=== PATIENT | female | born 1945 | race Caucasian/White ===

== ENCOUNTER 2019-04-19 09:36 | Emergency (ER) | payer MEDICARE, BC, SELFPAY ==
--- NOTE | ~2019-04-19 | XR_ITS ---
XR shoulder LT min 2V 04/19/2019 10:08 Indication: Left shoulder pain. No trauma. Procedure: 4 views left shoulder Comparison: No prior studies for comparison. Findings: There is moderate osteoarthritis of the left glenohumeral joint. No acute fracture or traum atic malalignment. Surrounding osseous structures and soft tissues are unremarkable. Acromioclavicula r joint within normal limits. Impression: 1: Moderate osteoarthritis of the left glenohumeral joint. Reviewed, dictated and finalized at location A. ORT UTILITY WORKER Impression: 1: Moderate osteoarthritis of the left glenohumeral joint.
[2019-04-19 09:43] VITALS: BP 177/60; PULSE 80; RESP 18; TEMP 37.1; O2SAT 95
--- NOTE | 2019-04-19 09:50 | ED.UPPEXIN ---
HPI - Extremity Injury (Upper) General Chief Complaint: Extremity Injury, Upper Stated Complaint: L shoulder pain Time Seen by Provider: 04/19/19 09:48 Source: patient Mode of arrival: ambulatory Limitations: no limitations History of Present Illness HPI narrative: The pt is a 74 y/o female who presents to the ED with c/o lt shoulder pain that began last night. The pt states that she went to bed around 21:30 last night and noticed her shoulder pain at 00:30 when getting up to go to the bathroom in the middle of the night. The pt took Tramadol at this time without much relief of sx, which she is prescribed for arthritis of her knees, feet, and back. Her pain radiates up her lt neck and down her lt arm and is aggravated with movement. The pt denies numbness, tingling, or fever, and notes that she has not had any recent falls nor this type of pain in the past. MD complaint: injury to: shoulder (lt shoulder pain) Onset (ago): hour(s) (last night) Relieving factors: none Exacerbating factors: movement of extremity Associated symptoms: denies other symptoms Related Data Home Medications Medication Instructions Recorded Confirmed alprazolam 04/19/19 amiodarone 04/19/19 atorvastatin [Lipitor] 04/19/19 benazepril 04/19/19 doxazosin mg 04/19/19 ergocalciferol (vitamin D2) mcg PO 04/19/19 esomeprazole magnesium [Nexium] mg 04/19/19 indapamide mg 04/19/19 metformin 500 mg PO BID 04/19/19 potassium chloride [Klor-Con] 04/19/19 rivaroxaban [Xarelto] mg 04/19/19 tramadol mg 04/19/19 venlafaxine [Effexor XR] mg PO 04/19/19 Allergies Allergy/AdvReac Type Severity Reaction Status Date / Time levofloxacin Allergy Unknown PT DOESNT Verified 04/19/19 09:46 REMEBER Review of Systems Review of Systems: All systems reviewed & are unremarkable except as noted in HPI and below Constitutional: Constitutional: Denies fever(s) Musculoskeletal: Musculoskeletal: Reports other (lt shoulder pain) Neurologic: Denies numbness and Denies other (tingling) PMFSH Past Medical History Medical History (Updated 04/19/19 @ 11:23 by Aiyana Wolff MD) A-fib Anxiety Arthritis Back pain Depression Diverticulitis Eczema Gall bladder disease GERD (gastroesophageal reflux disease) Hemorrhoids Hiatal hernia Hyperlipidemia Hypertension Irritable bowel Sleep apnea Type 2 diabetes mellitus UTI (urinary tract infection) Surgical History Surgical History (Updated 04/19/19 @ 10:01 by Shaniqua Ahuja) History of dilatation and curettage History of hernia surgery History of total knee replacement (TKR) rt knee Hx of cholecystectomy Social History Social History (Updated 04/19/19 @ 10:01 by Shaniqua Ahuja) Smoking status: Never smoker Gender identity (if verbalized by the patient): Female Exam Narrative: Exam Narrative: GENERAL: Well-appearing, well-nourished, and in no acute distress. HEAD: Normocephalic, atraumatic EYES: PERRLA and EOMI, conjunctiva clear without discharge THROAT:Mucous membranes moist, Oropharynx normal without erythema, exudate, peritonsillar swelling or fluctuance NECK: Supple, without lymphadenopathy or mass RESPIRATORY: No respiratory distress, Airway patent, Respirations non-labored, Clear to auscultation without rales, rhonchi or wheeze HEART: Regular rate and rhythm. No murmur heard. Normal peripheral pulses. ABDOMEN: Soft, nontender, nondistended, normal active bowel sounds. No masses. No rebound or guarding, No organomegaly. EXTREMITIES: No edema, patient has full passive ROM. She has pain with abduction and palpation anteriorly, no redness, no increased warm. able to move normally at elbow and distally SKIN: Warm, dry, normal color without rash NEURO: Alert and oriented x3. CN 2-12 grossly intact. No focal deficits. PSYCH: Normal mood and affect. Course Reevaluation(s) Reevaluation #1: PAtient states her pain has improved. I discussed xray shows moderate OA.
[2019-04-19] MEDS: HYDROMORPHONE HCL 1 MG/ML INJ 0.5 MG IV PUSH (10:12)
[2019-04-19] MEDS: ONDANSETRON INJ 4 MG/2 ML VIAL IV PUSH (10:13)
[2019-04-19 10:22] LABS: Basophils Absolute Auto 0.1 K/mm3 (0.0-0.1); Basophils Percent Auto 0.4 % (0.2-1.2); Eosinophils Percent Auto 0.3 % (0-4.4); Hematocrit 32.7 % (37.0-47.0); Hemoglobin 9.8 g/dL (12.0-15.0); Immature Granulocyte Absolute 0.03 K/mm3 (0.00-0.031); Immature Granulocyte Percent A 0.3 % (0-0.5); Lymphocytes Absolute Auto 1.65 K/mm3 (0.9-3.2); Lymphocytes Percent Auto 14.8 % (18.3-44.2); Mean Corpuscular Hemoglobin 25.7 pg (26-34); Mean Corpuscular Volume 85.6 fl (80-100); Mean Platelet Volume 9.3 fl (7.4-10.4); Monocytes Absolute Auto 0.9 K/mm3 (0.1-0.6); Monocytes Percent Auto 8.4 % (2.6-8.5); Neutrophils Absolute Auto 8.4 K/mm3 (1.3-6.7); Neutrophils Percent Auto 75.8 % (45.5-73.1); Platelet Count Result 270 k/mm3 (150-375); Red Blood Count 3.82 M/mm3 (4.2-5.4); Red Cell Distribution Width 15.9 % (11.5-14.5); White Blood Count 11.1 K/mm3 (4.5-10.0)
[2019-04-19 10:32] LABS: INR 1.1; Prothrombin Time 14.3 Seconds (11.1-14.7)
[2019-04-19 10:33] LABS: Partial Thromboplastin Time 29.2 SECONDS (22.3-36.8)
[2019-04-19 10:47] VITALS: TEMP 37.1
[2019-04-19 10:47] LABS: Blood Urea Nitrogen 14 mg/dL (7-17); Calcium 8.7 mg/dL (8.4-10.2); Carbon Dioxide 31 mmol/L (22-30); Chloride 102 mmol/L (98-107); Estimated CRCL calculation 84 ml/min; Estimated Glomerular Filt Rate > 60; Glucose 115 mg/dL (65-105); Potassium 3.5 mmol/L (3.4-5.0); Sodium 140 mmol/L (137-145)
[2019-04-19 10:48] VITALS: BP 150/48; PULSE 65; RESP 18; O2SAT 95
[2019-04-19 10:57] LABS: CRP 1.2 mg/dL (<1.0)
[2019-04-19 11:43] VITALS: BP 141/48
== END 2019-04-19 11:45 | disposition home or self-care (01) ==
PROVIDERS: Emergency Provider General Practice; PCP Nurse Practitioner Adult Health
DX: M25.512 Pain in left shoulder (principal); I48.91 Unspecified atrial fibrillation; E11.9 Type 2 diabetes mellitus without complications; F41.9 Anxiety disorder, unspecified; M19.90 Unspecified osteoarthritis, unspecified site; F32.9 Major depressive disorder, single episode, unspecified; K21.9 Gastro-esophageal reflux disease without esophagitis; E78.5 Hyperlipidemia, unspecified; I10 Essential (primary) hypertension; K58.9 Irritable bowel syndrome, unspecified; G47.30 Sleep apnea, unspecified; M19.072 Primary osteoarthritis, left ankle and foot; Z79.01 Long term (current) use of anticoagulants; Z87.440 Personal history of urinary (tract) infections; Z96.651 Presence of right artificial knee joint; Z79.84 Long term (current) use of oral hypoglycemic drugs
CPT/HCPCS: 36415; 73030; 80048; 85025; 85610; 85730; 86140; 96374; 96375; 99284; A4565; J1170; J2405

== ENCOUNTER 2019-04-24 12:24 | Outpatient (CLI) | payer MEDICARE, BC, SELFPAY ==
--- NOTE | ~2019-04-24 | XR_ITS ---
EXAMINATION: XR chest 2V EXAM DATE: 04/24/2019 12:59 INDICATION: On amiodarone therapy. TECHNIQUE: Frontal and lateral projections of the chest obtained and reviewed. Comparison is made to prior examination from 05/20/2017. FINDINGS: The lungs are clear. There are no pleural effusions. The cardiomediastinal silhouette is within normal limits. There is no pneumothorax suspected. The bones and soft tissues are unremarkab le. IMPRESSION: No acute cardiopulmonary findings. Reviewed, dictated and finalized at location B. ERAGE COORDINATOR
--- NOTE | 2019-04-26 18:08 | WPDPFTINT ---
PFT Interpretation PFT Interpretation: DOS: 04/24/2019 REQUESTING: Dr. Castillo REASON FOR TESTING: Amiodarone PULMONARY FUNCTION TESTS Results are reproducible. Spirometry: Normal FEV1, FVC, FEV1%. No bronchodilator given. Lung volumes: Normal TLC and RV. Normal airway resistance. Diffusion: DLCO [61%, mildly decreased. Flow volume loop: Normal. IMPRESSION: Normal spirometry, lung volumes, and flow volume loop with a mild decrease in DLCO. Compared to a prior spirometry 01/06/2018, values are similar however only the spirometry was performed. This mild decrease in diffusion may reflect amiodarone use. Prior DLCO is not available to compare. Recommend repeating spirometry with DLCO in 6 months to follow trend. Gi Ridley MD
== END 2019-04-24 12:25 | disposition home or self-care (01) ==
LOC: ANHPFT 12:28
PROVIDERS: Visit Provider Internal Medicine Cardiovascular Disease
DX: Z79.899 Other long term (current) drug therapy (principal)
CPT/HCPCS: 71046; 94375; 94726; 94729

== ENCOUNTER 2019-04-30 14:21 | Outpatient (CLI) | payer MEDICARE, BC, SELFPAY ==
--- NOTE | ~2019-04-30 | MM_ITS ---
EXAMINATION: MM screening haydee BI w kelley HISTORY: Screening mammogram TECHNIQUE: Craniocaudal and mediolateral oblique 3-D tomosynthesis images were obtained and synthetic 2-D images were generated. CAD analysis was submitted and interpreted. COMPARISON: Comparison to multiple prior studies sequentially, with oldest reviewed study dated 03/2012. BREAST PARENCHYMAL COMPOSITION: There are scattered areas of fibroglandular density. FINDINGS: There are benign left breast calcifications. There is no evidence of suspicious mass, calci fication, or architectural distortion to suggest malignancy in either breast. There has been no suspi cious interval change. IMPRESSION: 1. No mammographic evidence of malignancy. 2. Recommend routine screening mammography in one year. BI-RADS Category 2: Benign finding(s). Reviewed, dictated and finalized at location A. CASTING OPERATOR
== END 2019-04-30 14:22 | disposition home or self-care (01) ==
LOC: ANHIMG 14:25
PROVIDERS: Visit Provider Nurse Practitioner Adult Health
DX: Z12.31 Encounter for screening mammogram for malignant neoplasm of breast (principal)
CPT/HCPCS: 77063; 77067

== ENCOUNTER 2019-08-08 18:09 | Emergency (ER) | payer MEDICARE, BC, SELFPAY ==
--- NOTE | ~2019-08-08 | XR_ITS ---
EXAMINATION: [id number] DATE: 08/08/2019 19:02 INDICATION: Left anterior rib pain. Fall. TECHNIQUE: A frontal view of the chest and 3 views of the left ribs were obtained. COMPARISON: Chest 2 views 04/24/2019 FINDINGS: There is mild atelectasis at the lung bases. No pleural effusion or pneumothorax. Cardiomeg silver is noted. IMPRESSION: 1. No rib fracture. 2. Mild atelectasis at the lung bases. 3. Cardiomegaly. Reviewed, dictated and finalized at location A.
[2019-08-08 18:16] VITALS: BP 153/49; PULSE 84; RESP 18; TEMP 36.7; O2SAT 97
[2019-08-08 18:22] VITALS: RESP 18; O2SAT 97
--- NOTE | 2019-08-08 18:28 | ED.GENADULT ---
HPI - General Adult General Chief complaint: Fall Stated complaint: Fall Time Seen by Provider: 08/08/19 18:21 History of Present Illness HPI narrative: Patient is a 74 y/o female complaining of left sided chest pain under her breast after she fell down on her knees 1 week ago. She states that she was helped up by her with a gait belt and it may have contributed to her pain. She rates her pain as 8/10 and it radiates to her left back. She states that pain is worse with coughing, walking and standing. She denies any SOB or fever. She also has bruises on her knees. Related Data Home Medications Medication Instructions Recorded Confirmed alprazolam 04/19/19 amiodarone 04/19/19 atorvastatin [Lipitor] 04/19/19 benazepril 04/19/19 doxazosin mg 04/19/19 ergocalciferol (vitamin D2) mcg PO 04/19/19 esomeprazole magnesium [Nexium] mg 04/19/19 indapamide mg 04/19/19 metformin 500 mg PO BID 04/19/19 potassium chloride [Klor-Con] 04/19/19 rivaroxaban [Xarelto] mg 04/19/19 tramadol mg 04/19/19 venlafaxine [Effexor XR] mg PO 04/19/19 Allergies Allergy/AdvReac Type Severity Reaction Status Date / Time levofloxacin Allergy Unknown PT DOESNT Verified 04/19/19 09:46 REMEBER Review of Systems Constitutional: Constitutional: Denies chills, Denies fever(s), Denies headache(s) and Denies weakness Eyes: Eyes: Denies blurry vision ENT: Denies headache(s) and Denies neck pain Cardiovascular: Cardiovascular: Denies chest pain and Denies dyspnea Respiratory: Respiratory: Reports as per HPI, Denies cough, Reports pain with cough, Denies dyspnea and Reports other (left chest wall pain) Gastrointestinal: Gastrointestinal: Denies abdominal pain, Denies diarrhea, Denies nausea and Denies vomiting Genitourinary: Genitourinary: Denies hematuria and Denies dysuria Musculoskeletal: Musculoskeletal: Denies back pain and Denies neck pain Neurologic: Denies headache(s) and Denies weakness [facility] Past Medical History Medical History A-fib Anxiety Arthritis Back pain Depression Diverticulitis Eczema Gall bladder disease GERD (gastroesophageal reflux disease) Hemorrhoids Hiatal hernia Hyperlipidemia Hypertension Irritable bowel Sleep apnea Type 2 diabetes mellitus UTI (urinary tract infection) Surgical History Surgical History History of dilatation and curettage History of hernia surgery History of total knee replacement (TKR) rt knee Hx of cholecystectomy Social History Social History Smoking status: Never smoker Gender identity (if verbalized by the patient): Female Exam Const: General: no acute distress and well developed Orientation/consciousness: oriented to person, oriented to place, oriented to time and patient oriented x3 HENMT: Head: normocephalic Ears: external ears normal General nose exam: Normal external nose present Eyes: General: appearance normal, both eyes and all related structures Conjunctivae: conjunctivae normal Neck: Neck: normal visual inspection and full ROM Chest: Chest palpation & inspection: normal inspection of the chest and tenderness (left chest wall under breast) Resp: Effort & Inspection: normal respiratory effort Auscultation: clear to auscultation bilaterally Cardio: Rate: regular rate Rhythm: regular rhythm GI: GI Palp: No abdominal tenderness and Yes Soft to palpation Skin: General skin exam: normal color, turgor normal and ecchymosis (both knees) Neuro: General: oriented to person, oriented to place, oriented to time and patient oriented x3 Cognition (Neuro): normal cognition Extrem: General: normal to inspection, full ROM and no pedal edema Psych: Appearance: grossly normal Mental Status: mental status grossly normal Affect: normal affect Course Vital Signs Vital signs: Vital Si
[2019-08-08 18:56] LABS: Basophils Percent Auto 0.2 % (0.2-1.2); Hematocrit 33.7 % (37.0-47.0); Hemoglobin 10.1 g/dL (12.0-15.0); Immature Granulocyte Absolute 0.02 K/mm3 (0.00-0.031); Immature Granulocyte Percent A 0.2 % (0-0.5); Lymphocytes Absolute Auto 1.02 K/mm3 (0.9-3.2); Lymphocytes Percent Auto 12.7 % (18.3-44.2); Mean Corpuscular Hemoglobin 25.4 pg (26-34); Mean Corpuscular Volume 84.9 fl (80-100); Mean Platelet Volume 9.1 fl (7.4-10.4); Monocytes Absolute Auto 0.6 K/mm3 (0.1-0.6); Neutrophils Absolute Auto 6.4 K/mm3 (1.3-6.7); Neutrophils Percent Auto 79.9 % (45.5-73.1); Platelet Count Result 271 k/mm3 (150-375); Red Blood Count 3.97 M/mm3 (4.2-5.4); Red Cell Distribution Width 16.1 % (11.5-14.5)
[2019-08-08 19:09] LABS: Blood Urea Nitrogen 15 mg/dL (7-17); Calcium 9.2 mg/dL (8.4-10.2); Carbon Dioxide 31 mmol/L (22-30); Chloride 104 mmol/L (98-107); Estimated CRCL calculation 74 ml/min; Estimated Glomerular Filt Rate > 60; Glucose 124 mg/dL (65-105); Potassium 3.7 mmol/L (3.4-5.0); Sodium 141 mmol/L (137-145)
[2019-08-08 19:20] VITALS: BP 163/60; PULSE 63; RESP 14; O2SAT 93
[2019-08-08 20:06] LABS: Troponin I < 0.012 ng/mL (0.000-0.034)
[2019-08-08 20:27] VITALS: BP 145/64; PULSE 69; RESP 14; TEMP 36.6; O2SAT 94
== END 2019-08-08 20:31 | disposition home or self-care (01) ==
PROVIDERS: Emergency Provider Emergency Medicine; PCP Nurse Practitioner Adult Health
DX: S20.212A Contusion of left front wall of thorax, initial encounter (principal); I48.91 Unspecified atrial fibrillation; E78.5 Hyperlipidemia, unspecified; E11.9 Type 2 diabetes mellitus without complications; I10 Essential (primary) hypertension; G47.30 Sleep apnea, unspecified; K21.9 Gastro-esophageal reflux disease without esophagitis; M19.90 Unspecified osteoarthritis, unspecified site; F41.9 Anxiety disorder, unspecified; F32.9 Major depressive disorder, single episode, unspecified; Z79.01 Long term (current) use of anticoagulants; Z87.440 Personal history of urinary (tract) infections; Z96.651 Presence of right artificial knee joint; Z79.84 Long term (current) use of oral hypoglycemic drugs; W19.XXXA Unspecified fall, initial encounter
CPT/HCPCS: 36415; 71101; 80048; 84484; 85025; 99284

== ENCOUNTER 2020-05-19 12:27 | Outpatient (CLI) | payer MEDICARE, BC, SELFPAY ==
--- NOTE | 2020-05-22 10:03 | WPDPFTINT ---
PFT Interpretation This PFT met all criteria for ATS standards and reproducibility FEV/FVC pre bronchodilator 75% FEV1 77% FVC 78% or 2.23 L TLC 62% or 3.23 L RV 43% RV/TLC 31% DLCO 83% when adjusted for alveolar volume but not adjusted for hemoglobin Flow volume loops showed Impression: a restrictive ventilatory defect is present. When compared to his prior pulmonary function test dated 04/24/2019 there has been a significant decline in total lung capacity from 85% of predicted to 62% of predicted. A restrictive ventilatory pattern can be seen in obese patients such as this patient but interstitial lung disease from amiodarone toxicity or other causes cannot be ruled out. Clinical and radiographic correlation is advised. would recommend a high-resolution CT if not already done.
== END 2020-05-19 12:28 | disposition home or self-care (01) ==
LOC: ANHPFT 12:29
PROVIDERS: PCP Nurse Practitioner Adult Health; Visit Provider Internal Medicine Cardiovascular Disease
DX: Z51.81 Encounter for therapeutic drug level monitoring (principal); Z79.899 Other long term (current) drug therapy
CPT/HCPCS: 94375; 94726; 94729

== ENCOUNTER 2020-06-06 13:57 | Outpatient (CLI) | payer MEDICARE, BC, SELFPAY ==
--- NOTE | ~2020-06-06 | CT_ITS ---
EXAMINATION: CT diagnostic chest wo con EXAM DATE: 06/06/2020 14:17 INDICATION: Abnormal pulmonary function tests. TECHNIQUE: Spiral CT of the chest without contrast. HRCT. Axial, coronal and sagittal images were rev iewed. Coronal maximum intensity pixel images of chest reviewed. The dose-length product (DLP) for this examination was 1058.66 mGy-cm. The exposure was tailored according to patient size (auto mA ex posure control), and iterative reconstruction (ASIR) was used as additional dose reduction technique. There is no prior study for comparison. FINDINGS: The lungs are clear. No evidence of interstitial lung disease. There are no pleural or per icardial effusions. Tracheobronchial tree is patent. There is no mediastinal, hilar or axillary l ymphadenopathy. There is no pneumothorax. Mild cardiomegaly. The main, central pulmonary arteries are dilated which can indicate elevated pulmonary arterial pressure, pulmonary arterial hypertension . There is mild coronary arterial calcification, arterial sclerosis. Upper abdomen is unremarkable . There is thoracic spondylosis without osteoblastic or osteolytic lesions identified. IMPRESSION: 1. Cardiomegaly and mildly dilated central pulmonary arteries. 2. Clear lungs. Reviewed, dictated and finalized at location A.
== END 2020-06-06 13:58 | disposition home or self-care (01) ==
PROVIDERS: PCP Nurse Practitioner Adult Health; Visit Provider Internal Medicine Cardiovascular Disease
DX: Z79.899 Other long term (current) drug therapy (principal); R94.2 Abnormal results of pulmonary function studies
CPT/HCPCS: 71250

== ENCOUNTER 2021-01-30 14:31 | Outpatient (CLI) | payer MEDICARE, BC, SELFPAY ==
--- NOTE | ~2021-01-30 | MM_ITS ---
EXAMINATION: MM screening haydee BI w kelley HISTORY: Screening TECHNIQUE: Craniocaudal and mediolateral oblique 3-D tomosynthesis images were obtained and synthetic 2-D images were generated. CAD analysis was submitted and interpreted. COMPARISON: Comparison to multiple prior studies sequentially, with oldest reviewed study dated 06/2013. BREAST PARENCHYMAL COMPOSITION: There are scattered areas of fibroglandular density. FINDINGS: There is no evidence of suspicious mass, calcification, or architectural distortion to sugg est malignancy in either breast. There has been no suspicious interval change. IMPRESSION: 1. No mammographic evidence of malignancy. 2. Recommend routine screening mammography in one year. BI-RADS Category 1: Negative Reviewed, dictated and finalized at location A. O/VISUAL MANAGER
== END 2021-01-30 14:32 | disposition home or self-care (01) ==
PROVIDERS: PCP Nurse Practitioner Adult Health; Visit Provider Nurse Practitioner Adult Health
DX: Z12.31 Encounter for screening mammogram for malignant neoplasm of breast (principal)
CPT/HCPCS: 77063; 77067

== ENCOUNTER 2021-11-17 13:24 | Outpatient (CLI) | payer MEDICARE, BC, SELFPAY ==
--- NOTE | ~2021-11-17 | XR_ITS ---
XR chest 2V DATE: 11/17/2021 13:56 INDICATION: Amiodarone therapy TECHNIQUE: PA and lateral views COMPARISON: 06/06/2020 CT chest FINDINGS: Cardiomegaly. Aortic arch calcification. No hilar or mediastinal enlargement. No pulmonary infiltrate or consolidation, pleural effusion or pulmonary vascular congestion or pneumothorax is saroj dent. Osteopenia. Diffuse idiopathic skeletal hyperostosis and dextroscoliosis of the thoracic spine. IMPRESSION: Cardiomegaly Aortic atherosclerosis No active pulmonary disease Reviewed, dictated and finalized at location B.
== END 2021-11-17 13:25 | disposition home or self-care (01) ==
PROVIDERS: PCP Nurse Practitioner Adult Health; Visit Provider Internal Medicine Cardiovascular Disease
DX: Z79.899 Other long term (current) drug therapy (principal); I25.10 Atherosclerotic heart disease of native coronary artery without angina pectoris; I51.7 Cardiomegaly
CPT/HCPCS: 71046

== ENCOUNTER 2021-12-15 13:21 | Outpatient (CLI) | payer MEDICARE, BC, SELFPAY ==
--- NOTE | 2021-12-18 17:44 | WPDPFTINT ---
PFT Procedure Performed PFT Procedure Performed Plethysmography (Lung Vol) Diffusing Cap (DLCO) Flow Vol Loop Spirometry w/o Bronchodil PFT Interpretation This is a pulmonary function test with spirometry, plethysmography and diffusing capacity. The test was performed and results interpreted in accordance with the 2019 and 2005 ATS/ERS Task Force guidelines respectively using the Global Lung Function Initiative-2012 reference equations. Patient demonstrated good effort and cooperation. Reproducibility criteria were met. The quality of the spirometry maneuver was Grade A. Findings: Spirometry: The contour the inspiratory and expiratory flow tracing are normal. The FVC is 2.13 L, 76% predicted. The FEV1 is 1.61 L, 75% predicted. The FEV1: FVC ratio 76%. Plethysmography: The total lung capacity is 3.75 L, 72% predicted. The functional residual capacity is 1.81 L, 61% predicted. The residual volume is 1.58 L, 68% predicted. Diffusing capacity: The diffusing capacity unadjusted for hemoglobin and carboxyhemoglobin is 18.9, 92% predicted. The diffusing capacity adjusted for alveolar volume is 5.19, 124% predicted. compared to previous pulmonary function testing on 05/19/2020 the FVC is unchanged from 2.23 L to 2.13 L. The FEV1 is unchanged from 1.68 L to 1.61 L. The total lung capacity has increased from 3.23 L to 3.75 L. The functional residual capacity is increased from 1.22 L to 1.81 L. The residual volume has increased from 1.00 L to 1.58 L. The diffusing capacity on adjusted for hemoglobin and carboxyhemoglobin is unchanged from 17.0 to 18.9. The diffusing capacity adjusted for alveolar volume is unchanged from 4.84 to 5.19 Impression: There is a mild restrictive ventilatory abnormality with a normal FEV1. The spirometry is normal without evidence of an obstructive abnormality. The diffusing capacity is normal. when compared to prior pulmonary function testing on 05/19/2020 there has been a greater than anticipated time dependent increase in the total lung capacity, functional residual capacity and residual volume with no significant change in the FVC, FEV1 or diffusing capacity. Clinical correlation is recommended.
== END 2021-12-15 13:22 | disposition home or self-care (01) ==
LOC: ANHPFT 13:23
PROVIDERS: PCP Nurse Practitioner Adult Health; Visit Provider Internal Medicine Cardiovascular Disease
DX: Z51.81 Encounter for therapeutic drug level monitoring (principal); Z79.899 Other long term (current) drug therapy; R94.2 Abnormal results of pulmonary function studies
CPT/HCPCS: 94375; 94726; 94729

== ENCOUNTER 2022-06-02 08:07 | Inpatient (IN) | payer MEDICARE, BC, SELFPAY ==
[2022-06-02] VITALS (11 sets, daily range): BP systolic 144–184; BP diastolic 38–64; PULSE 71–90; RESP 18–20; TEMP 36.5–37.1; O2SAT 95–99; BMI 44.7
--- NOTE | 2022-06-02 | ECG_ITS ---
Measurements Intervals [place] Rate: 72 P: -61 IN: 79 QRS: -20 QRSD: 112 T: 79 QT: 402 QTc: 442 Interpretive Statements JUNCTIONAL RHYTHM MODERATE INTRAVENTRICULAR CONDUCTION DELAY NONSPECIFIC T-WAVE ABNORMALITY BORDERLINE ECG NO PREVIOUS ECG AVAILABLE FOR COMPARISON Electronically Signed On 06-02-2022 15:25:28 CDT by Tonny Coyne M.D.
--- NOTE | ~2022-06-02 | CT_ITS ---
EXAMINATION: CTA brain carotid DATE: 06/04/2022 15:22 INDICATION: Right thalamic infarct. TECHNIQUE: Computed tomographic angiography (CTA) of the head was performed without and with 100 mL O mnipaque-350 intravenous contrast. CTA of the neck was performed with intravenous contrast. Automated exposure control and iterative reconstruction technique were employed. The dose-length product was 1 840.82 mGy-cm. Maximum intensity projection and volume rendered 3D-reconstructions were created by ab reddy technologist on a separate workstation. COMPARISON: Brain MRI 06/03/2022, head CT 06/02/2022 FINDINGS: HEAD CTA: There is an acute infarct in the right thalamus. There is an old infarct involving the left basal ganglia. There are scattered areas of low attenuation in the cerebral white matter. There is n o intracranial hemorrhage or abnormal mass lesion. The ventricles are normal in size. There are likel y changes of ocular lens replacement surgeries. There is mild mucosal thickening in the paranasal sin uses. The mastoid air cells are normal. The vertebral arteries are codominant. There is no significan t stenosis of basilar artery or the posterior cerebral arteries. The posterior communicating arteries are normal. There is no significant stenosis of the intracranial internal carotid arteries or anteri or or middle cerebral arteries. Anterior communicating artery is normal. There is no aneurysm. NECK CTA: There are nodules in the thyroid measuring up to 9 mm, cannot clinically significant. There are no pathologically enlarged lymph nodes. There is no significant stenosis of the vertebral arter ies. There is mild plaque in the proximal internal carotid arteries. There is 0% stenosis of the prox imal right internal carotid artery relative to normal distal artery lumen diameter (NASCET criteria). There is 0% stenosis of the proximal left internal carotid artery relative to normal distal artery l umen diameter. There is mild cervical spondylosis. IMPRESSION: 1. Acute infarct involving right thalamus. 2. Old infarct in the left basal ganglia. 3. Mild nonspecific cerebral white matter disease, which likely represents chronic small vessel ische marion disease. 4. No aneurysm or significant intracranial arterial stenosis. 5. 0% stenosis of the proximal internal carotid arteries relative to normal distal artery lumen diame ters (NASCET criteria). Reviewed, dictated and finalized at location A. IMPRESSION: 1. Acute infarct involving right thalamus. 2. Old infarct in the left basal ganglia. 3. Mild nonspecific cerebral white matter disease, which likely represents wrapper sizer drew small vessel ischemic disease. 4. No aneurysm or significant intracranial arterial stenosis. 5. 0% stenosis of the proximal internal carotid arteries relative to normal dis barbara artery lumen diameters (NASCET criteria).
--- NOTE | ~2022-06-02 | XR_ITS ---
XR tibia fibula LT 2V DATE: 06/02/2022 08:59 INDICATION: Proximal tibial and fibular pain after fall TECHNIQUE: AP and lateral views of the left lower leg COMPARISON: None FINDINGS: There is osteopenia. Tricompartment osteoarthritis of the left knee. Trimalleolar ankle fracture with lateral subluxation of the tibiotalar joint Mild plantar and posterior calcaneal enthesopathy. Arterial calcifications. IMPRESSION: Trimalleolar ankle fracture with lateral tibiotalar subluxation Osteopenia Tricompartment osteoarthritis Plantar and posterior calcaneal enthesopathy Reviewed, dictated and finalized at location A.
--- NOTE | ~2022-06-02 | XR_ITS ---
EXAMINATION: XR surgery orthopedic DATE: 06/05/2022 14:15 CDT INDICATION: ORIF LT ANKLE . TECHNIQUE: 5 fluoroscopic images of the left ankle were obtained during left ORIF performed by the mario cote. I was not present in the operating room. Fluoroscopy exposure time was 46.7 seconds. Air Kerma 2.95 mGy. DAP 0.15877 mGym2. COMPARISON: None FINDINGS: Screw and plate fixation of the distal left fibula. Soft tissue anchors. No unexpected radiopaque for eign body. Widening of the medial gutter. IMPRESSION: Fluoroscopic documentation of left ORIF. Please refer to the operative note for complete procedural d etails . Reviewed, dictated and finalized at location K. IMPRESSION: Fluoroscopic documentation of left ORIF. Please refer to the operative note for complete procedural details .
--- NOTE | ~2022-06-02 | XR_ITS ---
XR chest 1V DATE: 06/02/2022 08:59 INDICATION: Preoperative evaluation TECHNIQUE: AP chest COMPARISON: 11/17/2021 AP and lateral chest FINDINGS: Cardiomegaly. Aortic calcification. No pulmonary infiltrate or consolidation, pleural effusion or pulmonary vascular congestion or pneumo thorax. Osteopenia. Degenerative spurring and extra scoliosis of the thoracic spine. IMPRESSION: Cardiomegaly, aortic atherosclerosis No active pulmonary disease Osteopenia Reviewed, dictated and finalized at location A.
--- NOTE | ~2022-06-02 | XR_ITS ---
XR ankle LT min 3V DATE: 06/02/2022 08:58 INDICATION: Left ankle deformity after fall TECHNIQUE: 3 views including crosstable lateral COMPARISON: None FINDINGS: Trimalleolar fracture with approximately 7 mm lateral subluxation of the tibiotalar joint. Mild plantar and posterior calcaneal enthesopathy. Anterior and posterior tibial artery calcification. IMPRESSION: Trimalleolar fracture with approximately 7 mm lateral subluxation at the tibiotalar joint Reviewed, dictated and finalized at location A. IMPRESSION: Trimalleolar fracture with approximately 7 mm lateral subluxation a t the tibiotalar joint
--- NOTE | ~2022-06-02 | MR_ITS ---
EXAMINATION: MR brain/brain stem wo/w con DATE: 06/03/2022 14:39 INDICATION: Cerebrovascular accident. TECHNIQUE: Magnetic resonance imaging (MRI) of the brain and brainstem was performed without and with 20 mL MultiHance intravenous contrast. COMPARISON: Head CT 06/02/2022 FINDINGS: There is an acute infarct involving right thalamus. There are scattered areas of nonspecifi c increased T2-weighted signal intensity in the cerebral white matter and nanette. There is an old infar ct involving the left basal ganglia. There is no intracranial hemorrhage or abnormal mass lesion. The ventricles are normal. There are likely changes of ocular lens replacement surgeries. There is mild mucosal thickening in the ethmoid sinuses. The mastoid air cells are normal. IMPRESSION: 1. Acute infarct involving right thalamus. 2. Old infarct in the left basal ganglia. 3. Mild nonspecific cerebral white matter disease and pontine disease, which likely represents chroni c small vessel ischemic disease. Reviewed, dictated and finalized at location E. IMPRESSION: 1. Acute infarct involving right thalamus. 2. Old infarct in the left basal ganglia. 3. Mild nonspecific cerebral white matter disease and pontine disease, which rudy ludwig represents chronic small vessel ischemic disease.
--- NOTE | ~2022-06-02 | US_ITS ---
EXAMINATION: US carotid duplex BI DATE: 06/03/2022 11:43 INDICATION: Subacute or chronic left basal ganglia infarct, cerebral atherosclerosis and chronic smal l vessel ischemic changes of the cerebral white matter noted on June 02, 2022 CT brain TECHNIQUE: Grayscale, color Doppler, and pulsed Doppler images of the cervical carotid arteries were obtained. The degree of vessel stenosis is placed in one of the following categories: normal, <50%, 5 0-69%, >=70% but less than near-occlusion, near-occlusion, or total occlusion. Note that percent sten osis relative to normal distal artery lumen diameter is indirectly measured from velocity measurement s as described by Clint, et al. Radiology 2003; 229:340-346. COMPARISON: June 02, 2022 CT brain 12/23/2014 ultrasound carotid duplex examination FINDINGS: RIGHT: The right common carotid artery (CCA) peak systolic velocity (PSV) is 98.6 cm/s. The right internal c arotid artery (ICA) PSV is 101.6 cm/s. The right ICA end-diastolic velocity (EDV) is 15.3 cm/s. The r ight ICA/CCA PSV ratio is 1.0. Grayscale and color Doppler images yield an estimate of less than 50% diameter reduction from plaque in the ICA. The external carotid artery (ECA) PSV. Is 129.1 cm/s. Ther e is antegrade flow in the right vertebral artery. LEFT: The left CCA PSV is 119.8 cm/s. The left ICA PSV is 115.5 cm/s. The left ICA EDV is 18.5 cm/s. The le ft ICA/CCA PSV ratio is 1.0. Grayscale and color Doppler images yield an estimate of less than 50% di ameter reduction from plaque in the ICA. The ECA PSV is 79.6 cm/s. There is antegrade flow in the lef t vertebral artery. IMPRESSION: 1. Less than 50% stenosis in the right internal carotid artery. 2. Less than 50% stenosis in the left internal carotid artery. Reviewed, dictated and finalized at Location A. Reviewed, dictated and finalized at location A.
--- NOTE | ~2022-06-02 | XR_ITS ---
XR hip LT 2V w AP pelvis DATE: 06/02/2022 08:58 INDICATION: Left hip pain after fall TECHNIQUE: AP pelvis. AP and lateral views of left hip. COMPARISON: 01/25/2014 CT abdomen pelvis FINDINGS: Osteopenia. No pelvic fracture or bone destruction is evident. Normal alignment at the pubic symphysis and sacroi liac joints. Iliolumbar ligament ossification on the left. There is moderate osteoarthritic change at the left hip. No fracture, dislocation, avascular necrosis or bone destruction is detected. Femoral artery calcification. IMPRESSION: Moderate osteoarthritis of left hip Osteopenia No pelvic or left hip fracture or dislocation is evident Reviewed, dictated and finalized at location A.
--- NOTE | ~2022-06-02 | CT_ITS ---
EXAMINATION: CT brain wo con DATE: 06/02/2022 09:05 INDICATION: Fall. Head injury. TECHNIQUE: Computed tomography (CT) of the head was performed without intravenous contrast. The mA wa s adjusted according to patient size. Iterative reconstruction technique was employed. Exam dose: 60 5.33 mGy-cm total exam DLP. COMPARISON: 03/14/2017 CT brain FINDINGS: Left vertebral artery calcification and prominent bilateral carotid siphon internal carotid artery calcifications. There is nonspecific diminished attenuation of the cerebral white matter. Subacute or chronic left ba radha ganglia infarct. No intracranial mass lesion or hemorrhage, midline shift or mass effect. Prominent cerebral and moderate cerebellar atrophy. No subdural or epidural hematoma is detected. Occasional opacified ethmoid air cells. Minimal mucoperiosteal thickening of right sphenoid sinus and mucous retention cyst or polyp in the posterior left sphenoid sinus.. The paranasal sinuses and mast oid air cells are otherwise unremarkable. No skull fracture or bone destruction. IMPRESSION: No skull fracture or acute intracranial finding Cerebral atherosclerosis and chronic small vessel ischemic changes of the cerebral white matter Subacute or chronic left basal ganglia infarct Cerebral and cerebellar atrophy Reviewed, dictated and finalized at Location A. Reviewed, dictated and finalized at location A. IMPRESSION: No skull fracture or acute intracranial finding Cerebral atherosclerosis and chronic small vessel ischemic changes of the cereb ral white matter Subacute or chronic left basal ganglia infarct Cerebral and cerebellar atrophy
--- NOTE | 2022-06-02 08:21 | ED.GENADULT ---
HPI - General Adult General Chief complaint: Fall Stated complaint: fall, L ankle pain Time Seen by Provider: 06/02/22 08:11 History of Present Illness HPI narrative: 77-year-old female presented to the emergency department for evaluation after having a ground-level fall and a left ankle injury. Patient states that she was attempting to bring her to the hospital when she had a ground-level fall. Patient states that her ankle was twisted up underneath her. was able to help readjust her and put her ankle in a more anatomical position. Patient denies striking head denies loss conscious. Patient does report pain in the left hip left lower leg and ankle. Upon arrival to the ED there is swelling and ecchymosis of the left ankle. Patient is neurovascularly intact but does have extensive ecchymosis of the left ankle. Patient also does have some ecchymosis of the left upper arm but has no pain or decreased range of motion. Patient does have a history of A-fib, hypertension and diabetes. Patient is on blood thinners (Xarelto) Related Data Home Medications Medication Instructions Recorded Confirmed alprazolam 0.5 mg tablet 0.5 mg PO TID 04/19/19 06/02/22 amiodarone 200 mg tablet 200 mg PO DAILY 04/19/19 06/02/22 atorvastatin 40 mg tablet (Lipitor) 40 mg PO DAILY 04/19/19 06/02/22 benazepril 20 mg tablet 20 mg PO DAILY 04/19/19 06/02/22 doxazosin 4 mg tablet 4 mg PO DAILY 04/19/19 06/02/22 ergocalciferol (vitamin D2) 50 mcg 50 mcg PO DAILY 04/19/19 06/02/22 (2,000 unit) capsule esomeprazole magnesium 40 mg 40 mg PO DAILY 04/19/19 06/02/22 capsule,delayed release (Nexium) indapamide 2.5 mg tablet 2.5 mg PO DAILY 04/19/19 06/02/22 metformin 500 mg tablet 500 mg PO BID 04/19/19 06/02/22 potassium chloride 20 mEq oral 20 meq PO DAILY 04/19/19 06/02/22 packet (Klor-Con) rivaroxaban 20 mg tablet (Xarelto) 20 mg PO DAILY 04/19/19 06/02/22 tramadol 50 mg tablet 50 mg PO Q6H PRN Pain 04/19/19 06/02/22 venlafaxine 150 mg 150 mg PO DAILY 04/19/19 06/02/22 capsule,extended release 24 hr (Effexor XR) Allergies Allergy/AdvReac Type Severity Reaction Status Date / Time levofloxacin Allergy Unknown PT DOESNT Verified 06/02/22 08:23 REMEBER Review of Systems Review of Systems: All systems reviewed & are unremarkable except as noted in HPI and below PMFSH Past Medical History Medical History (Updated 06/02/22 @ 14:04 by Puja Bates PA-C) Anxiety Arthritis Back pain Chronic anticoagulation Depression Diverticulitis Eczema Gastroesophageal reflux disease Hemorrhoids Hiatal hernia Hyperlipidemia Hypertension Irritable bowel Obstructive sleep apnea Paroxysmal atrial fibrillation Type 2 diabetes mellitus Vitamin D deficiency Surgical History Surgical History (Updated 06/02/22 @ 13:56 by Puja Bates PA-C) History of cholecystectomy (08/2002) History of dilatation and curettage History of repair of hiatal hernia History of right knee joint replacement Family History Family History (Updated 06/02/22 @ 13:57 by Puja Bates PA-C) Mother Acute myocardial infarction Diabetes mellitus Social History Social History (Updated 06/02/22 @ 13:57 by Puja Bates PA-C) Social History: Surrogate medical decision maker: Code status: Smoking status: Never smoker Alcohol intake: never Substance use: never Lack of Transportation: No Lack of Food: Never True Current Housing: I Have Housing Concerned About Future Housing: No Difficulty Paying Gas/Electric Bills: No Difficulty Paying for Meds: No Currently Unemployed: No Education: High School Diploma/GED Difficulty w/ Childcare or Family Care: No Additional living arrangements comments: Lives with spouse in [place]. They have 2 children. Spiritual care concerns: No Exam Narrative: APPEARANCE: Well appearing, no pain, no distress, well-nourished. HEAD: normocephalic, atraumatic. EYES:
[2022-06-02] MEDS: fentaNYL CITRATE INJ (*CRX) 100 MCG/2 ML VIAL 50 MCG IV PUSH (08:41)
[2022-06-02 08:50] LABS: Basophils Percent Auto 0.4 % (0.2-1.2); Eosinophils Percent Auto 0.2 % (0-4.4); Hematocrit 27.9 % (37.0-47.0); Hemoglobin 7.4 g/dL (12.0-15.0); Immature Granulocyte Absolute 0.03 K/mm3 (0.00-0.031); Immature Granulocyte Percent A 0.3 % (0-0.5); Lymphocytes Absolute Auto 1.36 K/mm3 (0.9-3.2); Lymphocytes Percent Auto 13.7 % (18.3-44.2); Mean Corpuscular HGB Conc 26.5 g/dl (32-36); Mean Corpuscular Hemoglobin 19.6 pg (26-34); Mean Platelet Volume 9.7 fl (7.4-10.4); Monocytes Absolute Auto 0.8 K/mm3 (0.1-0.6); Monocytes Percent Auto 7.6 % (2.6-8.5); Neutrophils Absolute Auto 7.7 K/mm3 (1.3-6.7); Neutrophils Percent Auto 77.8 % (45.5-73.1); Platelet Count Result 339 k/mm3 (150-375); Red Blood Count 3.77 M/mm3 (4.2-5.4); Red Cell Distribution Width 19.6 % (11.5-14.5); White Blood Count 9.9 K/mm3 (4.5-10.0)
[2022-06-02 08:58] LABS: Alanine Aminotransferase 17 U/L (6-35); Albumin Level 3.6 g/dL (3.5-5.1); Alkaline Phosphatase 88 U/L (38-126); Anion Gap 9 mmol/L (8-16); Aspartate Amino Transferase 25 U/L (14-36); Bilirubin,Total 0.4 mg/dL (0.2-1.3); Blood Urea Nitrogen 19 mg/dL (7-17); Carbon Dioxide 28 mmol/L (22-30); Chloride 104 mmol/L (98-107); Estimated CRCL calculation 69 ml/min; Estimated Glomerular Filt Rate > 60; Glucose 124 mg/dL (65-110); Potassium 3.7 mmol/L (3.4-5.0); Sodium 141 mmol/L (137-145)
[2022-06-02 09:09] LABS: Appearance Urine Clear (Clear); Bilirubin Urine Negative (Negative); Blood Urine Negative (Negative); Color Urine Yellow (Yellow); Glucose Urine UA Negative (Negative); Ketones Urine Negative (Negative); Leukocyte Esterase Ur Negative LEU/UL (Negative); Nitrate Urine Negative (Negative); Protein Urine Negative (Negative); Specific Grav Ur 1.019 (1.001-1.035); Urobilinogen Urine 0.2 mg/dL (<2.0)
[2022-06-02 09:13] LABS: Add Urine Microscopic? NO; INR 1.3; Partial Thromboplastin Time 29.6 SECONDS (22.3-36.8); Prothrombin Time 15.9 Seconds (11.1-14.7)
[2022-06-02 09:18] LABS: Platelet Estimate Adequate (Adequate)
[2022-06-02 09:19] LABS: Anisocytosis 2+ (NORMAL); Hypochromasia 1+ (NORMAL); Microcytosis 1+ (NORMAL); Poikilocytosis 1+ (NORMAL); Schistocytes None Seen (NORMAL)
[2022-06-02] MEDS: HYDROmorphone HCL INJ (*CRX) 1 MG/ML SYR 0.5 MG IV PUSH ×2 (09:49→14:26)
--- NOTE | 2022-06-02 11:41 | PC.NURSE ---
Pt placed on 2L o2 at this time, pt was stating in mid to high 80s. Denies feeling short of breath.
--- NOTE | 2022-06-02 14:01 | ECHO_ITS ---
Patient Info Name: Litzy aCmp Age: 77 years : 1945 Gender: Female Ht: 65 in Wt: 268 lbs BSA: 2.43 m2 HR: 78 bpm BP: 153 / 38 mmHg Heart Rhythm: Sinus Rhythm Technical Quality: Fair Exam Date: 06/02/2022 2:22 PM Exam Location: [facility] Pulmonary Exam Room: 243 Patient Status: Inpatient Admit Date: 06/02/2022 Staff Ordering Physician: Puja Bates PA-C Claim Examiner: Yaquelin Grant RDCS Attending Provider: Rebeca Parker MD Referring Physician: Jana MARKS; Exam Type: CA echo doppler color flow Study Info Indications - htn cva afib s/p fall Complete two-dimensional, color flow and Doppler transthoracic echocardiogram is performed. Summary 1. Complete two-dimensional, color flow and Doppler transthoracic echocardiogram is performed. 2. Left ventricular chamber dimension is normal. 3. Technically difficult study with limited views. 4. Left ventricular systolic function is normal, estimated at 65-70%. 5. There is mildly increased left ventricular wall thickness. 6. Left ventricular septal wall motion is abnormal with septal motion related to bundle branch block. 7. The left ventricular diastolic function is grade II diastolic dysfunction. 8. Left atrial chamber dimension is moderately enlarged. 9. There is no aortic valve stenosis. 10. There is mild mitral valve regurgitation. 11. There is trace tricuspid valve regurgitation. 12. Mild pulmonary hypertension, estimated pulmonary arterial systolic pressure is 38 mmHg. Left Ventricle Left ventricular chamber dimension is normal. Left ventricular systolic function is normal, estimated at 65-70%. There is mildly increased left ventricular wall thickness. Left ventricular septal wall motion is abnormal with septal motion related to bundle branch block. The left ventricular diastolic function is grade II diastolic dysfunction. Technically difficult study with limited views. Right Ventricle Right ventricular chamber dimension is normal. Right ventricular systolic function is normal. Left Atria Left atrial chamber dimension is moderately enlarged. Right Atria Right atrial chamber dimension is upper limits of normal. Aortic Valve The aortic valve is not well visualized. There is no aortic valve stenosis. There is no aortic valve regurgitation. Pulmonic Valve The pulmonic valve is not well visualized. Mitral Valve The mitral valve has normal leaflets. There is mild mitral valve regurgitation. The mitral valve annulus is mildly calcified. Tricuspid Valve The tricuspid valve leaflets are normal. There is trace tricuspid valve regurgitation. Mild pulmonary hypertension, estimated pulmonary arterial systolic pressure is 38 mmHg. Pericardium/Pleural The pericardium appears normal. There is small pericardial effusion. Inferior Vena Cava Normal inferior vena cava with >50% collapse upon inspiration consistent with normal right atrial pressure, 5 mmHg. Aorta The aortic root size at the sinus of Valsalva is normal. There is mild aortic atherosclerosis. Left Ventricular Outflow Tract Name Value Normal LVOT 2D LVOT Diameter 2.1 cm LVOT Doppler
--- NOTE | 2022-06-02 14:15 | PM.IMHP ---
H&P: HPI History of Present Illness Date/Time: 06/02/22 14:15 Chief Complaint: Left ankle pain after fall. Narrative: This is a very pleasant 77-year-old female with paroxysmal atrial fibrillation on chronic anticoagulation, type 2 diabetes mellitus, hypertension, hyperlipidemia, and obstructive sleep apnea presented to the emergency department via EMS from home for evaluation of left ankle pain after a fall. Patient provides the following history. While walking from the bedroom to the bathroom this morning she reports that her left leg ?gave out? and she twisted her left ankle before falling down onto her bottom on the carpeted floor. She had immediate, severe pain in that left ankle and was unable to get herself up. Imaging in the ED showed a trimalleolar ankle fracture with lateral tibiotalar subluxation. With further questioning she reports having bilateral foot inversion and she typically wears ankle braces when walking but not at home. She does not feel her gait had any bearing on her fall today. More over she tells me that yesterday her left arm ?felt weird and was going numb? and she had some strange sensations in the left leg as well, almost like it was falling asleep. Brain CT done on arrival showed no acute intracranial finding but did notice subacute or chronic left basal ganglia infarct. This of course does not correlate with the symptoms that she is having on the left side. Her labs were significant for a microcytic anemia with a hemoglobin of 7.4, hematocrit 27.9%, an MCV of 74. She is on chronic anticoagulation as detailed above and on occasion she does notice that her stools are a bit dark but she has not noticed any gross blood. She denies epigastric and abdominal pain, bloating, and belching. She states that her GERD is well controlled on pantoprazole. She has no known history of peptic ulcers. To her knowledge she has not had issues with anemia but she does endorse craving ice over the past 1 year or so. At the time my evaluation her main complaint is of pretty severe pain in the left ankle. She denies fever, chills, sweats, vertigo, facial droop, difficulty speaking and swallowing, acute auditory and visual changes, chest and pleuritic pain, palpitations, shortness of breath, nausea, vomiting, diarrhea, and dysuria. She also denies epistaxis, gingival bleeding, hematemesis, hemoptysis, hematuria, and hematochezia. Of note she last took her Xarelto at 17:00 last evening. Review of Systems Review of Systems: Twelve systems were reviewed and are negative except for as per HPI. FORMERLY [facility] Past Medical History Medical History Anxiety Arthritis Back pain Chronic anticoagulation Depression Diverticulitis Eczema Gastroesophageal reflux disease Hemorrhoids Hiatal hernia Hyperlipidemia Hypertension Irritable bowel Obstructive sleep apnea Paroxysmal atrial fibrillation Type 2 diabetes mellitus Vitamin D deficiency Surgical History Surgical History History of cholecystectomy (08/2002) History of dilatation and curettage History of repair of hiatal hernia History of right knee joint replacement Family History Family History (Updated 06/02/22 @ 13:57 by Puja Bates PA-C) Mother Acute myocardial infarction Diabetes mellitus Social History Social History (Updated 06/04/22 @ 00:57 by Puja Bates PA-C) Social History: Surrogate medical decision maker: Jorge Camp, spouse. Code status: DNR. Smoking status: Never smoker Alcohol intake: never Substance use: never Lack of Transportation: No Lack of Food: Never True Current Housing: I Have Housing Concerned About Future Housing: No Difficulty Paying Gas/Electric Bills: No Difficulty Paying for Meds: No Currently Unemployed: No Education: High School Diploma/GED Difficulty w/ Childcare or Family Care: No Additional living ar
[2022-06-02 14:28] LABS: Hematocrit 25.4 % (37.0-47.0); Immature Reticulocyte Fraction 26.7 % (3.0-15.9); Reticulocyte Hemoglobin Conten 18.7 pg (28.2-35.7); Reticulocyte Percent 1.77 % (0.7-4.3); Reticulocytes Absolute 0.06 B/L (32.2-175.7)
[2022-06-02 14:36] LABS: Iron < 10 ug/dL (37-170)
[2022-06-02 14:41] LABS: Hemoglobin A1C 5.8 % (<5.7)
[2022-06-02 14:47] LABS: Percent Iron Saturation 3 % (20-50)
[2022-06-02 14:48] LABS: Hemoglobin 6.9 g/dL (12.0-15.0)
[2022-06-02 15:23] LABS: Ferritin 4.31 ng/mL (11.1-264)
[2022-06-02 16:00] LABS: Folic Acid 7.8 ng/mL (2.76->20)
[2022-06-02 17:06] LABS: Glucose Point of Care 117 mg/dl (65-105)
[2022-06-02] MEDS: HYDROcodone/acetaminophen (*CRX) 5-325 MG TABLET 1 TAB PO (19:47)
[2022-06-02 20:31] LABS: Glucose Point of Care 155 mg/dl (65-105)
[2022-06-02] MEDS: ALPRAZolam (*CRX) 0.5 MG TABLET 1 MG PO (21:48)
[2022-06-02] MEDS: ATORVASTATIN 40 MG TABLET PO (21:48)
[2022-06-02] MEDS: DOXAZOSIN MESYLATE 2 MG TABLET PO (21:48)
[2022-06-02] MEDS: WATER FOR IRRIGATION, STERILE 1,000 ML BOTTLE 1000 ML (21:52)
[2022-06-03] VITALS (22 sets, daily range): BP systolic 133–179; BP diastolic 40–69; PULSE 18–93; RESP 16–20; TEMP 36.2–37.1; O2SAT 92–100
[2022-06-03] MEDS: HYDROcodone/acetaminophen (*CRX) 5-325 MG TABLET 1 TAB PO ×4 (01:40→21:53)
[2022-06-03] MEDS: SODIUM CHLORIDE 0.9% IV 250 ML 30 ML IV CONT (05:00)
--- NOTE | 2022-06-03 05:11 | PC.NURSE ---
Dr. Decker aware of cold antibody 06/03/22 at 0455 and will come sign least compatible blood paper. She is aware that blood warmer is being used.
[2022-06-03] MEDS: HYDROmorphone HCL INJ (*CRX) 1 MG/ML SYR 0.5 MG IV PUSH (05:51)
[2022-06-03 08:08] LABS: Glucose Point of Care 112 mg/dl (65-105)
--- NOTE | 2022-06-03 09:31 | PM.IMPN ---
Progress Note: A&P Assessment and Plan (1) Fall from ground level: Code(s): W18.30XA - Fall on same level, unspecified, initial encounter Status: Acute Assessment and Plan: Patient reports mechanical fall ?my left leg gave out.? Patient does report wearing braces to both feet chronically but does not wear these at home, which likely contributed to her fall. Continue fall precautions. TSH within normal limits, B12 low at 213. Head CT negative. Brain MRI pending Carotid Doppler shows less than 50% stenosis right and left ICA Patient is notably anemic with hemoglobin 7.4 on admission. Last prior hemoglobin 10.1 in July 2019. Echocardiogram shows mild LVH, normal left ventricle systolic function normal, EF 60-70%, grade 2 diastolic dysfunction and mild pulmonary hypertension. (2) Closed left trimalleolar fracture: Code(s): S82.852A - Displaced trimalleolar fracture of left lower leg, initial encounter for closed fracture Status: Acute Assessment and Plan: Noted on x-ray. Splinted in the ED. Dr. Dnih, orthopedics, consulted and appreciate recommendations. Continue bed rest until evaluated by orthopedics. Continue analgesics IV and p.o. as needed. (3) Abnormal CT of brain: Code(s): R90.89 - Other abnormal findings on diagnostic imaging of central nervous system Status: Acute Assessment and Plan: Subacute versus chronic left basal ganglia infarct noted as detailed above. Her recent symptoms do not correlate with this finding and may be incidental finding. Brain MRI ordered and pending given reports of left-sided weakness. Carotid Doppler and 50% left and right ICA stenosis (4) Microcytic anemia: Code(s): D50.9 - Iron deficiency anemia, unspecified Status: Acute Assessment and Plan: Hemoglobin 7.4 on admission and recheck 6.9. The patient was ordered 2 units PRBC and infused. Repeat hemoglobin 8.7 today. Prior Hgb 10 in 2019 suggesting this is chronic. Continue to trend H&H. fecal occult pending. Serum iron 10, TIBC 390, iron sat 3%, ferritin low 4.3. Given a for 200 mg IV x1 and start oral iron supplementation. B 12 low 213, start B12 supplement 1000 mcg p.o. daily Patient may need GI consultation if occult stool positive. Will treat with pantoprazole 40 mg IV BID given previous documentation of black stools. Xarelto is on hold due to possible surgery and profound anemia. (5) Hypertension: Code(s): I10 - Essential (primary) hypertension Status: Chronic Assessment and Plan: Blood pressures are elevated BP 170/70s. Continue continued on doxazosin, indapamide, and lisinopril substituted for home benazepril due to formulary. May have a pain component. Add IV hydralazine p.r.n. SBP greater than 180 or DBP greater than 100 (6) Type 2 diabetes mellitus: Code(s): E11.9 - Type 2 diabetes mellitus without complications Status: Chronic Assessment and Plan: Chronic, initiate sliding scale insulin, Accu-Cheks, and hypoglycemic protocol. hemoglobin A1c 5.8%. Resume metformin at discharge. (7) Paroxysmal atrial fibrillation: Code(s): I48.0 - Paroxysmal atrial fibrillation Status: Chronic Assessment and Plan: Chronic, continue amiodarone. Xarelto is on hold due to above. (8) Chronic anticoagulation: Code(s): Z79.01 - intermediate designer (current) use of anticoagulants Status: Chronic Assessment and Plan: Holding Xarelto in anticipation of upcoming surgery in the next several days and anemia. (9) Obstructive sleep apnea: Code(s): G47.33 - Obstructive sleep apnea (adult) (pediatric) Status: Chronic Assessment and Plan: CPAP use while hospitalized. Plan Code status: DNR Discharge disposition: Patient is from home. May need SNF rehab. PT OT evaluation after seen by Orthopedics Time Spent With Patient Time with patient: 25
[2022-06-03] MEDS: SODIUM CHLORIDE 0.9% IV 250 ML 50 ML (10:09)
[2022-06-03 11:56] LABS: Glucose Point of Care 111 mg/dl (65-105)
[2022-06-03 14:46] LABS: Hematocrit 30.4 % (37.0-47.0); Hemoglobin 8.7 g/dL (12.0-15.0); Mean Corpuscular HGB Conc 28.6 g/dl (32-36); Mean Corpuscular Hemoglobin 22.8 pg (26-34); Mean Corpuscular Volume 79.6 fl (80-100); Mean Platelet Volume 9.1 fl (7.4-10.4); Platelet Count Result 301 k/mm3 (150-375); Red Blood Count 3.82 M/mm3 (4.2-5.4); Red Cell Distribution Width 20.8 % (11.5-14.5); White Blood Count 9.6 K/mm3 (4.5-10.0)
[2022-06-03 15:09] LABS: Anion Gap 1 mmol/L (8-16); Blood Urea Nitrogen 12 mg/dL (7-17); Calcium 8.9 mg/dL (8.4-10.2); Carbon Dioxide 34 mmol/L (22-30); Chloride 104 mmol/L (98-107); Estimated CRCL calculation 78 ml/min; Estimated Glomerular Filt Rate > 60; Glucose 117 mg/dL (65-110); Magnesium 1.9 mg/dL (1.6-2.3); Potassium 3.6 mmol/L (3.4-5.0); Sodium 139 mmol/L (137-145)
[2022-06-03] MEDS: IRON SUCROSE COMPLEX 200 MG in SODIUM CHLORIDE 0.9% IV 50 ML 120 MG IVPB (15:36)
[2022-06-03 16:56] LABS: Glucose Point of Care 112 mg/dl (65-105)
[2022-06-03] MEDS: DOXAZOSIN MESYLATE 2 MG TABLET PO (18:24)
[2022-06-03] MEDS: INDAPAMIDE 2.5 MG TABLET PO (18:24)
[2022-06-03] MEDS: ATORVASTATIN 40 MG TABLET PO (18:24)
[2022-06-03] MEDS: VENLAFAXINE HCL XR 75 MG CAP.ER.24H 150 MG PO (18:25)
[2022-06-03] MEDS: AMIODARONE HCL 200 MG TABLET PO (18:25)
[2022-06-03] MEDS: POTASSIUM CHLORIDE 20 MEQ PACKET (FOR LIQUID) PO (18:25)
[2022-06-03] MEDS: lisinopriL 20 MG TABLET PO (18:25)
[2022-06-03] MEDS: CHOLECALCIFEROL 1,000 UNITS TABLET 2000 UNITS PO (18:25)
[2022-06-03] MEDS: PANTOPRAZOLE SODIUM IV 40 MG VIAL IV PUSH (20:53)
[2022-06-03] MEDS: ALPRAZolam (*CRX) 0.5 MG TABLET 1 MG PO (20:53)
[2022-06-03 21:09] LABS: IFOB Positive Control Positive; Immunochemical Fecal Occult Bl Negative (N)
[2022-06-03 21:33] LABS: Glucose Point of Care 130 mg/dl (65-105)
[2022-06-04] VITALS (10 sets, daily range): BP systolic 142–155; BP diastolic 49–68; PULSE 64–96; RESP 18–20; TEMP 36.4–36.9; O2SAT 93–97
[2022-06-04 05:53] LABS: Hematocrit 30.4 % (37.0-47.0); Mean Corpuscular HGB Conc 29.6 g/dl (32-36); Mean Corpuscular Hemoglobin 22.8 pg (26-34); Platelet Count Result 292 k/mm3 (150-375); Red Blood Count 3.95 M/mm3 (4.2-5.4); Red Cell Distribution Width 20.7 % (11.5-14.5)
[2022-06-04 06:02] LABS: Anion Gap 3 mmol/L (8-16); Blood Urea Nitrogen 9 mg/dL (7-17); Carbon Dioxide 33 mmol/L (22-30); Chloride 104 mmol/L (98-107); Estimated CRCL calculation 78 ml/min; Estimated Glomerular Filt Rate > 60; Glucose 108 mg/dL (65-110); Potassium 3.6 mmol/L (3.4-5.0); Sodium 140 mmol/L (137-145)
[2022-06-04 07:48] LABS: Glucose Point of Care 104 mg/dl (65-105)
[2022-06-04 09:14] LABS: Glucose Point of Care 111 mg/dl (65-105)
[2022-06-04] MEDS: FERROUS SULFATE 324 MG TABLET PO (09:21)
[2022-06-04] MEDS: PANTOPRAZOLE SODIUM IV 40 MG VIAL IV PUSH ×2 (09:21→20:57)
[2022-06-04] MEDS: ALPRAZolam (*CRX) 0.5 MG TABLET 1 MG PO ×3 (09:22→16:49)
[2022-06-04] MEDS: HYDROcodone/acetaminophen (*CRX) 5-325 MG TABLET 1 TAB PO ×3 (09:33→23:22)
--- NOTE | 2022-06-04 11:25 | PM.IMPN ---
Progress Note: A&P Assessment and Plan (1) Fall from ground level: Code(s): W18.30XA - Fall on same level, unspecified, initial encounter Status: Acute Assessment and Plan: Patient reports mechanical fall ?my left leg gave out.?? Patient does report wearing braces to both feet chronically but does not wear these at home, which likely contributed to her fall.? Continue fall precautions. TSH within normal limits, B12 low at 213. Head CT negative. 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 Carotid Doppler shows less than 50% stenosis right and left ICA Patient is notably anemic with hemoglobin 7.4 on admission.? Last prior hemoglobin 10.1 in July 2019.? Echocardiogram shows mild LVH, normal left ventricle systolic function normal, EF 60-70%, grade 2 diastolic dysfunction and mild pulmonary hypertension. (2) Closed left trimalleolar fracture: Code(s): S82.852A - Displaced trimalleolar fracture of left lower leg, initial encounter for closed fracture Status: Acute Assessment and Plan: Analgesics available as needed. Encourage elevation of the extremity. Dr. Dinh consulted. (3) CVA (cerebral vascular accident): Code(s): I63.9 - Cerebral infarction, unspecified Status: Acute Assessment and Plan: Head CT negative. 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 Neurology consult and appreciate recommendations. Will differ to them for Plavix. Patient on Lipitor 40mg daily. Consider increasing. Will check Lipid panel. Patient taking Xarelto as home med although it is now being help due to possible surgery. PT/OT consult. (4) Abnormal CT of brain: Code(s): R90.89 - Other abnormal findings on diagnostic imaging of central nervous system Status: Acute Assessment and Plan: Subacute versus chronic infarct noted as detailed above. Her recent symptoms do not correlate with this finding. 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 (5) Microcytic anemia: Code(s): D50.9 - Iron deficiency anemia, unspecified Status: Acute Assessment and Plan: Check iron studies, B12, folate, and stool for occult blood. She will be transfused to a stable hemoglobin. Iron less than 10, TIBC normal, % saturation 3, ferritin 4.31 B12 213, weekly IM B12 injections ordered. Continue for 4 weeks. Folate normal and stool occult negative. (6) Hypertension: Code(s): I10 - Essential (primary) hypertension Status: Chronic Assessment and Plan: Blood pressures were reviewed and they have been running high, likely due to pain. Continue antihypertensives and monitor. (7) Type 2 diabetes mellitus: Code(s): E11.9 - Type 2 diabetes mellitus without complications Status: Chronic Assessment and Plan: Initiate sliding scale insulin, Accu-Cheks, and hypoglycemic protocol. Check hemoglobin A1c. (8) Paroxysmal atrial fibrillation: Code(s): I48.0 - Paroxysmal atrial fibrillation Status: Chronic Assessment and Plan: Continue amiodarone. 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 (10) Obstructive sleep apnea: Code(s): G47.33 - Obstructive sleep apnea (adult) (pediatric) Status: Chronic Assessment and Plan: CPAP will be provided for the patient to use while hospitalized. Subjective Date/time seen: 06/04/22 11:25 Interval history: Patient lying in bed with no complaints at this time. Patient is alert and oriented x4. Patient denies numbness and tingling to her lower extremities, upper or low
--- NOTE | 2022-06-04 12:04 | PM.CNOR ---
Assessment and Plan Assessment and plan (1) Closed left trimalleolar fracture: Code(s): S82.852A - Displaced trimalleolar fracture of left lower leg, initial encounter for closed fracture <LOTTIE Jiménez - Last Filed: 06/04/22 15:31> Status: Acute <LOTTIE Jiménez - Last Filed: 06/04/22 15:31> Assessment and Plan: Patient seen and examined. Agree with above documentation. Displaced ankle trimalleolar fracture. Lateral malleolus is displaced and will benefit from ORIF. We discussed the risks, benefits, and alternatives to surgery. <Greyson Dinh MD - Last Filed: 06/04/22 16:11> History of Present Illness HPI Consult date: 06/04/22 <LOTTIE Jiménez - Last Filed: 06/04/22 15:31> 06/04/22 <Greyson Dinh MD - Last Filed: 06/04/22 16:11> Chief complaint: Anemia/Trimalleolar Fracture Left <LOTTIE Jiménez - Last Filed: 06/04/22 15:31> Narrative: Patient fell from standing height in her bedroom. States her leg gave out on her. Admitted to the hospital 06/02/22. 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 She thinks she may have arthritis in her left knee or hip but has not gotten it check out. Typically lives in her home with her . She uses a cane and walker at times. Pain in the ankle today. She states she feels very weak. No numbness or tingling. No other complaints. <LOTTIE Jiménez - Last Filed: 06/04/22 15:31> Review of Systems Review of Systems: All systems reviewed & are unremarkable except as noted in HPI and below <LOTTIE Jiménez - Last Filed: 06/04/22 15:31> PMFSH Past Medical History Medical History: Medical History Anxiety Arthritis Back pain Chronic anticoagulation Depression Diverticulitis Eczema Gastroesophageal reflux disease Hemorrhoids Hiatal hernia Hyperlipidemia Hypertension Irritable bowel Obstructive sleep apnea Paroxysmal atrial fibrillation Type 2 diabetes mellitus Vitamin D deficiency <LOTTIE Jiménez - Last Filed: 06/04/22 15:31> Surgical History Surgical History: Surgical History History of cholecystectomy (08/2002) History of dilatation and curettage History of repair of hiatal hernia History of right knee joint replacement <LOTTIE Jiménez - Last Filed: 06/04/22 15:31> Family History Family History: Family History Mother Acute myocardial infarction Diabetes mellitus <LOTTIE Jiménez - Last Filed: 06/04/22 15:31> Social History Social History: Social History Social History: Surrogate medical decision maker: Jorge Camp, spouse. Code status: DNR. Smoking status: Never smoker Alcohol intake: never Substance use: never Lack of Transportation: No Lack of Food: Never True Current Housing: I Have Housing Concerned About Future Housing: No Difficulty Paying Gas/Electric Bills: No Difficulty Paying for Meds: No Currently Unemployed: No Education: High School Diploma/GED Difficulty w/ Childcare or Family Care: No Additional living arrangements comments: Lives with spouse in [place]. They have 2 children. Spiritual care concerns: No <LOTTIE Jiménez - Last Filed: 06/04/22 15:31> Meds Home Medications and Allergies Home medications: Home Medications Medication Instructions Recorded Confirmed Type alprazolam 0.5 mg tablet 1 mg PO TID 04/19/19 06/02/22 History amiodarone 200 mg tablet 200 mg PO DAILY 04/19/19 06/02/22 History atorvastatin 40 mg tablet (Lipitor) 40 mg PO QHS 04/19/19 06/02/22 History benazepril 20 mg tablet 20 mg PO DAILY 04/19/19 06/02/22 History doxazosin 4 mg tablet 2 mg PO QHS 04/19/19 06/02/22 History ergocalciferol (vitamin D2
[2022-06-04 12:11] LABS: Glucose Point of Care 102 mg/dl (65-105)
--- NOTE | 2022-06-04 13:08 | WPDNEURCNPN ---
Assessment and Plan Assessment and plan (1) CVA (cerebral vascular accident): Code(s): I63.9 - Cerebral infarction, unspecified Status: Acute (2) Paroxysmal atrial fibrillation: Code(s): I48.0 - Paroxysmal atrial fibrillation Status: Chronic (3) Type 2 diabetes mellitus: Code(s): E11.9 - Type 2 diabetes mellitus without complications Status: Chronic (4) Obstructive sleep apnea: Code(s): G47.33 - Obstructive sleep apnea (adult) (pediatric) Status: Chronic (5) Hypertension: Code(s): I10 - Essential (primary) hypertension Status: Chronic Plan Litzy Camp is a 77 year old female with a history of atrial fibrillation, on chronic anticoagulation, DM, HTN, HLD, COPD who presented [facility] after a fall secondary to her left leg giving out . Found to have right thalamic infarct as noted on MRI brain. Could be failure of anticoagulation. - CTA brain - HgbA1c and LDL level - Continue Atorvastatin 40mg, may need to increase depending on LDL level (goal <70) - Would switch Xarelto to Eliquis 5mg BID due to anticoagulation failure Consult date: 06/04/22 Reason for consult: Stroke HPI: Litzy Camp is a 77 year old female with a history of atrial fibrillation, on chronic anticoagulation, DM, HTN, HLD, COPD who presented [facility] after a fall. Patient presented after she felt her left leg give out while walking to the bedroom on 06/02. She also twisted her left ankle before falling down. At the ED she was noted to have an ankle fracture. She had a CT head that showed subacute vs chronic left basal ganglia infarct. Her labs were significant for a microcytic anemia with a hemoglobin of 7.4, hematocrit 27.9%, an MCV of 74. She reports compliance with her anticoagulation (take Xeralto). She also takes Atorvastatin 40mg daily. During this admission she had an MRI brain which showed an acute right thalamic infarct. Carotid doppler study showed less than 50% stenosis bilaterally. Review of Systems Constitutional: Constitutional: Reports no additional constitutional complaints Eyes: Eyes: Reports no additional eye complaints ENT: Reports system reviewed and no additional complaints, except as documented Cardiovascular: Cardiovascular: Reports no additional cardiovascular complaints Respiratory: Respiratory: Reports no additional respiratory complaints Gastrointestinal: Gastrointestinal: Reports no additional gastrointestinal complaints Genitourinary: Genitourinary: Reports no additional female genitourinary complaints Musculoskeletal: Musculoskeletal: Reports arthralgias Integumentary/Breasts: Skin/Breast: Reports system reviewed and no additional complaints, except as docu Neurologic: Reports as per HPI Psychiatric: Psychiatric: Reports no additional psychiatric complaints [facility] Past Medical History Medical History Anxiety Arthritis Back pain Chronic anticoagulation Depression Diverticulitis Eczema Gastroesophageal reflux disease Hemorrhoids Hiatal hernia Hyperlipidemia Hypertension Irritable bowel Obstructive sleep apnea Paroxysmal atrial fibrillation Type 2 diabetes mellitus Vitamin D deficiency Surgical History Surgical History History of cholecystectomy (08/2002) History of dilatation and curettage History of repair of hiatal hernia History of right knee joint replacement Family History Family History Mother Acute myocardial infarction Diabetes mellitus Social History Social History Social History: Surrogate medical decision maker: Jorge Camp, spouse. Code status: DNR. Smoking status: Never smoker Alcohol intake: never Substance use: never Lack of Transportation: No Lack of Food: Never True Current Ihsan
[2022-06-04] MEDS: CYANOCOBALAMIN INJ 1,000 MCG/ML VIAL 1000 MCG IM (13:09)
--- NOTE | 2022-06-04 13:21 | PCCCNOTE ---
On 06/04/22, the student, [Lisa Moore ], provided care and completed [facility] documentation on this patient. I have reviewed the student's documentation and agree with the findings.
[2022-06-04] MEDS: HYDROmorphone HCL INJ (*CRX) 1 MG/ML SYR 0.5 MG IV PUSH (13:40)
--- NOTE | 2022-06-04 14:43 | PCPTNOTE ---
Ortho consult pending. PT evaluation will be completed once pt is medically stable/consults are completed.
--- NOTE | 2022-06-04 14:49 | PCOTNOTE ---
Ortho consult pending. OT evaluation will be completed once pt is medically stable/consults are completed.
[2022-06-04 15:51] LABS: LDL Cholesterol Direct 32 mg/dL
[2022-06-04] MEDS: VENLAFAXINE HCL XR 75 MG CAP.ER.24H 150 MG PO (16:44)
[2022-06-04] MEDS: AMIODARONE HCL 200 MG TABLET PO (16:44)
[2022-06-04] MEDS: DOXAZOSIN MESYLATE 2 MG TABLET PO (16:44)
[2022-06-04] MEDS: POTASSIUM CHLORIDE 20 MEQ PACKET (FOR LIQUID) PO (16:44)
[2022-06-04 16:45] LABS: Glucose Point of Care 146 mg/dl (65-105)
[2022-06-04] MEDS: INDAPAMIDE 2.5 MG TABLET PO (16:45)
[2022-06-04] MEDS: lisinopriL 20 MG TABLET PO (16:45)
[2022-06-04] MEDS: CHOLECALCIFEROL 1,000 UNITS TABLET 2000 UNITS PO (16:45)
[2022-06-04] MEDS: ATORVASTATIN 40 MG TABLET PO (16:45)
[2022-06-04 17:48] LABS: Hemoglobin A1C 5.5 % (<5.7)
[2022-06-04 22:44] LABS: Glucose Point of Care 113 mg/dl (65-105)
[2022-06-05] VITALS (20 sets, daily range): BP systolic 137–164; BP diastolic 39–63; PULSE 77–98; RESP 16–22; TEMP 36.1–37; O2SAT 90–100
[2022-06-05 05:49] LABS: Hematocrit 30.1 % (37.0-47.0); Hemoglobin 8.7 g/dL (12.0-15.0); Mean Corpuscular HGB Conc 28.9 g/dl (32-36); Mean Corpuscular Hemoglobin 22.7 pg (26-34); Mean Corpuscular Volume 78.4 fl (80-100); Mean Platelet Volume 9.6 fl (7.4-10.4); Platelet Count Result 329 k/mm3 (150-375); Red Blood Count 3.84 M/mm3 (4.2-5.4); Red Cell Distribution Width 21.2 % (11.5-14.5); White Blood Count 10.5 K/mm3 (4.5-10.0)
[2022-06-05 05:51] LABS: Anion Gap 2 mmol/L (8-16); Blood Urea Nitrogen 17 mg/dL (7-17); Calcium 8.6 mg/dL (8.4-10.2); Carbon Dioxide 35 mmol/L (22-30); Chloride 103 mmol/L (98-107); Cholesterol 115 mg/dL (0-200); Estimated CRCL calculation 69 ml/min; Estimated Glomerular Filt Rate > 60; Glucose 112 mg/dL (65-110); HDL Direct 54 mg/dL; Potassium 3.5 mmol/L (3.4-5.0); Sodium 140 mmol/L (137-145); Triglycerides 65 mg/dL (<150)
[2022-06-05 06:01] LABS: LDL Cholesterol Direct 33 mg/dL
--- NOTE | 2022-06-05 07:01 | WPDHPUPDATE1 ---
History and Physical Update Update Date/Time: 06/05/22 07:01 History and Physical has been reviewed, including an updated exam of the patient. There are NO changes in the patient's condition. Risks, benefits, and alternatives have been discussed and questions answered. Patient agrees to proceed with procedure.
--- NOTE | 2022-06-05 07:08 | PCOTNOTE ---
Plan for surgery today, will complete OT evaluation post surgery with WB status.
--- NOTE | 2022-06-05 07:33 | PM.IMPN ---
Progress Note: A&P Assessment and Plan (1) Fall from ground level: Code(s): W18.30XA - Fall on same level, unspecified, initial encounter Status: Acute Assessment and Plan: Patient reports mechanical fall ?my left leg gave out.?? Patient does report wearing braces to both feet chronically but does not wear these at home, which likely contributed to her fall.? Continue fall precautions. TSH within normal limits, B12 low at 213. Head CT negative. 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 acute right thalamus ischemic stroke may have contributed to left leg weakness. Carotid Doppler shows less than 50% stenosis right and left ICA Patient is notably anemic with hemoglobin 7.4 on admission.? Last prior hemoglobin 10.1 in July 2019.? Echocardiogram shows mild LVH, normal left ventricle systolic function normal, EF 60-70%, grade 2 diastolic dysfunction and mild pulmonary hypertension. PT/OT postop (2) Closed left trimalleolar fracture: Code(s): S82.852A - Displaced trimalleolar fracture of left lower leg, initial encounter for closed fracture Status: Acute Assessment and Plan: Analgesics available as needed. Encourage elevation of the extremity. Dr. Dinh consulted and plan for left ankle ORIF today 06/05/22. (3) CVA (cerebral vascular accident): Code(s): I63.9 - Cerebral infarction, unspecified Status: Acute Assessment and Plan: Head CT negative. 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 Neurology consult and appreciate recommendations. Will differ to them for antiplatelet/anticoagulation Patient on Lipitor 40mg daily. LDL 33 A1c 5.5% Patient taking Xarelto as home med although this is being help due to surgery. PT/OT consult when cleared for out of bed and weight bearing recommendations by Ortho (4) Abnormal CT of brain: Code(s): R90.89 - Other abnormal findings on diagnostic imaging of central nervous system Status: Acute Assessment and Plan: As above. (5) Microcytic anemia: Code(s): D50.9 - Iron deficiency anemia, unspecified Status: Acute Assessment and Plan: Hgb 7.4 - 6.9, s/p 2 units PRBC. Transfuse Hgb<7 Iron less than 10, TIBC normal, % saturation 3, ferritin 4.31 B12 213, weekly IM B12 injections ordered. Continue for 4 weeks. Folate normal and stool occult negative. FOBT negative H/H stable 8.7/30% (6) Hypertension: Code(s): I10 - Essential (primary) hypertension Status: Chronic Assessment and Plan: Blood pressures were reviewed and they have been running high, likely due to pain. Continue antihypertensives and monitor. (7) Type 2 diabetes mellitus: Code(s): E11.9 - Type 2 diabetes mellitus without complications Status: Chronic Assessment and Plan: Initiate sliding scale insulin, Accu-Cheks, and hypoglycemic protocol. hemoglobin A1c 5.5% (8) Paroxysmal atrial fibrillation: Code(s): I48.0 - Paroxysmal atrial fibrillation Status: Chronic Assessment and Plan: Continue amiodarone. Will need to change Xarelto to Eliquis 5 mg BID due to acute right thalamus ischemic stroke when cleared by ortho surgery postop. (9) Chronic anticoagulation: Code(s): Z79.01 - retirement (current) use of anticoagulants Status: Chronic Assessment and Plan: Hold anticoagulation for left ankle ORIF and resume when okay with surgery. (10) Obstructive sleep apnea: Code(s): G47.33 - Obstructive sleep apnea (adult) (pediatric) Status: Chronic Assessment and Plan: CPAP will be provided for the patient to use while hospitalized. Plan Code status:? DNR Discharge disposition:? Patient is from home.? PT OT evaluation after seen by Orthopedics. She will likel
[2022-06-05] MEDS: HYDROcodone/acetaminophen (*CRX) 5-325 MG TABLET 1 TAB PO (07:46)
[2022-06-05 08:26] LABS: Glucose Point of Care 112 mg/dl (65-105)
[2022-06-05] MEDS: PANTOPRAZOLE SODIUM IV 40 MG VIAL IV PUSH ×2 (08:53→20:46)
--- NOTE | 2022-06-05 08:58 | PCPTNOTE ---
Plan for surgery today, will complete PT evaluation post surgery with WB status.
[2022-06-05] MEDS: HYDROmorphone HCL INJ (*CRX) 1 MG/ML SYR 0.5 MG IV PUSH (10:29)
[2022-06-05 12:06] LABS: Glucose Point of Care 105 mg/dl (65-105)
[2022-06-05] MEDS: LACTATED RINGERS 1,000 ML 30 ML IV CONT ×2 (14:00→17:04)
--- NOTE | 2022-06-05 14:07 | WPDANESEPPF ---
Anes - Initial Pre Proc Eval Procedure: Operation Date: 06/05/22 16:30 Proposed Procedures p Open Reduction Internal Fixation left Lateral Malleolus Ankle Fracture(Left) - Greyson Dinh MD Date/Time: 06/05/22 14:07 Surgeon: Rebeca Parker MD Pre Op Diagnosis: Anemia/Trimalleolar Fracture Left Patient Data Age: 77 Gender: F Height: 1.65 m Weight: 122 kg Last Vital Signs Temp 36.1 C L 06/05/22 04:11 Pulse 85 06/05/22 12:00 Resp 20 06/05/22 04:11 BP 146/56 H 06/05/22 04:11 Pulse Ox 91 06/05/22 08:00 O2 Del Method CPAP 06/05/22 08:00 O2 Flow Rate 2 06/02/22 20:00 Allergies Allergy/AdvReac Type Severity Reaction Status Date / Time levofloxacin Allergy Unknown PT DOESNT Verified 06/02/22 08:23 REMEBER Home Medications Medication Instructions Recorded Confirmed Type alprazolam 0.5 mg tablet 1 mg PO TID 04/19/19 06/02/22 History amiodarone 200 mg tablet 200 mg PO DAILY 04/19/19 06/02/22 History atorvastatin 40 mg tablet (Lipitor) 40 mg PO QHS 04/19/19 06/02/22 History benazepril 20 mg tablet 20 mg PO DAILY 04/19/19 06/02/22 History doxazosin 4 mg tablet 2 mg PO QHS 04/19/19 06/02/22 History ergocalciferol (vitamin D2) 50 mcg 50 mcg PO DAILY 04/19/19 06/02/22 History (2,000 unit) capsule esomeprazole magnesium 40 mg 40 mg PO DAILY 04/19/19 06/02/22 History capsule,delayed release (Nexium) indapamide 2.5 mg tablet 2.5 mg PO DAILY 04/19/19 06/02/22 History metformin 500 mg tablet 500 mg PO BID 04/19/19 06/02/22 History potassium chloride 20 mEq oral 20 meq PO DAILY 04/19/19 06/02/22 History packet (Klor-Con) rivaroxaban 20 mg tablet (Xarelto) 20 mg PO DAILY 04/19/19 06/02/22 History tramadol 50 mg tablet 50 mg PO Q6H PRN Pain 04/19/19 06/02/22 History venlafaxine 150 mg 150 mg PO DAILY 04/19/19 06/02/22 History capsule,extended release 24 hr (Effexor XR) Laboratory Tests 06/04/22 06/04/22 06/04/22 05:03 05:30 16:41 WBC RBC Hgb Hct MCV MCH MCHC RDW Plt Count MPV Sodium Potassium Chloride Carbon Dioxide Anion Gap BUN Creatinine Estim Creat Clear Calc Estimated GFR Glucose POC Capillary Glucose 146 mg/dl H mg/dl (65-105) Hemoglobin A1c 5.5 % % (<5.7) Calcium Triglycerides Cholesterol LDL Cholesterol Direct 32 mg/dL mg/dL HDL Direct 06/04/22 06/05/22 06/05/22 22:39 05:04 05:04 WBC 10.5 K/mm3 H K/mm3 (4.5-10.0) RBC 3.84 M/mm3 L M/mm3 (4.2-5.4) Hgb 8.7 g/dL L g/dL (12.0-15.0) Hct 30.1 % L % (37.0-47.0) MCV 78.4 fl L fl (80-100) MCH 22.7 pg L pg (26-34) MCHC 28.9 g/dl L g/dl (32-36) RDW 21.2 % H % (11.5-14.5) Plt Count 329 k/mm3 k/mm3 (150-375) MPV 9.6 fl fl (7.4-10.4) Sodium 140 mmol/L mmol/L (137-145) Potassium 3.5 mmol/L mmol/L (3.4-5.0) Chloride 103 mmol/L mmol/L (98-107) Carbon Dioxide 35 mmol/L H mmol/L (22-30) Anion Gap 2 mmol/L L mmol/L (8-16) BUN 17 mg/dL mg/dL (7-17) Creatinine 0.80 mg/dL mg/dL (0.7-1.0) Estim Creat Clear Calc 69 ml/min ml/min Estimated GFR > 60 (59 - ) Glucose 112 mg/dL H mg/dL (65-110) POC Capillary Glucose 113 mg/dl H mg/dl (65-105) Hemoglobin A1c Calcium 8.6 mg/dL mg/dL (8.4-10.2) Triglycerides 65 mg/dL mg/dL (<150) Cholesterol 115 mg/dL mg/dL (0-200) LDL Cholesterol Direct 33 mg/dL mg/dL HDL Direct 54 mg/dL mg/dL 06/05/22 06/05/22 08:23 12:00 WBC RBC
[2022-06-05] MEDS: fentaNYL CITRATE INJ (*CRX) 100 MCG/2 ML VIAL 25 MCG IV PUSH (14:15)
[2022-06-05] MEDS: ceFAZolin 3 GM/D5W 100 ML 100 ML IVPB (15:16)
[2022-06-05] MEDS: BUPIVACAINE/EPINEPHRINE 0.5% 50 ML VIAL 30 ML INFILTRATE (15:59)
[2022-06-05] MEDS: VANCOMYCIN HCL 1,000 MG VIAL 1000 MG TOPICAL (16:26)
--- NOTE | 2022-06-05 17:24 | W.PM.PROC2 ---
Procedure Note - Detailed Date of Procedure 06/05/22 Pre-op Diagnosis Anemia/Trimalleolar Fracture Left Post-op Diagnosis Other (1. Acute displaced lateral malleolus fracture and nondisplaced posterior and medial malleolar avulsion fractures 2. 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 Surgeon Greyson Dinh MD Anesthesia General Findings Severe osteopenia. Comminution of the fracture. Large fracture blisters medially and laterally. Severe arthritis at the ankle joint with a tendency towards collapse into the lateral tibial plafond. This was improved with a syndesmosis suture button. The distal button was placed but the cortex osteoporosis was such that the button collapsed into the metaphysis. Description of Procedure Preoperative antibiotics were continued from the floor. General anesthetic was administered. The left leg was prepped and draped in the usual sterile fashion with well-padded tourniquet high on the thigh. The limb was elevated and the tourniquet inflated to 300 mmHg. Large fracture blisters were present and these were released. The lateral suture incision went slightly posterior than normal just behind the anterior fracture blister. The skin itself was quite soft and the swelling was mostly resolved. The soft tissues were essentially completely stripped about the fracture and very little additional soft tissue stripping was required. The fracture was cleared of debris. The fracture was significantly comminuted with very soft osteopenic bone. Careful reduction was accomplished with 3 reduction forceps. Due to the mechanism of lateral shifting at the tibiotalar joint and chronic pes planovalgus severely, a lateral buttress plate was utilized. The anatomic plate from [employer] fit quite nicely. The plate was slightly anterior as it went proximal due to the configuration of the lateral fibular anatomy. All screws had good purchase. Biplanar fluoroscopy was used throughout the procedure. The 1st screw was a cortical compression screw in the shaft. The distal locking screws were placed. Proximal locking screws were then placed. The fibula was nicely buttressed and stable. There was a tendency for the ankle joint to shift laterally into the lateral talar cartilage defect. This appeared to be a chronic situation but there was some widening at the deltoid ligament. Two tight ropes were placed through the remaining holes. This reduced the joint nicely but the distal tight rope did not hold in the cortical bone due to severe osteoporosis. The ankle mortise and the talus remained nicely reduced and had less of a tendency to shift laterally with the single tight rope. The tourniquet was released. The wounds were irrigated. Closure was obtained with 2-0 Vicryl followed by 3-0 nylon horizontal mattress in the skin. Xeroform gauze was applied medially and laterally over the fracture blisters which were decompressed. Bulky padding was applied and a posterior splint with stirrups was created with Ortho Glass. Slight compression applied. The patient was extubated and brought to the recovery room in stable condition. Implants Ar[employer]rex distal fibula locking plate with multiple locking screws. Ar[employer]rex tight rope fixation. Estimated Blood Loss -10.0 Urine Output -300.0 Pathology None sent Complications Other complications (Distal tight rope button cut through the very soft osteoporotic bone and was not supported by the cortical distal tibia. The lateral button and suture was removed.) Condition Stable Disposition PACU [facility] Billing Surgery - Charge Forward: Surgery Billing
[2022-06-05 17:27] LABS: Glucose Point of Care 167 mg/dl (65-105)
[2022-06-05] MEDS: POTASSIUM CHLORIDE 20 MEQ PACKET (FOR LIQUID) PO (20:46)
[2022-06-05] MEDS: SENNA/DOCUSATE SODIUM TABLET 2 TAB PO (20:47)
[2022-06-05] MEDS: VENLAFAXINE HCL XR 75 MG CAP.ER.24H 150 MG PO (20:47)
[2022-06-05] MEDS: ACETAMINOPHEN 500 MG TABLET 1000 MG PO (20:47)
[2022-06-05] MEDS: DOXAZOSIN MESYLATE 2 MG TABLET PO (20:48)
[2022-06-05] MEDS: RIVAROXABAN 10 MG TABLET PO (20:48)
[2022-06-05] MEDS: lisinopriL 20 MG TABLET PO (20:48)
[2022-06-05] MEDS: CHOLECALCIFEROL 1,000 UNITS TABLET 2000 UNITS PO (20:48)
[2022-06-05] MEDS: ATORVASTATIN 40 MG TABLET PO (20:49)
[2022-06-05] MEDS: INDAPAMIDE 2.5 MG TABLET PO (20:49)
[2022-06-05] MEDS: AMIODARONE HCL 200 MG TABLET PO (20:49)
[2022-06-05] MEDS: ceFAZolin 2 GM/D5W 50 ML 2 GM/50 ML BAG IVPB (20:55)
[2022-06-06] VITALS (13 sets, daily range): BP systolic 106–165; BP diastolic 42–55; PULSE 64–84; RESP 16–20; TEMP 36–36.7; O2SAT 94–98
[2022-06-06 05:31] LABS: Hematocrit 28.8 % (37.0-47.0); Hemoglobin 8.3 g/dL (12.0-15.0); Mean Corpuscular HGB Conc 28.8 g/dl (32-36); Mean Corpuscular Volume 79.8 fl (80-100); Mean Platelet Volume 9.3 fl (7.4-10.4); Platelet Count Result 323 k/mm3 (150-375); Red Blood Count 3.61 M/mm3 (4.2-5.4); Red Cell Distribution Width 21.6 % (11.5-14.5); White Blood Count 10.3 K/mm3 (4.5-10.0)
[2022-06-06 05:55] LABS: Anion Gap 1 mmol/L (8-16); Blood Urea Nitrogen 23 mg/dL (7-17); Calcium 8.6 mg/dL (8.4-10.2); Carbon Dioxide 37 mmol/L (22-30); Chloride 103 mmol/L (98-107); Estimated CRCL calculation 63 ml/min; Estimated Glomerular Filt Rate > 60; Glucose 140 mg/dL (65-110); Potassium 4.2 mmol/L (3.4-5.0); Sodium 141 mmol/L (137-145)
[2022-06-06] MEDS: ACETAMINOPHEN 500 MG TABLET 1000 MG PO ×3 (06:10→17:50)
[2022-06-06] MEDS: ceFAZolin 2 GM/D5W 50 ML 2 GM/50 ML BAG IVPB ×2 (06:10→16:04)
[2022-06-06 08:24] LABS: Glucose Point of Care 131 mg/dl (65-105)
[2022-06-06] MEDS: SENNA/DOCUSATE SODIUM TABLET 2 TAB PO ×2 (08:43→17:49)
[2022-06-06] MEDS: PANTOPRAZOLE SODIUM IV 40 MG VIAL IV PUSH ×2 (08:43→20:54)
[2022-06-06] MEDS: polyethylene glycoL 3350 17 GM POWD.PACK PO (08:43)
[2022-06-06] MEDS: FERROUS SULFATE 324 MG TABLET PO (08:43)
[2022-06-06] MEDS: HYDROcodone/acetaminophen (*CRX) 5-325 MG TABLET 1 TAB PO (08:43)
--- NOTE | 2022-06-06 08:50 | PM.PNORT ---
Progress Note: A&P Assessment and Plan (1) Morbid obesity with BMI of 40.0-44.9, adult: Code(s): E66.01 - Morbid (severe) obesity due to excess calories; Z68.41 - Body mass index [BMI] 40.0-44.9, adult Status: Acute (2) Fall from ground level: Code(s): W18.30XA - Fall on same level, unspecified, initial encounter Status: Acute (3) Closed left trimalleolar fracture: Code(s): S82.852A - Displaced trimalleolar fracture of left lower leg, initial encounter for closed fracture Status: Acute Plan Postop day 1: ORIF ankle fracture with internal fixation of the lateral malleolus with supplementation with a tib fib suture button. Patient resting comfortably. Splint intact. Complains of pain. No numbness or tingling. Severe osteopenia observed at time of surgery. Also large fracture blisters medially and laterally.? These were covered with Xeroform gauze under the splint. 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 Due to her osteopenia, obesity, and mobility issues I do recommend rehab or SNF. She will need to be toe touch weight bearing for 4-6 weeks. Okay for discharge from orthopedic standpoint when discharge planing is complete and she is cleared medically. She is currently on 10mg Xarelto. May increase to normal dose at discharge. Ortho instructions: DOS: 06/05/22 D/C to SNF/rehab Follow up in office in 2 weeks from surgery. Will remove stitches, splint, and apply cast at that time. Keep splint dry and intact. May loosen ra wrap if it becomes too tight. PT: toe touch weight bearing DVT prophylaxis: Resume normal 20 mg dose of Xarelto. Pain medication: Oxycodone Subjective Subjective Date/Time Seen: 06/06/22 08:50 Interval history: Patient resting comfortably in bed wearing CPAP. Notes pain. No numbness or tingling or other associated symptoms. Review of Systems Review of Systems: All systems reviewed & are unremarkable except as noted in HPI and below Exam Narrative: Obese 77 y/o female. No acute distress. Alert and oriented. Splint dry and intact. Elevating. Wiggles toes. Light touch sensation intact. Normal capillary refill. Objective Data Vital Signs Vital Signs: Vital Signs - 24 hr 06/05/22 12:00 06/05/22 14:00 06/05/22 17:04 Temperature 98.5 F 98.4 F Pulse Rate 85 86 96 Respiratory Rate 16 22 H Blood Pressure 137/39 L 149/42 H Pulse Oximetry 93 100 Oxygen Delivery Room Air Simple Face Mask Oxygen Flow Rate 2 06/05/22 17:15 06/05/22 17:30 06/05/22 17:45 Temperature Pulse Rate 89 87 88 Respiratory Rate 20 18 20 Blood Pressure 141/63 H 156/54 H 157/54 H Pulse Oximetry 100 99 97 Oxygen Delivery Simple Face Mask Simple Face Mask Simple Face Mask Oxygen Flow Rate 2 2 2 06/05/22 17:50 06/05/22 18:05 06/05/22 18:20 Temperature 97.8 F 98.6 F Pulse Rate 89 87 84 Respiratory Rate 19 16 18 Blood Pressure 151/51 H 154/51 H 150/52 H Pulse Oximetry 98 92 93 Oxygen Delivery Simple Face Mask Oxygen Flow Rate 2 06/05/22 18:50 06/05/22 19:37 06/05/22 20:49 Temperature 98 F 97.2 F L Pulse Rate 82 87 98 Respiratory Rate 18 20 Blood Pressure 157/42 H 164/57 H Pulse Oximetry 95 95 Oxygen Delivery Oxygen Flow Rate 06/05/22 20:00 06/05/22 20:25 06/05/22 20:00 Temperature Pulse Rate 98 83 84 Respiratory Rate 20 Blood Pressure Pulse Oximetry 95 92 Oxygen Delivery Simple Face Mask Oxygen Flow Rate 2 06/05/22 23:37 06/06/22 03:33 06/06/22 00:00 Temperature 96.9 F L 96.8 F L Pulse Rate 78 83 68 Respiratory Rate 20 20 Blood Pressure 154/49 H 165/55 H Pulse Oximetry 99 98 Oxygen Delivery Oxygen Flow Rate 06/06/22 04:00 06/06/22 03:00 06/06/22 08:00 Temperature Pulse Rate 65 83 Respiratory Rate Blood Pressure Pulse Oximetry 96 98 Oxygen Delivery CPAP Oxygen Flow Rate 06/06/22 08:00 Temperature Pulse Rate 64 Respiratory Rate Blood Pressure Pulse Oximetry
--- NOTE | 2022-06-06 09:08 | PCSTNOTE ---
Please refer to the Bedside Swallow Evaluation in the EMR. Please note, silent aspiration cannot be ruled out at bedside.
[2022-06-06] MEDS: ALPRAZolam (*CRX) 0.5 MG TABLET 1 MG PO ×2 (09:52→20:53)
[2022-06-06 12:09] LABS: Glucose Point of Care 122 mg/dl (65-105)
[2022-06-06] MEDS: oxyCODONE HCL (*CRX) 5 MG TAB IR PO ×2 (12:09→16:07)
--- NOTE | 2022-06-06 14:17 | PM.DS ---
DS: Admitting Diagnosis Discharge Date 06/06/22 Admitting Diagnosis left ankle fracture DS: Discharge Diagnosis Discharge Diagnosis (1) Fall from ground level: Code(s): W18.30XA - Fall on same level, unspecified, initial encounter Status: Acute Assessment and Plan: Patient reports mechanical fall ?my left leg gave out.?? Patient does report wearing braces to both feet chronically but does not wear these at home, which likely contributed to her fall.? Continue fall precautions. TSH within normal limits, B12 low at 213. Head CT negative. 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 acute right thalamus ischemic stroke may have contributed to left leg weakness. Carotid Doppler shows less than 50% stenosis right and left ICA Patient is notably anemic with hemoglobin 7.4 on admission.? Last prior hemoglobin 10.1 in July 2019.? Echocardiogram shows mild LVH, normal left ventricle systolic function normal, EF 60-70%, grade 2 diastolic dysfunction and mild pulmonary hypertension. PT/OT postop (2) Closed left trimalleolar fracture: Code(s): S82.852A - Displaced trimalleolar fracture of left lower leg, initial encounter for closed fracture Status: Acute Assessment and Plan: Analgesics available as needed. Encourage elevation of the extremity. Dr. Dinh consulted and plan for left ankle ORIF today 06/05/22. (3) CVA (cerebral vascular accident): Code(s): I63.9 - Cerebral infarction, unspecified Status: Acute Assessment and Plan: Head CT negative. 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 Neurology consult and appreciate recommendations. Will differ to them for antiplatelet/anticoagulation Patient on Lipitor 40mg daily. LDL 33 A1c 5.5% Patient taking Xarelto as home med although this is being help due to surgery. PT/OT consult when cleared for out of bed and weight bearing recommendations by Ortho (4) Abnormal CT of brain: Code(s): R90.89 - Other abnormal findings on diagnostic imaging of central nervous system Status: Acute Assessment and Plan: As above. (5) Microcytic anemia: Code(s): D50.9 - Iron deficiency anemia, unspecified Status: Acute Assessment and Plan: Hgb 7.4 - 6.9, s/p 2 units PRBC. Transfuse Hgb<7 Iron less than 10, TIBC normal, % saturation 3, ferritin 4.31 B12 213, weekly IM B12 injections ordered. Continue for 4 weeks. Folate normal and stool occult negative. FOBT negative H/H stable 8.7/30% (6) Hypertension: Code(s): I10 - Essential (primary) hypertension Status: Chronic Assessment and Plan: Blood pressures were reviewed and they have been running high, likely due to pain. Continue antihypertensives and monitor. (7) Type 2 diabetes mellitus: Code(s): E11.9 - Type 2 diabetes mellitus without complications Status: Chronic Assessment and Plan: Initiate sliding scale insulin, Accu-Cheks, and hypoglycemic protocol. hemoglobin A1c 5.5% (8) Paroxysmal atrial fibrillation: Code(s): I48.0 - Paroxysmal atrial fibrillation Status: Chronic Assessment and Plan: Continue amiodarone. Will need to change Xarelto to Eliquis 5 mg BID due to acute right thalamus ischemic stroke when cleared by ortho surgery postop. (9) Chronic anticoagulation: Code(s): Z79.01 - jail (current) use of anticoagulants Status: Chronic Assessment and Plan: Hold anticoagulation for left ankle ORIF and resume when okay with surgery. (10) Obstructive sleep apnea: Code(s): G47.33 - Obstructive sleep apnea (adult) (pediatric) Status: Chronic Assessment and Plan: CPAP will be provided for the patient to use while hospitalized. Plan Code status:? DNR Disc
--- NOTE | 2022-06-06 14:21 | P.PNIM_ITS ---
Progress Note: A&P Assessment and Plan (1) Fall from ground level: Code(s): W18.30XA - Fall on same level, unspecified, initial encounter Status: Acute Assessment and Plan: Patient reports mechanical fall ?my left leg gave out.?? Patient does report wearing braces to both feet chronically but does not wear these at home, which likely contributed to her fall.? * Continue fall precautions. * TSH within normal limits, B12 low at 213. * Head CT negative. 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 acute right thalamus ischemic stroke may have contributed to left leg weakness. * Carotid Doppler shows less than 50% stenosis right and left ICA * Patient is notably anemic with hemoglobin 7.4 on admission.? Last prior hemoglobin 10.1 in July 2019.? * Echocardiogram shows mild LVH, normal left ventricle systolic function normal, EF 60-70%, grade 2 diastolic dysfunction and mild pulmonary hypertension. * PT/OT postop (2) Closed left trimalleolar fracture: Code(s): S82.852A - Displaced trimalleolar fracture of left lower leg, initial encounter for closed fracture Status: Acute Assessment and Plan: Analgesics available as needed. Encourage elevation of the extremity. Dr. Dinh consulted and plan for left ankle ORIF 06/05/22 * Patient doing well postoperatively * PT OT postoperatively * DVT prophylaxis per ortho. Although neurology recommended patient be transitioned to Eliquis due to Xarelto failure. * Pain management per Ortho (3) CVA (cerebral vascular accident): Code(s): I63.9 - Cerebral infarction, unspecified Status: Acute Assessment and Plan: Head CT negative. 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 * Neurology consult and appreciate recommendations. Will differ to them for antiplatelet/anticoagulation. * Patient on Lipitor 40mg daily. LDL 33 * A1c 5.5% * Patient taking Xarelto as home med although this is being help due to surgery. * PT/OT consult when cleared for out of bed and weight bearing recommendations by Ortho (4) Abnormal CT of brain: Code(s): R90.89 - Other abnormal findings on diagnostic imaging of central nervous system Status: Acute Assessment and Plan: As above. (5) Microcytic anemia: Code(s): D50.9 - Iron deficiency anemia, unspecified Status: Acute Assessment and Plan: Hgb 7.4 - 6.9, s/p 2 units PRBC. Transfuse Hgb <7 * Iron less than 10, TIBC normal, % saturation 3, ferritin 4.31 * B12 213, weekly IM B12 injections ordered. Continue for 4 weeks. * Folate normal and stool occult negative. * FOBT negative * H/H stable 8.7/30% (6) Hypertension: Code(s): I10 - Essential (primary) hypertension Status: Chronic Assessment and Plan: Blood pressures were reviewed and they have been running high, likely due to pain. Continue antihypertensives and monitor. (7) Type 2 diabetes mellitus: Code(s): E11.9 - Type 2 diabetes mellitus without complications Status: Chronic Assessment and Plan: Initiate sliding scale insulin, Accu-Cheks, and hypoglycemic protocol. Hemoglobin A1c 5.5%. (8) Paroxysmal atrial fibrillation: Code(s): I48.0 - Paroxysmal atrial fibrillation Status: Chronic Assessment and Plan: Continue amiodarone.
--- NOTE | 2022-06-06 14:21 | PM.IMPN ---
Progress Note: A&P Assessment and Plan (1) Fall from ground level: Code(s): W18.30XA - Fall on same level, unspecified, initial encounter Status: Acute Assessment and Plan: Patient reports mechanical fall ?my left leg gave out.?? Patient does report wearing braces to both feet chronically but does not wear these at home, which likely contributed to her fall.? Continue fall precautions. TSH within normal limits, B12 low at 213. Head CT negative. 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 acute right thalamus ischemic stroke may have contributed to left leg weakness. Carotid Doppler shows less than 50% stenosis right and left ICA Patient is notably anemic with hemoglobin 7.4 on admission.? Last prior hemoglobin 10.1 in July 2019.? Echocardiogram shows mild LVH, normal left ventricle systolic function normal, EF 60-70%, grade 2 diastolic dysfunction and mild pulmonary hypertension. PT/OT postop (2) Closed left trimalleolar fracture: Code(s): S82.852A - Displaced trimalleolar fracture of left lower leg, initial encounter for closed fracture Status: Acute Assessment and Plan: Analgesics available as needed. Encourage elevation of the extremity. Dr. Dinh consulted and plan for left ankle ORIF 06/05/22 Patient doing well postoperatively PT OT postoperatively DVT prophylaxis per ortho. Although neurology recommended patient be transitioned to Eliquis due to Xarelto failure. Pain management per Ortho (3) CVA (cerebral vascular accident): Code(s): I63.9 - Cerebral infarction, unspecified Status: Acute Assessment and Plan: Head CT negative. 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 Neurology consult and appreciate recommendations. Will differ to them for antiplatelet/anticoagulation. Patient on Lipitor 40mg daily. LDL 33 A1c 5.5% Patient taking Xarelto as home med although this is being help due to surgery. PT/OT consult when cleared for out of bed and weight bearing recommendations by Ortho (4) Abnormal CT of brain: Code(s): R90.89 - Other abnormal findings on diagnostic imaging of central nervous system Status: Acute Assessment and Plan: As above. (5) Microcytic anemia: Code(s): D50.9 - Iron deficiency anemia, unspecified Status: Acute Assessment and Plan: Hgb 7.4 - 6.9, s/p 2 units PRBC. Transfuse Hgb <7 Iron less than 10, TIBC normal, % saturation 3, ferritin 4.31 B12 213, weekly IM B12 injections ordered. Continue for 4 weeks. Folate normal and stool occult negative. FOBT negative H/H stable 8.7/30% (6) Hypertension: Code(s): I10 - Essential (primary) hypertension Status: Chronic Assessment and Plan: Blood pressures were reviewed and they have been running high, likely due to pain. Continue antihypertensives and monitor. (7) Type 2 diabetes mellitus: Code(s): E11.9 - Type 2 diabetes mellitus without complications Status: Chronic Assessment and Plan: Initiate sliding scale insulin, Accu-Cheks, and hypoglycemic protocol. Hemoglobin A1c 5.5%. (8) Paroxysmal atrial fibrillation: Code(s): I48.0 - Paroxysmal atrial fibrillation Status: Chronic Assessment and Plan: Continue amiodarone. Will need to change Xarelto to Eliquis 5 mg BID due to acute right thalamus ischemic stroke when cleared by ortho surgery postop. (9) Chronic anticoagulation: Code(s): Z79.01 - detention (current) use of anticoagulants Status: Chronic Assessment and Plan: Hold anticoagulation for left ankle ORIF and resume when okay with surgery. (10) Obstructive sleep apnea: Code(s): G47.33 - Obstructive sleep apnea (adult) (pediatric) Status: Chronic Assessment and Plan:
--- NOTE | 2022-06-06 14:29 | WPDANESPN ---
Anes - Prog Note Post-Op Date/Time: 06/06/22 14:29 Cardiovascular status: normal Respiratory status: normal Airway patency: baseline Mental status: baseline Post-Op hydration status: normal Vital Signs: Last Vital Signs Temp 98.1 F 06/06/22 13:56 Pulse 76 06/06/22 13:56 Resp 16 06/06/22 13:56 BP 136/48 L 06/06/22 13:56 Pulse Ox 96 06/06/22 13:56 O2 Del Method Room Air 06/06/22 10:40 O2 Flow Rate 2 06/05/22 20:00 Pain Score (VAS): 3 I/O: Intake & Output 06/05/22 06/06/22 06/06/22 23:59 07:59 15:59 Intake Total 200 290 480 Output Total 400 Balance 200 -110 480 Laboratory Tests 06/06/22 05:00 06/06/22 05:00 06/05/22 06/06/22 06/06/22 17:25 05:00 05:00 WBC 10.3 H RBC 3.61 L Hgb 8.3 L Hct 28.8 L MCV 79.8 L MCH 23.0 L MCHC 28.8 L RDW 21.6 H Plt Count 323 MPV 9.3 Sodium 141 Potassium 4.2 Chloride 103 Carbon Dioxide 37 H Anion Gap 1 L BUN 23 H Creatinine 0.90 Estim Creat Clear Calc 63 Estimated GFR > 60 Glucose 140 H POC Capillary Glucose 167 H Calcium 8.6 06/06/22 06/06/22 08:20 12:06 WBC RBC Hgb Hct MCV MCH MCHC RDW Plt Count MPV Sodium Potassium Chloride Carbon Dioxide Anion Gap BUN Creatinine Estim Creat Clear Calc Estimated GFR Glucose POC Capillary Glucose 131 H 122 H Calcium Post-procedural complaints: none Patient Feedback: Patient satisfied with anesthetic care.
--- NOTE | 2022-06-06 15:43 | PCCCNOTE ---
On 06/06/22, the student, [Lisa Moore ], provided care and completed [facility] documentation on this patient. I have reviewed the student's documentation and agree with the findings.
[2022-06-06 16:48] LABS: Glucose Point of Care 127 mg/dl (65-105)
[2022-06-06] MEDS: DOXAZOSIN MESYLATE 2 MG TABLET PO (17:49)
[2022-06-06] MEDS: ATORVASTATIN 40 MG TABLET PO (17:49)
[2022-06-06] MEDS: CHOLECALCIFEROL 1,000 UNITS TABLET 2000 UNITS PO (17:49)
[2022-06-06] MEDS: INDAPAMIDE 2.5 MG TABLET PO (17:49)
[2022-06-06] MEDS: AMIODARONE HCL 200 MG TABLET PO (17:49)
[2022-06-06] MEDS: VENLAFAXINE HCL XR 75 MG CAP.ER.24H 150 MG PO (17:50)
[2022-06-06] MEDS: POTASSIUM CHLORIDE 20 MEQ PACKET (FOR LIQUID) PO (17:50)
[2022-06-06] MEDS: lisinopriL 20 MG TABLET PO (17:50)
[2022-06-06] MEDS: APIXABAN 5 MG TABLET PO (20:54)
[2022-06-06] MEDS: CEPHALEXIN 500 MG CAPSULE PO (20:54)
[2022-06-07] VITALS: PULSE 56
[2022-06-07 00:22] VITALS: PULSE 84; O2SAT 95
[2022-06-07 03:25] VITALS: BP 138/46; PULSE 65; RESP 18; TEMP 36.4; O2SAT 98
[2022-06-07 04:00] VITALS: PULSE 80
[2022-06-07] MEDS: ACETAMINOPHEN 500 MG TABLET 1000 MG PO ×2 (06:11→12:25)
[2022-06-07 06:44] LABS: Hematocrit 27.6 % (37.0-47.0); Hemoglobin 7.9 g/dL (12.0-15.0); Mean Corpuscular HGB Conc 28.6 g/dl (32-36); Mean Corpuscular Hemoglobin 22.6 pg (26-34); Mean Corpuscular Volume 78.9 fl (80-100); Mean Platelet Volume 9.3 fl (7.4-10.4); Platelet Count Result 323 k/mm3 (150-375); Red Cell Distribution Width 22.3 % (11.5-14.5)
[2022-06-07 07:02] LABS: Anion Gap 0 mmol/L (8-16); Blood Urea Nitrogen 23 mg/dL (7-17); Calcium 8.6 mg/dL (8.4-10.2); Carbon Dioxide 38 mmol/L (22-30); Chloride 103 mmol/L (98-107); Estimated CRCL calculation 70 ml/min; Estimated Glomerular Filt Rate > 60; Glucose 100 mg/dL (65-110); Potassium 3.3 mmol/L (3.4-5.0); Sodium 141 mmol/L (137-145)
[2022-06-07] MEDS: POTASSIUM CHLORIDE 20 MEQ PACKET (FOR LIQUID) 40 MEQ PO (07:49)
[2022-06-07 08:00] VITALS: PULSE 59
[2022-06-07 08:33] LABS: Glucose Point of Care 102 mg/dl (65-105)
[2022-06-07] MEDS: FERROUS SULFATE 324 MG TABLET PO (08:48)
[2022-06-07] MEDS: APIXABAN 5 MG TABLET PO (08:49)
[2022-06-07] MEDS: CEPHALEXIN 500 MG CAPSULE PO (08:49)
[2022-06-07] MEDS: SENNA/DOCUSATE SODIUM TABLET 2 TAB PO (08:50)
[2022-06-07] MEDS: polyethylene glycoL 3350 17 GM POWD.PACK PO ×2 (08:53→11:10)
[2022-06-07] MEDS: PANTOPRAZOLE SODIUM IV 40 MG VIAL IV PUSH (08:53)
[2022-06-07] MEDS: oxyCODONE HCL (*CRX) 5 MG TAB IR PO (08:53)
[2022-06-07 10:05] VITALS: BP 135/65; PULSE 71; RESP 18; TEMP 36.4; O2SAT 97
--- NOTE | 2022-06-07 11:15 | PM.PNORT ---
Progress Note: A&P Assessment and Plan (1) Morbid obesity with BMI of 40.0-44.9, adult: Code(s): E66.01 - Morbid (severe) obesity due to excess calories; Z68.41 - Body mass index [BMI] 40.0-44.9, adult Status: Acute (2) Fall from ground level: Code(s): W18.30XA - Fall on same level, unspecified, initial encounter Status: Acute (3) Closed left trimalleolar fracture: Code(s): S82.852A - Displaced trimalleolar fracture of left lower leg, initial encounter for closed fracture Status: Acute Plan Postop day 2: ORIF ankle fracture with internal fixation of the lateral malleolus with supplementation with a tib fib suture button. Patient resting comfortably in a chair. Splint intact. Complains of pain. No numbness or tingling. Severe osteopenia observed at time of surgery. Also large fracture blisters medially and laterally.? These were covered with Xeroform gauze under the splint. 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 Due to her osteopenia, obesity, and mobility issues I do recommend rehab. Dr. Dinh is very concerned with her wound healing and bone healing. She is to be non-weight bearing for 6 weeks. She is high risk for wound healing issues and complications. It is very important to follow the non-weight bearing status, elevate leg, and have a close follow up in office to decrease risk of complications. Her follow up appointments have been made. Discussed this with the patient and she shows good understanding. May be discharged on Eliquis. I will also start her on oral Keflex for 3 weeks to help decrease risk of infection. Ortho instructions: DOS: 06/05/22 D/C to SNF/rehab Follow up in office in 2 weeks from surgery. Will remove stitches, splint, and apply cast at that time. Will need wound checks every 2 weeks after. Weightbearing cast at 6 weeks. Keep splint dry and intact. May loosen ra wrap if it becomes too tight. Ice and elevation to decrease risk of swelling. This will help with wound healing. PT: Non-weight bearing, bed to chair only for 6 weeks DVT prophylaxis:Eliquis Pain medication: Oxycodone Antibiotic: Keflex twice a day for 3 weeks. Subjective Subjective Date/Time Seen: 06/07/22 11:15 Interval history: Patient resting comfortably in a chair. Notes pain is a 5/10. No numbness or tingling. Wiggles toes. Admits to putting to much weight on her foot with the lory-steady. No other complaints. Review of Systems Review of Systems: All systems reviewed & are unremarkable except as noted in HPI and below Exam Narrative: Obese 77 y/o female. No acute distress. Alert and oriented. Splint dry and intact. Elevating. Wiggles toes. Light touch sensation intact. Normal capillary refill. Objective Data Vital Signs Vital Signs: Vital Signs - 24 hr 06/06/22 13:56 06/06/22 12:00 06/06/22 16:00 Temperature 98.1 F Pulse Rate 76 80 79 Respiratory Rate 16 Blood Pressure 136/48 L Pulse Oximetry 96 Oxygen Delivery 06/06/22 17:49 06/06/22 19:20 06/06/22 22:56 Temperature 97.9 F 96.8 F L Pulse Rate 70 82 69 Respiratory Rate 18 18 Blood Pressure 106/42 L 127/46 L Pulse Oximetry 96 98 Oxygen Delivery 06/06/22 20:00 06/07/22 00:22 06/06/22 20:00 Temperature Pulse Rate 69 84 84 Respiratory Rate 18 Blood Pressure Pulse Oximetry 98 95 Oxygen Delivery Room Air 06/07/22 00:00 06/07/22 03:25 06/07/22 04:00 Temperature 97.6 F Pulse Rate 56 L 65 80 Respiratory Rate 18 Blood Pressure 138/46 L Pulse Oximetry 98 Oxygen Delivery 06/07/22 08:00 06/07/22 10:05 Temperature 97.6 F Pulse Rate 59 L 71 Respiratory Rate 18 Blood Pressure 135/65 Pulse Oximetry 97 Oxygen Delivery Intake/Output Intake/Output: Intake & Output 06/04/22 06/05/22 06/06/22 06/07/22 23:59 23:59 23:59 23:59 Intake Total 5048 580 9751 320 Output Total 7091 504 5759 900 Balance 90 440 240 -580 Meds/Results Medications:
[2022-06-07 12:09] LABS: Potassium 3.7 mmol/L (3.4-5.0)
[2022-06-07 12:18] LABS: Glucose Point of Care 137 mg/dl (65-105)
--- NOTE | 2022-06-07 13:57 | PCCCNOTE ---
On 06/07/22, the student, [Lisa Moore ], provided care and completed [facility] documentation on this patient. I have reviewed the student's documentation and agree with the findings.
== END 2022-06-07 16:51 | DRG 492 ==
LOC: ANHED 11:10 → ANH2MED 11:54
PROVIDERS: Nurse Practitioner Family; Orthopaedic Surgery; Physician Assistant; Student in an Organized Health Care Education/Training Program; Admitting Provider Family Medicine; Emergency Provider Emergency Medicine; PCP Family Medicine; Visit Provider Internal Medicine Critical Care Medicine
PROC: 0QSK04Z Reposition Left Fibula with Internal Fixation Device, Open Approach (ICD-10-PCS; principal; 2022-06-05 16:30)
DX: S82.852A Displaced trimalleolar fracture of left lower leg, initial encounter for closed fracture (principal); I63.9 Cerebral infarction, unspecified; Z68.42 Body mass index [BMI] 45.0-49.9, adult; G81.94 Hemiplegia, unspecified affecting left nondominant side; D50.9 Iron deficiency anemia, unspecified; I10 Essential (primary) hypertension; E11.9 Type 2 diabetes mellitus without complications; I48.0 Paroxysmal atrial fibrillation; G47.33 Obstructive sleep apnea (adult) (pediatric); E78.5 Hyperlipidemia, unspecified; F41.9 Anxiety disorder, unspecified; F32.A Depression, unspecified; E66.01 Morbid (severe) obesity due to excess calories; M85.80 Other specified disorders of bone density and structure, unspecified site; K21.9 Gastro-esophageal reflux disease without esophagitis; Z66 Do not resuscitate; Z82.49 Family history of ischemic heart disease and other diseases of the circulatory system; Z79.01 Long term (current) use of anticoagulants; Z83.3 Family history of diabetes mellitus; Z79.899 Other long term (current) drug therapy; W18.30XA Fall on same level, unspecified, initial encounter
CPT/HCPCS: 36415; 36430; 70450; 70496; 70498; 70553; 71045; 73502; 73590; 73610; 80048; 80053; 80061; 81003; 81479; 82274; 82607; 82728; 82746; 82948; 83036; 83540; 83550; 83721; 83735; 84132; 84443; 85014; 85018; 85025; 85027; 85046; 85610; 85730; 86850; 86870; 86880; 86900; 86901; 86922; 86978; 92610; 93005; 93306; 93880; 96375; 97110; 97161; 97166; 97530; 97535; 99199; 99285; A9270; A9577; C1713; C9113; G0378; J0690; J1100; J1170; J1756; J2405; J2704; J3010; J3370; J3420; J7050; J7120; P9016; Q9967

== ENCOUNTER 2023-03-21 13:23 | Outpatient (CLI) | payer MEDICARE, BC, SELFPAY ==
[2023-03-21 14:21] LABS: Anion Gap 5 mmol/L (8-16); Blood Urea Nitrogen 22 mg/dL (7-17); Calcium 8.8 mg/dL (8.4-10.2); Carbon Dioxide 31 mmol/L (22-30); Chloride 107 mmol/L (98-107); Estimated Glomerular Filt Rate > 60; Glucose 135 mg/dL (65-110); Potassium 4.1 mmol/L (3.4-5.0); Sodium 143 mmol/L (137-145)
== END 2023-03-21 13:24 | disposition home or self-care (01) ==
PROVIDERS: PCP Family Medicine; Visit Provider Internal Medicine Cardiovascular Disease
DX: I10 Essential (primary) hypertension (principal)
CPT/HCPCS: 36415; 80048

== ENCOUNTER 2023-04-29 14:30 | Outpatient (CLI) | payer MEDICARE, BC, SELFPAY ==
[2023-04-29 15:38] LABS: Anion Gap 3 mmol/L (8-16); Blood Urea Nitrogen 16 mg/dL (7-17); Calcium 9.2 mg/dL (8.4-10.2); Carbon Dioxide 33 mmol/L (22-30); Chloride 105 mmol/L (98-107); Estimated Glomerular Filt Rate 54; Glucose 108 mg/dL (65-110); Sodium 141 mmol/L (137-145)
== END 2023-04-29 14:31 | disposition home or self-care (01) ==
PROVIDERS: PCP Family Medicine; Visit Provider Nurse Practitioner Adult Health
DX: I10 Essential (primary) hypertension (principal)
CPT/HCPCS: 36415; 80048

== ENCOUNTER 2023-11-06 12:41 | Outpatient (CLI) | payer MEDICARE, BC, SELFPAY ==
--- NOTE | ~2023-11-06 | XR_ITS ---
XR chest 2V Ordering provider: Jean Paul Castillo MD History: 78 years Female with . CERTIFIED HAND THERAPIST amiodarone therapy, NO CURRENT CHEST COMPLAINTS . Comparison: June 02, 2022 FINDINGS: MEDIASTINUM: The cardiac silhouette is slightly enlarged. LUNGS: No infiltrates, effusions or pneumothorax. OTHER: No free air under the diaphragm. Degenerative changes of the spine. Dextroscoliosis. IMPRESSION: No acute cardiopulmonary pathology. Reviewed, dictated and finalized at location A.
[2023-11-06 15:02] LABS: Alanine Aminotransferase 16 U/L (6-35); Albumin Level 3.9 g/dL (3.5-5.1); Alkaline Phosphatase 121 U/L (38-126); Anion Gap 9 mmol/L (4-12); Aspartate Amino Transferase 25 U/L (14-36); Bilirubin,Total 0.6 mg/dL (0.2-1.3); Blood Urea Nitrogen 16 mg/dL (7-17); Calcium 9.4 mg/dL (8.4-10.2); Carbon Dioxide 30 mmol/L (22-30); Chloride 101 mmol/L (98-107); Estimated Glomerular Filt Rate 54; Glucose 92 mg/dL (65-110); Potassium 3.8 mmol/L (3.4-5.0); Sodium 140 mmol/L (137-145)
[2023-11-06 15:21] LABS: Free T4 Free Thyroxine 1.62 ng/mL (0.78-2.19)
--- NOTE | 2023-11-08 15:19 | WPDPFTINT ---
PFT Procedure Performed PFT Procedure Performed Plethysmography (Lung Vol) Diffusing Cap (DLCO) Flow Vol Loop Spirometry w/o Bronchodil PFT Interpretation Lung volumes were measured with the body plethysmography method. Lung volumes are unremarkable. Spirometry showed normal expiratory flow rates and a normal FEV1 to FVC ratio 77%. No post bronchodilator study was conducted. Lung diffusion capacity is within the normal range at 76% predicted. The flow volume loop is unremarkable. in comparison to previous study in 2021, there has been no significant change in FVC or FEV1. Lung diffusion capacity is now 76% predicted, which is still in the normal range compared to a previous value of 92% predicted in 2021. impression: Spirometry, lung volumes, and lung diffusion capacity all within the normal range.
== END 2023-11-06 12:42 | disposition home or self-care (01) ==
LOC: ANHPFT 12:49
PROVIDERS: PCP Physician Assistant; Visit Provider Internal Medicine Cardiovascular Disease
DX: Z79.899 Other long term (current) drug therapy (principal)
CPT/HCPCS: 36415; 71046; 80053; 84439; 84443; 94375; 94726; 94729

== ENCOUNTER 2024-05-11 17:18 | Emergency (ER) | payer MEDICARE, BC, SELFPAY ==
--- OUTSIDE RECORDS SUMMARY | 2024-05-11 19:01 | XMS_ITS | CONTINUITY OF CARE DOCUMENT ---
Author Name breana toussaint Address Unknown Organization [facility] Address [address] [facility] [address] [place] [address] Phone [phone] Care Team Providers Care Shredding Specialist Name Role Phone Sulaiman PALMA, Raina Unavailable [phone] YADIEL LEUNG MD Unavailable [phone] INSURANCE PROVIDERS Payer name Policy type / Coverage type Doyle red democrat ID [facility] [id number] [place] [employer] Medicare [id number]
--- OUTSIDE RECORDS SUMMARY | 2024-05-11 19:01 | XMS_ITS | Encounter Summary ---
Author Organization [facility] Address [address] [facility] [address] [place] [address] Care Team Providers Care Cell Plasterer Name Role Phone Ranjana Friedman MD Primary Care Provider [phone] Charito Colunga NP Primary Care Provider [phone] Talya Valentino MD Primary Care Provider [phone]- [phone] Matthew Phillips Primary Care Provider + Encounter Details Date Type Department Care Team (Late st Contact Info) Description 07/09/2016 Orders Only [facility] ProviderPreet MD [address] [place] [address] Social History Tobacco Use Types Packs/Day Years Used Date Smoking Tobacco: Never Alcohol Use Standard Drinks/Week Comments No 0 (1 standard drink = 0.6 oz pur e alcohol) Comments Unknown Sex and Gender Information Value Date Recorded Sex Assigned at Not on file 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 Historical Provider [facility] Final Result documented in this encounter Visit Diagnoses Not on filedocumented in this encounter Care Teams Cell Plasterer Relationship Specialty Start Date End Date Ranjana Friedman MD [address] [place] [address] PCP - General 12/27/14 07/31/16 Charito Colunga NP [address] [address] PCP - General 08/01/16 03/12/23 Talya Valentino MD [facility] [place] [address] PCP - General Family Medicine 03/13/23 10/29/23 Matthew Phillips PA [address] [place] [address] [place] [address] PCP - General Internal Medicine 10/30/23 documented as of this encounter
--- OUTSIDE RECORDS SUMMARY | 2024-05-11 19:01 | XMS_ITS | Clinical Summary ---
Author Organization [facility] [address] Address [address] [place] [address] Care Team Providers Care Lineman Apprentice Name Role Phone Matthew Phillips Primary Care Provider + Allergies Active Allergy Reactions Criticality Noted Date Comments Amoxicillin-Pot Clavulanate Unknown 12/10/19 19 Dicyclomine Rash Medium 12/09/2018 Levofloxacin Unknown Medications metFORMIN (GLUCOPHAGE) 500 mg tablet take 1 tablet by oral route 2 times every day with morning and evening meals 0 0 7 Active Additional Information Patient taking differently: 1,000 mg oral 2 times daily with meals (bkfst, dinner), Reported on 06/06/2023 potassium chloride ER (KLOR-CON M20) 20 mEq CR tablet take 1 tablet by oral route every day with food 0 0 7 Active ALPRAZolam (XANAX) 0.5 mg tablet take 1 tablet by oral route 3 times every day 0 0 7 Active atorvastatin (LIPITOR) 40 mg tablet take 1 tablet by oral route every day 0 0 7 Active venlafaxine XR (EFFEXOR XR) 150 mg 24 hr capsule take 1 capsule by oral route every day 0 0 7 Active ergocalciferol (VITAMIN D) 50,000 unit capsule Take 1 capsule (50,000 Units total) by mouth once a week Active traMADol (ULTRAM) 50 mg tablet Take 1 tablet (50 mg total) by mouth every 6 (six) hours as needed for pain Active terazosin (HYTRIN) 1 mg capsule Take 3 capsules (3 mg total) by mouth nightly 3 Active Eliquis 5 mg tablet [address] (PROTONIX) 40 mg EC tablet Take 1 tablet (40 mg total) by mouth daily 3 Active hydroCHLOROthiaz vicenta (MICROZIDE) 12.5 mg capsuleIndicatio ns:Essential hypertension Take 2 capsules (25 mg total) by mouth every morning 180 capsule 3 4 Active cyanocobalamin (Vitamin B-12) 2,500 mcg tablet, sublingualIndica tions:Prevention of Vitamin B12 Deficiency Active amiodarone (PACERONE) 200 mg tablet Take 1 tablet by mouth once daily 90 tablet 3 4 Active amLODIPine (NORVASC) 10 mg tablet Take 1 tablet by mouth once daily 30 tablet 10 4 Active nebivoloL (BYSTOLIC) 5 mg tablet Take 1 tablet by mouth once daily 30 tablet 10 4 Active benazepriL (LOTENSIN) 40 mg tablet Take 1 tablet by mouth once daily 30 tablet 10 4 Active Active Problems Problem Noted Date Diagnosed Date Aortic atherosclerosis 05/23/2022 Essential hypertension 10/20/2019 Obstructive sleep apnea 12/09/2018 Paroxysmal atrial fibrillation 08/01/2016 Chronic anticoagulation 08/01/2016 Morbid obesity with BMI of 45.0-49.9, adult 08/2016 On amiodarone therapy 08/01/2016 Drug therapy finding 06/26/2016 Overview (07/20/2016): On amiodarone therapy Surgical History Surgery Date Site/Laterality Comments CHOLECYSTECTOMY CATARACT EXTRACTION Medical History Medical History Date Comments Hypertension Hyperlipidemia Diabetes mellitus (HCC) Sleep apnea Arthritis Anxiety and depression Family History Medical History Relation Name Comments Heart disease Mother Relation Name Status Comments Mother (Age 66) Social History Tobacco Use Types Packs/Day Years Used Date Smoking Tobacco: Never Smokeless Tobacco: Never Tobacco Cessation:Counseling Given: Not Answered Alcohol Use Standard Drinks/Week Comments No 0 (1 standard drink = 0.6 oz pur e alcohol) Personal Safety Answer Date Recorded Getting School Help Needed Not on file 02/24 Comments Unknown Sex and Gender Information Value Date Recorded Sex Assigned at Not on file 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 Gender Identity Not on file Sexual Orientation Not on file Obstetrics History Last Filed Vital Signs Vital Sign Reading Time Taken Comments Blood Pressure 134/66 10/30/2023 1:37 PM CDT Pulse 50 10/30/2023 1:37 PM CDT Temperature - - Respiratory Rate - - Oxygen Saturation 97% 10/30/2023 1:37 PM CDT Inhaled Oxygen Concentration - - Weight 119.7 kg (264 lb) 10/30/2023 1:37 PM CDT Height 162.6 cm (5' 4 ) 10/30/2023 1:37 PM CDT Body Mass Index 45.32 10/30/2023 1:37 PM CDT Plan of Treatment Health Maintenance Due Date Last Done Comments Depression Screening 1945 Fall Risk Assessment 1945 Hepatitis C Screening 1945 Osteoporosis Screening-Bone Density Scan 1945 DTaP/Tdap/Td Vaccine (1 - Tdap) 1958 Hepatitis B Screening 1965 Zoster Vaccine (1 of 2) 1997 Well Visit 65+ 02/18/2012 Pneumococcal vaccine 65+ (2 of 2 - PPSV23) 01/15/2018 01/15/2017 Influenza Vaccine (#1) 2023 11/23/2021 Insurance MEDICARE [employer] OOS MEDICARE [employer] [facility] Care Teams Lineman Apprentice Relationship Specialty Start Date End Date Matthew Phillips PA [address] [place] [address] [place] [address] PCP - General Internal Medicine 10/30/23
--- OUTSIDE RECORDS SUMMARY | 2024-05-11 19:01 | XMS_ITS | Encounter Summary ---
Author Organization [facility] Address [address] [facility] [address] [place] [address] Care Team Providers Care Recreation Therapy Aide Name Role Phone Ranjana Friedman MD Primary Care Provider [phone] Charito Colunga NP Primary Care Provider [phone] Talya Valentino MD Primary Care Provider [phone]- [phone] Matthew Phillips Primary Care Provider + Encounter Details Date Type Department Care Team (Late st Contact Info) Description 06/06/2016 Orders Only [facility] ProviderPreet MD [address] [place] [address] Social History Tobacco Use Types Packs/Day Years Used Date Smoking Tobacco: Never Alcohol Use Standard Drinks/Week Comments No 0 (1 standard drink = 0.6 oz pur e alcohol) Comments Unknown Sex and Gender Information Value Date Recorded Sex Assigned at Not on file Legal Sex Female 11:59 PM SEARCH PLANNER Gender Identity Not on file Sexual Orientation Not on file documented as of this encounter Plan of Treatment Not on file documented as of this encounter Procedures Procedure Name Priority Date/Time Associated Diagnosis Comments CARDIOLOGY REPORT 06/06/2016 documented in this encounter Results * CARDIOLOGY REPORT (06/06/2016) Anatomical Region Laterality Modality Other Narrative 06/06/2016 Ordered by an unspecified provider. Historical Provider [facility] Final Result documented in this encounter Visit Diagnoses Not on filedocumented in this encounter Care Teams Recreation Therapy Aide Relationship Specialty Start Date End Date Ranjana Friedman MD [address] [place] [address] PCP - General 12/27/14 07/31/16 Charito Colunga NP [id number] [address] PCP - General 08/01/16 03/12/23 Talya Valentino MD [facility] [place] [address] PCP - General Family Medicine 03/13/23 10/29/23 Matthew Phillips PA [address] [place] [address] [place] [address] PCP - General Internal Medicine 10/30/23 documented as of this encounter
--- OUTSIDE RECORDS SUMMARY | 2024-05-11 19:01 | XMS_ITS | Clinical Summary ---
Author Organization [facility] Address [address] [address] Care Team Providers Care Staff Anesthetist Name Role Phone Annie Wilhelm DO Primary Care Provider [phone] Medications chlorthalidone 25 MG tablet Take 1 tablet (25 mg total) by mouth 1 (one) time each day in the morning 90 tablet 1 5 Active hydroCHLOROthia zide (MICROZIDE) 12.5 MG capsule take 2 capsules by mouth in the morning 04/21/19 Discontinu ed(Alterna te therapy) terazosin (HYTRIN) 1 MG capsule TAKE 3 CAPSULES BY MOUTH DAILY AT BEDTIME 3 04/21/19 Discontinu ed(Alterna te therapy) chlorthalidone 25 MG tablet Take 25 mg by mouth 1 (one) time each day in the morning 04/21/19 Discontinu ed(Reorder (does not appear on AVS)) potassium chloride (KLOR-CON M20) 20 MEQ CR tablet Take 1 tablet by mouth 1 (one) time each day 7 04/21/19 Discontinu ed(Alterna te therapy) Encounters Date Type Department Care Team Description 04/21/2024 2:15 PM JOB SERVICE SPECIALIST Office Visit [place] [facility], [facility] [address] [facility] [address] [place] [address] Rodney Godinez DO Stage 3 chronic kidney disease, not otherwise specified (HCC) (Primary Dx); Diastolic dysfunction; Obstructive sleep apnea syndrome; Paroxysmal atrial fibrillation (HCC); Venous insufficiency; Gastroesophageal reflux disease; Hypertensive chronic kidney disease; Type 2 diabetes mellitus with diabetic chronic kidney disease (HCC); Pure hypercholesterolemia, not otherwise specified 04/21/2024 Refill [facility], [place] [address] [facility] [address] [place] [address] Isabella Roy CMA from Last 3 Months Social History Tobacco Use Types Packs/Day Years Used Date Smoking Tobacco: Never Assessed Comments Unknown Sex and Gender Information Value Date Recorded Sex Assigned at Not on file Legal Sex Female 2:32 PM EST Gender Identity Not on file Sexual Orientation Not on file Last Filed Vital Signs Vital Sign Reading Time Taken Comments Blood Pressure 150/80 04/21/2024 2:51 PM JOB SERVICE SPECIALIST Pulse 64 04/21/2024 2:51 PM JOB SERVICE SPECIALIST Temperature 37.1 C (98.7 F) 04/21/2024 2:51 PM JOB SERVICE SPECIALIST Respiratory Rate 18 04/21/2024 2:51 PM JOB SERVICE SPECIALIST Oxygen Saturation 97% 04/21/2024 2:51 PM JOB SERVICE SPECIALIST Inhaled Oxygen Concentration - - Weight 118 kg (260 lb) 04/21/2024 2:51 PM JOB SERVICE SPECIALIST Height - - Body Mass Index - - Plan of Treatment Upcoming Encounters Date Type Department Care Team (Late st Contact Info) Description 06/16/2024 12:00 PM CDT Office Visit [place] [facility], [place] [address] [facility] [address] [place] [address] Rodney Godinez DO [address] [facility] [address] [place] [address] Health Maintenance Due Date Last Done Comments Pneumococcal Vaccine: 65+ Years (2 of 2 - PPSV23 or PCV20) 03/12/2017 01/15/2017 Diabetes: Hemoglobin A1C 01/28/2024 Diabetes: Ophthalmology Exam 01/28/2024 Diabetes: Pedal Pulse Checked 01/28/2024 Diabetes: Sensory Foot Exam 01/28/2024 Diabetes: Visual Foot Exam 01/28/2024 Influenza Vaccine Completed 01/14/2024, 11/23/2021 Hepatitis B Vaccine Aged Out No longe r eligible based on patient's age to complete this topic Insurance MEDICARE [facility] Care Teams Staff Anesthetist Relationship Specialty Start Date End Date Annie Wilhelm DO [address] [facility] [address] [place] [address] PCP - General Internal Medicine 04/21/24
--- OUTSIDE RECORDS SUMMARY | 2024-05-11 19:01 | XMS_ITS | Referral Summary ---
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
--- OUTSIDE RECORDS SUMMARY | 2024-05-11 19:01 | XMS_ITS | Encounter Summary ---
Author Organization [facility] Address [address] [facility] [address] [facility] [address] [place] [id number] Care Team Providers Care Hydropulper Operator Name Role Phone Ranjana Friedman MD Primary Care Provider [phone] Charito Colunga NP Primary Care Provider [phone] Talya Valentino MD Primary Care Provider +- [phone] Matthew Phillips Primary Care Provider + Encounter Details Date Type Department Care Team (Late st Contact Info) Description 06/26/2016 Orders Only [facility] ProviderPreet MD [address] [place] [id number] Social History Tobacco Use Types Packs/Day Years Used Date Smoking Tobacco: Never Alcohol Use Standard Drinks/Week Comments No 0 (1 standard drink = 0.6 oz pur e alcohol) Comments Unknown Sex and Gender Information Value Date Recorded Sex Assigned at Not on file Legal Sex Female 11:59 PM [employer] Gender Identity Not on file Sexual Orientation Not on file documented as of this encounter Plan of Treatment Not on file documented as of this encounter Procedures Procedure Name Priority Date/Time Associated Diagnosis Comments CARDIOLOGY REPORT 06/26/2016 documented in this encounter Results * CARDIOLOGY REPORT (06/26/2016) Anatomical Region Laterality Modality Other Narrative 06/26/2016 Ordered by an unspecified provider. Historical Provider [facility] Final Result documented in this encounter Visit Diagnoses Not on filedocumented in this encounter Care Teams Hydropulper Operator Relationship Specialty Start Date End Date Ranjana Friedman MD [address] [place] [id number] PCP - General 12/27/14 07/31/16 Charito Colunga NP [address] [address] PCP - General 08/01/16 03/12/23 Talya Valentino MD [facility] [place] [address] PCP - General Family Medicine 03/13/23 10/29/23 Matthew Phillips PA [address] [place] [address] [place] [address] PCP - General Internal Medicine 10/30/23 documented as of this encounter
--- OUTSIDE RECORDS SUMMARY | 2024-05-11 19:02 | XMS_ITS | Data Portability ---
Author Organization [facility] Authorly, Main Office Address [address] [place] [address] Care Team Providers Care Enterprise Application Architect Name Role Phone MIKAL MARTIN Primary Care Provider [phone] MIKAL MARTIN Referring Provider Assessment No assessment recorded. Plan of Treatment Reminders Order Date Submit Date Provider Last Modified By Organization Details Last Modified Time Details Appointments None recorded. Lab CBC w/ auto diff 2023 024 [facility], [address] [place], [address], 4 23:07:55 lipid panel, serum 2023 024 [email or web address] [facility], [address] [place], [address], 4 08:21:44 CMP, serum or plasma 2023 024 [email or web address] [facility], [address] [place], [address], 4 08:21:44 CK (creatine kinase), total, serum 2023 024 [email or web address] [facility], [address] [place], [address], 4 08:21:44 TSH, serum or plasma 2023 024 [email or web address] [facility], [address] [place], [address], 4 08:21:45 T4, free, serum 2023 024 [email or web address] [facility], [address] [place], [address], 4 08:21:45 vitamin D, 25-hydroxy, total, serum 2023 024 [email or web address] [facility], [address] [place], [address], 4 08:21:45 HbA1c (hemoglobin A1c), blood 2023 024 [email or web address] [facility], [address] [place], [address], 4 08:21:44 vitamin B12 + folate, serum or blood 2023 024 [email or web address] [facility], [address] [place], [address], 4 08:21:45 TSH + free T4, serum 2023 024 [email or web address] [facility], [address] [place], [address], 4 08:17:21 CBC w/ auto diff 2023 024 [email or web address] [facility], [address] [place], [address], 4 08:17:21 ferritin, serum or plasma 2023 024 [email or web address] [facility], [address] [place], [address], 4 08:17:21 iron + total iron-bindin g capacity (TIBC), serum 2023 024 [email or web address] [facility], [address] [place], [address], 4 08:17:21 vitamin B12, serum 2023 024 [email or web address] [facility], [address] [place], [address], 4 08:17:21 vitamin D, 25-hydroxy, total, serum 2023 024 [facility], [address] [place], [address], 4 01:13:29 HbA1c (hemoglobin A1c), blood 2023 024 [email or web address] [facility], [address] [place], [address], 4 08:17:21 HbA1c (hemoglobin A1c), blood 2022 023 [email or web address] [facility], [address] [place], [address], 3 09:59:06 lipid panel, serum 2022 023 [facility], [address] [place], [address], 3 18:25:03 CMP, serum or [facility] [address] [place], [address], 3 18:25:11 CBC w/ auto diff 2022 023 [facility], [address] [place], [address], 3 18:09:38 Referral None recorded. Procedures None recorded. Surgeries None recorded. Imaging bone density 2022 023 [email or web address] [facility], [address] [place] [address] , [place], [address], 3 08:23:40 Medication Orders tramadol 50 mg tablet 2023 024 [facility] [place], [address], 4 16:11:17 alprazolam 0.5 mg tablet [email or web address] [facility] [place], [address], 4 10:45:30 acetaminoph en 500 mg capsule 2023 024 [facility] [address] [place], [address], 4 16:29:43 lidocaine 5 % topical patch 2023 024 [facility] [address] [place], [address], 4 16:33:39 triamcinolo ne acetonide 0.1 % topical cream 2023 024 [facility] [address] [place], [address], 4 16:38:45 oxybutynin chloride ER 10 mg tablet,exte nded release 24 hr 2023 024 [facility] [address] [place], [address], 4 16:32:04 Patient TargetsNo targets recorded. Patient Instructions Encounter Date Encounter Id Patient Instructions Last Modified By Organization Details Last Modified Time 12/18/2023 [id number] dementia rating scale-2* [email or web address] Not available 12/19/2023 08:20:54 depression screening* [email or web address] Not available 12/19/2023 08:21:00 alcohol misuse* [email or web address] Not available 12/19/2023 08:21:08 Timed Up and Go test (TUG)* [email or web address] Not available 12/19/2023 08:21:15 multi-dimensiona l health assessment questionnaire* [email or web address] Not available 12/19/2023 08:20:10 Personalized Hea lt Plan and Screening Recommendations Advance Directives - Do you have one? Yes Advance Directives - Do we have your advance directive on file in your health record? Primary Prevention/Interven tion (prevents or decreases the chance of common diseases from occurring) Smoking Risk: Non Smoker Alcohol Misuse Screening: Negative Weight: Appropriate Overwei ght continue your current weight loss efforts try to lose 5% of your body weight try to lose 10% of your body weight Physical activity: Need more exercise/physical activity minimum of 10-20 minutes of activity that causes mild breathlessness/day minimum of 20-30 minutes activity that causes mild breathlessness/day Nutrition: Good Average Fall Risk (screened today): Low Vaccines Pneumococcal: Ordered Recommended today Recommended today, but you have declined No further needed Influenza: Your next one in the fall of this year Chronic Disease Risks Stroke: Low Risk Intermediate Risk I have no recommendations Act rickey diagnosis, Continue current treatment plan Heart Attack: Low risk Intermediate Risk I have no recommendations Act rickey diagnosis, Continue current treatment plan Clogging of the Arteries: Low risk Intermediate Risk I have no recommendations Act rickey diagnosis, Continue current treatment plan Diabetes: Low Risk Active diagnosis, Continue current treatment plan Secondary Prevention/Interven tion (detects treatable diseases before they may cause symptoms, disability, or ) Breast Cancer Screening with mammogram: No screening necessary Cervical/Uterine/Ov nicole Cancer Screening: No screening necessary Osteoporosis Screening: No screening necessary Date Screening Last Performed: Colon Cancer Screening: No screening necessary Date Screening Last Performed: Eye Disease Screening: No Eye exam necessary Dementia Risk: Low I have no recommendations Depression Screening: Negative Active diagnosis, Continue current treatment plan [email or web address] Not available 12/18/2023 12:24:32 we can stop the hctz , see if it helps her nocturia [email or web address] Not available 01/11/2024 10:48:53 Reason for Referral None Reported. Results Created Date Observation Date Name Description Value Unit Range Abnormal Flag Note LastModifiedBy Organization Detail LastModifiedTime 09/07/19 22 09/06/2021 MICRO ALBUM IN RANDO M URINE microalbumin , urine 11.5 mg/L 0.0-16 .6 Not Available [facility] (Lab) [address] [place], [address], 09/06/2021 19:53:48 09/07/19 22 09/06/2021 HEMOG LOBIN A1C HA1C 6.2 % 4.0-6. 0 high Diabe breonna Scree arelis Crite millie: <5.7% Consi stent with absen ce of diabe breonna 5.7-6 .4% Consi stent with incre ased risk for diabe breonna (pred iabet es) >OR=6 .5% Consi stent with diabe breonna REFER ENCE: Diabe breonna Care 2016, 39(Rizo ppl.1 ):s13 -s22 Not Available [facility] (Lab) [address] [place], [address], 09/06/2021 20:17:09 09/07/19 22 09/06/2021 VITAM IN D 25-HY DROXY [id number] 51.4 NG/mL 30-100 Vitam in D Statu s: Defic ient: <20 ng/mL Insuf ficie nt: 20-29 ng/mL Suffi cient : 30-10 0 ng/mL Not Available [facility] (Lab) [address] [place], [address], 09/06/2021 18:58:40 09/07/19 22 09/06/2021 HEPAT IC/LI JOSSE PANEL alkaline phosphatase 115 U/L 38-126 Not Available [facility] (Lab) [address] [place], [address], 09/06/2021 18:40:54 09/07/19 22 09/06/2021 HEPAT IC/LI JOSSE PANEL alanine aminotransfe rase 15 U/L 0-35 Not Available [facility] (Lab) [address] [place], [address], 09/06/2021 18:40:54 09/07/19 22 09/06/2021 HEPAT IC/LI JOSSE PANEL aspartate aminotransfe rase 19 U/L 15-37 Not Available [facility] (Lab) [address] [place], [address], 09/06/2021 18:40:54 09/07/19 22 09/06/2021 HEPAT IC/LI JOSSE PANEL bilirubin, total 0.30 mg/dL 0.20-1 .30 Not Available [facility] (Lab) [address] [place], [address], 09/06/2021 18:40:54 09/07/19 22 09/06/2021 HEPAT IC/LI JOSSE PANEL bilirubin, conjugated (direct) 0.00 mg/dL 0.00-0 .30 Not Available [facility] (Lab) [address] [place], [address], 09/06/2021 18:40:54 09/07/19 22 09/06/2021 HEPAT IC/LI JOSSE PANEL biliurubin,u ncong. (indirect) 0.20 mg/dL 0.00-1 .1 Not Available [facility] (Lab) [address] [place], [address], 09/06/2021 18:40:54 09/07/19 22 09/06/2021 HEPAT IC/LI JOSSE PANEL total protein 6.1 g/dL 6.3-8. 2 low Not Available [facility] (Lab) [address] [place], [address], 09/06/2021 18:40:54 09/07/19 22 09/06/2021 HEPAT IC/LI JOSSE PANEL albumin 3.4 g/dL 3.0-4. 4 Not Available [facility] (Lab) [address] [place], [address], 09/06/2021 18:40:54 09/07/19 22 09/06/2021 HEPAT IC/LI JOSSE PANEL globulin 2.7 g/dL 2.6-4. 2 Not Available [facility] (Lab) [address] [place], [address], 09/06/2021 18:40:54 09/07/19 22 09/06/2021 HEPAT IC/LI JOSSE PANEL A/G ratio 1.3 ratio 1.0-2. 0 Not Available [facility] (Lab) [address] [place], [address], 09/06/2021 18:40:54 09/07/19 22 09/06/2021 LIPID PANEL cholesterol 120 mg/dL 140-19 9 low NIH PRINCE NSUS RECOM MENDA TION FOR STU STERO L: ADULT CHILD LOW RISK: <200 <170 BORDE RLINE : <200- 239 ----- HIGH RISK: >240 >200 Not Available [facility] (Lab) [address] [place], [address], 09/06/2021 18:40:48 09/07/19 22 09/06/2021 LIPID PANEL triglyceride s 77 mg/dL 0-150 NIH PRINCE NSUS REPOR T RECOM MENDA TION FOR TRIGL YCERI JEANNE: ADULT CHILD LOW RISK: <150 ----- BODER LINE: 150-1 99 ----- HIGH RISK: >200 ----- Not Available [facility] (Lab) [address] [place], [address], 09/06/2021 18:40:48 09/07/19 22 09/06/2021 LIPID PANEL HDL cholesterol 64 mg/dL 40- Not Available [facility] (Lab) [address] [place], [address], 09/06/2021 18:40:48 09/07/19 22 09/06/2021 LIPID PANEL LDL cholesterol, calculated 41 mg/dL 0-130 NIH PRINCE NSUS REPOR T RECOM MENDA TIONS FOR LDL: ADULT CHILD LOW RISK <130 <110 (OPTI MAL LDL) <100 ----- BORDE RLINE : 130-1 59 ----- HIGH RISK: >160 >130 A TRIGL YCERI DE RESUL T >400 INVAL IDATE S THE CALCU LATIO N FOR LDL FRACT IONAT ION - THE LDL RESUL T WILL NOT BE REPOR MALINI. Not Available [facility] (Lab) [address] [place], [address], 09/06/2021 18:40:48 09/07/19 22 09/06/2021 BASIC METAB OLIC PANEL sodium 139 mmol/ L 137-14 5 Not Available [facility] (Lab) [address] [place], [address], 09/06/2021 18:40:45 09/07/19 22 09/06/2021 BASIC METAB OLIC PANEL potassium 3.9 mmol/ L 3.5-5. 1 Not Available [facility] (Lab) [address] [place], [address], 09/06/2021 18:40:45 09/07/19 22 09/06/2021 BASIC METAB OLIC PANEL chloride 105 mmol/ L 98-107 Not Available [facility] (Lab) [address] [place], [address], 09/06/2021 18:40:45 09/07/19 22 09/06/2021 BASIC METAB OLIC PANEL carbon dioxide 28 mmol/ L 22-30 Not Available [facility] (Lab) [address] [place], [address], 09/06/2021 18:40:45 09/07/19 22 09/06/2021 BASIC METAB OLIC PANEL anion gap 9.9 mmol/ L 14-22 low Not Available [facility] (Lab) [address] [place], [address], 09/06/2021 18:40:45 09/07/19 22 09/06/2021 BASIC METAB OLIC PANEL glucose 80 mg/dL 70-99 Not Available [facility] (Lab) [address] [place], [address], 09/06/2021 18:40:45 09/07/19 22 09/06/2021 BASIC METAB OLIC PANEL BUN 21 mg/dL 8-19 high Not Available [facility] (Lab) [address] [place], [address], 09/06/2021 18:40:45 09/07/19 22 09/06/2021 BASIC METAB OLIC PANEL creatinine 0.93 mg/dL 0.66-1 .25 Not Available [facility] (Lab) [address] [place], [address], 09/06/2021 18:40:45 09/07/19 22 09/06/2021 BASIC METAB OLIC PANEL GFR 59 Refer ence Range : [place] ge GFR Healt hy Adult : >60 mL/mi n/1.7 3 m2 Chron ic Kidne y Disea se: 15-60 mL/mi n/1.7 3 m2 Kidne y Failu re: <15/m L/min /1.73 m2 www.n iddk. nih.g ov The MDRD study equat ion has not been valid ated in child jimena <18 years of age; pregn ant women ; the elder ly >85 years of age; or in some racia l or ethni c subgr oups, such as Hispa nics. Outsi de the valid ated inocente eters , estim ated GFR is less accur ate, requi ring clini yang judgm ent on a case- by-ca se basis . Clini yang inter preta tion for other races and ages must be made by the clini kennedy. The MDRD study equat ion has not been valid ated for the evalu ation of serum creat inine relat ed to nutri sam l statu s or medic ation usage . For perso ns <18 years of age, a pedia tric GFR calcu lator is avail able on the [facility] websi te: https ://more jin.sascha rouse.o rg/pr ofess ional s/kdo qi/gf r_cal culat or Not Available [facility] (Lab) [address] [place], [address], 09/06/2021 18:40:45 09/07/19 22 09/06/2021 BASIC METAB OLIC PANEL calcium 9.6 mg/dL 8.4-10 .2 Not Available [facility] (Lab) [address] [place], [address], 09/06/2021 18:40:45 07/26/19 23 07/26/2022 CBC/C OMPLE TE BLD COUNT W/DIF F white blood cells 7.7 x10'3 /uL 4.2-10 .8 Not Available [facility] (Lab) [address] [place], [address], 07/26/2022 10:13:55 07/26/19 23 07/26/2022 CBC/C OMPLE TE BLD COUNT W/DIF F red blood cells 3.77 x10'6 /uL 3.80-5 .20 low Not Available [facility] (Lab) [address] [place], [address], 07/26/2022 10:13:55 07/26/19 23 07/26/2022 CBC/C OMPLE TE BLD COUNT W/DIF F hemoglobin 9.8 g/dL 12.0-1 5.6 low Not Available [facility] (Lab) [address] [place], [address], 07/26/2022 10:13:55 07/26/1907/26/2022 CBC/C OMPLE TE BLD COUNT W/DIF F hematocrit 32.1 % 35.7-4 5.7 low Not Available [facility] (Lab) [address] [place], [address], 07/26/2022 10:13:55 07/26/19 23 07/26/2022 CBC/C OMPLE TE BLD COUNT W/DIF F mean red cell volume 85.1 fL 82.0-9 9.0 Not Available [facility] (Lab) [address] [place], [address], 07/26/2022 10:13:55 07/26/19 23 07/26/2022 CBC/C OMPLE TE BLD COUNT W/DIF F mean red cell hemoglobin 26.0 pg 27.0-3 3.0 low Not Available [facility] (Lab) [address] [place], [address], 07/26/2022 10:13:55 07/26/19 23 07/26/2022 CBC/C OMPLE TE BLD COUNT W/DIF F mean RBC HGB concentratio n 30.5 g/dL 31.0-3 6.0 low Not Available [facility] (Lab) [address] [place], [address], 07/26/2022 10:13:55 07/26/19 23 07/26/2022 CBC/C OMPLE TE BLD COUNT W/DIF F red cell distribution width 22.7 % 11.8-1 5.5 high Not Available [facility] (Lab) [address] [place], [address], 07/26/2022 10:13:55 07/26/19 23 07/26/2022 CBC/C OMPLE TE BLD COUNT W/DIF F platelets 344 x10'3 /uL 150-40 0 Not Available [facility] (Lab) [address] [place], [address], 07/26/2022 10:13:55 07/26/19 23 07/26/2022 CBC/C OMPLE TE BLD COUNT W/DIF F mean platelet volume 10.0 fL 9.0-12 .4 Not Available [facility] (Lab) [address] [place], [address], 07/26/2022 10:13:55 07/26/19 23 07/26/2022 CBC/C OMPLE TE BLD COUNT W/DIF F neutrophils 75.0 % 39.0-7 2.0 high Not Available [facility] (Lab) [address] [place], [address], 07/26/2022 10:13:55 07/26/19 23 07/26/2022 CBC/C OMPLE TE BLD COUNT W/DIF F lymphocytes 17.0 % 16.0-4 7.0 Not Available [facility] (Lab) [address] [place], [address], 07/26/2022 10:13:55 07/26/19 23 07/26/2022 CBC/C OMPLE TE BLD COUNT W/DIF F monocytes 6.9 % 5.0-12 .0 Not Available [facility] (Lab) [address] [place], [address], 07/26/2022 10:13:55 07/26/1907/26/2022 CBC/C OMPLE TE BLD COUNT W/DIF F eosinophils 0.4 % 1.0-7. 0 low Not Available [facility] (Lab) [address] [place], [address], 07/26/2022 10:13:55 07/26/19 23 07/26/2022 CBC/C OMPLE TE BLD COUNT W/DIF F basophils 0.4 % 0.0-2. 0 Not Available [facility] (Lab) [address] [place], [address], 07/26/2022 10:13:55 07/26/19 23 07/26/2022 CBC/C OMPLE TE BLD COUNT W/DIF F immature granulocytes 0.3 % 0.00-0 .50 Not Available [facility] (Lab) [address] [place], [address], 07/26/2022 10:13:55 07/26/19 23 07/26/2022 CBC/C OMPLE TE BLD COUNT W/DIF F neutrophils, absolute count 5.78 x10'3 /uL 1.5-8. 0 Not Available [facility] (Lab) [address] [place], [address], 07/26/2022 10:13:55 07/26/19 23 07/26/2022 CBC/C OMPLE TE BLD COUNT W/DIF F lymphocytes, absolute count 1.31 x10'3 /uL 1.07-3 .43 Not Available [facility] (Lab) [address] [place], [address], 07/26/2022 10:13:55 07/26/19 23 07/26/2022 CBC/C OMPLE TE BLD COUNT W/DIF F monocytes, absolute count 0.53 x10'3 /uL 0.29-0 .99 Not Available [facility] (Lab) [address] [place], [address], 07/26/2022 10:13:55 07/26/19 23 07/26/2022 CBC/C OMPLE TE BLD COUNT W/DIF F eosinophils, absolute count 0.03 x10'3 /uL 0.02-0 .53 Not Available [facility] (Lab) [address] [place], [address], 07/26/2022 10:13:55 07/26/19 23 07/26/2022 CBC/C OMPLE TE BLD COUNT W/DIF F basophils, absolute count 0.03 x10'3 /uL 0.01-0 .08 Not Available [facility] (Lab) [address] [place], [address], 07/26/2022 10:13:55 07/26/19 23 07/26/2022 CBC/C OMPLE TE BLD COUNT W/DIF F immature granulocytes ,absolute 0.02 x10'3 /uL 0.00-0 .05 Not Available [facility] (Lab) [address] [place], [address], 07/26/2022 10:13:55 07/26/19 23 07/26/2022 CBC/C OMPLE TE BLD COUNT W/DIF F nucleated red blood cells 0.0 % -0 Not Available [facility] (Lab) [address] [place], [address], 07/26/2022 10:13:55 07/26/19 23 07/26/2022 CBC/C OMPLE TE BLD COUNT W/DIF F NRBC# 0.00 x10'3 /uL Not Available [facility] (Lab) [address] [place], [address], 07/26/2022 10:13:55 07/26/19 23 07/26/2022 CBC/C OMPLE TE BLD COUNT W/DIF F anisocytosis 2+ Not Available [facility] (Lab) [address] [place], [address], 07/26/2022 10:13:55 07/26/19 23 07/26/2022 CBC/C OMPLE TE BLD COUNT W/DIF F hypochromia OCCASI ONAL Not Available [facility] (Lab) [address] [place], [address], 07/26/2022 10:13:55 07/26/19 23 07/26/2022 CBC/C OMPLE TE BLD COUNT W/DIF F macro OCCASI ONAL Not Available [facility] (Lab) [address] [place], [address], 07/26/2022 10:13:55 07/26/19 23 07/26/2022 CBC/C OMPLE TE BLD COUNT W/DIF F polychromato philic RBCs OCCASI ONAL Not Available [facility] (Lab) [address] [place], [address], 07/26/2022 10:13:55 07/26/19 23 07/25/2022 LIPID PANEL cholesterol 126 mg/dL 140-19 9 low NIH PRINCE NSUS RECOM MENDA TION FOR STU STERO L: ADULT CHILD LOW RISK: <200 <170 BORDE RLINE : <200- 239 ----- HIGH RISK: >240 >200 Not Available [facility] (Lab) [address] [place], [address], 07/25/2022 18:25:03 07/26/19 23 07/25/2022 LIPID PANEL triglyceride s 87 mg/dL 0-150 NIH PRINCE NSUS REPOR T RECOM MENDA TION FOR TRIGL YCERI JEANNE: ADULT CHILD LOW RISK: <150 ----- BODER LINE: 150-1 99 ----- HIGH RISK: >200 ----- Not Available [facility] (Lab) [address] [place], [address], 07/25/2022 18:25:03 07/26/19 23 07/25/2022 LIPID PANEL HDL cholesterol 55 mg/dL 40- Not Available [facility] (Lab) [address] [place], [address], 07/25/2022 18:25:03 07/26/19 23 07/25/2022 LIPID PANEL LDL cholesterol, calculated 54 mg/dL 0-130 NIH PRINCE NSUS REPOR T RECOM MENDA TIONS FOR LDL: ADULT CHILD LOW RISK <130 <110 (OPTI MAL LDL) <100 ----- BORDE RLINE : 130-1 59 ----- HIGH RISK: >160 >130 A TRIGL YCERI DE RESUL T >400 INVAL IDATE S THE CALCU LATIO N FOR LDL FRACT IONAT ION - THE LDL RESUL T WILL NOT BE REPOR AMLINI. Not Available [facility] (Lab) [address] [place], [address], 07/25/2022 18:25:03 07/26/19 23 07/25/2022 COMPR EHENS RICKEY METAB OLIC PANEL sodium 141 mmol/ L 137-14 5 Not Available [facility] (Lab) [address] [place], [address], 07/25/2022 18:25:11 07/26/19 23 07/25/2022 COMPR EHENS RICKEY METAB OLIC PANEL potassium 4.3 mmol/ L 3.5-5. 1 Not Available [facility] (Lab) [address] [place], [address], 07/25/2022 18:25:11 07/26/19 23 07/25/2022 COMPR EHENS RICKEY METAB OLIC PANEL chloride 101 mmol/ L 98-107 Not Available [facility] (Lab) [address] [place], [address], 07/25/2022 18:25:11 07/26/19 23 07/25/2022 COMPR EHENS RICKEY METAB OLIC PANEL carbon dioxide 28 mmol/ L 22-30 Not Available [facility] (Lab) [address] [place], [address], 07/25/2022 18:25:11 07/26/19 23 07/25/2022 COMPR EHENS RICKEY METAB OLIC PANEL anion gap 16.3 mmol/ L 14-22 Not Available [facility] (Lab) [address] [place], [address], 07/25/2022 18:25:11 07/26/19 23 07/25/2022 COMPR EHENS RICKEY METAB OLIC PANEL glucose 82 mg/dL 70-99 Not Available [facility] (Lab) [address] [place], [address], 07/25/2022 18:25:11 07/26/19 23 07/25/2022 COMPR EHENS RICKEY METAB OLIC PANEL BUN 15 mg/dL 8-19 Not Available [facility] (Lab) [address] [place], [address], 07/25/2022 18:25:11 07/26/19 23 07/25/2022 COMPR EHENS RICKEY METAB OLIC PANEL creatinine 0.75 mg/dL 0.66-1 .25 Not Available [facility] (Lab) [address] [place], [address], 07/25/2022 18:25:11 07/26/19 23 07/25/2022 COMPR EHENS RICKEY METAB OLIC PANEL GFR >60 Refer ence Range : [place] ge GFR Healt hy Adult : >60 mL/mi n/1.7 3 m2 Chron ic Kidne y Disea se: 15-60 mL/mi n/1.7 3 m2 Kidne y Failu re: <15/m L/min /1.73 m2 www.n iddk. nih.g ov The MDRD study equat ion has not been valid ated in child jimena <18 years of age; pregn ant women ; the elder ly >85 years of age; or in some racia l or ethni c subgr oups, such as Hispa nics. Outsi de the valid ated inocente eters , estim ated GFR is less accur ate, requi ring clini yang judgm ent on a case- by-ca se basis . Clini yang inter preta tion for other races and ages must be made by the clini kennedy. The MDRD study equat ion has not been valid ated for the evalu ation of serum creat inine relat ed to nutri sam l statu s or medic ation usage . For perso ns <18 years of age, a pedia tric GFR calcu lator is avail able on the F websi te: https ://more jin.sascha rouse.o rg/pr ofess ional s/kdo qi/gf r_cal culat or Not Available [facility] (Lab) [address] [place], [address], 07/25/2022 18:25:11 07/26/1907/25/2022 COMPR EHENS RICKEY METAB OLIC PANEL alkaline phosphatase 118 U/L 38-126 Not Available [facility] (Lab) [address] [place], [address], 07/25/2022 18:25:11 07/26/19 23 07/25/2022 COMPR EHENS RICKEY METAB OLIC PANEL alanine aminotransfe rase 19 U/L 0-35 Not Available [facility] (Lab) [address] [place], [address], 07/25/2022 18:25:11 07/26/19 23 07/25/2022 COMPR EHENS RICKEY METAB OLIC PANEL aspartate aminotransfe rase 24 U/L 15-37 Not Available [facility] (Lab) [address] [place], [address], 07/25/2022 18:25:11 07/26/19 23 07/25/2022 COMPR EHENS RICKEY METAB OLIC PANEL bilirubin, total 0.30 mg/dL 0.20-1 .30 Not Available [facility] (Lab) [address] [place], [address], 07/25/2022 18:25:11 07/26/19 23 07/25/2022 COMPR EHENS RICKEY METAB OLIC PANEL calcium 9.2 mg/dL 8.4-10 .2 Not Available [facility] (Lab) [address] [place], [address], 07/25/2022 18:25:11 07/26/19 23 07/25/2022 COMPR EHENS RICKEY METAB OLIC PANEL total protein 6.0 g/dL 6.3-8. 2 low Not Available [facility] (Lab) [address] [place], [address], 07/25/2022 18:25:11 07/26/19 23 07/25/2022 COMPR EHENS RICKEY METAB OLIC PANEL albumin 3.1 g/dL 3.0-4. 4 Not Available [facility] (Lab) [address] [place], [address], 07/25/2022 18:25:11 07/26/19 23 07/25/2022 COMPR EHENS RICKEY METAB OLIC PANEL globulin 2.9 g/dL 2.6-4. 2 Not Available [facility] (Lab) [address] [place], [address], 07/25/2022 18:25:11 07/26/19 23 07/25/2022 COMPR EHENS RICKEY METAB OLIC PANEL A/G ratio 1.1 ratio 1.0-2. 0 Not Available [facility] (Lab) [address] [place], [address], 07/25/2022 18:25:11 07/26/19 23 07/25/2022 HEMOG LOBIN A1C HA1C 5.5 % 4.0-6. 0 Diabe breonna Scree arelis Crite millie: <5.7% Consi stent with absen ce of diabe breonna 5.7-6 .4% Consi stent with incre ased risk for diabe breonna (pred iabet es) >OR=6 .5% Consi stent with diabe breonna REFER ENCE: Diabe breonna Care 2016, 39(Rizo ppl.1 ):s13 -s22 Not Available [facility] (Lab) [address] [place], [address], 07/25/2022 20:30:16 09/29/19 22 XR, lumba r spine No observ ation record ed. [id number] [id number] [address], [place], [address], 04/25/2022 08:14:30 11/18/19 22 11/17/2021 XR, chest , 2 view No observ ation record ed. [id number] [facility] [address], [place], [address], 04/25/2022 08:14:30 12/19/19 22 12/15/2021 PFT, compl ete No observ ation record ed. [id number], [place], [address], 04/25/2022 08:14:30 06/03/19 23 06/02/2022 XR, ankle + foot No observ ation record ed. [address], [place], [address], 06/04/2022 12:17:42 06/03/19 23 06/02/2022 XR, hip + pelvi s, bilat eral No observ ation record ed. [address] [facility], [place], [address], 06/04/2022 12:18:03 06/03/19 23 06/02/2022 XR, tibia + fibul a No observ ation record ed. [address] [facility], [place], [address], 06/04/2022 12:18:20 06/03/19 23 06/02/2022 XR, chest No observ ation record ed. [address], [place], [address], 06/04/2022 12:18:54 06/03/19 23 06/02/2022 CT, brain , w/o contr ast No observ ation record ed. [address], [place], [address], 06/04/2022 12:19:13 06/03/19 23 06/02/2022 stres s echoc ardio gram No observ ation record ed. [address], [place], [address], 06/04/2022 12:25:33 06/04/19 23 06/03/2022 US, carot id arter y No observ ation record ed. [address], [place], [address], 06/04/2022 12:20:36 06/04/19 23 06/03/2022 MRI, brain + brain stem, w/ contr ast No observ ation record ed. [address], [place], [address], 06/04/2022 12:10:29 06/05/19 23 06/04/2022 CT, brain , w/o contr ast No observ ation record ed. [address], [place], [address], 06/05/2022 08:36:21 06/06/19 23 06/05/2022 imagi ng/di agnos tic resul t No observ ation record ed. [address], [place], [address], 06/06/2022 08:29:03 07/21/19 23 07/18/2022 XR, ankle No observ ation record ed. [address], [place], [address], 07/24/2022 08:32:29 Result Notes None recorded. Problems Name Problem SNOMED Code Status Onset Date Resolution Date Notes Provider Name and Address Organization Details Recorded Time Intermitt ent palpitati ons 556662647 Active Not Available [facility] 4 03:44:28 History of right total knee replaceme nt [id number] 41895 Active 2021 Not Available [facility] 4 03:44:28 Pain in left sacroilia c joint 85089240807 080320 Active 2021 Not Available [facility] 4 03:44:28 Pain in right sacroilia c joint 11771517475 477386 Active 2021 Not Available [facility] 4 03:44:28 Acute sinusitis 80517168 Completed Not Available [facility] 3 08:09:25 Chronic diarrhea of unknown origin 27459954 Active 2019 Not Available [facility] 4 03:44:28 Spinal stenosis of lumbar region 67526346 Active 2021 Not Available [facility] 4 03:44:28 Insomnia 974458573 Active Not Available [facility] 4 03:44:28 Subarachn oid hemorrhag e 47406152 Completed Not Available [facility] 3 08:09:25 Gastroeso phageal reflux disease 572250593 Active Not Available [facility] 4 03:44:28 Morbid obesity 792984189 Active Not Available [facility] 4 03:44:28 Genital lichen sclerosus 412134837 Active 2019 Not Available [facility] 4 03:44:28 Labyrinth itis 45475106 Completed Not Available [facility] 3 08:09:26 Osteoarth ritis of knee 141422769 Active Not Available [facility] 4 03:44:28 Fluid level behind tympanic membrane Completed Not Available [facility] 3 08:09:26 Flank pain 269765146 Completed Not Available [facility] 3 08:09:26 Shoulder joint pain 854148808 Active Not Available [facility] 4 03:44:28 Pain in thoracic spine 425512701 Completed Not Available [facility] 3 08:09:26 Chest pain 79087934 Completed Not Available [facility] 3 08:09:26 Knee pain Completed Not Available [facility] 3 08:09:26 Type 2 diabetes mellitus without complicat ion 238779215 Active Not Available [facility] 4 03:44:28 Influenza vaccinati on declined 701055457 Active 2019 Not Available [facility] 4 03:44:28 Osteoarth ritis of left knee joint 48336837900 9109 Active 2021 Not Available [facility] 4 03:44:28 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 67599400 Active Not Available [facility] 4 03:44:28 Vitamin D deficienc y 38368527 Active Not Available [facility] 4 03:44:28 Depressiv e disorder 97259886 Active Not Available [facility] 4 03:44:28 Sinusitis 37342204 Completed Not Available [facility] 3 08:09:27 Hypertens rickey disorder 13460636 Completed Not Available [facility] 3 08:09:27 Lighthead edness 893583246 Completed Not Available [facility] 3 08:09:27 Osteoarth ritis 661628843 Active Not Available [facility] 4 03:44:28 Vertigo 889540883 Completed Not Available [facility] 3 08:09:27 Dizziness 852648814 Completed Not Available [facility] 3 08:09:28 Body mass index 40+ - severely obese 018047115 Active 2018 Not Available [facility] 4 03:44:28 Mixed urinary incontine nce 128694615 Completed Not Available [facility] 3 08:09:28 Allergy to drug 360147520 Completed Not Available [facility] 3 08:09:28 Acute urinary tract infection 491619187 Completed Not Available [facility] 3 08:09:28 Type 2 diabetes mellitus 54836327 Completed Not Available [facility] 3 08:09:28 Pain of right knee joint 78053521197 4100 Active 2021 Not Available [facility] 4 03:44:28 Anxiety 95349813 Active Not Available [facility] 4 03:44:28 Candidias is of skin 19725427 Completed Not Available [facility] 3 08:09:29 Coronary arteriosc lerosis 46970898 Active Not Available [facility] 4 03:44:28 Upper respirato ry infection 87271740 Completed Not Available [facility] 3 08:09:29 Hyperlipi demia 41998991 Active Not Available [facility] 4 03:44:28 Essential hypertens ion 34795940 Active Not Available [facility] 4 03:44:28 Urinary tract infectiou s disease 56170966 Completed Not Available [facility] 3 08:09:29 Muscle pain 77428095 Completed Not Available [facility] 3 08:09:30 Sleep apnea 61157632 Active Not Available [facility] 4 03:44:28 Posterior rhinorrhe a 13972528 Completed Not Available [facility] 3 08:09:30 Urge incontine nce of urine 27210281 Active Not Available [facility] 4 03:44:28 Hypokalem ia 15228910 Active 2022 Not Available [facility] 4 03:44:28 Atrial fibrillat ion 98045013 Active 2022 Not Available [facility] 4 03:44:28 Low back pain 444576971 Active 2022 Not Available [facility] 4 03:44:28 Fracture of ankle 89664274 Active 2022 Not Available [facility] 4 03:44:28 Fracture of ankle 65886336 Active 2022 Not Available [facility] 4 03:44:28 Anemia 877790835 Active 2022 Not Available [facility] 4 03:44:28 Osteoporo sis 63985247 Active 2022 Not Available [facility] 4 03:44:28 Chronic atrial fibrillat ion 435952317 Active 2022 Not Available [facility] 4 03:44:28 Pruritic rash 31795859 Active 2022 Not Available [facility] 4 03:44:28 Chronic low back pain 596097175 Active 2022 Not Available [facility] 4 03:44:28 Acid reflux 030609219 Active 2022 Not Available [facility] 4 03:44:28 Irritable bowel syndrome character ized by constipat ion 169422719 Active 2022 Not Available [facility] 4 03:44:28 Constipat ion 02940873 Active 2022 Not Available [facility] 4 03:44:28 Chronic idiopathi c constipat ion 61954871 Active 2023 Not Available [facility] 4 03:44:28 Closed fracture of left ankle 25460848521 463945 Active 2023 LOTTIE Tatum [address], [place], [address] , [employer] 4 16:27:26 Overactiv e urinary bladder 794201917 Active 2023 LOTTIE Tatum [address], [place], [address] , [employer] 4 16:31:00 Serum vitamin B12 below reference range 879827063 Active 2023 LOTTIE Tatum [address], [place], [address] , [employer] 4 18:32:04 Decreased renal function 45339640 Active 2023 LOTTIE Tatum [address], [place], [address] , [employer] 4 17:06:01 Notes:Some problems listed i n Documents: #[id number], #[id number], #[id number], #[id number], #[id number], #[id number], #[id number], #[id number], #[id number], #[id number], #[id number], #[id number] could not be added to this patient's chart. Please review these documents and add these problems to the patient's chart manually as needed. Problem Notes None recorded. Procedures Surgical History Date Name Laterality Status Provider Name and Address Organization Details Recorded Time 12/18/19 Medicare Wellness CPT Code, subsequent completed May CHARLES Ernst [place] [employer] 12/18/2023 12:07:49 Knee Replacement completed Not Available [facility] 04/25/2022 08:06:21 Cholecystectomy completed Not Available [facility] 04/25/2022 08:06:21 Hernia Repair completed Not Available [facility] 04/25/2022 08:06:21 Foot Surgery completed STEPHANY Sing[facility] 07/25/2022 14:11:56 Imaging Results Imaging Date Name Status LastModified by Organization Details LastModified Time 11/17/2021 XR, chest, 2 view completed MIGRATION. [id number] [place] [address], [address], 04/25/2022 08:14:30 12/15/2021 PFT, complete completed [id number], [place], [address], 04/25/2022 08:14:30 09/28/2021 XR, lumbar spine completed [email or web address].[id number] [id number] [address] [facility] [address], [place], [address], 04/25/2022 08:14:30 06/02/2022 XR, ankle + foot completed [address], [address], 06/04/2022 12:17:42 06/02/2022 XR, hip + pelvis, bilateral completed [address], [address], 06/04/2022 12:18:03 06/02/2022 XR, tibia + fibula completed [address], [address], 06/04/2022 12:18:20 06/02/2022 XR, chest completed [address], [address], 06/04/2022 12:18:54 06/02/2022 CT, brain, w/o contrast completed [email or web address] [address], [place], [address], 06/04/2022 12:19:13 06/02/2022 stress echocardiogram completed [address] [address], [place], [address], 06/04/2022 12:25:33 06/03/2022 US, carotid artery completed [address] [address], [place], [address], 06/04/2022 12:20:36 06/03/2022 MRI, brain + brain stem, w/ contrast completed [address] [address], [place], [address], 06/04/2022 12:10:29 06/04/2022 CT, brain, w/o contrast completed [address] [address], [place], [address], 06/05/2022 08:36:21 06/05/2022 imaging/diagnostic result completed [address], [address], 06/06/2022 08:29:03 07/18/2022 XR, ankle completed [address], [address], 07/24/2022 08:32:29 Procedure Notes None recorded. Medical Equipment None Reported. Allergies Allergen ID Allergen Name Allergen Category Reaction Reaction Severity Criticality Documentation Date Start Date Code Code System Note Provider Name and Address Organization Details Recorded Time Levaquin medicatio n other Not available Not available 04/25/2022 33511 2 RxNorm TONGU E SWELL ING Not Available [facility] 3 08:14:24 dicyclomi ne medicatio n rash Not available Not available 04/25/2022 3361 RxNorm Not Available [facility] 3 08:14:24 Augmentin medicatio n Not available Not available Not available 04/25/2022 46598 2 RxNorm TONGU E AND KAITLYNN HORNE ING Not Available [facility] 3 08:14:24 Medications Name Sig Start Date Stop Date Status Note LastModified by Organization Details LastModified Time Singulair 10 mg tablet Take 1 tablet every day by oral route in the evening for 30 days. 10/24 completed Not Available Not Available Not Available celecoxib 200 mg capsule Take 1 capsule by mouth once daily 07/25 completed pt reports she is not taking 07/10/22 Not Available Not Available Not Available cyclobenz aprine 10 mg tablet 06/07 completed Not Available Not Available Not Available amoxicill in 500 mg capsule 05/10 completed Not Available Not Available Not Available Miralax 17 gram/dose oral powder Take 17 g every day by oral route as needed for 3 days. 2023 active Not Available Not Available Not Avai lable atorvasta tin 40 mg tablet TAKE 1 TABLET DAILY AT BEDTIME active Not Available Not Available No t Available Augmentin 875 mg-125 mg tablet Take 1 tablet every 12 hours by oral route for 10 days. 08/23 completed Not Available Not Available Not Available hydrocodo ne 7.5 mg-ibupro fen 200 mg tablet 05/10 completed Not Available Not Available Not Available prednison e 10 mg tablet Take 1 tablet every day by oral route in the morning for 30 days. active Not Available Not Available No t Available oxybutyni n chloride ER 15 mg tablet,ex tended release 24 hr TAKE 1 TABLET DAILY active Not Available Not Available No t Available doxycycli ne hyclate 100 mg capsule Take 1 capsule twice a day by oral route for 10 days. active Not Available Not Available No t Available cefuroxim e axetil 250 mg tablet 04/08 completed Not Available Not Available Not Available trazodone 50 mg tablet Take 1 tablet every day by oral route for 30 days. active Not Available Not Available No t Available oxybutyni n chloride ER 10 mg tablet,ex tended release 24 hr TAKE 1 TABLET BY MOUTH ONCE DAILY active Not Available Not Available No t Available azithromy denise 250 mg tablet Take 2 TABLET EVERY DAY by oral route for 1 day then take 1 daily for 4 days active Not Available Not Available No t Available indapamid e 2.5 mg tablet TAKE 1 TABLET BY MOUTH IN THE MORNING 07/09 completed d/c by rehab facility Not Available Not Available Not Available lidocaine 5 % topical cream Apply 1 applicat ion 4 times a day by topical route as needed for 30 days, for left ankle pain. 2023 active Not Available Not Available Not Avai lable tramadol 37.5 mg-acetam inophen 325 mg tablet active Not Available Not Available Not Available ofloxacin 0.3 % eye drops INSTILL ONE DROP INTO THE AFFECTED EYE(S) THREE TIMES DAILY. TO BEGIN TWO DAYS BEFORE SURGERY active Not Available Not Available No t Available amiodaron e 200 mg tablet TAKE 1 TABLET BY MOUTH ONCE DAILY active Not Available Not Available No t Available cephalexi n 250 mg capsule TAKE 2 CAPSULES BY MOUTH TWICE DAILY 07/25 completed Not Available Not Available Not Available hydrocodo ne 5 mg-acetam inophen 325 mg tablet 04/23 completed Not Available Not Available Not Available Nystop 100,000 unit/gram topical powder APPLY POWDER TOPICALL Y TO AFFECTED AREA TWICE DAILY active Not Available Not Available No t Available meloxicam 15 mg tablet TAKE 1 TABLET DAILY 07/10 completed Not Available Not Available Not Available Pacerone 400 mg tablet Take 1 po daily 01/15 completed Not Available Not Available Not Available Diflucan 150 mg tablet Take 1 tablet po x 1 day - repeat in 3 days x 3 doses 09/05 completed Not Available Not Available Not Available venlafaxi ne ER 150 mg capsule,e xtended release 24 hr TAKE 1 CAPSULE BY MOUTH DAILY active Not Available Not Available No t Available diphenoxy late-atro pine 2.5 mg-0.025 mg tablet TAKE 1 TABLET BY MOUTH ONCE DAILY NEEDED 07/25 completed Not Available Not Available Not Available terazosin 1 mg capsule TAKE 3 CAPSULES BY MOUTH DAILY AT BEDTIME 2024 active Not Available Not Available Not Avai lable amlodipin e 5 mg tablet 06/18 completed dose adjustme nt Not Available Not Available Not Available trimethop rim 100 mg tablet Take 1 tablet every day by oral route. 06/26 completed Not Available Not Available Not Available sulfameth oxazole 800 mg-trimet hoprim 160 mg tablet Take 1 tablet every 12 hours by oral route for 7 days. 06/26 completed Not Available Not Available Not Available omeprazol e 40 mg capsule,d elayed release 1 PO DAILY 01/15 completed Not Available Not Available Not Available aspirin 81 mg tablet,de layed release Take 1 tablet every day by oral route as directed . 2013 active Not Available Not Available Not Avai lable tramadol 50 mg tablet TAKE 1 TABLET BY MOUTH EVERY 8 HOURS NEEDED FOR PAIN RATED 4-6 active Not Available Not Available No t Available triamcino lone acetonide 0.1 % topical cream APPLY CREAM TOPICALL Y TO AFFECTED AREA TWICE DAILY active Not Available Not Available No t Available temazepam 7.5 mg capsule 1 po q hs for insomnia 06/05 completed Not Available Not Available Not Available ketorolac 0.5 % eye drops INSTILL 1 DROP INTO AFFECTED EYE 4 TIMES DAILY. BEGIN 2 DAYS BEFORE SURGERY. active Not Available Not Available No t Available prednison e 10 mg tablets in a dose pack Take 1 tab by mouth, 3 times a day for 3 daysTake 1 tab by mouth 2 times a day for 2 daysTake 1 tab by mouth once a day for 1 day 09/06 completed Not Available Not Available Not Available Antivert 12.5 mg tablet Take 2 tablets 3 times a day by oral route as needed for 30 days. 10/24 completed Not Available Not Available Not Available meloxicam 7.5 mg tablet TAKE 1 TABLET BY MOUTH ONCE DAILY FOR 30 DAYS 09/06 completed Not Available Not Available Not Available oxycodone -acetamin ophen 5 mg-325 mg tablet TAKE 1 TO 2 TABLETS BY MOUTH EVERY 4 TO 6 HOURS NEEDED . DO NOT EXCEED 6 PER 24 HOURS 01/30 completed Not Available Not Available Not Available alprazola m 0.5 mg tablet TAKE 2 TABLETS BY MOUTH ONCE DAILY AT BEDTIME 2024 active Not Available Not Available Not Avai lable amoxicill in 875 mg tablet active Not Available Not Available Not Available Celebrex 100 mg capsule TAKE 1 CAPSULE DAILY 01/29 completed Not Available Not Available Not Available potassium chloride ER 20 mEq tablet,ex tended release(p art/cryst ) TAKE 1 TABLET BY MOUTH DAILY active Not Available Not Available No t Available prednisol one acetate 1 % eye drops,noble pension INSTILL 1 DROP THREE TIMES DAILY INTO THE SURGICAL EYE STARTING AFTER SURGERY active Not Available Not Available No t Available temazepam 15 mg capsule Take 1 capsule every day by oral route. 06/05 completed Not Available Not Available Not Available dicyclomi ne 20 mg tablet 1 Q 6 HR PRN 01/29 completed Not Available Not Available Not Available betametha sone valerate 0.1 % topical cream active Not Available Not Available Not Available Kenalog 10 mg/mL suspensio n for injection In office injectio n administ ered by the provider 07/25 completed [facility]: [phone] 4-20 Not Available Not Available Not Available meclizine 25 mg tablet active Not Available Not Available Not Available amlodipin e 10 mg tablet TAKE 1 TABLET BY MOUTH ONCE DAILY active Not Available Not Available No t Available hydrocodo ne 7.5 mg-acetam inophen 325 mg tablet TAKE ONE TO TWO TABLETS BY MOUTH EVERY 6 HOURS NEEDED FOR PAIN active Not Available Not Available No t Available cephalexi n 500 mg capsule TAKE FOUR CAPSULES BY MOUTH ONE HOUR BEFORE APPOINTM ENT 07/25 completed Not Available Not Available Not Available pantopraz ole 40 mg tablet,de layed release TAKE 1 TABLET BY MOUTH DAILY active Not Available Not Available No t Available erythromy denise 5 mg/gram (0.5 %) eye ointment APPLY A SMALL AMOUNT INTO THE AFFECTED EYE(S) TWICE DAILY DIRECTED . active Not Available Not Available No t Available ferrous sulfate 325 mg (65 mg iron) tablet Take 1 tablet every day by oral route with meal(s) for 30 days, for anemia. 2023 active Not Available Not Available Not Avai lable esomepraz ole magnesium 40 mg capsule,d elayed release Take 1 capsule every day by oral route for 90 days. 06/18 completed Not Available Not Available Not Available nitrofura ntoin macrocrys barbara 100 mg capsule Take 1 capsule twice a day by oral route with meals for 7 days. active Not Available Not Available No t Available nystatin 100,000 unit/gram topical cream Apply tid to groin areas, under abdomina l fold 04/23 completed Not Available Not Available Not Available clotrimaz ole-betam ethasone 1 %-0.05 % topical cream APPLY TO THE AFFECTED AND SURROUND ING AREAS OF SKIN BY TOPICAL ROUTE 2 TIMES PER DAY IN THE MORNING AND EVENING FOR 2 WEEKS active Not Available Not Available No t Available lidocaine 5 % topical patch Apply by topical route for 60 days. 2023 active Not Available Not Available Not Avai lable hydrochlo rothiazid e 12.5 mg capsule TAKE 2 CAPSULES BY MOUTH IN THE MORNING 12/17 completed nocturia Not Available Not Available Not Available docusate sodium 100 mg capsule Take 1 capsule twice a day by oral route for 30 days. 06/18 completed Not Available Not Available Not Available gabapenti n 300 mg capsule Take 1 po tid active Not Available Not Available No t Available doxazosin 4 mg tablet TAKE 1/2 (ONE-ALVARADO F) TABLET BY MOUTH ONCE DAILY 07/09 completed Not Available Not Available Not Available benazepri l 20 mg tablet TAKE 1 TABLET BY MOUTH ONCE DAILY 12/17 completed Not Available Not Available Not Available cyanocoba jorgito (vit B-12) 1,000 mcg sublingua l tablet Place 1 tablet twice a day by sublingu al route for 30 days, for low b12. 2023 active Not Available Not Available Not Avai lable Transderm -Scop 1 mg over 3 days transderm al patch 01/29 completed Not Available Not Available Not Available cefuroxim e axetil 500 mg tablet active Not Available Not Available Not Available levofloxa denise 500 mg tablet active Not Available Not Available No t Available oxycodone -acetamin ophen 7.5 mg-325 mg tablet active Not Available Not Available Not Available benazepri l 40 mg tablet TAKE 1 TABLET BY MOUTH ONCE DAILY active Not Available Not Available No t Available methylpre dnisolone 4 mg tablets in a dose pack TAKE BY MOUTH DIRECTED ON INSIDE OF PACKAGE 01/31 completed Not Available Not Available Not Available SSD 1 % topical cream 04/08 completed Not Available Not Available Not Available ketoconaz ole 2 % topical cream APPLY TO THE AFFECTED AREA(S) BY TOPICAL ROUTE ONCE DAILY active Not Available Not Available No t Available flurazepa m 15 mg capsule TAKE ONE CAPSULE BY MOUTH EVERY DAY 06/05 completed Not Available Not Available Not Available lisinopri l 40 mg tablet TAKE 1 TABLET BY MOUTH ONCE DAILY 06/18 completed Not Available Not Available Not Available fluticaso ne propionat e 50 mcg/actua tion nasal spray,noble pension active Not Available Not Available Not Available metformin ER 500 mg tablet,ex tended release 24 hr Take 2 tablets every day by oral route active Not Available Not Available No t Available sertralin e 50 mg tablet Take 1 tablet every day by oral route at bedtime. active Not Available Not Available No t Available acetamino phen 500 mg capsule Take 2 capsules 3 times a day by oral route as needed for 30 days, for left ankle pain. 2023 active Not Available Not Available Not Avai lable doxycycli ne hyclate 100 mg tablet Take 1 tablet twice a day by oral route for 14 days. active Not Available Not Available No t Available Ventolin HFA 90 mcg/actua tion aerosol inhaler Inhale 2 puffs every 4 hours by inhalati on route. active Not Available Not Available No t Available neomycin- polymyxin -hydrocor t 3.5 mg-10,000 unit/mL-1 % ear drops,noble p active Not Available Not Available Not Available Vitamin D3 25 mcg (1,000 unit) capsule Take 1 capsule every day by oral route. 04/28 completed takes otc Not Available Not Available Not Available cyclobenz aprine 5 mg tablet active Not Available Not Available No t Available Wellbutri n XL 150 mg 24 hr tablet, extended release Take 1 tablet every day by oral route in the morning. active Not Available Not Available No t Available nitrofura ntoin monohydra te/macroc rystals 100 mg capsule Take 1 capsule every 12 hours by oral route for 7 days. 09/11 completed Not Available Not Available Not Available lidocaine (PF) 5 mg/mL (0.5 %) injection solution Take 60 mg by injectio n route. 09/06 completed Not Available Not Available Not Available metformin ER 500 mg 24 hr tablet,ex tended release (gastric retention ) Take 2 tablets daily 10/03 completed this is a modified tab that is not covered Not Available Not Available Not Available nebivolol 5 mg tablet TAKE 1 TABLET BY MOUTH ONCE DAILY active Not Available Not Available No t Available Durezol 0.05 % eye drops 04/28 completed Not Available Not Available Not Available venlafaxi ne ER 225 mg tablet,ex tended release 24 hr Take 1 tablet every day by oral route. 07/20 completed P:t states doesn't take this dose, takes lower dose Not Available Not Available Not Available [facility] 1.5 billion cell capsule Take 1 capsule every day by oral route in the morning for 30 days. 10/24 completed Not Available Not Available Not Available Xarelto 10 mg tablet active Not Available Not Available Not Available ropivacai ne (PF) 5 mg/mL (0.5 %) injection solution Take 40 mg by injectio n route. 07/25 completed Not Available Not Available Not Available Xarelto 20 mg tablet Take 1 tablet every day by oral route. 07/09 completed rehab facility switched her to eliquis 5mg taking twice a day Not Available Not Available Not Available lidocaine 5 % topical ointment active Not Available Not Available Not Available Myrbetriq 50 mg tablet,ex tended release Take 1 tablet every day by oral route. active Not Available Not Available No t Available Linzess 145 mcg capsule TAKE 1 CAPSULE BY MOUTH ONCE DAILY AFTER A MEAL 12/17 completed caused diarrhea Not Available Not Available Not Available Linzess 290 mcg capsule Take 1 capsule every day by oral route for 30 days. 12/17 completed caused diarrhea Not Available Not Available Not Available Eliquis 5 mg tablet TAKE 1 TABLET BY MOUTH TWICE DAILY active Not Available Not Available No t Available potassium chloride ER 20 mEq tablet,ex tended release Take 1 tablet every day by oral route. 07/25 completed Not Available Not Available Not Available Trulance 3 mg tablet Take by oral route for 30 days. 06/18 completed Not Available Not Available Not Available Fluzone High-Dose Quad (PF) 240 mcg/0.7 mL IM syringe PHARMACI ST ADMINIST ERED IMMUNIZA TION ADMINIST ERED AT TIME OF DISPENSI NG active Not Available Not Available No t Available Vitals Date Recorded Body mass index (BMI) Body height Oxygen saturation Oxygen saturation in Arterial blood by Pulse oximetry Heart rate Body temperature Body weight Systolic blood pressure Diastolic blood pressure Provider Name and Address Organization Details Last Updated DateTime 2 45.7 kg/m2 162.56 cm 92 % 92 % 107 /min 96.2 [degF] 925147. 57 g 142 mm[Hg] 82 mm[Hg] Not Available [employer] 3 08:08:23 Date Recorded Body mass index (BMI) Body height Pain severity - 0-10 verbal numeric rating [Score] - Reported Body weight Provider Name and Address Organization Details Last Updated DateTime 09/28/2021 45.7 kg/m2 162.56 cm 8 409588.57 g Not Available [facility] 04/25/2022 08:08:31 Date Recorded Body height Body temperature Heart rate Oxygen saturation Oxygen saturation in Arterial blood by Pulse oximetry Systolic blood pressure Diastolic blood pressure Provider Name and Address Organization Details Last Updated DateTime 3 162.56 cm 98.1 [degF] 77 /min 96 % 96 % 130 mm[Hg] 80 mm[Hg] STEPHANY Singletary [facility] [employer] [facility] 3 14:13:26 Date Recorded Body height Body mass index (BMI) Body weight Body temperature Respiratory rate Heart rate Oxygen saturation Oxygen saturation in Arterial blood by Pulse oximetry Systolic blood pressure Diastolic blood pressure Provider Name and Address Organization Details Last Updated DateTime 4 162.56 cm 42.9 kg/m2 704355. 09 g 97.9 [degF] 16 /min 47 /min 97 % 97 % 138 mm[Hg] 60 mm[Hg] Cher Jade RN [facility] [employer] 4 15:57:14 Date Recorded Body height Body mass index (BMI) Body weight Body temperature Heart rate Oxygen saturation Oxygen saturation in Arterial blood by Pulse oximetry Systolic blood pressure Diastolic blood pressure Provider Name and Address Organization Details Last Updated DateTime 4 162.56 cm 44.1 kg/m2 485822. 24 g 97.9 [degF] 56 /min 95 % 95 % 130 mm[Hg] 72 mm[Hg] Cher Jade RN [facility] [employer] 4 16:03:20 Social History Question Answer Notes LastModified by Organizat ion Details LastModified Time Tobacco Smoking Status Never Smoker Not Available [facility] 04/25/2022 08:06:14 What Is Your Level Of Alcohol Consumption? None [id number] Information not available 04/25/2022 What Is Your Level Of Caffeine Consumption? Heavy [id number] Information not available 04/25/2022 How Much Tobacco Do You Chew? None [id number] Information not available 04/25/2022 Which Illicit Or Recreational Drugs Have You Used? None [id number] Information not available 04/25/2022 Do You Or Have You Ever Used E-cigarettes Or Vape? Never Used Electronic Cigarettes [id number] Information not available 04/25/2022 What Is Your Occupation? Retired [id number] Information not available 04/25/2022 What Was The Date Of Your Most Recent Tobacco Screening? 03/10/2018 [id number] Information not available 04/25/2022 Do You Or Have You Ever Used Smokeless Tobacco? Never Used Smokeless Tobacco [id number] Information not available 04/25/2022 Sex: Unknown Functional Status Question Answer Note LastModified by Organizat ion Details LastModified Time What is your exercise level? Occasional [id number] Information not available 04/25/2022 Mental Status None recorded. Family History Relationship Description Onset Age of this Age Resolved Age Notes LastModified by Organization Details LastModified Time Mother Coronary arterioscler osis [id number] Not available 04/25/2022 08:06:23 Mother Diabetes mellitus [id number] Not available 04/25/2022 08:06:23 Mother Family history of malignant neoplasm [id number] Not available 04/25/2022 08:06:23 Maternal Grandmother Coronary arterioscler osis [id number] Not available 04/25/2022 08:06:23 Medical History Condition Response EYE PROBLEMS Y ANXIETY DISORDER Y RHEUMATIC FEVER Y USE OF BLOOD THINNERS Y ANEMIA/BLOOD DISORDER Y PNEUMONIA Y DIABETES, TYPE Y DEPRESSION (INCLUDING POST ) Y HEARTBURN / REFLUX Y HYPERTENSION Y HIGH CHOLESTEROL / HYPERLIPIDEMIA Y Gynecological HistoryNo gynecological history recorded. Obstetrics History GPAL:G 0 P 0 0 0 0 Immunizations Vaccine Type Date Status Note Provider Nam e and Address Organization Details Recorded Time COVID-19, mRNA, LNP-S, PF, 50 mcg/0.5 mL 4 completed CHARLES Perkins, [facility] [employer] [facility] 01/14/2024 16:01:56 influenza, unspecified formulation 4 completed CHARLES Perkins, [facility] [employer] 01/14/2024 16:03:00 COVID-19, mRNA, LNP-S, bivalent, PF, 30 mcg/0.3 mL dose 2 completed Not Available [facility] 03/17/2023 03:44:29 Influenza, split virus, quadrivalent, preservative 2 completed Not Available [facility] 03/17/2023 03:44:29 Pneumococcal conjugate PCV 13 7 completed Not Available [facility] 03/17/2023 03:44:29 Past Encounters Encounter ID Performer Location Encounter Start Date Encounter Closed Date Diagnosis/Indication Diagnosis SNOMED-CT Code Diagnosis ICD10 Code Diagnosis Note [id number] [address] , [place] [address] 09/05/2020 00:00:00 09/05/2020 16:21:00 [id number] [facility] [place] [address] [place] [address] 08/03/2021 00:00:00 08/03/2021 14:59:56 [id number] [facility] [place] [address] [place] [address] 08/31/2021 00:00:00 08/31/2021 13:23:31 [id number] [place] [address] [place] [address] 09/06/2021 00:00:00 09/06/2021 15:24:05 [id number] [facility] [place] [address] [place] [address] 09/28/2021 00:00:00 09/28/2021 14:36:15 [id number] Talya Valentino MD [place] [address] [place] [address] 07/25/2022 14:02:12 07/25/2022 14:40:02 Fracture of ankle 12441373 S82.90XA Anemia 421366788 D64.9 Osteoporosis 96724479 M8 1.0 Type 2 mary betes mellitus without complication 587392487 E11.9 Hyperlipidemia 99361868 E78.5 Essential hypertension 10006659 I10 History of cerebrovascular accident 308110070 Z86.73 [id number] LOTTIE Tatum [facility] [address] [facility] [facility] [place] [address] 06/19/2023 15:43:55 06/19/2023 16:45:30 Fracture of ankle 38565998 S82.90XA Essential hypertension 43249210 I10 Overactive urinary bladder 858247425 N32.81 Vitamin D deficiency 347 70253 E55.9 Spinal jomar nosis of lumbar region 10099092 M48.061 Sleep apnea 20788279 G47 .30 Osteoporosis 61721378 M8 1.0 Osteoarthr itis of knee 362647520 M17.9 Low back pain 497151325 M54.50 Insomnia 090985321 G47.0 0 Hyperlipidemia 04160086 E78.5 Type 2 mray betes mellitus without complication 696742252 E11.9 Pruritic rash 14167191 L 28.2 Anemia 483561537 D64.9 Morbid obesity 891458297 E66.01 Gastroesop hageal reflux disease 456121595 K21.9 Genital li kenyon sclerosus 732152874 L90.0 History of right total knee replacement 1927249129 229707 Z96.651 Coronary arteriosclerosis 15462422 I25.10 Depressive disorder 3548 9007 F32.A Chronic id iopathic constipation 48629292 K59.04 Chronic at rial fibrillation 905807622 I48.20 Anxiety 17010916 F41.9 [id number] LOTTIE Tatum [facility] [address] [place] [address] 12/18/2023 15:36:00 12/18/2023 16:24:00 Adult health examination 607337146 Z00.00 Screening for disorder 145965415 Z13.9 Anxiety 62368128 F41.9 Low back pain 940186213 M54.50 Anemia 130041540 D64.9 Coronary arteriosclerosis 96858566 I25.10 Hyperlipidemia 22310261 E78.5 Type 2 mary betes mellitus without complication 160419445 E11.9 Vitamin D deficiency 347 75452 E55.9 Serum danielle min B12 below reference range 315443341 R79.89 Atrial fibrillation 4943 6004 I48.91 Chronic id iopathic constipation 55482317 K59.04 Chronic at rial fibrillation 914272590 I48.20 Essential hypertension 50274753 I10 Gastroesop hageal reflux disease 170123933 K21.9 Osteoarthritis 078212774 M19.90 Osteoporosis 06713266 M8 1.0 Overactive urinary bladder 753850442 N32.81 Morbid obesity 412018692 E66.01 Insomnia 940957847 G47.0 0 Health Concerns Section Related Observation LastModified by Organization Detai ls LastModified Time None Recorded Concern Status LastModified by Organization Details LastModified Time None Recorded Advance Directives Directive None Recorded Payers Encounter Date Sequence Insurance Name Policy Number Policy Rosa Covered Member ID Rosa Member ID Guarantor Name 07/25/2022 1 [place] [employer] [employer] [id number] Litzy A [employer] 07/25/2022 2 [place] [id number] Jf [place] [id number] Litzy A [employer] 06/19/2023 1 [place] [id number] Litzy A [employer] 06/19/2023 2 [place] [id number] Jf [employer] [id number] Litzy A [employer] 12/18/2023 1 [place] [employer] [employer] [id number] [employer]zy A [employer] 12/18/2023 2 [place] [id number] Jf [employer] [id number] [employer] Notes Date Note Type Note Provider Name and Address Organization Details Recorded Time 09/28/2021 text/html Back PainReporte d bypatient.Location :pain radiating to the buttocks Quality:dull Severity:worsening Duration:chronic Context:unusual activity; prior back problems Associated Symptoms:no fever; no weak limbs; no numbness of the legs/feet; no tingling; no incontinence; no shortness of breath Not Available [employer] 09/28/2021 14:36:15 07/25/2022 text/html Here today for a hospital f/u of broken ankle. She had a stroke and could hardly walk and went to bathroom at night and fell and did fracture her ankle. This was day before . Has a walking boot a cast. Seeing ortho. Will have f/u appt. She assumed this was d/t a stroke. Did have a stroke shown on MRI of brain. Is on eliquis. Has Afib. Had been on xarelto and was switched to eliquis. Has right knee pain when she walks.Had anemia and was given 2 units of PRBCNo dizziness or weakness.Has osteoporosis and not started on anything. Needs bone density Last bone density was a couple of years ago. Talya Valentino MD [address], [place] [address], [place], [address], [employer] 07/25/2022 19:15:06 06/19/2023 text/html fracture left ankle , wears braces for feet that turn inward anyway . LOTTIE Tatum [address], [facility] [address], [place], [address], [employer] 06/20/2023 16:36:32 12/18/2023 text/html nocturia , would like to stop hctz LOTTIE Tatum [address], [facility] [address], [place], [address], [employer] 01/11/2024 10:50:22 OBGyn Episode No OBEpisode recorded.
--- OUTSIDE RECORDS SUMMARY | 2024-05-11 19:09 | XMS_ITS | CONTINUITY OF CARE DOCUMENT ---
Author Name breana toussaint Address Unknown Organization [facility] Address [address] [facility] [address] [place] [address] Phone [phone] Care Team Providers Care Casino Change Attendant Name Role Phone Sulaiman PALMA, Raina Unavailable YADIEL LEUNG MD Unavailable [phone] INSURANCE PROVIDERS Payer name Policy type / Coverage type Beeler red libertarian ID [facility] [id number] [place] MEDIC[employer] Medicare [id number]
== END 2024-05-11 18:13 | disposition left against medical advice (07) ==
PROVIDERS: PCP Family Medicine
DX: Z53.21 Procedure and treatment not carried out due to patient leaving prior to being seen by health care provider (principal)
CPT/HCPCS: 99199

== ENCOUNTER 2024-05-11 18:07 | Emergency (ER) | payer MEDICARE, BC, SELFPAY ==
--- NOTE | ~2024-05-11 | XR_ITS ---
HISTORY: left 2nd toe redness and swelling, hammertoe COMPARISON: None TECHNIQUE: 2 views of the left forefoot were performed FINDINGS: No acute displaced fracture. Loss of anatomic alignment within the distal interphalangeal joint spaces of toes 2 through 5. Soft tissues are unremarkable without radiopaque foreign body. Diffuse bony demineralization. IMPRESSION: As above. Reviewed, dictated and finalized at location A. IMPRESSION: As above.
[2024-05-11 18:12] VITALS: BP 163/65; PULSE 75; RESP 18; TEMP 36.4; O2SAT 97
--- NOTE | 2024-05-11 18:24 | ED.GENADULT ---
HPI - General Adult General Chief complaint: Extremity Problem,Nontraumatic Stated complaint: Inflamed toe Time Seen by Provider: 05/11/24 18:22 Source: patient Mode of arrival: ambulatory Limitations: no limitations History of Present Illness HPI narrative: 79 YEARS OLD WHITE FEMALE CAME TO THE ED COMPLAINING OF LEFT 2ND TOE IS A LITTLE BIT MORE RED COMPARED TO 3 DAYS AGO WHEN SHE SAW HER BEE FARMER. HISTORY OF DIABETES. PATIENT DENIES ANY FEVER, CHILLS, NAUSEA, VOMITING. Related Data Home Medications ?Medication ?Instructions ?Recorded ?Confirmed ?Last Taken ?Type amiodarone 200 mg tablet 200 mg PO DAILY 04/19/19 08/31/22 06/01/22 History atorvastatin 40 mg tablet (Lipitor) 40 mg PO QHS 04/19/19 08/31/22 06/01/22 17:00 History ergocalciferol (vitamin D2) 50 mcg 50 mcg PO DAILY 04/19/19 08/31/22 06/01/22 17:00 History (2,000 unit) capsule metformin 500 mg tablet 500 mg PO BID 04/19/19 08/31/22 06/01/22 17:00 History potassium chloride 20 mEq oral 20 meq PO DAILY 04/19/19 08/31/22 06/01/22 17:00 History packet (Klor-Con) amlodipine 10 mg tablet 10 mg PO DAILY 12/26/23 12/26/23 Unknown History benazepril 40 mg tablet 40 mg PO DAILY 12/26/23 12/26/23 Unknown History cyanocobalamin (vitamin B-12) 2,500 mcg PO DAILY 12/26/23 12/26/23 Unknown History 2,500 mcg tablet hydrochlorothiazide 12.5 mg capsule 25 mg PO DAILY 12/26/23 12/26/23 Unknown History nebivolol 5 mg tablet 5 mg PO DAILY 12/26/23 12/26/23 Unknown History pantoprazole 40 mg tablet,delayed 40 mg PO QAM 12/26/23 12/26/23 Unknown History release venlafaxine 150 mg 150 mg PO DAILY 12/26/23 12/26/23 Unknown History capsule,extended release 24 hr (Effexor XR) Allergies Allergy/AdvReac Type Severity Reaction Status Date / Time levofloxacin Allergy Unknown PT DOESNT Verified 05/11/24 18:52 REMEBER Review of Systems Review of Systems: All systems reviewed & are unremarkable except as noted in HPI and below PMFSH Past Medical History Medical History Lichen sclerosus of female genitalia Atrial fibrillation Morbid obesity with BMI of 40.0-44.9, adult CVA (cerebral vascular accident) Vitamin D deficiency Chronic anticoagulation Obstructive sleep apnea Gastroesophageal reflux disease Paroxysmal atrial fibrillation Eczema Back pain Depression Anxiety Type 2 diabetes mellitus Arthritis Hiatal hernia Hemorrhoids Irritable bowel Diverticulitis Hyperlipidemia Hypertension Surgical History Surgical History Status post ORIF of fracture of ankle (~06/05/22) Left ORIF ankle fracture with internal fixation of the lateral malleolus with supplementation with a tib fib suture button. History of repair of hiatal hernia History of cholecystectomy (08/2002) History of right knee joint replacement History of dilatation and curettage Family History Family History Mother Acute myocardial infarction Diabetes mellitus Breast cancer Social History Social History Social History: Surrogate medical decision maker: Jorge Camp, spouse. Code status: DNR. Smoking status: Never smoker Alcohol intake: never Substance use: never Do You Feel Safe in your Home?: Yes Lack of Transportation: No Lack of Food: Never True Current Housing: Decline to Answer Concerned About Future Housing: Decline to Answer Difficulty Paying Gas/Electric Bills: Decline to Answer Difficulty Paying for Meds: Decline to Answer Currently Unemployed: Decline to Answer Education: High School Diploma/GED Difficulty w/ Childcare or Family Care: Decline to Answer Living arrangements: with family Additional living arrangements comments: Lives with spouse in [place]. They have 2 children. Occupation/Education: retired Gender identity (if verbalized by the patient): Female Spiritual care concerns: No Agree to blood products: Yes Exam Narrative: GENERAL APPEARANCE: WELL-DEVELOPED, WELL-NOURISHED SKIN: NORMAL COLOR HEAD: NORMOCEPHALIC, NONTRAUMATIC EYES: CLEAR CONJUNCTIVA ENT: OROPHARYNX NORMAL, EARS NORMAL, NOSE NORMAL NECK: SUPPLE, NONTENDER CHEST AND RESPIRATORY: AIRWAY PATENT, NO RESPIRATORY DISTRESS, NO ACCESSORY MUSCLE USE HEART: REGULAR RATE/RHYTHM ABDOMEN: SOFT, NONTENDER, NO ORGANOMEGALY, QUIET BOWEL SOUNDS VASCULAR: NORMAL PERIPHERAL PULSES, NORMAL CAPILLARY REFILL. MUSCULOSKELETAL: LEFT 2ND TOE SHOWING 3 X 3 MM SUPERFICIAL ULCERATION DORSALLY, SURROUNDED WITH REDNESS, NO DISCHARGE, NO TENDERNESS, NO SWELLING NEUROLOGIC: ALERT AND ORIENTED ?3, AUTOMATIC CORN GRINDER OPERATOR IS NORMAL TESTED, NO GROSS MOTOR DEFICIT Course Vital Signs Vital signs: Vital Signs Temperature 36.4 C L 05/11/24 18:12 Pulse Rate 75 05/11/24 18:12 Respiratory Rate 18 05/11/24 18:12 Blood Pressure 163/65 H 05/11/24 18:12 Pulse Oximetry 97 05/11/24 18:12 Oxygen Delivery Room Air 05/11/24 18:12 Temperature 36.0 C L 05/11/24 19:52 Pulse Rate 52 L 05/11/24 19:52 Respiratory Rate 18 05/11/24 19:52 Blood Pressure 171/61 H 05/11/24 19:52 Pulse Oximetry 95 05/11/24 19:52 Oxygen Delivery Room Air 05/11/24 19:52 Medical Decision Making [facility] Narrative Medical decision making narrative: DIFFERENTIAL DIAGNOSIS INCLUDE INFECTED TOE, PATIENT IS DIABETIC VITAL SIGNS ARE STABLE PHYSICAL EXAMINATION ABOVE DIFFERENTIAL DIAGNOSIS INCLUDE INFECTED TOE BLOOD WORKUP TODY INCLUDE CBC AND CMP SHOWED NO SIGNIFICANT ABNORMALITIES X-RAY OF THE LEFT 2ND TOE SHOWED NO ACUTE ABNORMALITIES PATIENT RECEIVED 1 DOSE OF VANCOMYCIN IV PRIOR TO DISCHARGE ON KEFLEX TO FOLLOW-UP WITH HER BEE FARMER TOMORROW FOR FURTHER EVALUATION THE PT WAS DISCHARGED TO HOME.THE PT,S CONDITION UPON DISCHARGE WAS FAIR,EDUCATION WAS PROVIDED TO THE PT IN REFERENCE TO THE FINAL IMPRESSION,DISCHARGE STUDY RESULTS,TREATMENT,PROGNOSIS AND NEED FOR FOLLOW UP . Vital Signs Vital Signs: Vital Signs Temperature 36.4 C L 05/11/24 18:12 Pulse Rate 75 05/11/24 18:12 Respiratory Rate 18 05/11/24 18:12 Blood Pressure 163/65 H 05/11/24 18:12 Pulse Oximetry 97 05/11/24 18:12 Oxygen Delivery Room Air 05/11/24 18:12 Temperature 36.0 C L 05/11/24 19:52 Pulse Rate 52 L 05/11/24 19:52 Respiratory Rate 18 05/11/24 19:52 Blood Pressure 171/61 H 05/11/24 19:52 Pulse Oximetry 95 05/11/24 19:52 Oxygen Delivery Room Air 05/11/24 19:52 Lab Data 05/11/24 18:41 05/11/24 18:41 Labs: Lab Results 05/11/24 Range/Units 18:41 WBC 9.8 (4.8-10.8) K/mm3 RBC 4.00 L (4.20-5.40) M/mm3 Hgb 11.5 L (11.7-13.8) g/dL Hct 37.0 (35.0-42.0) % MCV 92.5 (78.0-102.0) fL MCH 28.8 (27.0-31.0) pg MCHC 31.1 L (32-36) g/dL RDW 14.0 (11.6-14.4) % Plt Count 236 (150-420) K/mm3 MPV 9.2 (9.2-11.8) fl Immature Gran % (Auto) 0.4 H (0.0-0.0) % Neut % (Auto) 83.1 H (50.0-70.0) % Lymph % (Auto) 6.4 L (18.0-42.0) % [place] % (Auto) 8.9 (2.0-11.0) % Eos % (Auto) 0.8 L (1.0-6.0) % Baso % (Auto) 0.4 (0.0-1.0) % Lymph # (Auto) 0.63 L (1.10-4.50) K/mm3 [place] # (Auto) 0.87 (0.10-0.90) K/mm3 Eos # (Auto) 0.08 (0.02-0.50) K/mm3 Baso # (Auto) 0.04 (0.00-0.10) K/mm3 Abs Immat Gran (auto) 0.04 H (0.00-0.00) K/mm3 Absolute Neuts (auto) 8.17 H (1.70-7.20) K/mm3 Absolute Nucleated RBC 0.00 (0.00-0.00) K/mm3 Nucleated RBC % 0.0 (0-0.0) % Sodium 142 (136-145) mmol/L Potassium 3.8 (3.5-5.1) mmol/L Chloride 104 (98-108) mmol/L Carbon Dioxide 29 (21-32) mmol/L Anion Gap 9 (4-12) mmol/L BUN 24 H (7-18) mg/dL Creatinine 1.21 H (0.55-1.02) mg/dL Estim Creat Clear Calc 45 ml/min Estimated GFR 43 L (59 - ) Glucose 143 H (70-99) mg/dL Calculated Osmolality 300 H (285-295) mOsm/kg Calcium 9.4 (8.5-10.1) mg/dL Total Bilirubin 0.5 (0.00-1.00) mg/dL AST 12 L (15-37) U/L ALT 19 (14-59) U/L Alkaline Phosphatase 154 H (46-116) U/L Total Protein 7.0 (6.4-8.2) g/dL Albumin 3.1 L (3.4-5.0) g/dL Imaging Data Radiologist's impression: Impressions Toe X-Ray 05/11/24 18:43 IMPRESSION: As above. Critical Care Time Critical Care Time Critical Care Time: No Discharge Plan Discharge Clinical Impression: Infection of toe Patient Disposition: Home, Self-Care Condition: Stable Instructions: Antibiotic Form, Cellulitis (ED) Additional Instructions: RETURN IF SYMPTOMS ARE WORSENING , CALL YOUR BEE FARMER TOMORROW FOR APPOINTMENT, TAKE TYLENOL NEEDED FOR ACHES AND PAIN, CONTINUE HOME MEDICATIONS. Patient Language: Chinese Prescriptions: New cephalexin 500 mg capsule 500 mg PO Q6H 7 Days Qty: 28 0RF No Action amlodipine 10 mg tablet 10 mg PO DAILY benazepril 40 mg tablet 40 mg PO DAILY cyanocobalamin (vitamin B-12) 2,500 mcg tablet 2,500 mcg PO DAILY venlafaxine [Effexor XR] 150 mg capsule,extended release 24hr 150 mg PO DAILY hydrochlorothiazide 12.5 mg capsule 25 mg PO DAILY Patient Comments: 2 capsules by mouth every morning pantoprazole 40 mg tablet,delayed release (DR/EC) 40 mg PO QAM nebivolol 5 mg tablet 5 mg PO DAILY atorvastatin [Lipitor] 40 mg Tablet 40 mg PO QHS Rx Instructions: at 1700 metformin 500 mg Tablet 500 mg PO BID Rx Instructions: 1000mg AM and 500mg evening amiodarone 200 mg tablet 200 mg PO DAILY Rx Instructions: at 1700 potassium chloride [Klor-Con] 20 mEq Packet 20 meq PO DAILY Rx Instructions: at 1700 ergocalciferol (vitamin D2) 50 mcg (2,000 unit) Capsule 50 mcg PO DAILY Rx Instructions: at 1700 alprazolam 0.5 mg tablet 0.5 mg PO BID PRN (Reason: anxiety) Qty: 50 0RF oxybutynin chloride 10 mg tablet extended release 24hr 10 mg PO DAILY Qty: 90 1RF tramadol 50 mg tablet 50 mg PO Q8H PRN (Reason: Pain Rated 4-6) Qty: 90 2RF terazosin 1 mg Capsule 3 mg PO HS Qty: 45 0RF Eliquis 5 mg tablet 5 mg PO BID Qty: 60 0RF Follow-up/Referrals: Annie Wilhelm DO [Primary Care Provider] -
[2024-05-11 18:45] LABS: Basophils Absolute Auto 0.04 K/mm3 (0.00-0.10); Basophils Percent Auto 0.4 % (0.0-1.0); Eosinophils Absolute Auto 0.08 K/mm3 (0.02-0.50); Eosinophils Percent Auto 0.8 % (1.0-6.0); Hemoglobin 11.5 g/dL (11.7-13.8); Immature Granulocyte Absolute 0.04 K/mm3 (0.00-0.00); Immature Granulocyte Percent A 0.4 % (0.0-0.0); Lymphocytes Absolute Auto 0.63 K/mm3 (1.10-4.50); Lymphocytes Percent Auto 6.4 % (18.0-42.0); Mean Corpuscular HGB Conc 31.1 g/dL (32-36); Mean Corpuscular Hemoglobin 28.8 pg (27.0-31.0); Mean Corpuscular Volume 92.5 fL (78.0-102.0); Mean Platelet Volume 9.2 fl (9.2-11.8); Monocytes Absolute Auto 0.87 K/mm3 (0.10-0.90); Monocytes Percent Auto 8.9 % (2.0-11.0); Neutrophils Absolute Auto 8.17 K/mm3 (1.70-7.20); Neutrophils Percent Auto 83.1 % (50.0-70.0); Platelet Count Result 236 K/mm3 (150-420); White Blood Count 9.8 K/mm3 (4.8-10.8)
[2024-05-11 19:02] LABS: Alanine Aminotransferase 19 U/L (14-59); Albumin Level 3.1 g/dL (3.4-5.0); Alkaline Phosphatase 154 U/L (46-116); Anion Gap 9 mmol/L (4-12); Aspartate Amino Transferase 12 U/L (15-37); Bilirubin,Total 0.5 mg/dL (0.00-1.00); Blood Urea Nitrogen 24 mg/dL (7-18); Calcium 9.4 mg/dL (8.5-10.1); Carbon Dioxide 29 mmol/L (21-32); Chloride 104 mmol/L (98-108); Estimated CRCL calculation 45 ml/min; Estimated Glomerular Filt Rate 43; Glucose 143 mg/dL (70-99); Osmolality Calculated 300 mOsm/kg (285-295); Potassium 3.8 mmol/L (3.5-5.1); Sodium 142 mmol/L (136-145)
[2024-05-11] MEDS: VANCOMYCIN 1,750 MG/NS 500 ML 1,750 MG/500 ML BAG 250 MG IVPB (19:46)
[2024-05-11 19:52] VITALS: BP 171/61; PULSE 52; RESP 18; TEMP 36; O2SAT 95
[2024-05-11 22:02] VITALS: BP 160/65; PULSE 71; RESP 20; TEMP 36.6; O2SAT 93
== END 2024-05-11 22:02 | disposition home or self-care (01) ==
PROVIDERS: Emergency Provider Emergency Medicine; PCP Family Medicine
DX: L08.9 Local infection of the skin and subcutaneous tissue, unspecified (principal); E11.9 Type 2 diabetes mellitus without complications; E55.9 Vitamin D deficiency, unspecified; Z79.01 Long term (current) use of anticoagulants; Z86.73 Personal history of transient ischemic attack (TIA), and cerebral infarction without residual deficits; K21.9 Gastro-esophageal reflux disease without esophagitis; G47.33 Obstructive sleep apnea (adult) (pediatric); I48.0 Paroxysmal atrial fibrillation; F41.8 Other specified anxiety disorders; E78.5 Hyperlipidemia, unspecified; I10 Essential (primary) hypertension; Z96.651 Presence of right artificial knee joint
CPT/HCPCS: 36415; 73660; 80053; 85025; 96365; 96366; 99284; J3370

== ENCOUNTER 2024-06-08 12:42 | Outpatient (CLI) | payer MEDICARE, BC, SELFPAY ==
--- OUTSIDE RECORDS SUMMARY | 2024-06-08 14:06 | XMS_ITS | Clinical Summary ---
Author Organization [facility] [address] Address [address] [place] [address] Care Team Providers Care Associate Field Service Engineer Name Role Phone Jenni Wilhelmbeab Vargas Primary Care Provider + Allergies Active Allergy Reactions Criticality Noted Date Comments Amoxicillin-Pot Clavulanate Unknown 12/10/19 19 Dicyclomine Rash Medium 12/09/2018 Levofloxacin Unknown Medications metFORMIN (GLUCOPHAGE) 500 mg tablet take 1 tablet by oral route 2 times every day with morning and evening meals 0 0 06/27/19 17 Active Additional Information Patient taking differently: 1,000 mg oral 2 times daily with meals (bkfst, dinner), Reported on 05/28/2024 ALPRAZolam (XANAX) 0.5 mg tablet take 1 tablet by oral route 3 times every day 0 0 06/27/19 17 Active atorvastatin (LIPITOR) 40 mg tablet take 1 tablet by oral route every day 0 0 06/27/19 17 Active venlafaxine XR (EFFEXOR XR) 150 mg 24 hr capsule take 1 capsule by oral route every day 0 0 06/27/19 17 Active ergocalciferol (VITAMIN D) 50,000 unit capsule Take 1 capsule (50,000 Units total) by mouth once a week Active traMADol (ULTRAM) 50 mg tablet Take 1 tablet (50 mg total) by mouth every 6 (six) hours as needed for pain Active Eliquis 5 mg tablet 09/22/[address] (PROTONIX) 40 mg EC tablet Take 1 tablet (40 mg total) by mouth daily 02/07/20 23 Active cyanocobalamin (Vitamin B-12) 2,500 mcg tablet, sublingualIndica tions:Prevention of Vitamin B12 Deficiency Active amiodarone (PACERONE) 200 mg tablet Take 1 tablet by mouth once daily 90 tablet 3 12/02/19 24 Active amLODIPine (NORVASC) 10 mg tablet Take 1 tablet by mouth once daily 30 tablet 10 01/09/20 24 Active benazepriL (LOTENSIN) 40 mg tablet Take 1 tablet by mouth once daily 30 tablet 10 01/09/20 24 Active chlorthalidone (HYGROTON) 25 mg tablet Take 1 tablet (25 mg total) by mouth early childhood associate teacher before breakfast 04/21/19 25 Active nebivoloL (BYSTOLIC) 10 mg tabletIndication s:Essential hypertension Take 1 tablet (10 mg total) by mouth daily 90 tablet 3 05/29/19 25 026 Active potassium chloride ER (KLOR-CON M20) 20 mEq CR tablet take 1 tablet by oral route every day with food 0 0 06/27/19 17 025 Discontin ued(Thera py completed ) terazosin (HYTRIN) 1 mg capsule Take 3 capsules (3 mg total) by mouth nightly 11/02/19 23 025 Discontin ued(Thera py completed ) hydroCHLOROthiaz vicenta (MICROZIDE) 12.5 mg capsuleIndicatio ns:Essential hypertension Take 2 capsules (25 mg total) by mouth every morning 180 capsule 3 04/30/19 24 025 Discontin ued(Patie nt Reported) nebivoloL (BYSTOLIC) 5 mg tablet Take 1 tablet by mouth once daily 30 tablet 10 01/09/20 24 025 Discontin ued(Thera py completed ) Active Problems Problem Noted Date Diagnosed Date Aortic atherosclerosis 05/23/2022 Essential hypertension 10/20/2019 Obstructive sleep apnea 12/09/2018 Paroxysmal atrial fibrillation 08/01/2016 Chronic anticoagulation 08/01/2016 Morbid obesity with BMI of 45.0-49.9, adult 08/2016 On amiodarone therapy 08/01/2016 Drug therapy finding 06/26/2016 Overview (07/20/2016): On amiodarone therapy Encounters Date Type Department Care Team Description 05/28/2024 1:15 PM CDT Office Visit [facility] Cardiology [address] [place] [address] Jean Paul Castillo MD Paroxysmal atrial fibrillation (HCC) (Primary Dx); On amiodarone therapy; Essential hypertension; Aortic atherosclerosis (HCC); Chronic anticoagulation; Morbid obesity with BMI of 45.0-49.9, adult (HCC) from Last 3 Months Surgical History Surgery Date Site/Laterality Comments CHOLECYSTECTOMY [...] on file 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 Gender Identity Not on file Sexual Orientation Not on file Obstetrics History Last Filed Vital Signs Vital Sign Reading Time Taken Comments Blood Pressure 144/58 05/28/2024 1:06 PM CDT Pulse 75 05/28/2024 1:06 PM CDT Temperature - - Respiratory Rate - - Oxygen Saturation 96% 05/28/2024 1:06 PM CDT Inhaled Oxygen Concentration - - Weight 122.5 kg (270 lb) 05/28/2024 1:06 PM CDT Height 162.6 cm (5' 4 ) 05/28/2024 1:06 PM CDT Body Mass Index 46.35 05/28/2024 1:06 PM CDT Plan of Treatment Health Maintenance Due Date Last Done Comments Depression Screening 1945 Fall Risk Assessment 1945 Hepatitis C Screening 1945 Osteoporosis Screening-Bone Density Scan 1945 DTaP/Tdap/Td Vaccine (1 - Tdap) 1958 Hepatitis B Screening 1965 Zoster Vaccine (1 of 2) 1997 Well Visit 65+ 02/18/2012 Pneumococcal vaccine 65+ (2 of 2 - PPSV23) 01/15/2018 01/15/2017 Influenza Vaccine (Season Ended) 2024 11/24/19 22 Insurance MEDICARE [employer] [facility] MEDICARE 3C Plus ACCESS OOS Care Teams Associate Field Service Engineer Relationship Specialty Start Date End Date Annie Wilhelm DO [address] [place] [address] PCP - General Family Medicine 05/28/24
--- OUTSIDE RECORDS SUMMARY | 2024-06-08 14:06 | XMS_ITS | Referral Summary ---
Author Organization [facility] [address] [facility] [address] Address [address] [place] [address] Care Team Providers Care Prototype Deicer Assembler Name Role Phone Annie Wilhelm Primary Care Provider + Encounters Date Type Department Care Team Description 05/28/2024 1:15 PM CDT Office Visit [facility] Cardiology [address] [facility] [address] [facility] [address] [place] [address] Jean Paul Castillo MD Paroxysmal atrial fibrillation (HCC) (Primary Dx); On amiodarone therapy; Essential hypertension; Aortic atherosclerosis (HCC); Chronic anticoagulation; Morbid obesity with BMI of 45.0-49.9, adult (HCC) from Last 3 Months Allergies Active Allergy Reactions Criticality Noted Date [...] 1 tablet (25 mg total) by mouth nanoelectronics engineer before breakfast 04/21/19 25 Active nebivoloL (BYSTOLIC) [...] 180 capsule 3 04/30/19 24 025 Discontin ued(Raheel nt Reported) nebivoloL (BYSTOLIC) 5 mg tablet [...] on file 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
--- OUTSIDE RECORDS SUMMARY | 2024-06-08 14:06 | XMS_ITS | CONTINUITY OF CARE DOCUMENT ---
Author Name breana toussaint Address Unknown Organization [facility] Address [address] [place] [address] Phone [phone] Care Team Providers Care Director Of Accreditation Name Role Phone Sulaiman PALMA, Raina Unavailable YADIEL LEUNG MD Unavailable [phone] INSURANCE PROVIDERS Payer name Policy type / Coverage type Gardiner red democrat ID [facility] [id number] [place] MEDICARE Medicare [id number]
--- OUTSIDE RECORDS SUMMARY | 2024-06-08 14:06 | XMS_ITS | Clinical Summary ---
Author Organization [facility] Facility Address [address] [address] Care Team Providers Care Developmental Specialist Name Role Phone Annie Wilhelm DO Primary Care Provider [phone] Medications chlorthalidone 25 MG tablet Take 1 tablet (25 mg total) by mouth 1 (one) time each day in the morning 90 tablet 1 04/21/2024 Active Encounters Date Type Department Care Team Description 04/21/2024 2:15 PM SR TECHNICAL SALES CONSULTANT [facility] [address] [facility] [address] [place] [id number] Rodney Godinez DO Stage 3 chronic kidney disease, not otherwise specified (HCC) (Primary Dx); Diastolic dysfunction; Obstructive sleep apnea syndrome; Paroxysmal atrial fibrillation (HCC); Venous insufficiency; Gastroesophageal reflux disease; Hypertensive chronic kidney disease; Type 2 diabetes mellitus with diabetic chronic kidney disease (HCC); Pure hypercholesterolemia, not otherwise specified 04/21/2024 Refill [place] [employer] [facility] [address] [facility] [address] [place] [address] Isabella Roy CMA from Last 3 Months [...] Comments Blood Pressure 150/80 04/21/2024 2:51 PM SR TECHNICAL SALES CONSULTANT Pulse 64 04/21/2024 2:51 PM SR TECHNICAL SALES CONSULTANT Temperature 37.1 C (98.7 F) 04/21/2024 2:51 PM SR TECHNICAL SALES CONSULTANT Respiratory Rate 18 04/21/2024 2:51 PM SR TECHNICAL SALES CONSULTANT Oxygen Saturation 97% 04/21/2024 2:51 PM SR TECHNICAL SALES CONSULTANT Inhaled Oxygen Concentration - - Weight 118 kg (260 lb) 04/21/2024 2:51 PM SR TECHNICAL SALES CONSULTANT Height - - Body Mass Index - - Plan of Treatment Upcoming Encounters Date Type Department Care Team (Late st Contact Info) Description 06/16/2024 12:00 PM CDT Office Visit [facility], [facility] [address] [facility] [address] [place] [address] Rodney Godinez DO [address] [facility] [address] [place] [address] Health Maintenance Due Date Last Done Comments Pneumococcal Vaccine: 50+ Years (2 of 2 - PPSV23) 03/12/2017 01/15/2017 Diabetes: Hemoglobin A1C 01/28/2024 Diabetes: Ophthalmology Exam 01/28/2024 Diabetes: Pedal Pulse Checked 01/28/2024 Diabetes: Sensory Foot Exam 01/28/2024 Diabetes: Visual Foot Exam 01/28/2024 Influenza Vaccine Completed 01/14/2024, 11/23/2021 Hepatitis B Vaccine Aged Out No longe r eligible based on patient's age to complete this topic Insurance Medicare [facility] Care Teams Developmental Specialist Relationship Specialty Start Date End Date Annie Wilhelm DO [address] [facility] [address] [place] [address] PCP - General Internal Medicine 04/21/24
--- OUTSIDE RECORDS SUMMARY | 2024-06-08 14:06 | XMS_ITS | Encounter Summary ---
Author Organization [facility] Address [address] [facility] [address] [place] [address] Care Team Providers Care Industrial Gas Servicer Name Role Phone Ranjana Friedman MD Primary Care Provider [phone] Charito Colunga NP Primary Care Provider [phone] Talya Valentino MD Primary Care Provider [phone]- [phone] Matthew Phillips Primary Care Provider + Annie Wilhelm DO Primary Care Provider + Encounter Details Date Type Department Care Team (Late st Contact Info) Description 07/09/2016 Orders Only [facility] ProviderPreet MD [address] [place] [address] Social History Tobacco Use Types Packs/Day Years Used Date Smoking Tobacco: Never Alcohol Use Standard Drinks/Week Comments No 0 (1 standard drink = 0.6 oz pur e alcohol) Comments Unknown Sex and Gender Information Value Date Recorded Sex Assigned at Not on file 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 Gender Identity Not on file Sexual [...] on filedocumented in this encounter Care Teams Industrial Gas Servicer Relationship Specialty Start Date End Date Ranjana Friedman MD [email or web address] [address] PCP - General 12/27/14 07/31/16 Charito Colunga NP [email or web address] [address] PCP - General 08/01/16 03/12/23 Talya Valentino MD [address] [place] [address] [place] [address] PCP - General Family Medicine 03/13/23 10/29/23 Matthew Phillips PA [address] [place] [address] [place] [address] PCP - General Internal Medicine 10/30/23 05/27/24 Annie Wilhelm DO [address] [place] [address] [address] [place] [id number] PCP - General Family Medicine 05/28/24 documented as of this encounter
--- OUTSIDE RECORDS SUMMARY | 2024-06-08 14:06 | XMS_ITS | Encounter Summary ---
Author Organization [facility] Address [address] [facility] [address] [place] [address] Care Team Providers Care Jewelry Repairer Name Role Phone Ranjana Friedman MD Primary Care Provider [phone] Charito Colunga NP Primary Care Provider [phone] Talya Valentino MD Primary Care Provider [phone]- [phone] Matthew Phillips Primary Care Provider + Annie Wilhelm DO Primary Care Provider + Encounter Details Date Type Department Care Team (Late st Contact Info) Description 06/26/2016 Orders Only [facility] ProviderPreet MD [address] [place] [address] Social History Tobacco Use Types Packs/Day Years Used Date Smoking Tobacco: Never Alcohol Use Standard Drinks/Week Comments No 0 (1 standard drink = 0.6 oz pur e alcohol) Comments Unknown Sex and Gender Information Value Date Recorded Sex Assigned at Not on file Legal Sex Female 11:59 PM THIRD MATE Gender Identity Not on file Sexual Orientation [...] on filedocumented in this encounter Care Teams Jewelry Repairer Relationship Specialty Start Date End Date Ranjana Friedman MD [email or web address] [address] PCP - General 12/27/14 07/31/16 Charito Colunga NP [email or web address] [address] PCP - General 08/01/16 03/12/23 Talya Valentino MD [address] [place] [address] [place] [address] PCP - General Family Medicine 03/13/23 10/29/23 Matthew Phillips PA [address] [place] [address] [place] [address] PCP - General Internal Medicine 10/30/23 05/27/24 Annie Wilhelm DO [address] [place] [address] [address] [place] [id number] PCP - General Family Medicine 05/28/24 documented as of this encounter
--- OUTSIDE RECORDS SUMMARY | 2024-06-08 14:06 | XMS_ITS | Encounter Summary ---
Author Organization [facility] Address [address] [facility] [address] [place] [address] Care Team Providers Care Mammography Technician Name Role Phone Ranjana Friedman MD Primary Care Provider [phone] Charito Colunga NP Primary Care Provider [phone] Talya Valentino MD Primary Care Provider +- [phone] Matthew Phillips Primary Care Provider + Annie Wilhelm DO Primary Care Provider + Encounter Details Date Type Department Care Team (Late st Contact Info) Description 06/06/2016 Orders Only [facility] ProviderPreet MD [address] [place] [address] Social History Tobacco Use Types Packs/Day Years Used Date Smoking Tobacco: Never Alcohol Use Standard Drinks/Week Comments No 0 (1 standard drink = 0.6 oz pur e alcohol) Comments Unknown Sex and Gender Information Value Date Recorded Sex Assigned at Not on file 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 Gender Identity Not on file Sexual Orientation [...] on filedocumented in this encounter Care Teams Mammography Technician Relationship Specialty Start Date End Date Ranjana Friedman MD [email or web address] [address] PCP - General 12/27/14 07/31/16 Charito Colunga NP [email or web address] [address] PCP - General 08/01/16 03/12/23 Talya Valentino MD [address] [place] [address] [place] [address] PCP - General Family Medicine 03/13/23 10/29/23 Matthew Phillips PA [address] [place] [address] [place] [address] PCP - General Internal Medicine 10/30/23 05/27/24 Annie Wilhelm DO [address] [place] [address] [address] [place] [id number] PCP - General Family Medicine 05/28/24 documented as of this encounter
[2024-06-08 14:07] LABS: Hematocrit 37.4 % (37.0-47.0); Hemoglobin 11.3 g/dL (12.0-15.0); Mean Corpuscular HGB Conc 30.2 g/dl (32-36); Mean Corpuscular Hemoglobin 28.5 pg (26-34); Mean Corpuscular Volume 94.4 fl (80-100); Mean Platelet Volume 9.8 fl (7.4-10.4); Platelet Count Result 255 k/mm3 (150-375); Red Blood Count 3.96 M/mm3 (4.2-5.4); Red Cell Distribution Width 14.5 % (11.5-14.5); White Blood Count 9.1 K/mm3 (4.5-10.0)
--- OUTSIDE RECORDS SUMMARY | 2024-06-08 14:07 | XMS_ITS | Data Portability ---
Author Organization [facility] [place], Main Office Address [address] [place] [address] Care Team Providers Care Cash Management Specialist Name Role Phone MIKAL MARTIN Primary Care Provider MIKAL MARTIN Referring Provider Assessment No assessment recorded. Plan of Treatment Reminders Order Date Submit Date Provider Last Modified By Organization Details Last Modified Time Details Appointments None recorded. Lab CBC w/ auto diff 2023 024 MYRNA [facility], [address] [place], [address], 4 23:07:55 lipid panel, serum 2023 024 [email or web address] [facility], [address] [place], [address], 4 08:21:44 CMP, serum or plasma 2023 024 [email or web address] [facility], [address] [place], [address], 4 08:21:44 CK (creatine kinase), total, serum 2023 024 [email or web address] [facility], [address] [place], [address], 4 08:21:44 TSH, serum or plasma 2023 024 [email or web address] [facility], [address] [place], [address], 4 08:21:45 T4, free, serum 2023 024 [email or web address] [facility], [address] [facility] [place], [address], 4 08:21:45 vitamin D, 25-hydroxy, total, serum 2023 024 [email or web address] 2 [facility], [address] [place], [address], 4 08:21:45 HbA1c (hemoglobin A1c), blood 2023 024 [email or web address] 2 [facility], [address] [place], [address], 4 08:21:44 vitamin B12 + folate, serum or blood 2023 024 [email or web address] 2 [facility], [address] [place], [address], 4 08:21:45 TSH + free T4, serum 2023 024 [email or web address] 2 [facility], [address] [place], [address], 4 08:17:21 CBC w/ auto diff 2023 024 [email or web address] [facility], [address] [place], [address], 4 08:17:21 ferritin, serum or plasma 2023 024 [email or web address] [facility], [address] [place], [address], 4 08:17:21 iron + total iron-bindin g capacity (TIBC), serum 2023 024 [email or web address] 2 [facility], [address] [place], [address], 4 08:17:21 vitamin B12, serum 2023 024 [email or web address] 2 [facility], [address] [place], [address], 4 08:17:21 vitamin D, 25-hydroxy, total, serum 2023 024 MYRNA [facility], [address] [place], [address], 4 01:13:29 HbA1c (hemoglobin A1c), blood 2023 024 [email or web address] [facility], [address] [place], [address], 4 08:17:21 HbA1c (hemoglobin A1c), blood 2022 023 [email or web address] [facility], [address] [place], [address], 3 09:59:06 lipid panel, serum 2022 023 [facility], [address] [place], [address], 3 18:25:03 CMP, [email or web address] [address] [place], [address], 3 18:25:11 CBC w/ auto diff 2022 023 [facility], [address] [place], [address], 3 18:09:38 Referral None recorded. Procedures None recorded. Surgeries None recorded. Imaging bone density 2022 023 [email or web address] [facility], [address] [place] [address] , [place], [address], 3 08:23:40 Medication Orders tramadol [address] [facility] [address] [place], [address], 4 16:11:17 alprazolam 0.5 mg tablet [email or web address] [facility] [address] [place], [address], 4 10:45:30 acetaminoph en [address] [facility] [address] [place], [address], 4 16:29:43 lidocaine 5 % topical patch [address] [facility] [address] [place], [address], 4 16:33:39 triamcinolo ne acetonide 0.1 % topical cream [address] [facility] [address] [place], [address], 4 16:38:45 oxybutynin chloride ER 10 mg tablet,exte nded release [address] [facility] [address] [place], [address], 4 16:32:04 Patient TargetsNo targets recorded. Patient Instructions Encounter Date Encounter Id Patient Instructions Last Modified By Organization Details Last Modified Time 12/18/2023 [id number] dementia rating scale-2* [email or web address] Not available 12/19/2023 08:20:54 depression screening* [email or web address] Not available 12/19/2023 08:21:00 alcohol misuse* [email or web address] Not available 12/19/2023 08:21:08 Timed Up and Go test (TUG)* [email or web address] Not available 12/19/2023 08:21:15 multi-dimensiona l health assessment questionnaire* [email or web address] Not available 12/19/2023 08:20:10 Personalized Hea lt [...] , see if it helps her nocturia [email or web address] Not available 01/11/2024 10:48:53 Reason for Referral None Reported. Results Created Date Observation Date Name Description Value Unit Range Abnormal Flag Note LastModifiedBy Organization Detail LastModifiedTime 09/07/19 22 09/06/2021 MICRO ALBUM IN RANDO M URINE microalbumin , urine 11.5 mg/L 0.0-16 .6 Not Available [facility] (Lab) [address] [place], [address], 09/06/2021 19:53:48 09/07/19 22 09/06/2021 HEMOG LOBIN A1C HA1C 6.2 % 4.0-6. 0 high Diabe breonna Scree arelis Crite millie: <5.7% Consi stent with absen ce of diabe breonna 5.7-6 .4% Consi stent with incre ased risk for diabe breonna (pred iabet es) >OR=6 .5% Consi stent with diabe breonna REFER ENCE: Diabe breonna Care 2016, 39(Rizo ppl.1 ):s13 -s22 Not Available [facility] (Lab) [address] [place], [address], 09/06/2021 20:17:09 09/07/19 22 09/06/2021 VITAM IN D 25-HY DROXY [id number] 51.4 NG/mL 30-100 Vitam in D Statu s: Defic ient: <20 ng/mL Insuf ficie nt: 20-29 ng/mL Suffi cient : 30-10 0 ng/mL Not Available [facility] (Lab) [address] [place], [address], 09/06/2021 18:58:40 09/07/19 22 09/06/2021 HEPAT IC/LI JOSSE PANEL alkaline phosphatase 115 U/L 38-126 Not Available [facility] (Lab) [address] [place], [address], 09/06/2021 18:40:54 09/07/19 22 09/06/2021 HEPAT IC/LI JOSSE PANEL alanine aminotransfe rase 15 U/L 0-35 Not Available [facility] (Lab) [address] [place], [address], 09/06/2021 18:40:54 09/07/19 22 09/06/2021 HEPAT IC/LI JOSSE PANEL aspartate aminotransfe rase 19 U/L 15-37 Not Available [facility] (Lab) [address] [place], [address], 09/06/2021 18:40:54 09/07/19 22 09/06/2021 HEPAT IC/LI JOSSE PANEL bilirubin, total 0.30 mg/dL 0.20-1 .30 Not Available [facility] (Lab) [address] [place], [address], 09/06/2021 18:40:54 09/07/19 22 09/06/2021 HEPAT IC/LI JOSSE PANEL bilirubin, conjugated (direct) 0.00 mg/dL 0.00-0 .30 Not Available [facility] (Lab) [address] [place], [address], 09/06/2021 18:40:54 09/07/19 22 09/06/2021 HEPAT IC/LI JOSSE PANEL biliurubin,u ncong. (indirect) 0.20 mg/dL 0.00-1 .1 Not Available [facility] (Lab) [address] [place], [address], 09/06/2021 18:40:54 09/07/19 22 09/06/2021 HEPAT IC/LI JOSSE PANEL total protein 6.1 g/dL 6.3-8. 2 low Not Available [facility] (Lab) [address] [place], [address], 09/06/2021 18:40:54 09/07/19 22 09/06/2021 HEPAT IC/LI JOSSE PANEL albumin 3.4 g/dL 3.0-4. 4 Not Available [facility] (Lab) [address] [place], [address], 09/06/2021 18:40:54 09/07/19 22 09/06/2021 HEPAT IC/LI JOSSE PANEL globulin 2.7 g/dL 2.6-4. 2 Not Available [facility] (Lab) [address] [place], [address], 09/06/2021 18:40:54 09/07/19 22 09/06/2021 HEPAT IC/LI JOSSE PANEL A/G ratio 1.3 ratio 1.0-2. 0 Not Available [facility] (Lab) [address] [place], [address], 09/06/2021 18:40:54 09/07/19 22 09/06/2021 LIPID PANEL cholesterol 120 mg/dL 140-19 9 low NIH PRINCE NSUS RECOM MENDA TION FOR STU STERO L: ADULT CHILD LOW RISK: <200 <170 BORDE RLINE : <200- 239 ----- HIGH RISK: >240 >200 Not Available [facility] (Lab) [address] [place], [address], 09/06/2021 18:40:48 09/07/19 22 09/06/2021 LIPID PANEL triglyceride s 77 mg/dL 0-150 NIH PRINCE NSUS REPOR T RECOM MENDA TION FOR TRIGL YCERI JEANNE: ADULT CHILD LOW RISK: <150 ----- BODER LINE: 150-1 99 ----- HIGH RISK: >200 ----- Not Available [facility] (Lab) [address] [place], [address], 09/06/2021 18:40:48 09/07/19 22 09/06/2021 LIPID PANEL HDL cholesterol 64 mg/dL 40- Not Available [facility] (Lab) [address] [place], [address], 09/06/2021 18:40:48 09/07/19 22 09/06/2021 LIPID PANEL [...] WILL NOT BE REPOR MALINI. Not Available [facility] (Lab) [address] [place], [address], 09/06/2021 18:40:48 09/07/19 22 09/06/2021 BASIC METAB OLIC PANEL sodium 139 mmol/ L 137-14 5 Not Available [facility] (Lab) [address] [place], [address], 09/06/2021 18:40:45 09/07/19 22 09/06/2021 BASIC METAB OLIC PANEL potassium 3.9 mmol/ L 3.5-5. 1 Not Available [facility] (Lab) [address] [place], [address], 09/06/2021 18:40:45 09/07/19 22 09/06/2021 BASIC METAB OLIC PANEL chloride 105 mmol/ L 98-107 Not Available [facility] (Lab) [address] [place], [address], 09/06/2021 18:40:45 09/07/19 22 09/06/2021 BASIC METAB OLIC PANEL carbon dioxide 28 mmol/ L 22-30 Not Available [facility] (Lab) [address] [place], [address], 09/06/2021 18:40:45 09/07/19 22 09/06/2021 BASIC METAB OLIC PANEL anion gap 9.9 mmol/ L 14-22 low Not Available [facility] (Lab) [address] [place], [address], 09/06/2021 18:40:45 09/07/19 22 09/06/2021 BASIC METAB OLIC PANEL glucose 80 mg/dL 70-99 Not Available [facility] (Lab) [address] [place], [address], 09/06/2021 18:40:45 09/07/19 22 09/06/2021 BASIC METAB OLIC PANEL BUN 21 mg/dL 8-19 high Not Available [facility] (Lab) [address] [place], [address], 09/06/2021 18:40:45 09/07/19 22 09/06/2021 BASIC METAB OLIC PANEL creatinine 0.93 mg/dL 0.66-1 .25 Not Available [facility] (Lab) [address] [place], [address], 09/06/2021 18:40:45 09/07/19 22 09/06/2021 BASIC METAB OLIC PANEL GFR 59 Refer ence Range : [place] ge GFR Healt hy Adult : >60 [...] calcu lator is avail able on the [facility] websi te: [email or web address] :[email or web address] [email or web address] [email or web address] rg/pr ofess ional s/kdo qi/gf r_cal culat or Not Available [facility] (Lab) [address] [place], [address], 09/06/2021 18:40:45 09/07/19 22 09/06/2021 BASIC METAB OLIC PANEL calcium 9.6 mg/dL 8.4-10 .2 Not Available [facility] (Lab) [address] [place], [address], 09/06/2021 18:40:45 07/26/19 23 07/26/2022 CBC/C OMPLE TE BLD COUNT W/DIF F white blood cells 7.7 x10'3 /uL 4.2-10 .8 Not Available [facility] (Lab) [address] [place], [address], 07/26/2022 10:13:55 07/26/19 23 07/26/2022 CBC/C OMPLE TE BLD COUNT W/DIF F red blood cells 3.77 x10'6 /uL 3.80-5 .20 low Not Available [facility] (Lab) [address] [place], [address], 07/26/2022 10:13:55 07/26/19 23 07/26/2022 CBC/C OMPLE TE BLD COUNT W/DIF F hemoglobin 9.8 g/dL 12.0-1 5.6 low Not Available [facility] (Lab) [address] [place], [address], 07/26/2022 10:13:55 07/26/1907/26/2022 CBC/C OMPLE TE BLD COUNT W/DIF F hematocrit 32.1 % 35.7-4 5.7 low Not Available [facility] (Lab) [address] [place], [address], 07/26/2022 10:13:55 07/26/19 23 07/26/2022 CBC/C OMPLE TE BLD COUNT W/DIF F mean red cell volume 85.1 fL 82.0-9 9.0 Not Available [facility] (Lab) [address] [place], [address], 07/26/2022 10:13:55 07/26/19 23 07/26/2022 CBC/C OMPLE TE BLD COUNT W/DIF F mean red cell hemoglobin 26.0 pg 27.0-3 3.0 low Not Available [facility] (Lab) [address] [place], [address], 07/26/2022 10:13:55 07/26/19 23 07/26/2022 CBC/C OMPLE TE BLD COUNT W/DIF F mean RBC HGB concentratio n 30.5 g/dL 31.0-3 6.0 low Not Available [facility] (Lab) [address] [place], [address], 07/26/2022 10:13:55 07/26/19 23 07/26/2022 CBC/C OMPLE TE BLD COUNT W/DIF F red cell distribution width 22.7 % 11.8-1 5.5 high Not Available [facility] (Lab) [address] [place], [address], 07/26/2022 10:13:55 07/26/19 23 07/26/2022 CBC/C OMPLE TE BLD COUNT W/DIF F platelets 344 x10'3 /uL 150-40 0 Not Available [facility] (Lab) [address] [place], [address], 07/26/2022 10:13:55 07/26/19 23 07/26/2022 CBC/C OMPLE TE BLD COUNT W/DIF F mean platelet volume 10.0 fL 9.0-12 .4 Not Available [facility] (Lab) [address] [place], [address], 07/26/2022 10:13:55 07/26/19 23 07/26/2022 CBC/C OMPLE TE BLD COUNT W/DIF F neutrophils 75.0 % 39.0-7 2.0 high Not Available [facility] (Lab) [address] [place], [address], 07/26/2022 10:13:55 07/26/19 23 07/26/2022 CBC/C OMPLE TE BLD COUNT W/DIF F lymphocytes 17.0 % 16.0-4 7.0 Not Available [facility] (Lab) [address] [place], [address], 07/26/2022 10:13:55 07/26/19 23 07/26/2022 CBC/C OMPLE TE BLD COUNT W/DIF F monocytes 6.9 % 5.0-12 .0 Not Available [facility] (Lab) [address] [place], [address], 07/26/2022 10:13:55 07/26/1907/26/2022 CBC/C OMPLE TE BLD COUNT W/DIF F eosinophils 0.4 % 1.0-7. 0 low Not Available [facility] (Lab) [address] [place], [address], 07/26/2022 10:13:55 07/26/19 23 07/26/2022 CBC/C OMPLE TE BLD COUNT W/DIF F basophils 0.4 % 0.0-2. 0 Not Available [facility] (Lab) [address] [place], [address], 07/26/2022 10:13:55 07/26/19 23 07/26/2022 CBC/C OMPLE TE BLD COUNT W/DIF F immature granulocytes 0.3 % 0.00-0 .50 Not Available [facility] (Lab) [address] [place], [address], 07/26/2022 10:13:55 07/26/19 23 07/26/2022 CBC/C OMPLE TE BLD COUNT W/DIF F neutrophils, absolute count 5.78 x10'3 /uL 1.5-8. 0 Not Available [facility] (Lab) [address] [place], [address], 07/26/2022 10:13:55 07/26/19 23 07/26/2022 CBC/C OMPLE TE BLD COUNT W/DIF F lymphocytes, absolute count 1.31 x10'3 /uL 1.07-3 .43 Not Available [facility] (Lab) [address] [place], [address], 07/26/2022 10:13:55 07/26/19 23 07/26/2022 CBC/C OMPLE TE BLD COUNT W/DIF F monocytes, absolute count 0.53 x10'3 /uL 0.29-0 .99 Not Available [facility] (Lab) [address] [place], [address], 07/26/2022 10:13:55 07/26/19 23 07/26/2022 CBC/C OMPLE TE BLD COUNT W/DIF F eosinophils, absolute count 0.03 x10'3 /uL 0.02-0 .53 Not Available [facility] (Lab) [address] [place], [address], 07/26/2022 10:13:55 07/26/19 23 07/26/2022 CBC/C OMPLE TE BLD COUNT W/DIF F basophils, absolute count 0.03 x10'3 /uL 0.01-0 .08 Not Available [facility] (Lab) [address] [place], [address], 07/26/2022 10:13:55 07/26/19 23 07/26/2022 CBC/C OMPLE TE BLD COUNT W/DIF F immature granulocytes ,absolute 0.02 x10'3 /uL 0.00-0 .05 Not Available [facility] (Lab) [address] [place], [address], 07/26/2022 10:13:55 07/26/19 23 07/26/2022 CBC/C OMPLE TE BLD COUNT W/DIF F nucleated red blood cells 0.0 % -0 Not Available [facility] (Lab) [address] [place], [address], 07/26/2022 10:13:55 07/26/19 23 07/26/2022 CBC/C OMPLE TE BLD COUNT W/DIF F NRBC# 0.00 x10'3 /uL Not Available [facility] (Lab) [address] [place], [address], 07/26/2022 10:13:55 07/26/19 23 07/26/2022 CBC/C OMPLE TE BLD COUNT W/DIF F anisocytosis 2+ Not Available [facility] (Lab) [address] [place], [address], 07/26/2022 10:13:55 07/26/19 23 07/26/2022 CBC/C OMPLE TE BLD COUNT W/DIF F hypochromia OCCASI ONAL Not Available [facility] (Lab) [address] [place], [address], 07/26/2022 10:13:55 07/26/19 23 07/26/2022 CBC/C OMPLE TE BLD COUNT W/DIF F macro OCCASI ONAL Not Available [facility] (Lab) [address] [place], [address], 07/26/2022 10:13:55 07/26/19 23 07/26/2022 CBC/C OMPLE TE BLD COUNT W/DIF F polychromato philic RBCs OCCASI ONAL Not Available [facility] (Lab) [address] [place], [address], 07/26/2022 10:13:55 07/26/19 23 07/25/2022 LIPID PANEL cholesterol 126 mg/dL 140-19 9 low NIH PRINCE NSUS RECOM MENDA TION FOR STU STERO L: ADULT CHILD LOW RISK: <200 <170 BORDE RLINE : <200- 239 ----- HIGH RISK: >240 >200 Not Available [facility] (Lab) [address] [place], [address], 07/25/2022 18:25:03 07/26/19 23 07/25/2022 LIPID PANEL triglyceride s 87 mg/dL 0-150 NIH PRINCE NSUS REPOR T RECOM MENDA TION FOR TRIGL YCERI JEANNE: ADULT CHILD LOW RISK: <150 ----- BODER LINE: 150-1 99 ----- HIGH RISK: >200 ----- Not Available [facility] (Lab) [address] [place], [address], 07/25/2022 18:25:03 07/26/19 23 07/25/2022 LIPID PANEL HDL cholesterol 55 mg/dL 40- Not Available [facility] (Lab) [address] [place], [address], 07/25/2022 18:25:03 07/26/19 23 07/25/2022 LIPID PANEL [...] WILL NOT BE REPOR MALINI. Not Available [facility] (Lab) [address] [place], [address], 07/25/2022 18:25:03 07/26/19 23 07/25/2022 COMPR EHENS RICKEY METAB OLIC PANEL sodium 141 mmol/ L 137-14 5 Not Available [facility] (Lab) [address] [place], [address], 07/25/2022 18:25:11 07/26/19 23 07/25/2022 COMPR EHENS RICKEY METAB OLIC PANEL potassium 4.3 mmol/ L 3.5-5. 1 Not Available [facility] (Lab) [address] [place], [address], 07/25/2022 18:25:11 07/26/19 23 07/25/2022 COMPR EHENS RICKEY METAB OLIC PANEL chloride 101 mmol/ L 98-107 Not Available [facility] (Lab) [address] [place], [address], 07/25/2022 18:25:11 07/26/19 23 07/25/2022 COMPR EHENS RICKEY METAB OLIC PANEL carbon dioxide 28 mmol/ L 22-30 Not Available [facility] (Lab) [address] [place], [address], 07/25/2022 18:25:11 07/26/19 23 07/25/2022 COMPR EHENS RICKEY METAB OLIC PANEL anion gap 16.3 mmol/ L 14-22 Not Available [facility] (Lab) [address] [place], [address], 07/25/2022 18:25:11 07/26/19 23 07/25/2022 COMPR EHENS RICKEY METAB OLIC PANEL glucose 82 mg/dL 70-99 Not Available [facility] (Lab) [address] [place], [address], 07/25/2022 18:25:11 07/26/19 23 07/25/2022 COMPR EHENS RICKEY METAB OLIC PANEL BUN 15 mg/dL 8-19 Not Available [facility] (Lab) [address] [place], [address], 07/25/2022 18:25:11 07/26/19 23 07/25/2022 COMPR EHENS RICKEY METAB OLIC PANEL creatinine 0.75 mg/dL 0.66-1 .25 Not Available [facility] (Lab) [address] [place], [address], 07/25/2022 18:25:11 07/26/19 23 07/25/2022 COMPR EHENS RICKEY METAB OLIC PANEL GFR >60 Refer ence Range : [place] ge GFR Healt hy Adult : >60 [...] s/kdo qi/gf r_cal culat or Not Available [facility] (Lab) [address] [place], [address], 07/25/2022 18:25:11 07/26/1907/25/2022 COMPR EHENS RICKEY METAB OLIC PANEL alkaline phosphatase 118 U/L 38-126 Not Available [facility] (Lab) [address] [place], [address], 07/25/2022 18:25:11 07/26/19 23 07/25/2022 COMPR EHENS RICKEY METAB OLIC PANEL alanine aminotransfe rase 19 U/L 0-35 Not Available [facility] (Lab) [address] [place], [address], 07/25/2022 18:25:11 07/26/19 23 07/25/2022 COMPR EHENS RICKEY METAB OLIC PANEL aspartate aminotransfe rase 24 U/L 15-37 Not Available [facility] (Lab) [address] [place], [address], 07/25/2022 18:25:11 07/26/19 23 07/25/2022 COMPR EHENS RICKEY METAB OLIC PANEL bilirubin, total 0.30 mg/dL 0.20-1 .30 Not Available [facility] (Lab) [address] [place], [address], 07/25/2022 18:25:11 07/26/19 23 07/25/2022 COMPR EHENS RICKEY METAB OLIC PANEL calcium 9.2 mg/dL 8.4-10 .2 Not Available [facility] (Lab) [address] [place], [address], 07/25/2022 18:25:11 07/26/19 23 07/25/2022 COMPR EHENS RICKEY METAB OLIC PANEL total protein 6.0 g/dL 6.3-8. 2 low Not Available [facility] (Lab) [address] [place], [address], 07/25/2022 18:25:11 07/26/19 23 07/25/2022 COMPR EHENS RICKEY METAB OLIC PANEL albumin 3.1 g/dL 3.0-4. 4 Not Available [facility] (Lab) [address] [place], [address], 07/25/2022 18:25:11 07/26/19 23 07/25/2022 COMPR EHENS RICKEY METAB OLIC PANEL globulin 2.9 g/dL 2.6-4. 2 Not Available [facility] (Lab) [address] [place], [address], 07/25/2022 18:25:11 07/26/19 23 07/25/2022 COMPR EHENS RICKEY METAB OLIC PANEL A/G ratio 1.1 ratio 1.0-2. 0 Not Available [facility] (Lab) [address] [place], [address], 07/25/2022 18:25:11 07/26/19 23 07/25/2022 HEMOG LOBIN A1C HA1C 5.5 % 4.0-6. 0 Diabe breonna Scree arelis Crite millie: <5.7% Consi stent with absen ce of diabe breonna 5.7-6 .4% Consi stent with incre ased risk for diabe breonna (pred iabet es) >OR=6 .5% Consi stent with diabe breonna REFER ENCE: Diabe breonna Care 2016, 39(Rizo ppl.1 ):s13 -s22 Not Available [facility] (Lab) [address] [place], [address], 07/25/2022 20:30:16 09/29/19 22 XR, lumba r spine No observ ation record ed. [id number] [facility] [address], [place], [address], 04/25/2022 08:14:30 11/18/19 22 11/17/2021 XR, chest , 2 view No observ ation record ed. [id number] [facility] [address], [place], [address], 04/25/2022 08:14:30 12/19/19 22 12/15/2021 PFT, compl ete No observ ation record ed. [id number], [place], [address], 04/25/2022 08:14:30 06/03/19 23 06/02/2022 XR, ankle + foot No observ ation record ed. [address], [place], [address], 06/04/2022 12:17:42 06/03/19 23 06/02/2022 XR, hip + pelvi s, bilat eral No observ ation record ed. [address] [facility], [place], [address], 06/04/2022 12:18:03 06/03/19 23 06/02/2022 XR, tibia + fibul a No observ ation record ed. [address] [facility], [place], [address], 06/04/2022 12:18:20 06/03/19 23 06/02/2022 XR, chest No observ ation record ed. [address], [place], [address], 06/04/2022 12:18:54 06/03/19 23 06/02/2022 CT, brain , w/o contr ast No observ ation record ed. [address], [place], [address], 06/04/2022 12:19:13 06/03/19 23 06/02/2022 stres s echoc ardio gram No observ ation record ed. [address], [place], [address], 06/04/2022 12:25:33 06/04/19 23 06/03/2022 US, carot id arter y No observ ation record ed. [address], [place], [address], 06/04/2022 12:20:36 06/04/19 23 06/03/2022 MRI, brain + brain stem, w/ contr ast No observ ation record ed. [address], [place], [address], 06/04/2022 12:10:29 06/05/19 23 06/04/2022 CT, brain , w/o contr ast No observ ation record ed. [address], [place], [address], 06/05/2022 08:36:21 06/06/19 23 06/05/2022 imagi ng/di agnos tic resul t No observ ation record ed. [address], [place], [address], 06/06/2022 08:29:03 07/21/19 23 07/18/2022 XR, ankle No observ ation record ed. [address], [place], [address], 07/24/2022 08:32:29 Result Notes None recorded. Problems Name Problem SNOMED Code Status Onset Date Resolution Date Notes Provider Name and Address Organization Details Recorded Time Intermitt ent palpitati ons 794094702 Active Not Available [facility] 4 03:44:28 History of right total knee replaceme nt 55640387466 79268 Active 2021 Not Available [facility] 4 03:44:28 Pain in left sacroilia c joint 52038877973 312913 Active 2021 Not Available [facility] 4 03:44:28 Pain in right sacroilia c joint 92828885125 745037 Active 2021 Not Available [facility] 4 03:44:28 Acute sinusitis 97142596 Completed Not Available [facility] 3 08:09:25 Chronic diarrhea of unknown origin 32902381 Active 2019 Not Available [facility] 4 03:44:28 Spinal stenosis of lumbar region 54574774 Active 2021 Not Available [facility] 4 03:44:28 Insomnia 339273335 Active Not Available [facility] 4 03:44:28 Subarachn oid hemorrhag e 81104836 Completed Not Available [facility] 3 08:09:25 Gastroeso phageal reflux disease 589490482 Active Not Available [facility] 4 03:44:28 Morbid obesity 782099394 Active Not Available [facility] 4 03:44:28 Genital lichen sclerosus 247208018 Active 2019 Not Available [facility] 4 03:44:28 Labyrinth itis 85761304 Completed Not Available [facility] 3 08:09:26 Osteoarth ritis of knee 559738980 Active Not Available [facility] 4 03:44:28 Fluid level behind tympanic membrane Completed Not Available [facility] 3 08:09:26 Flank pain 842977193 Completed Not Available [facility] 3 08:09:26 Shoulder joint pain 895223606 Active Not Available [facility] 4 03:44:28 Pain in thoracic spine 397433865 Completed Not Available [facility] 3 08:09:26 Chest pain 92519029 Completed Not Available [facility] 3 08:09:26 Knee pain Completed Not Available [facility] 3 08:09:26 Type 2 diabetes mellitus without complicat ion 232361052 Active Not Available [facility] 4 03:44:28 Influenza vaccinati on declined 762284956 Active 2019 Not Available [facility] 4 03:44:28 Osteoarth ritis of left knee joint 08941292068 9109 Active 2021 Not Available [facility] 4 03:44:28 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 36584927 Active Not Available [facility] 4 03:44:28 Vitamin D deficienc y 35317453 Active Not Available [facility] 4 03:44:28 Depressiv e disorder 84188862 Active Not Available [facility] 4 03:44:28 Sinusitis 61813383 Completed Not Available [facility] 3 08:09:27 Hypertens rickey disorder 98694388 Completed Not Available [facility] 3 08:09:27 Lighthead edness 294126186 Completed Not Available [facility] 3 08:09:27 Osteoarth ritis 045004487 Active Not Available [facility] 4 03:44:28 Vertigo 712215230 Completed Not Available [facility] 3 08:09:27 Dizziness 651037925 Completed Not Available [facility] 3 08:09:28 Body mass index 40+ - severely obese 128766361 Active 2018 Not Available [facility] 4 03:44:28 Mixed urinary incontine nce 265006937 Completed Not Available [facility] 3 08:09:28 Allergy to drug 340279401 Completed Not Available [facility] 3 08:09:28 Acute urinary tract infection 088354235 Completed Not Available [facility] 3 08:09:28 Type 2 diabetes mellitus 89398596 Completed Not Available [facility] 3 08:09:28 Pain of right knee joint 40475509084 4100 Active 2021 Not Available [facility] 4 03:44:28 Anxiety 44889635 Active Not Available [facility] 4 03:44:28 Candidias is of skin 92024763 Completed Not Available [facility] 3 08:09:29 Coronary arteriosc lerosis 27129214 Active Not Available [facility] 4 03:44:28 Upper respirato ry infection 80175172 Completed Not Available [facility] 3 08:09:29 Hyperlipi demia 96109374 Active Not Available [facility] 4 03:44:28 Essential hypertens ion 94927172 Active Not Available [facility] 4 03:44:28 Urinary tract infectiou s disease 81425821 Completed Not Available [facility] 3 08:09:29 Muscle pain 57508522 Completed Not Available [facility] 3 08:09:30 Sleep apnea 41963580 Active Not Available [facility] 4 03:44:28 Posterior rhinorrhe a 90282349 Completed Not Available [facility] 3 08:09:30 Urge incontine nce of urine 44634456 Active Not Available [facility] 4 03:44:28 Hypokalem ia 69829015 Active 2022 Not Available [facility] 4 03:44:28 Atrial fibrillat ion 00432030 Active 2022 Not Available [facility] 4 03:44:28 Low back pain 799205777 Active 2022 Not Available [facility] 4 03:44:28 Fracture of ankle 52078453 Active 2022 Not Available [facility] 4 03:44:28 Fracture of ankle 08886204 Active 2022 Not Available [facility] 4 03:44:28 Anemia 944055827 Active 2022 Not Available [facility] 4 03:44:28 Osteoporo sis 63919328 Active 2022 Not Available [facility] 4 03:44:28 Chronic atrial fibrillat ion 393356010 Active 2022 Not Available [facility] 4 03:44:28 Pruritic rash 69634508 Active 2022 Not Available [facility] 4 03:44:28 Chronic low back pain 578405507 Active 2022 Not Available [facility] 4 03:44:28 Acid reflux 959163723 Active 2022 Not Available [facility] 4 03:44:28 Irritable bowel syndrome character ized by constipat ion 153921402 Active 2022 Not Available [facility] 4 03:44:28 Constipat ion 99609144 Active 2022 Not Available [facility] 4 03:44:28 Chronic idiopathi c constipat ion 99119557 Active 2023 Not Available [facility] 4 03:44:28 Closed fracture of left ankle 91926432407 358144 Active 2023 LOTTIE Tatum [address], [place], [address] , [facility] 4 16:27:26 Overactiv e urinary bladder 901880723 Active 2023 LOTTIE Tatum [address], [place], [address] , [facility] 4 16:31:00 Serum vitamin B12 below reference range 159946562 Active 2023 LOTTIE Tatum [address], [place], [address] , [facility] 4 18:32:04 Decreased renal function 48614915 Active 2023 LOTTIE Tatum [address], [place], [address] , [facility] 4 17:06:01 Notes:Some problems listed i n Documents: #[id number], #[id number], #[id number], #[id number], #[id number], #[id number], #[id number], #[id number], #[id number], #[id number], #[id number], #[id number] could not be added to this patient's chart. Please review these documents and add these problems to the patient's chart manually as needed. Problem Notes None recorded. Procedures Surgical History Date Name Laterality Status Provider Name and Address Organization Details Recorded Time 12/18/19 Medicare Wellness CPT Code, subsequent completed May CHARLES Ernst [place] [employer] 12/18/2023 12:07:49 Knee Replacement completed Not Available [facility] 04/25/2022 08:06:21 Cholecystectomy completed Not Available [facility] 04/25/2022 08:06:21 Hernia Repair completed Not Available [facility] 04/25/2022 08:06:21 Foot Surgery completed STEPHANY [facility]ary [facility] 07/25/2022 14:11:56 Imaging Results Imaging Date Name Status LastModified by Organization Details LastModified Time 11/17/2021 XR, chest, 2 view completed [facility]. [id number] [address] [place] [address], [address], 04/25/2022 08:14:30 12/15/2021 PFT, complete completed MIGRATION.[address], [place], [address], 04/25/2022 08:14:30 09/28/2021 XR, lumbar spine completed MIGR[facility].0 74376 0026 [id number] [address] [facility] [address], [place], [address], 04/25/2022 08:14:30 06/02/2022 XR, ankle + foot completed [address], [address], 06/04/2022 12:17:42 06/02/2022 XR, hip + pelvis, bilateral completed [address], [address], 06/04/2022 12:18:03 06/02/2022 XR, tibia + fibula completed [address], [address], 06/04/2022 12:18:20 06/02/2022 XR, chest completed [address], [address], 06/04/2022 12:18:54 06/02/2022 CT, brain, w/o contrast completed [email or web address] [address], [place], [address], 06/04/2022 12:19:13 06/02/2022 stress echocardiogram completed [address] [address], [place], [address], 06/04/2022 12:25:33 06/03/2022 US, carotid artery completed [address] [address], [place], [address], 06/04/2022 12:20:36 06/03/2022 MRI, brain + brain stem, w/ contrast completed [address] [address], [place], [address], 06/04/2022 12:10:29 06/04/2022 CT, brain, w/o contrast completed [address] [address], [place], [address], 06/05/2022 08:36:21 06/05/2022 imaging/diagnostic result completed [address], [address], 06/06/2022 08:29:03 07/18/2022 XR, ankle completed [address], [address], 07/24/2022 08:32:29 Procedure Notes None recorded. Medical Equipment None Reported. Allergies Allergen ID Allergen Name Allergen Category Reaction Reaction Severity Criticality Documentation Date Start Date Code Code System Note Provider Name and Address Organization Details Recorded Time Levaquin medicatio n other Not available Not available 04/25/2022 81169 2 RxNorm TONGU E SWELL ING Not Available [facility] 3 08:14:24 dicyclomi ne medicatio n rash Not available Not available 04/25/2022 3361 RxNorm Not Available [facility] 3 08:14:24 Augmentin medicatio n Not available Not available Not available 04/25/2022 81960 2 RxNorm TONGU E AND KAITLYNN HORNE ING Not Available [facility] 3 08:14:24 Medications Name Sig Start Date [...] TABLETS BY MOUTH ONCE DAILY AT BEDTIME active Not Available Not Available No t Available amoxicill in 875 mg tablet active Not [...] administ ered by the provider 07/25 completed [facility]: 0003-049 4-20 Not Available Not Available Not [...] dose Not Available Not Available Not Available [facility] 1.5 billion cell capsule Take 1 capsule [...] % 92 % 107 /min 96.2 [degF] 058724. 57 g 142 mm[Hg] 82 mm[Hg] Not Available [facility] 3 08:08:23 Date Recorded Body mass index (BMI) Body height Pain severity - 0-10 verbal numeric rating [Score] - Reported Body weight Provider Name and Address Organization Details Last Updated DateTime 09/28/2021 45.7 kg/m2 162.56 cm 8 243749.57 g Not Available [facility] 04/25/2022 08:08:31 Date Recorded Body height Body temperature Heart rate Oxygen saturation Oxygen saturation in Arterial blood by Pulse oximetry Systolic blood pressure Diastolic blood pressure Provider Name and Address Organization Details Last Updated DateTime 3 162.56 cm 98.1 [degF] 77 /min 96 % 96 % 130 mm[Hg] 80 mm[Hg] STEPHANY Singletary [place] [employer] [facility] 3 14:13:26 Date Recorded Body height Body mass index (BMI) Body weight Body temperature Respiratory rate Heart rate Oxygen saturation Oxygen saturation in Arterial blood by Pulse oximetry Systolic blood pressure Diastolic blood pressure Provider Name and Address Organization Details Last Updated DateTime 4 162.56 cm 42.9 kg/m2 313072. 09 g 97.9 [degF] 16 /min 47 /min 97 % 97 % 138 mm[Hg] 60 mm[Hg] Cher Jade RN [facility] 4 15:57:14 Date Recorded Body height Body mass index (BMI) Body weight Body temperature Heart rate Oxygen saturation Oxygen saturation in Arterial blood by Pulse oximetry Systolic blood pressure Diastolic blood pressure Provider Name and Address Organization Details Last Updated DateTime 4 162.56 cm 44.1 kg/m2 082605. 24 g 97.9 [degF] 56 /min 95 % 95 % 130 mm[Hg] 72 mm[Hg] Cher Jade RN [facility] 4 16:03:20 Social History Question Answer Notes LastModified by Organizat ion Details LastModified Time Tobacco Smoking Status Never Smoker Not Available [facility] 04/25/2022 08:06:14 What Is Your Level Of Alcohol Consumption? None MIGRATION.[id number] [id number] Information not available 04/25/2022 What Is Your Level Of Caffeine Consumption? Heavy MIGRATION.027663 2818 Information not available 04/25/2022 How Much Tobacco Do You Chew? None MIGRATION.008771 7560 Information not available 04/25/2022 Which Illicit Or Recreational Drugs Have You Used? None MIGRATION.817059 2960 Information not available 04/25/2022 Do You Or Have You Ever Used E-cigarettes Or Vape? Never Used Electronic Cigarettes MIGRATION.497935 0847 Information not available 04/25/2022 What Is Your Occupation? Retired MIGRATION.500252 6683 Information not available 04/25/2022 What Was The Date Of Your Most Recent Tobacco Screening? 03/10/2018 MIGRATION.139857 7686 Information not available 04/25/2022 Do You Or Have You Ever Used Smokeless Tobacco? Never Used Smokeless Tobacco MIGRATION.041926 9855 Information not available 04/25/2022 Sex: Unknown Functional Status Question Answer Note LastModified by Organizat ion Details LastModified Time What is your exercise level? Occasional [id number] 26 Information not available 04/25/2022 Mental Status None recorded. Family History Relationship Description Onset Age of this Age Resolved Age Notes LastModified by Organization Details LastModified Time Mother Coronary arterioscler osis MIGRATION.303 [id number] Not available 04/25/2022 08:06:23 Mother Diabetes mellitus MIGRATION.380 [id number] Not available 04/25/2022 08:06:23 Mother Family history of malignant neoplasm MIGRATION.737 [id number] Not available 04/25/2022 08:06:23 Maternal Grandmother Coronary arterioscler osis MIGRATION.215 [id number] Not available 04/25/2022 08:06:23 Medical History Condition Response RHEUMATIC FEVER Y HIGH CHOLESTEROL / HYPERLIPIDEMIA Y EYE PROBLEMS Y DEPRESSION (INCLUDING POST ) Y USE OF BLOOD THINNERS Y DIABETES, TYPE Y HEARTBURN / REFLUX Y HYPERTENSION Y ANXIETY DISORDER Y ANEMIA/BLOOD DISORDER Y PNEUMONIA Y Gynecological HistoryNo gynecological history recorded. Obstetrics History GPAL:G 0 P 0 0 0 0 Immunizations Vaccine Type Date Status Note Provider Nam e and Address Organization Details Recorded Time COVID-19, mRNA, LNP-S, PF, 50 mcg/0.5 mL 4 completed CHARLES Perkins, [facility] 01/14/2024 16:01:56 influenza, unspecified formulation 4 completed CHARLES Perkins, [facility] 01/14/2024 16:03:00 COVID-19, mRNA, LNP-S, bivalent, PF, 30 mcg/0.3 mL dose 2 completed Not Available [facility] 03/17/2023 03:44:29 Influenza, split virus, quadrivalent, preservative 2 completed Not Available [facility] 03/17/2023 03:44:29 Pneumococcal conjugate PCV 13 7 completed Not Available [facility] 03/17/2023 03:44:29 Past Encounters Encounter ID Performer Location Encounter Start Date Encounter Closed Date Diagnosis/Indication Diagnosis SNOMED-CT Code Diagnosis ICD10 Code [facility] [id number] [facility] [place] [address] 09/05/2020 00:00:00 09/05/2020 16:21:00 [id number] [facility] [address] [facility] [address] [place] [address] 08/03/2021 00:00:00 08/03/2021 14:59:56 [id number] [facility] [address] [facility] [address] [place] [address] 08/31/2021 00:00:00 08/31/2021 13:23:31 [id number] [place] [address] 09/06/2021 00:00:00 09/06/2021 15:24:05 [id number] [facility] [address] [facility] [address] [place] [address] 09/28/2021 00:00:00 09/28/2021 14:36:15 [id number] Talya Valentino MD [address] [place] [address] 07/25/2022 14:02:12 07/25/2022 14:40:02 Fracture of ankle 84295277 S82.90XA Anemia 982791713 D64.9 Osteoporosis 22488055 M8 1.0 Type 2 mary betes mellitus without complication 591628996 E11.9 Hyperlipidemia 03574886 E78.5 Essential hypertension 16635937 I10 History of cerebrovascular accident 046475265 Z86.73 [id number] LOTTIE Tatum [facility] [address] [facility] [place] [address] 06/19/2023 15:43:55 06/19/2023 16:45:30 Fracture of ankle 62780992 S82.90XA Essential hypertension 00581395 I10 Overactive urinary bladder 789314058 N32.81 Vitamin D deficiency 347 07999 E55.9 Spinal [place]om[place] nosis of lumbar region 11113638 M48.061 Sleep apnea 70739275 G47 .30 Osteoporosis 87099294 M8 1.0 Osteoarthr itis of knee 207732125 M17.9 Low back pain 455138847 M54.50 Insomnia 578728118 G47.0 0 Hyperlipidemia 68487199 E78.5 Type 2 mary betes mellitus without complication 755769976 E11.9 Pruritic rash 75120716 L 28.2 Anemia 023349728 D64.9 Morbid obesity 311768084 E66.01 Gastroesop hageal reflux disease 420351333 K21.9 Genital li kenyon sclerosus 603220181 L90.0 History of right total knee replacement 2666307888 415535 Z96.651 Coronary arteriosclerosis 19432041 I25.10 Depressive disorder 3548 9007 F32.A Chronic id iopathic constipation 00618619 K59.04 Chronic at rial fibrillation 524506399 I48.20 Anxiety 14959764 F41.9 [id number] LOTTIE Tatum [facility] [address] [facility] [place] [address] 12/18/2023 15:36:00 12/18/2023 16:24:00 Adult health examination 529305186 Z00.00 Screening for disorder 466036381 Z13.9 Anxiety 80795140 F41.9 Low back pain 740187112 M54.50 Anemia 442628625 D64.9 Coronary arteriosclerosis 44059268 I25.10 Hyperlipidemia 01810606 E78.5 Type 2 mary betes mellitus without complication 244248316 E11.9 Vitamin D deficiency 347 87706 E55.9 Serum danielle min B12 below reference range 895254253 R79.89 Atrial fibrillation 4943 6004 I48.91 Chronic id iopathic constipation 12028613 K59.04 Chronic at rial fibrillation 933327011 I48.20 Essential hypertension 94764996 I10 Gastroesop hageal reflux disease 234418191 K21.9 Osteoarthritis 672740668 M19.90 Osteoporosis 53485297 M8 1.0 Overactive urinary bladder 092585889 N32.81 Morbid obesity 911448459 E66.01 Insomnia 547807338 G47.0 0 Health Concerns Section Related Observation LastModified by Organization Detai ls LastModified Time None Recorded Concern Status LastModified by Organization Details LastModified Time None Recorded Advance Directives Directive None Recorded Payers Encounter Date Sequence Insurance Name Policy Number Policy Rosa Covered Member ID Rosa Member ID Guarantor Name 07/25/2022 1 [place] [employer]zy [employer]edi [place] [id number] Litzy A [place] 07/25/2022 2 [place] [id number] Jf [place] [id number] Litzy [employer]rivedi [place] 06/19/2023 1 [place] [id number] [employer]zy A [employer] 06/19/2023 2 [place] [id number] Jf [place] [id number] Litzy A [place] 12/18/2023 1 [place] [employer] [id number] [employer]zy A [employer] 12/18/2023 2 [place] [id number] Jf [place] [id number] [employer] Notes Date Note Type Note Provider Name and Address Organization Details Recorded Time 09/28/2021 text/html Back PainReporte d bypatient.Location :pain radiating to the buttocks Quality:dull Severity:worsening Duration:chronic Context:unusual activity; prior back problems Associated Symptoms:no fever; no weak limbs; no numbness of the legs/feet; no tingling; no incontinence; no shortness of breath Not Available [email or web address] 09/28/2021 14:36:15 07/25/2022 text/html Here today for [...] years ago. Talya Valentino MD [address], [place], [address], [email or web address] 07/25/2022 19:15:06 06/19/2023 text/html fracture left ankle , wears braces for feet that turn inward anyway . LOTTIE Tatum [address], [place], [address], [email or web address] 06/20/2023 16:36:32 12/18/2023 text/html nocturia , would like to stop hctz LOTTIE Tatum [address], [place], [address], [email or web address] 01/11/2024 10:50:22 OBGyn Episode No OBEpisode recorded.
[2024-06-08 14:15] LABS: Add Urine Microscopic? YES; Appearance Urine Clear (Clear); Bacteria Urine None Seen /hpf; Bilirubin Urine Negative (Negative); Blood Urine Negative (Negative); Color Urine Yellow (Yellow); Glucose Urine UA Negative (Negative); Ketones Urine Negative (Negative); Leukocyte Esterase Ur Trace LEU/UL (Negative); Nitrate Urine Negative (Negative); Non Pathogenic Casts 0-2; Protein Urine Negative (Negative); RBC Urine 0-2 /hpf (0-2); Specific Grav Ur 1.013 (1.001-1.035); Squamous Epithelial Cell Urine None Seen /hpf (Few); WBC Urine 0-5 /hpf (0-3)
[2024-06-08 14:31] LABS: Albumin Level 3.8 g/dL (3.5-5.1); Anion Gap 6 mmol/L (4-12); Blood Urea Nitrogen 23 mg/dL (7-17); Carbon Dioxide 33 mmol/L (22-30); Chloride 103 mmol/L (98-107); Estimated Glomerular Filt Rate 49; Glucose 108 mg/dL (65-110); Magnesium 2.1 mg/dL (1.6-2.3); Phosphorus 3.2 mg/dL (2.5-4.5); Potassium 4.1 mmol/L (3.4-5.0); Sodium 142 mmol/L (137-145)
[2024-06-08 14:54] LABS: Vitamin D 25 Hydroxy 63.2 ng/mL
[2024-06-08 15:14] LABS: Creatinine Urine 49.8 mg/dL; Total Protein Urine Random 11 mg/dL
[2024-06-08 15:52] LABS: Hepatitis B Surface Antigen Negative (Negative)
[2024-06-08 15:57] LABS: Hepatitis B Core IgM Result Negative (Negative)
[2024-06-09 07:58] LABS: Protein, Total 6.1 g/dL (6.1-8.1)
[2024-06-10 08:30] LABS: Abnormal Protein Band 1 0.1 g/dL (NONE DETECTED); Albumin 3.1 g/dL (3.8-4.8); Alpha 1 Globulin 0.3 g/dL (0.2-0.3); Alpha 2 Globulin 0.9 g/dL (0.5-0.9); Beta 1 Globulin 0.5 g/dL (0.4-0.6); Gamma Globulin 0.8 g/dL (0.8-1.7)
[2024-06-10 13:18] LABS: Cystatin C 1.77 mg/L (0.52-1.10); eGFR 32 (> OR = 60)
[2024-06-10 15:38] LABS: Kappa\\Lambda Light Chains 1.58 (0.26-1.65); Lambda Light Chain 34.4 mg/L (5.7-26.3)
== END 2024-06-08 12:43 | disposition home or self-care (01) ==
LOC: ANHLAB 12:53
PROVIDERS: PCP Family Medicine; Visit Provider Internal Medicine Nephrology
DX: E11.22 Type 2 diabetes mellitus with diabetic chronic kidney disease (principal); I12.9 Hypertensive chronic kidney disease with stage 1 through stage 4 chronic kidney disease, or unspecified chronic kidney disease; N18.30 Chronic kidney disease, stage 3 unspecified; I11.9 Hypertensive heart disease without heart failure; G47.33 Obstructive sleep apnea (adult) (pediatric); I48.0 Paroxysmal atrial fibrillation; K21.9 Gastro-esophageal reflux disease without esophagitis; E78.00 Pure hypercholesterolemia, unspecified; I87.2 Venous insufficiency (chronic) (peripheral)
CPT/HCPCS: 36415; 80069; 81001; 81050; 82306; 82570; 82610; 83735; 83883; 84155; 84156; 84165; 85027; 86705; 87340

== ENCOUNTER 2024-06-22 13:45 | Outpatient (CLI) | payer MEDICARE, BC, SELFPAY ==
--- NOTE | ~2024-06-22 | US_ITS ---
EXAM: RENAL ULTRASOUND HISTORY: CKD 3 COMPARISON: None. Reference is made to patient's previous CT examination of the abdomen and pelvis da christa 01/25/2014. FINDINGS: RIGHT KIDNEY: 13.5 x 6.6 x 5.7 cm. The parenchyma of the right kidney is increased in echogenicity. No hydronephrosis or bulky renal calculi. LEFT KIDNEY: 13.2 x 6.1 x 5.1 cm No hydronephrosis or renal calculi. The parenchyma of the left kidney is increased in echogenicity. Findings within the medial left kidney for which a pararenal cyst is suspected. Of note, this was not present on the patient's previous CT examination dated 01/25/2014. 9 mm well-circumscribed anechoic avascular focus lower pole of the left kidney, unchanged from previo us examination. BLADDER: Not interrogated on the submitted images IMPRESSION: No hydronephrosis or renal calculi. Findings suggesting medical renal disease. Findings along the medial border of the left kidney for which a pararenal cyst is suspected. This focus was not present on the patient's CT examination of the abdomen and pelvis performed 10 yea rs earlier, for which repeat cross-sectional imaging (noncontrast enhanced CT examination of the abdo men and pelvis) is suggested for further characterization. Reviewed, dictated and finalized at location A. IMPRESSION: No hydronephrosis or renal calculi. Findings suggesting medical renal disease. Findings along the medial border of the left kidney for which a pararenal cyst is suspected. This focus was not present on the patient's CT examination of the abdomen and p andrea performed 10 years earlier, for which repeat cross-sectional imaging (non contrast enhanced CT examination of the abdomen and pelvis) is suggested for fu rther characterization.
--- OUTSIDE RECORDS SUMMARY | 2024-06-22 15:37 | XMS_ITS | Clinical Summary ---
Author Organization [facility] Facility Address [address] [address] Care Team Providers Care Fagoter Name Role Phone Wilhelm, Annie Primary Care Provider [phone] Medications chlorthalidone 25 MG tablet Take 1 tablet (25 mg total) by mouth 1 (one) time each day in the morning 90 tablet 1 04/21/2024 Active Encounters Date Type Department Care Team Description 06/16/2024 12:00 PM CDT Office Visit [facility], [facility] [address] [address] Rodney Godinez DO Stage 3 chronic kidney disease, not otherwise specified (HCC) (Primary Dx); Diastolic dysfunction; Obstructive sleep apnea syndrome; Paroxysmal atrial fibrillation (HCC); Venous insufficiency; Gastroesophageal reflux disease; Hypertensive chronic kidney disease; Type 2 diabetes mellitus with diabetic chronic kidney disease (HCC); Pure hypercholesterolemi a, not otherwise specified 06/11/2024 Documentation Only [facility], [address] [phone] Donnie Barclay MD 06/10/2024 Documentation Only [facility], [address] [address] Donnie Barclay MD 06/10/2024 Documentation Only [facility], [address] [phone] Donnie Barclay MD 06/09/2024 Documentation Only [facility], [address] [address] Donnie Barclay MD 06/09/2024 Documentation Only [address] [phone] Donnie Barclay MD 06/08/2024 Documentation Only [address] [address] Donnie Barclay MD 06/08/2024 Documentation Only [address] [address] Donnie Barclay MD 04/21/2024 2:15 PM [employer]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 [address] [address] Rodney Godinez DO Stage 3 chronic kidney disease, not otherwise specified (HCC) (Primary Dx); Diastolic dysfunction; Obstructive sleep apnea syndrome; Paroxysmal atrial fibrillation (HCC); Venous insufficiency; Gastroesophageal reflux disease; Hypertensive chronic kidney disease; Type 2 diabetes mellitus with diabetic chronic kidney disease (HCC); Pure hypercholesterolemi a, not otherwise specified 04/21/2024 Refill 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 [address] [place] [address] Rodney Godinez DO [address] [facility] [address] [place] [address] Health Maintenance Due Date Last Done Comments [...] age to complete this topic Insurance Medicare [facility] Care Teams Fagoter Relationship Specialty Start Date End Date Annie Wilhelm DO [address] [facility] [address] [place] [address] PCP - General Internal Medicine 04/21/24
--- OUTSIDE RECORDS SUMMARY | 2024-06-22 15:37 | XMS_ITS | Encounter Summary ---
Author Organization [facility] Address [address] [place] [address] Care Team Providers Care Political Geographer Name Role Phone Ranjana Friedman MD Primary Care Provider [phone] Charito Colunga NP Primary Care Provider [phone] Talya Valentino MD Primary Care Provider +- [phone] Matthew Phillips Primary Care Provider + Annie Wilhelm DO Primary Care Provider + Encounter Details Date Type Department Care Team (Late st Contact Info) Description 06/26/2016 Orders Only [facility] ProviderPreet MD [address] [place] [address] Social History Tobacco Use Types Packs/Day Years Used Date Smoking Tobacco: Never Alcohol Use Standard Drinks/Week Comments No 0 (1 standard drink = 0.6 oz pur e alcohol) Comments Unknown Sex and Gender Information Value Date Recorded Sex Assigned at Not on file Legal Sex Female 11:59 PM [employer]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 [employer] Gender Identity Not on file Sexual Orientation [...] on filedocumented in this encounter Care Teams Political Geographer Relationship Specialty Start Date End Date Ranjana Friedman MD [id number] [address] PCP - General 12/27/14 07/31/16 Cahrito Colunga NP [address] [address] PCP - General 08/01/16 03/12/23 Talya Valentino MD [address] [place] [address] [place] [address] PCP - General Family Medicine 03/13/23 10/29/23 Matthew Phillips PA [address] [place] [address] [place] [address] PCP - General Internal Medicine 10/30/23 05/27/24 Annie Wilhelm DO [address] [place] [address] [address] [place] [address] [id number] PCP - General Family Medicine 05/28/24 documented as of this encounter
--- OUTSIDE RECORDS SUMMARY | 2024-06-22 15:37 | XMS_ITS | Encounter Summary ---
Author Organization [facility] Address [address] [place] [address] Care Team Providers Care Senior Data Analyst Name Role Phone Ranjana Friedman MD Primary Care Provider [phone] Charito Colunga NP Primary Care Provider [phone] Talya Valentino MD Primary Care Provider +- [phone] Matthew Phillips Primary Care Provider + Annie Wilhelm DO Primary Care Provider + Encounter Details Date Type Department Care Team (Late st Contact Info) Description 07/09/2016 Orders Only [facility] ProviderPreet MD [address] [place] [address] Social History Tobacco Use Types Packs/Day Years Used Date Smoking Tobacco: Never Alcohol Use Standard Drinks/Week Comments No 0 (1 standard drink = 0.6 oz pur e alcohol) Comments Unknown Sex and Gender Information Value Date Recorded Sex Assigned at Not on file 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 Gender Identity Not on file Sexual Orientation [...] on filedocumented in this encounter Care Teams Senior Data Analyst Relationship Specialty Start Date End Date Ranjana Friedman MD [address] [address] PCP - General 12/27/14 07/31/16 Charito Colunga NP [address] [address] PCP - General 08/01/16 03/12/23 Talya Valentino MD [address] [place] [address] [place] [address] PCP - General Family Medicine 03/13/23 10/29/23 Matthew Phillips PA [address] [place] [address] [place] [address] PCP - General Internal Medicine 10/30/23 05/27/24 Annie Wilhelm DO [address] [place] [address] [address] [place] [address] [id number] PCP - General Family Medicine 05/28/24 documented as of this encounter
--- OUTSIDE RECORDS SUMMARY | 2024-06-22 15:37 | XMS_ITS | Data Portability ---
Author Organization [facility] [employer], Main Office Address [address] [place] [address] Care Team Providers Care Identity Management Developer Name Role Phone MIKAL MARTIN Primary Care Provider MIKAL MARTIN Referring Provider Assessment No assessment recorded. Plan of Treatment Reminders Order Date Submit Date Provider Last Modified By Organization Details Last Modified Time Details Appointments None recorded. Lab CBC w/ auto diff 2023 024 [facility], [address] [place], [address], 4 23:07:55 lipid panel, serum 2023 024 [email or web address] [facility], [address] [place], [address], 08:21:44 CMP, serum or plasma 2023 024 [email or web address] [facility], [address] [place], [address], 4 08:21:44 CK (creatine kinase), total, serum 2023 024 [email or web address] [facility], [address] [place], [address], 4 08:21:44 TSH, serum or plasma 2023 024 [email or web address] [facility], [address] [place], [address], 4 08:21:45 T4, free, serum 2023 024 [email or web address] [facility], [address] [facility] [place], [address], 4 08:21:45 vitamin D, 25-hydroxy, total, serum 2023 024 [email or web address] 2 [facility], [address] [place], [address], 4 08:21:45 HbA1c (hemoglobin A1c), blood 2023 024 [email or web address] 2 [facility], [address] [place], [address], 4 08:21:44 vitamin B12 + folate, serum or blood 2023 024 [email or web address] 2 [facility], [address] [place], [address], 4 08:21:45 TSH + free T4, serum 2023 024 [email or web address] 2 [facility], [address] [place], [address], 4 08:17:21 CBC w/ auto diff 2023 024 [email or web address] [facility], [address] [place], [address], 4 08:17:21 ferritin, serum or plasma 2023 024 [email or web address] [facility], [address] [place], [address], 4 08:17:21 iron + total iron-bindin g capacity (TIBC), serum 2023 024 [email or web address] 2 [facility], [address] [place], [address], 4 08:17:21 vitamin B12, serum 2023 024 [email or web address] 2 [facility], [address] [place], [address], 4 08:17:21 vitamin D, 25-hydroxy, total, serum 2023 024 MYRNA [facility], [address] [place], [address], 4 01:13:29 HbA1c (hemoglobin A1c), blood 2023 024 [email or web address] 2 [facility], [address] [place], [address], 4 08:17:21 HbA1c (hemoglobin A1c), blood 2022 023 [email or web address] [facility], [address] [place], [address], 3 09:59:06 lipid panel, serum 2022 023 [facility], [address] [place], [address], 3 18:25:03 CMP, [facility] or [facility] [address] [place], [address], 3 18:25:11 CBC w/ auto diff 2022 023 [facility], [address] [place], [address], 3 18:09:38 Referral None recorded. Procedures None recorded. Surgeries None recorded. Imaging bone density 2022 023 [email or web address] [facility], [address] [place] [address] , [place], [address], 3 08:23:40 Medication Orders tramadol 50 mg tablet 2023 024 [facility] [address] [place], [address], 4 16:11:17 alprazolam 0.5 mg tablet [email or web address] [facility] [address] [place], [address], 4 10:45:30 acetaminoph en 500 mg capsule 2023 024 [facility] [address] [place], [address], 4 16:29:43 lidocaine 5 % topical patch 2023 024 [facility] [address] [place], [address], 4 16:33:39 triamcinolo ne acetonide 0.1 % topical cream 2023 024 [facility] [address] [place], [address], 4 16:38:45 oxybutynin chloride ER 10 mg tablet,exte nded release 24 hr 2023 024 [facility] [address] [place], [address], 4 16:32:04 Patient TargetsNo targets recorded. Patient Instructions Encounter Date Encounter Id Patient Instructions Last Modified By Organization Details Last Modified Time 12/18/2023 [id number] dementia rating scale-2* Not available 12/19/2023 08:20:54 depression screening* [email or web address] Not available 12/19/2023 08:21:00 alcohol misuse* [email or web address] Not available 12/19/2023 08:21:08 Timed Up and Go test (TUG)* [email or web address] Not available 12/19/2023 08:21:15 multi-dimensiona l health assessment questionnaire* [email or web address] Not available 12/19/2023 08:20:10 Personalized Hea lt [...] , see if it helps her nocturia [email or web address] Not available 01/11/2024 10:48:53 Reason for Referral None Reported. Results Created Date Observation Date Name Description Value Unit Range Abnormal Flag Note LastModifiedBy Organization Detail LastModifiedTime 09/07/19 22 09/06/2021 MICRO ALBUM IN RANDO M URINE microalbumin , urine 11.5 mg/L 0.0-16 .6 Not Available [facility] (Lab) [address] [place], [address], 09/06/2021 19:53:48 09/07/19 22 09/06/2021 HEMOG LOBIN A1C HA1C 6.2 % 4.0-6. 0 high Diabe breonna Scree arelis Crite millie: <5.7% Consi stent with absen ce of diabe breonna 5.7-6 .4% Consi stent with incre ased risk for diabe breonna (pred iabet es) >OR=6 .5% Consi stent with diabe breonna REFER ENCE: Diabe breonna Care 2016, 39(Rizo ppl.1 ):s13 -s22 Not Available [facility] (Lab) [address] [place], [address], 09/06/2021 20:17:09 09/07/19 22 09/06/2021 VITAM IN D 25-HY DROXY [id number] 51.4 NG/mL 30-100 Vitam in D Statu s: Defic ient: <20 ng/mL Insuf ficie nt: 20-29 ng/mL Suffi cient : 30-10 0 ng/mL Not Available [facility] (Lab) [address] [place], [address], 09/06/2021 18:58:40 09/07/19 22 09/06/2021 HEPAT IC/LI JOSSE PANEL alkaline phosphatase 115 U/L 38-126 Not Available [facility] (Lab) [address] [place], [address], 09/06/2021 18:40:54 09/07/19 22 09/06/2021 HEPAT IC/LI JOSSE PANEL alanine aminotransfe rase 15 U/L 0-[address] [facility] (Lab) [address] [place], [address], 09/06/2021 18:40:54 09/07/19 22 09/06/2021 HEPAT IC/LI JOSSE PANEL aspartate aminotransfe rase 19 U/L 15-[address] [facility] (Lab) [address] [place], [address], 09/06/2021 18:40:54 09/07/19 22 09/06/2021 HEPAT IC/LI JOSSE PANEL bilirubin, total 0.30 mg/dL 0.20-1 .30 Not Available [facility] (Lab) [address] [place], [address], 09/06/2021 18:40:54 09/07/19 22 09/06/2021 HEPAT IC/LI JOSSE PANEL bilirubin, conjugated (direct) 0.00 mg/dL 0.00-0 .30 Not Available [facility] (Lab) [address] [place], [address], 09/06/2021 18:40:54 09/07/19 22 09/06/2021 HEPAT IC/LI JOSSE PANEL biliurubin,u ncong. (indirect) 0.20 mg/dL 0.00-1 .1 Not Available [facility] (Lab) [address] [place], [address], 09/06/2021 18:40:54 09/07/19 22 09/06/2021 HEPAT IC/LI JOSSE PANEL total protein 6.1 g/dL 6.3-8. 2 low Not Available [facility] (Lab) [address] [place], [address], 09/06/2021 18:40:54 09/07/19 22 09/06/2021 HEPAT IC/LI JOSSE PANEL albumin 3.4 g/dL 3.0-4. 4 Not Available [facility] (Lab) [address] [place], [address], 09/06/2021 18:40:54 09/07/19 22 09/06/2021 HEPAT IC/LI JOSSE PANEL globulin 2.7 g/dL 2.6-4. 2 Not Available [facility] (Lab) [address] [place], [address], 09/06/2021 18:40:54 09/07/19 22 09/06/2021 HEPAT IC/LI JOSSE PANEL A/G ratio 1.3 ratio 1.0-2. 0 Not Available [facility] (Lab) [address] [place], [address], 09/06/2021 18:40:54 09/07/19 22 09/06/2021 LIPID PANEL cholesterol 120 mg/dL 140-19 9 low NIH PRINCE NSUS RECOM MENDA TION FOR STU STERO L: ADULT CHILD LOW RISK: <200 <170 BORDE RLINE : <200- 239 ----- HIGH RISK: >240 >200 Not Available [facility] (Lab) [address] [place], [address], 09/06/2021 18:40:48 09/07/19 22 09/06/2021 LIPID PANEL triglyceride s 77 mg/dL 0-150 NIH PRINCE NSUS REPOR T RECOM MENDA TION FOR TRIGL YCERI JEANNE: ADULT CHILD LOW RISK: <150 ----- BODER LINE: 150-1 99 ----- HIGH RISK: >200 ----- Not Available [facility] (Lab) [address] [place], [address], 09/06/2021 18:40:48 09/07/19 22 09/06/2021 LIPID PANEL HDL cholesterol 64 mg/dL 40- Not Available [facility] (Lab) [address] [place], [address], 09/06/2021 18:40:48 09/07/19 22 09/06/2021 LIPID PANEL [...] WILL NOT BE REPOR MALINI. Not Available [facility] (Lab) [address] [place], [address], 09/06/2021 18:40:48 09/07/19 22 09/06/2021 BASIC METAB OLIC PANEL sodium 139 mmol/ L 137-14 5 Not Available [facility] (Lab) [address] [place], [address], 09/06/2021 18:40:45 09/07/19 22 09/06/2021 BASIC METAB OLIC PANEL potassium 3.9 mmol/ L 3.5-5. 1 Not Available [facility] (Lab) [address] [place], [address], 09/06/2021 18:40:45 09/07/19 22 09/06/2021 BASIC METAB OLIC PANEL chloride 105 mmol/ L 98-107 Not Available [facility] (Lab) [address] [place], [address], 09/06/2021 18:40:45 09/07/19 22 09/06/2021 BASIC METAB OLIC PANEL carbon dioxide 28 mmol/ L 22-30 Not Available [facility] (Lab) [address] [place], [address], 09/06/2021 18:40:45 09/07/19 22 09/06/2021 BASIC METAB OLIC PANEL anion gap 9.9 mmol/ L 14-22 low Not Available [facility] (Lab) [address] [place], [address], 09/06/2021 18:40:45 09/07/19 22 09/06/2021 BASIC METAB OLIC PANEL glucose 80 mg/dL 70-99 Not Available [facility] (Lab) [address] [place], [address], 09/06/2021 18:40:45 09/07/19 22 09/06/2021 BASIC METAB OLIC PANEL BUN 21 mg/dL 8-19 high Not Available [facility] (Lab) [address] [place], [address], 09/06/2021 18:40:45 09/07/19 22 09/06/2021 BASIC METAB OLIC PANEL creatinine 0.93 mg/dL 0.66-1 .25 Not Available [facility] (Lab) [address] [place], [address], 09/06/2021 18:40:45 09/07/19 22 09/06/2021 BASIC METAB OLIC PANEL GFR 59 Refer ence Range : [place] ge GFR Healt hy Adult : >60 [...] calcu lator is avail able on the [facility] websi te: https ://more jin.sascha rouse.o rg/pr ofess ional s/kdo qi/gf r_cal culat or Not Available [facility] (Lab) [address] [place], [address], 09/06/2021 18:40:45 09/07/19 22 09/06/2021 BASIC METAB OLIC PANEL calcium 9.6 mg/dL 8.4-10 .2 Not Available [facility] (Lab) [address] [place], [address], 09/06/2021 18:40:45 07/26/19 23 07/26/2022 CBC/C OMPLE TE BLD COUNT W/DIF F white blood cells 7.7 x10'3 /uL 4.2-10 .8 Not Available [facility] (Lab) [address] [place], [address], 07/26/2022 10:13:55 07/26/19 23 07/26/2022 CBC/C OMPLE TE BLD COUNT W/DIF F red blood cells 3.77 x10'6 /uL 3.80-5 .20 low Not Available [facility] (Lab) [address] [place], [address], 07/26/2022 10:13:55 07/26/19 23 07/26/2022 CBC/C OMPLE TE BLD COUNT W/DIF F hemoglobin 9.8 g/dL 12.0-1 5.6 low Not Available [facility] (Lab) [address] [place], [address], 07/26/2022 10:13:55 07/26/1907/26/2022 CBC/C OMPLE TE BLD COUNT W/DIF F hematocrit 32.1 % 35.7-4 5.7 low Not Available [facility] (Lab) [address] [place], [address], 07/26/2022 10:13:55 07/26/19 23 07/26/2022 CBC/C OMPLE TE BLD COUNT W/DIF F mean red cell volume 85.1 fL 82.0-9 9.0 Not Available [facility] (Lab) [address] [place], [address], 07/26/2022 10:13:55 07/26/19 23 07/26/2022 CBC/C OMPLE TE BLD COUNT W/DIF F mean red cell hemoglobin 26.0 pg 27.0-3 3.0 low Not Available [facility] (Lab) [address] [place], [address], 07/26/2022 10:13:55 07/26/19 23 07/26/2022 CBC/C OMPLE TE BLD COUNT W/DIF F mean RBC HGB concentratio n 30.5 g/dL 31.0-3 6.0 low Not Available [facility] (Lab) [address] [place], [address], 07/26/2022 10:13:55 07/26/19 23 07/26/2022 CBC/C OMPLE TE BLD COUNT W/DIF F red cell distribution width 22.7 % 11.8-1 5.5 high Not Available [facility] (Lab) [address] [place], [address], 07/26/2022 10:13:55 07/26/19 23 07/26/2022 CBC/C OMPLE TE BLD COUNT W/DIF F platelets 344 x10'3 /uL 150-40 0 Not Available [facility] (Lab) [address] [place], [address], 07/26/2022 10:13:55 07/26/19 23 07/26/2022 CBC/C OMPLE TE BLD COUNT W/DIF F mean platelet volume 10.0 fL 9.0-12 .4 Not Available [facility] (Lab) [address] [place], [address], 07/26/2022 10:13:55 07/26/19 23 07/26/2022 CBC/C OMPLE TE BLD COUNT W/DIF F neutrophils 75.0 % 39.0-7 2.0 high Not Available [facility] (Lab) [address] [place], [address], 07/26/2022 10:13:55 07/26/19 23 07/26/2022 CBC/C OMPLE TE BLD COUNT W/DIF F lymphocytes 17.0 % 16.0-4 7.0 Not Available [facility] (Lab) [address] [place], [address], 07/26/2022 10:13:55 07/26/19 23 07/26/2022 CBC/C OMPLE TE BLD COUNT W/DIF F monocytes 6.9 % 5.0-12 .0 Not Available [facility] (Lab) [address] [place], [address], 07/26/2022 10:13:55 07/26/1907/26/2022 CBC/C OMPLE TE BLD COUNT W/DIF F eosinophils 0.4 % 1.0-7. 0 low Not Available [facility] (Lab) [address] [place], [address], 07/26/2022 10:13:55 07/26/19 23 07/26/2022 CBC/C OMPLE TE BLD COUNT W/DIF F basophils 0.4 % 0.0-2. 0 Not Available [facility] (Lab) [address] [place], [address], 07/26/2022 10:13:55 07/26/19 23 07/26/2022 CBC/C OMPLE TE BLD COUNT W/DIF F immature granulocytes 0.3 % 0.00-0 .50 Not Available [facility] (Lab) [address] [place], [address], 07/26/2022 10:13:55 07/26/19 23 07/26/2022 CBC/C OMPLE TE BLD COUNT W/DIF F neutrophils, absolute count 5.78 x10'3 /uL 1.5-8. 0 Not Available [facility] (Lab) [address] [place], [address], 07/26/2022 10:13:55 07/26/19 23 07/26/2022 CBC/C OMPLE TE BLD COUNT W/DIF F lymphocytes, absolute count 1.31 x10'3 /uL 1.07-3 .43 Not Available [facility] (Lab) [address] [place], [address], 07/26/2022 10:13:55 07/26/19 23 07/26/2022 CBC/C OMPLE TE BLD COUNT W/DIF F monocytes, absolute count 0.53 x10'3 /uL 0.29-0 .99 Not Available [facility] (Lab) [address] [place], [address], 07/26/2022 10:13:55 07/26/19 23 07/26/2022 CBC/C OMPLE TE BLD COUNT W/DIF F eosinophils, absolute count 0.03 x10'3 /uL 0.02-0 .53 Not Available [facility] (Lab) [address] [place], [address], 07/26/2022 10:13:55 07/26/19 23 07/26/2022 CBC/C OMPLE TE BLD COUNT W/DIF F basophils, absolute count 0.03 x10'3 /uL 0.01-0 .08 Not Available [facility] (Lab) [address] [place], [address], 07/26/2022 10:13:55 07/26/19 23 07/26/2022 CBC/C OMPLE TE BLD COUNT W/DIF F immature granulocytes ,absolute 0.02 x10'3 /uL 0.00-0 .05 Not Available [facility] (Lab) [address] [place], [address], 07/26/2022 10:13:55 07/26/19 23 07/26/2022 CBC/C OMPLE TE BLD COUNT W/DIF F nucleated red blood cells 0.0 % -[address] [facility] (Lab) [address] [place], [address], 07/26/2022 10:13:55 07/26/19 23 07/26/2022 CBC/C OMPLE TE BLD COUNT W/DIF F NRBC# 0.00 x10'3 /uL Not Available [facility] (Lab) [address] [place], [address], 07/26/2022 10:13:55 07/26/19 23 07/26/2022 CBC/C OMPLE TE BLD COUNT W/DIF F anisocytosis 2+ Not Available [facility] (Lab) [address] [place], [address], 07/26/2022 10:13:55 07/26/19 23 07/26/2022 CBC/C OMPLE TE BLD COUNT W/DIF F hypochromia OCCASI ONAL Not Available [facility] (Lab) [address] [place], [address], 07/26/2022 10:13:55 07/26/19 23 07/26/2022 CBC/C OMPLE TE BLD COUNT W/DIF F macro OCCASI ONAL Not Available [facility] (Lab) [address] [place], [address], 07/26/2022 10:13:55 07/26/19 23 07/26/2022 CBC/C OMPLE TE BLD COUNT W/DIF F polychromato philic RBCs OCCASI ONAL Not Available [facility] (Lab) [address] [place], [address], 07/26/2022 10:13:55 07/26/19 23 07/25/2022 LIPID PANEL cholesterol 126 mg/dL 140-19 9 low NIH PRINCE NSUS RECOM MENDA TION FOR STU STERO L: ADULT CHILD LOW RISK: <200 <170 BORDE RLINE : <200- 239 ----- HIGH RISK: >240 >200 Not Available [facility] (Lab) [address] [place], [address], 07/25/2022 18:25:03 07/26/19 23 07/25/2022 LIPID PANEL triglyceride s 87 mg/dL 0-150 NIH PRINCE NSUS REPOR T RECOM MENDA TION FOR TRIGL YCERI JEANNE: ADULT CHILD LOW RISK: <150 ----- BODER LINE: 150-1 99 ----- HIGH RISK: >200 ----- Not Available [facility] (Lab) [address] [place], [address], 07/25/2022 18:25:03 07/26/19 23 07/25/2022 LIPID PANEL HDL cholesterol 55 mg/dL 40- Not Available [facility] (Lab) [address] [place], [address], 07/25/2022 18:25:03 07/26/19 23 07/25/2022 LIPID PANEL [...] WILL NOT BE REPOR MALINI. Not Available [facility] (Lab) [address] [place], [address], 07/25/2022 18:25:03 07/26/19 23 07/25/2022 COMPR EHENS RICKEY METAB OLIC PANEL sodium 141 mmol/ L 137-14 5 Not Available [facility] (Lab) [address] [place], [address], 07/25/2022 18:25:11 07/26/19 23 07/25/2022 COMPR EHENS RICKEY METAB OLIC PANEL potassium 4.3 mmol/ L 3.5-5. 1 Not Available [facility] (Lab) [address] [place], [address], 07/25/2022 18:25:11 07/26/19 23 07/25/2022 COMPR EHENS RICKEY METAB OLIC PANEL chloride 101 mmol/ L 98-107 Not Available [facility] (Lab) [address] [place], [address], 07/25/2022 18:25:11 07/26/19 23 07/25/2022 COMPR EHENS RICKEY METAB OLIC PANEL carbon dioxide 28 mmol/ L 22-30 Not Available [facility] (Lab) [address] [place], [address], 07/25/2022 18:25:11 07/26/19 23 07/25/2022 COMPR EHENS RICKEY METAB OLIC PANEL anion gap 16.3 mmol/ L 14-22 Not Available [facility] (Lab) [address] [place], [address], 07/25/2022 18:25:11 07/26/19 23 07/25/2022 COMPR EHENS RICKEY METAB OLIC PANEL glucose 82 mg/dL 70-99 Not Available [facility] (Lab) [address] [place], [address], 07/25/2022 18:25:11 07/26/19 23 07/25/2022 COMPR EHENS RICKEY METAB OLIC PANEL BUN 15 mg/dL 8-19 Not Available [facility] (Lab) [address] [place], [address], 07/25/2022 18:25:11 07/26/19 23 07/25/2022 COMPR EHENS RICKEY METAB OLIC PANEL creatinine 0.75 mg/dL 0.66-1 .25 Not Available [facility] (Lab) [address] [place], [address], 07/25/2022 18:25:11 07/26/19 23 07/25/2022 COMPR EHENS RICKEY METAB OLIC PANEL GFR >60 Refer ence Range : [place] ge GFR Healt hy Adult : >60 [...] s/kdo qi/gf r_cal culat or Not Available [facility] (Lab) [address] [place], [address], 07/25/2022 18:25:11 07/26/1907/25/2022 COMPR EHENS RICKEY METAB OLIC PANEL alkaline phosphatase 118 U/L 38-126 Not Available [facility] (Lab) [address] [place], [address], 07/25/2022 18:25:11 07/26/19 23 07/25/2022 COMPR EHENS RICKEY METAB OLIC PANEL alanine aminotransfe rase 19 U/L 0-[address] [facility] (Lab) [address] [place], [address], 07/25/2022 18:25:11 07/26/19 23 07/25/2022 COMPR EHENS RICKEY METAB OLIC PANEL aspartate aminotransfe rase 24 U/L 15-[address] [facility] (Lab) [address] [place], [address], 07/25/2022 18:25:11 07/26/19 23 07/25/2022 COMPR EHENS RICKEY METAB OLIC PANEL bilirubin, total 0.30 mg/dL 0.20-1 .30 Not Available [facility] (Lab) [address] [place], [address], 07/25/2022 18:25:11 07/26/19 23 07/25/2022 COMPR EHENS RICKEY METAB OLIC PANEL calcium 9.2 mg/dL 8.4-10 .2 Not Available [facility] (Lab) [address] [place], [address], 07/25/2022 18:25:11 07/26/19 23 07/25/2022 COMPR EHENS RICKEY METAB OLIC PANEL total protein 6.0 g/dL 6.3-8. 2 low Not Available [facility] (Lab) [address] [place], [address], 07/25/2022 18:25:11 07/26/19 23 07/25/2022 COMPR EHENS RICKEY METAB OLIC PANEL albumin 3.1 g/dL 3.0-4. 4 Not Available [facility] (Lab) [address] [place], [address], 07/25/2022 18:25:11 07/26/19 23 07/25/2022 COMPR EHENS RICKEY METAB OLIC PANEL globulin 2.9 g/dL 2.6-4. 2 Not Available [facility] (Lab) [address] [place], [address], 07/25/2022 18:25:11 07/26/19 23 07/25/2022 COMPR EHENS RICKEY METAB OLIC PANEL A/G ratio 1.1 ratio 1.0-2. 0 Not Available [facility] (Lab) [address] [place], [address], 07/25/2022 18:25:11 07/26/19 23 07/25/2022 HEMOG LOBIN A1C HA1C 5.5 % 4.0-6. 0 Diabe breonna Scree arelis Crite millie: <5.7% Consi stent with absen ce of diabe breonna 5.7-6 .4% Consi stent with incre ased risk for diabe breonna (pred iabet es) >OR=6 .5% Consi stent with diabe breonna REFER ENCE: Diabe breonna Care 2016, 39(Rizo ppl.1 ):s13 -s22 Not Available [facility] (Lab) [address] [place], [address], 07/25/2022 20:30:16 09/29/19 22 XR, lumba r spine No observ ation record ed. [id number] [address], [place], [address], 04/25/2022 08:14:30 11/18/19 22 11/17/2021 XR, chest , 2 view No observ ation record ed. [id number] [facility] [address], [place], [address], 04/25/2022 08:14:30 12/19/19 22 12/15/2021 PFT, compl ete No observ ation record ed. [id number], [place], [address], 04/25/2022 08:14:30 06/03/19 23 06/02/2022 XR, ankle + foot No observ ation record ed. [address], [place], [address], 06/04/2022 12:17:42 06/03/19 23 06/02/2022 XR, hip + pelvi s, bilat eral No observ ation record ed. [address] [facility], [place], [address], 06/04/2022 12:18:03 06/03/19 23 06/02/2022 XR, tibia + fibul a No observ ation record ed. [address] [facility], [place], [address], 06/04/2022 12:18:20 06/03/19 23 06/02/2022 XR, chest No observ ation record ed. [address], [place], [address], 06/04/2022 12:18:54 06/03/19 23 06/02/2022 CT, brain , w/o contr ast No observ ation record ed. [address], [place], [address], 06/04/2022 12:19:13 06/03/19 23 06/02/2022 stres s echoc ardio gram No observ ation record ed. [address], [place], [address], 06/04/2022 12:25:33 06/04/19 23 06/03/2022 US, carot id arter y No observ ation record ed. [address], [place], [address], 06/04/2022 12:20:36 06/04/19 23 06/03/2022 MRI, brain + brain stem, w/ contr ast No observ ation record ed. [address], [place], [address], 06/04/2022 12:10:29 06/05/19 23 06/04/2022 CT, brain , w/o contr ast No observ ation record ed. [address], [place], [address], 06/05/2022 08:36:21 06/06/19 23 06/05/2022 imagi ng/di agnos tic resul t No observ ation record ed. [address], [place], [address], 06/06/2022 08:29:03 07/21/19 23 07/18/2022 XR, ankle No observ ation record ed. [address], [place], [address], 07/24/2022 08:32:29 Result Notes None recorded. Problems Name Problem SNOMED Code Status Onset Date Resolution Date Notes Provider Name and Address Organization Details Recorded Time Intermitt ent palpitati ons 024621303 Active Not Available [facility] 4 03:44:28 History of right total knee replaceme nt 55552632196 02093 Active 2021 Not Available [facility] 4 03:44:28 Pain in left sacroilia c joint 68274787039 345597 Active 2021 Not Available [facility] 4 03:44:28 Pain in right sacroilia c joint 65736719540 261296 Active 2021 Not Available [facility] 4 03:44:28 Acute sinusitis 03425173 Completed Not Available [facility] 3 08:09:25 Chronic diarrhea of unknown origin 32527948 Active 2019 Not Available [facility] 4 03:44:28 Spinal stenosis of lumbar region 13329061 Active 2021 Not Available [facility] 4 03:44:28 Insomnia 049086081 Active Not Available [facility] 4 03:44:28 Subarachn oid hemorrhag e 96551076 Completed Not Available [facility] 3 08:09:25 Gastroeso phageal reflux disease 024159303 Active Not Available [facility] 4 03:44:28 Morbid obesity 405569325 Active Not Available [facility] 4 03:44:28 Genital lichen sclerosus 426471375 Active 2019 Not Available [facility] 4 03:44:28 Labyrinth itis 54062627 Completed Not Available [facility] 3 08:09:26 Osteoarth ritis of knee 145192485 Active Not Available [facility] 4 03:44:28 Fluid level behind tympanic membrane Completed Not Available [facility] 3 08:09:26 Flank pain 087392205 Completed Not Available [facility] 3 08:09:26 Shoulder joint pain 242347027 Active Not Available [facility] 4 03:44:28 Pain in thoracic spine 541340414 Completed Not Available [facility] 3 08:09:26 Chest pain 47887184 Completed Not Available [facility] 3 08:09:26 Knee pain Completed Not Available [facility] 3 08:09:26 Type 2 diabetes mellitus without complicat ion 771821622 Active Not Available [facility] 4 03:44:28 Influenza vaccinati on declined 158370137 Active 2019 Not Available [facility] 4 03:44:28 Osteoarth ritis of left knee joint 13649245773 9109 Active 2021 Not Available [facility] 4 03:44:28 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 75798904 Active Not Available [facility] 4 03:44:28 Vitamin D deficienc y 44515197 Active Not Available [facility] 4 03:44:28 Depressiv e disorder 41101025 Active Not Available [facility] 4 03:44:28 Sinusitis 54888107 Completed Not Available [facility] 3 08:09:27 Hypertens rickey disorder 74806575 Completed Not Available [facility] 3 08:09:27 Lighthead edness 749541713 Completed Not Available [facility] 3 08:09:27 Osteoarth ritis 238906729 Active Not Available [facility] 4 03:44:28 Vertigo 166251217 Completed Not Available [facility] 3 08:09:27 Dizziness 647930132 Completed Not Available [facility] 3 08:09:28 Body mass index 40+ - severely obese 790742162 Active 2018 Not Available [facility] 4 03:44:28 Mixed urinary incontine nce 378057556 Completed Not Available [facility] 3 08:09:28 Allergy to drug 160898971 Completed Not Available [facility] 3 08:09:28 Acute urinary tract infection 159468558 Completed Not Available [facility] 3 08:09:28 Type 2 diabetes mellitus 61916672 Completed Not Available [facility] 3 08:09:28 Pain of right knee joint 93022190358 4100 Active 2021 Not Available [facility] 4 03:44:28 Anxiety 24435136 Active Not Available [facility] 4 03:44:28 Candidias is of skin 08377769 Completed Not Available [facility] 3 08:09:29 Coronary arteriosc lerosis 37337361 Active Not Available [facility] 4 03:44:28 Upper respirato ry infection 47804851 Completed Not Available [facility] 3 08:09:29 Hyperlipi demia 02803280 Active Not Available [facility] 4 03:44:28 Essential hypertens ion 38263382 Active Not Available [facility] 4 03:44:28 Urinary tract infectiou s disease 26149679 Completed Not Available [facility] 3 08:09:29 Muscle pain 06476350 Completed Not Available [facility] 3 08:09:30 Sleep apnea 19189890 Active Not Available [facility] 4 03:44:28 Posterior rhinorrhe a 55424826 Completed Not Available [facility] 3 08:09:30 Urge incontine nce of urine 81367965 Active Not Available [facility] 4 03:44:28 Hypokalem ia 74838258 Active 2022 Not Available [facility] 4 03:44:28 Atrial fibrillat ion 75655266 Active 2022 Not Available [facility] 4 03:44:28 Low back pain 054609311 Active 2022 Not Available [facility] 4 03:44:28 Fracture of ankle 48618032 Active 2022 Not Available [facility] 4 03:44:28 Fracture of ankle 01232784 Active 2022 Not Available [facility] 4 03:44:28 Anemia 799067757 Active 2022 Not Available [facility] 4 03:44:28 Osteoporo sis 71615625 Active 2022 Not Available [facility] 4 03:44:28 Chronic atrial fibrillat ion 934752921 Active 2022 Not Available [facility] 4 03:44:28 Pruritic rash 94094562 Active 2022 Not Available [facility] 4 03:44:28 Chronic low back pain 414794970 Active 2022 Not Available [facility] 4 03:44:28 Acid reflux 171471391 Active 2022 Not Available [facility] 4 03:44:28 Irritable bowel syndrome character ized by constipat ion 337668766 Active 2022 Not Available [facility] 4 03:44:28 Constipat ion 65221300 Active 2022 Not Available [facility] 4 03:44:28 Chronic idiopathi c constipat ion 76552499 Active 2023 Not Available [facility] 4 03:44:28 Closed fracture of left ankle 85217853771 350854 Active 2023 LOTTIE Tatum [address], [place], [address] , [employer] 4 16:27:26 Overactiv e urinary bladder 423465824 Active 2023 LOTTIE Tatum [address], [place], [address] , [employer] 4 16:31:00 Serum vitamin B12 below reference range 971561931 Active 2023 LOTTIE Tatum [address], [place], [address] , [facility] 4 18:32:04 Decreased renal function 14618473 Active 2023 LOTTIE Tatum [address], [place], [address] , [employer] 4 17:06:01 Notes:Some problems listed i n Documents: #[id number], #[id number], #[id number], #[id number], #[id number], #[id number], #[id number], #[id number], #[id number], #[id number], #[id number], #[id number], #[id number] could not be added to this patient's chart. Please review these documents and add these problems to the patient's chart manually as needed. Problem Notes None recorded. Procedures Surgical History Date Name Laterality Status Provider Name and Address Organization Details Recorded Time 12/18/19 Medicare Wellness CPT Code, subsequent completed May CHARLES Ernst [place] [facility] 12/18/2023 12:07:49 Knee Replacement completed Not Available [facility] 04/25/2022 08:06:21 Cholecystectomy completed Not Available [facility] 04/25/2022 08:06:21 Hernia Repair completed Not Available [facility] 04/25/2022 08:06:21 Foot Surgery completed STEPHANY Singletary - [place] [facility] 07/25/2022 14:11:56 Imaging Results Imaging Date Name Status LastModified by Organization Details LastModified Time 11/17/2021 XR, chest, 2 view completed [facility]. 707[address] [place] [address], [address], 04/25/2022 08:14:30 12/15/2021 PFT, complete completed [facility].0301 23 [address], [address], 04/25/2022 08:14:30 09/28/2021 XR, lumbar spine completed [facility].0 18998 0026 [facility] [place] [address] [facility] [address], [place], [address], 04/25/2022 08:14:30 06/02/2022 XR, ankle + foot completed [address], [address], 06/04/2022 12:17:42 06/02/2022 XR, hip + pelvis, bilateral completed [address], [address], 06/04/2022 12:18:03 06/02/2022 XR, tibia + fibula completed [address], [address], 06/04/2022 12:18:20 06/02/2022 XR, chest completed [address], [address], 06/04/2022 12:18:54 06/02/2022 CT, brain, w/o contrast completed [address] [address], [place], [address], 06/04/2022 12:19:13 06/02/2022 stress echocardiogram completed [address] [address], [place], [address], 06/04/2022 12:25:33 06/03/2022 US, carotid artery completed [address], [address], 06/04/2022 12:20:36 06/03/2022 MRI, brain + brain stem, w/ contrast completed [address], [address], 06/04/2022 12:10:29 06/04/2022 CT, brain, w/o contrast completed [address], [address], 06/05/2022 08:36:21 06/05/2022 imaging/diagnostic result completed [address], [address], 06/06/2022 08:29:03 07/18/2022 XR, ankle completed [address], [address], 07/24/2022 08:32:29 Procedure Notes None recorded. Medical Equipment None Reported. Allergies Allergen ID Allergen Name Allergen Category Reaction Reaction Severity Criticality Documentation Date Start Date Code Code System Note Provider Name and Address Organization Details Recorded Time Levaquin medicatio n other Not available Not available 04/25/2022 49127 2 RxNorm TONGU E SWELL ING Not Available [facility] 3 08:14:24 dicyclomi ne medicatio n rash Not available Not available 04/25/2022 3361 RxNorm Not Available [facility] 3 08:14:24 Augmentin medicatio n Not available Not available Not available 04/25/2022 84320 2 RxNorm TONGU E AND KAITLYNN HORNE ING Not Available [facility] 3 08:14:24 Medications Name Sig Start Date [...] administ ered by the provider 07/25 completed [facility]: [id number] 4-20 Not Available Not Available Not [...] dose Not Available Not Available Not Available [employer] 1.5 billion cell capsule Take 1 capsule [...] % 92 % 107 /min 96.2 [degF] 133314. 57 g 142 mm[Hg] 82 mm[Hg] Not Available [facility] 3 08:08:23 Date Recorded Body mass index (BMI) Body height Pain severity - 0-10 verbal numeric rating [Score] - Reported Body weight Provider Name and Address Organization Details Last Updated DateTime 09/28/2021 45.7 kg/m2 162.56 cm 8 941879.57 g Not Available [facility] 04/25/2022 08:08:31 Date Recorded Body height Body temperature Heart rate Oxygen saturation Oxygen saturation in Arterial blood by Pulse oximetry Systolic blood pressure Diastolic blood pressure Provider Name and Address Organization Details Last Updated DateTime 3 162.56 cm 98.1 [degF] 77 /min 96 % 96 % 130 mm[Hg] 80 mm[Hg] STEPHANY Singletary [facility] [employer] 3 14:13:26 Date Recorded Body height Body mass index (BMI) Body weight Body temperature Respiratory rate Heart rate Oxygen saturation Oxygen saturation in Arterial blood by Pulse oximetry Systolic blood pressure Diastolic blood pressure Provider Name and Address Organization Details Last Updated DateTime 4 162.56 cm 42.9 kg/m2 528274. 09 g 97.9 [degF] 16 /min 47 /min 97 % 97 % 138 mm[Hg] 60 mm[Hg] Cher Jade RN [facility] [employer] 4 15:57:14 Date Recorded Body height Body mass index (BMI) Body weight Body temperature Heart rate Oxygen saturation Oxygen saturation in Arterial blood by Pulse oximetry Systolic blood pressure Diastolic blood pressure Provider Name and Address Organization Details Last Updated DateTime 4 162.56 cm 44.1 kg/m2 172697. 24 g 97.9 [degF] 56 /min 95 % 95 % 130 mm[Hg] 72 mm[Hg] Cher Jade RN [facility] [employer] 4 16:03:20 Social History Question Answer Notes LastModified by Organizat ion Details LastModified Time Tobacco Smoking Status Never Smoker Not Available [facility] 04/25/2022 08:06:14 What Is Your Level Of Alcohol Consumption? None MIGRATION.455974 7050 Information not available 04/25/2022 What Is Your Level Of Caffeine Consumption? Heavy MIGRATION.930590 8386 Information not available 04/25/2022 How Much Tobacco Do You Chew? None MIGRATION.544530 0951 Information not available 04/25/2022 Which Illicit Or Recreational Drugs Have You Used? None MIGRATION.722937 6621 Information not available 04/25/2022 Do You Or Have You Ever Used E-cigarettes Or Vape? Never Used Electronic Cigarettes MIGRATION.085853 3201 Information not available 04/25/2022 What Is Your Occupation? Retired MIGRATION.040642 9115 Information not available 04/25/2022 What Was The Date Of Your Most Recent Tobacco Screening? 03/10/2018 MIGRATION.313777 0198 Information not available 04/25/2022 Do You Or Have You Ever Used Smokeless Tobacco? Never Used Smokeless Tobacco MIGRATION.357128 7988 Information not available 04/25/2022 Sex: Unknown Functional Status Question Answer Note LastModified by Organizat ion Details LastModified Time What is your exercise level? Occasional MIGRATION.[id number] 26 Information not available 04/25/2022 Mental Status None recorded. Family History Relationship Description Onset Age of this Age Resolved Age Notes LastModified by Organization Details LastModified Time Mother Coronary arterioscler osis MIGRATION.953 [id number] Not available 04/25/2022 08:06:23 Mother Diabetes mellitus MIGRATION.625 0596984 Not available 04/25/2022 08:06:23 Mother Family history of malignant neoplasm MIGRATION.594 [id number] Not available 04/25/2022 08:06:23 Maternal Grandmother Coronary arterioscler osis MIGRATION.127 0562624 Not available 04/25/2022 08:06:23 Medical History Condition Response EYE PROBLEMS Y ANXIETY DISORDER Y USE OF BLOOD THINNERS Y RHEUMATIC FEVER Y ANEMIA/BLOOD DISORDER Y PNEUMONIA Y DIABETES, [...] 50 mcg/0.5 mL 4 completed CHARLES Perkins, [facility] [employer] [facility] 01/14/2024 16:01:56 influenza, unspecified formulation 4 completed CHARLES Perkins [facility] [employer] 01/14/2024 16:03:00 COVID-19, mRNA, LNP-S, bivalent, PF, 30 mcg/0.3 mL dose 2 completed Not Available [facility] 03/17/2023 03:44:29 Influenza, split virus, quadrivalent, preservative 2 completed Not Available [facility] 03/17/2023 03:44:29 Pneumococcal conjugate PCV 13 7 completed Not Available [facility] 03/17/2023 03:44:29 Past Encounters Encounter ID Performer Location Encounter Start Date Encounter Closed Date Diagnosis/Indication Diagnosis SNOMED-CT Code Diagnosis ICD10 Code Diagnosis [id number] [address] , [place] [address] 09/05/2020 00:00:00 09/05/2020 16:21:00 [id number] [facility] [place] [address] [place] [address] 08/03/2021 00:00:00 08/03/2021 14:59:56 [id number] [facility] [place] [address] [place] [address] 08/31/2021 00:00:00 08/31/2021 13:23:31 [id number] [facility] Yamini john [facility] [place] [address] 09/06/2021 00:00:00 09/06/2021 15:24:05 [id number] [facility] [place] [address] [place] [address] 09/28/2021 00:00:00 09/28/2021 14:36:15 [id number] T[facility]ino MD [facility] [address] [place] [address] 07/25/2022 14:02:12 07/25/2022 14:40:02 Fracture of ankle 15041301 S82.90XA Anemia 597090492 D64.9 Osteoporosis 53203029 M8 1.0 Type 2 mary betes mellitus without complication 904972785 E11.9 Hyperlipidemia 23055320 E78.5 Essential hypertension 51690935 I10 History of cerebrovascular accident 807597232 Z86.73 [id number] LOTTIE Tatum [facility] [address] [facility] [place] [address] 06/19/2023 15:43:55 06/19/2023 16:45:30 Fracture of ankle 54018214 S82.90XA Essential hypertension 91728589 I10 Overactive urinary bladder 622862251 N32.81 Vitamin D deficiency 347 52464 E55.9 Spinal jomar nosis of lumbar region 78059252 M48.061 Sleep apnea 19086636 G47 .30 Osteoporosis 69025908 M8 1.0 Osteoarthr itis of knee 641267676 M17.9 Low back pain 480236581 M54.50 Insomnia 344984387 G47.0 0 Hyperlipidemia 45163515 E78.5 Type 2 mary betes mellitus without complication 488447769 E11.9 Pruritic rash 16194302 L 28.2 Anemia 609537839 D64.9 Morbid obesity 521345340 E66.01 Gastroesop hageal reflux disease 505363286 K21.9 Genital li kenyon sclerosus 619224028 L90.0 History of right total knee replacement 4596281215 154585 Z96.651 Coronary arteriosclerosis 07083646 I25.10 Depressive disorder 3548 9007 F32.A Chronic id iopathic constipation 91527830 K59.04 Chronic at rial fibrillation 174020254 I48.20 Anxiety 31567738 F41.9 [id number] LOTTIE Tatum [facility] Devan romina [address] [facility] [place] [address] 12/18/2023 15:36:00 12/18/2023 16:24:00 Adult health examination 665501961 Z00.00 Screening for disorder 517135402 Z13.9 Anxiety 96773410 F41.9 Low back pain 820167033 M54.50 Anemia 839630289 D64.9 Coronary arteriosclerosis 30157700 I25.10 Hyperlipidemia 83412280 E78.5 Type 2 mary betes mellitus without complication 674419870 E11.9 Vitamin D deficiency 347 19344 E55.9 Serum danielle min B12 below reference range 414874363 R79.89 Atrial fibrillation 4943 6004 I48.91 Chronic id iopathic constipation 23484700 K59.04 Chronic at rial fibrillation 967143675 I48.20 Essential hypertension 24792185 I10 Gastroesop hageal reflux disease 190060991 K21.9 Osteoarthritis 870788441 M19.90 Osteoporosis 63585139 M8 1.0 Overactive urinary bladder 807553788 N32.81 Morbid obesity 124208338 E66.01 Insomnia 781265330 G47.0 0 Health Concerns Section Related Observation LastModified by Organization Detai ls LastModified Time None Recorded Concern Status LastModified by Organization Details LastModified Time None Recorded Advance Directives Directive None Recorded Payers Encounter Date Sequence Insurance Name Policy Number Policy Rosa Covered Member ID Rosa Member ID Guarantor Name 07/25/2022 1 [place] Litzy Trivedi [place] [id number] Litzy Trivedi [place] 07/25/2022 2 [place] [id number] Jf Camp [id number] Litzy A Camp 06/19/2023 1 [place] Litzy Triv[place] [id number] Litzy A [place] 06/19/2023 2 [place] [id number] Jf Capm [id number] Litzy A Camp 12/18/2023 1 [place] Litzy Trivedi [place] [id number] Litzy A Camp 12/18/2023 2 [place] [id number] Jf Camp [id number] Litzy Trivedi [employer] Notes Date Note Type Note Provider Name and Address Organization Details Recorded Time 09/28/2021 text/html Back PainReporte d bypatient.Location :pain radiating to the buttocks Quality:dull Severity:worsening Duration:chronic Context:unusual activity; prior back problems Associated Symptoms:no fever; no weak limbs; no numbness of the legs/feet; no tingling; no incontinence; no shortness of breath Not Available [employer] 09/28/2021 14:36:15 07/25/2022 text/html Here today for [...] years ago. Talya Valentino MD [address] [address], [place], [address], [employer] 07/25/2022 19:15:06 06/19/2023 text/html fracture left ankle , wears braces for feet that turn inward anyway . LOTTIE Tatum [address] [facility] [address], [place], [address], [employer] 06/20/2023 16:36:32 12/18/2023 text/html nocturia , would like to stop hctz LOTTIE Tatum [address] [facility] [address], [place], [address], [employer] 01/11/2024 10:50:22 OBGyn Episode No OBEpisode recorded.
--- OUTSIDE RECORDS SUMMARY | 2024-06-22 15:37 | XMS_ITS | Clinical Summary ---
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 MEDICARE [employer] ACCESS OOS Care Teams Research And Development Chemist Relationship Specialty Start Date End Date Annie Wilhelm DO [address] [facility] [place] [address] PCP - General Family Medicine 05/28/24
--- OUTSIDE RECORDS SUMMARY | 2024-06-22 15:37 | XMS_ITS | CONTINUITY OF CARE DOCUMENT ---
Author Name breana toussaint Address Unknown Organization [facility] Address [address] [facility] [address] [place] [address] Phone [phone] Care Team Providers Care Strategic Communications Specialist Name Role Phone Sulaiman PALMA, Raina Unavailable [phone] YADIEL LEUNG MD Unavailable [phone] INSURANCE PROVIDERS Payer name Policy type / Coverage type [place] red green party ID [facility] [id number] [place] Medicare [id number]
--- OUTSIDE RECORDS SUMMARY | 2024-06-22 15:37 | XMS_ITS | Referral Summary ---
Author Organization [facility] [address] [facility] [address] Address [address] [place] [address] Care Team Providers Care Director Of Patient Financial Services Name Role Phone Annie Wilhelm Primary Care Provider + Encounters Date Type Department Care Team Description 05/28/2024 1:15 PM CDT Office Visit [facility] Cardiology [address] [facility] [address] [place] [address] Jean Paul Castillo MD Paroxysmal [...] 1 tablet (25 mg total) by mouth patient financial representative before breakfast 04/21/19 25 Active nebivoloL (BYSTOLIC) [...] on file 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 [address] [place] [address] PCP - General Family Medicine 05/28/24
--- OUTSIDE RECORDS SUMMARY | 2024-06-22 15:37 | XMS_ITS | Encounter Summary ---
Author Organization [facility] Address [address] [facility] [address] [place] [address] Care Team Providers Care Shower Maid Name Role Phone Ranjana Friedman MD Primary Care Provider [phone] Charito Colunga NP Primary Care Provider [phone] Talya Valentino MD Primary Care Provider [phone] Matthew Phillips Primary Care Provider + Annie Wilhelm DO Primary Care Provider + Encounter Details Date Type Department Care Team (Late st Contact Info) Description 06/06/2016 Orders Only [facility] ProviderPreet MD [address] [place] [address] Social History Tobacco Use Types Packs/Day Years Used Date Smoking Tobacco: Never Alcohol Use Standard Drinks/Week Comments No 0 (1 standard drink = 0.6 oz pur e alcohol) Comments Unknown Sex and Gender Information Value Date Recorded Sex Assigned at Not on file 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 Gender Identity Not on file Sexual Orientation [...] on filedocumented in this encounter Care Teams Shower Maid Relationship Specialty Start Date End Date Ranjana Friedman MD [address] [address] PCP - General 12/27/14 07/31/16 Charito Colunga NP [address] [address] PCP - General 08/01/16 03/12/23 Talya Valentino MD [address] [place] [address] [place] [address] PCP - General Family Medicine 03/13/23 10/29/23 Matthew Phillips PA [address] [place] [address] [place] [address] PCP - General Internal Medicine 10/30/23 05/27/24 Annie Wilhelm DO [address] [place] [address] [address] [place] [id number] PCP - General Family Medicine 05/28/24 documented as of this encounter
== END 2024-06-22 13:46 | disposition home or self-care (01) ==
LOC: ANHIMG 13:47
PROVIDERS: PCP Family Medicine; Visit Provider Internal Medicine Nephrology
DX: G47.33 Obstructive sleep apnea (adult) (pediatric) (principal); I51.9 Heart disease, unspecified; I48.0 Paroxysmal atrial fibrillation; I87.2 Venous insufficiency (chronic) (peripheral); K21.9 Gastro-esophageal reflux disease without esophagitis; E11.22 Type 2 diabetes mellitus with diabetic chronic kidney disease; E78.00 Pure hypercholesterolemia, unspecified; I12.9 Hypertensive chronic kidney disease with stage 1 through stage 4 chronic kidney disease, or unspecified chronic kidney disease; N18.32 Chronic kidney disease, stage 3b
CPT/HCPCS: 76775

== ENCOUNTER 2024-09-14 14:18 | Outpatient (CLI) | payer MEDICARE, BC, SELFPAY ==
--- OUTSIDE RECORDS SUMMARY | 2024-09-14 14:27 | XMS_ITS | Clinical Summary ---
Author Organization Formerly [facility] Facility Address [address] [address] Care Team Providers Care Tactical Air Control Party Name Role Phone Annie Wilhelm Primary Care Provider [phone] Medications chlorthalidone 25 MG tablet Take 1 tablet (25 mg total) by mouth 1 (one) time each day in the morning 90 tablet 1 04/21/2024 Active Encounters Date Type Department Care Team Description 06/30/2024 Office Communication [employer] [email or web address] [facility] [place], [address] [phone] Rodney Godinez DO 06/22/2024 Documentation Only [employer] [email or web address] [facility] [place], [address] [phone] Donnie Barclay MD 06/16/2024 12:00 PM CDT Office Visit [employer] [email or web address] [facility] [place], [address] [address] Rodney Godinez DO Stage 3 chronic kidney disease, not otherwise specified (HCC) (Primary Dx); Diastolic dysfunction; Obstructive sleep apnea syndrome; Paroxysmal atrial fibrillation (HCC); Venous insufficiency; Gastroesophageal reflux disease; Hypertensive chronic kidney disease; Type 2 diabetes mellitus with diabetic chronic kidney disease (HCC); Pure hypercholesterolemi a, not otherwise specified from Last 3 Months Social History Tobacco [...] 37.1 C (98.7 F) 04/21/2024 2:51 PM 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 Respiratory Rate 20 06/16/2024 12:21 PM CDT Oxygen Saturation 98% 06/16/2024 12:21 PM CDT Inhaled Oxygen Concentration - - Weight 122 kg (270 lb) 06/16/2024 12:21 PM CDT Height - - Body Mass Index - - Plan of Treatment Upcoming Encounters Date Type Department Care Team (Late st Contact Info) Description 12/22/2024 1:15 PM CDT Office Visit [employer] [email or web address] [facility] [place], [facility] [address] [facility] [address] [place] [address] Rodney Godinez DO [address] [facility] [address] [place] [address] Health Maintenance Due Date Last Done Comments Pneumococcal Vaccine: 50+ Years (2 of 2 - PPSV23, PCV20, or PCV21) 03/12/2017 01/15/2017 Diabetes: Hemoglobin A1C 01/28/2024 Diabetes: Ophthalmology Exam 01/28/2024 Diabetes: Pedal Pulse Checked 01/28/2024 Diabetes: Sensory Foot Exam 01/28/2024 Diabetes: Visual Foot Exam 01/28/2024 Influenza Vaccine (#1) 2024 4, 11/23/2021 Hepatitis B Vaccine Aged Out No longe r eligible based on patient's age to complete this topic Insurance Medicare [facility] Care Teams Tactical Air Control Party Relationship Specialty Start Date End Date Annie Wilhelm DO [facility] [address] [place], [place] [id number] PCP - General Internal Medicine 04/21/24
--- OUTSIDE RECORDS SUMMARY | 2024-09-14 14:27 | XMS_ITS | Encounter Summary ---
Author Organization [facility] Healthcare Address [address] [place] [address] Care Team Providers Care Denier Control Operator Name Role Phone Charito Colunga NP Primary Care Provider [phone] Talya Valentino MD Primary Care Provider + [phone] Matthew Phillips Primary Care Provider + Annie Wilhelm DO Primary Care Provider + Encounter Details Date Type Department Care Team (Late st Contact Info) Description 05/20/2017 Orders Only [facility] Information Management [address] [place] [address] Scanning, Provider Social History Tobacco Use Types Packs/Day Years Used Date Smoking Tobacco: Never Smokeless Tobacco: Never Alcohol Use Standard Drinks/Week Comments No 0 (1 standard drink = 0.6 oz pur e alcohol) Comments Unknown Sex and Gender Information Value Date Recorded Sex Assigned at Not on file Legal 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 Gender Identity Not on file Sexual Orientation Not on file documented as of this encounter Plan of Treatment Not on file documented as of this encounter Procedures Procedure Name Priority Date/Time Associated Diagnosis Comments SCAN - RADIOLOGY/IMAGING 05/20/2017 documented in this encounter Results * SCAN - RADIOLOGY/IMAGING (05/20/2017) Anatomical Region Laterality Modality Other us Provider Scanning Final Result documented in this encounter Visit Diagnoses Not on filedocumented in this encounter Care Teams Denier Control Operator Relationship Specialty Start Date End Date Charito Colunga NP PCP - General 08/01/16 03/12/23 Talya Valentino MD [address] [place] [address] [place] [address] PCP - General Family Medicine 03/13/23 10/29/23 Matthew Phillips PA [address] [place] [address] [place] [address] PCP - General Internal Medicine 10/30/23 05/27/24 Annie Wilhelm DO [address] [address] [place] [address] PCP - General Family Medicine 05/28/24 documented as of this encounter
--- OUTSIDE RECORDS SUMMARY | 2024-09-14 14:27 | XMS_ITS | Encounter Summary ---
Author Organization [facility] Address [address] [facility] [address] [place] [address] Care Team Providers Care Breaker Engineer Name Role Phone Ranjana Friedman MD Primary Care Provider [phone] Charito Colunga NP Primary Care Provider [phone] Talya Valentino MD Primary Care Provider +- [phone] Matthew Phillips Primary Care Provider + Annie Wilhelm DO Primary Care Provider + Encounter Details Date Type Department Care Team (Late st Contact Info) Description 07/09/2016 Orders Only [facility] ProviderPreet MD [address] [place] [address] Social History Tobacco Use Types Packs/Day Years Used Date Smoking Tobacco: Never Alcohol Use Standard Drinks/Week Comments No 0 (1 standard drink = 0.6 oz pur e alcohol) Comments Unknown Sex and Gender Information Value Date Recorded Sex Assigned at Not on file Legal Sex Female 11:59 PM [employer] Gender Identity Not on file Sexual Orientation [...] on filedocumented in this encounter Care Teams Breaker Engineer Relationship Specialty Start Date End Date Ranjana Friedman MD [address] [address] PCP - General 12/27/14 07/31/16 Charito Colunga NP [address] [address] PCP - General 08/01/16 03/12/23 Talya Valentino MD [address] [place] [address] [place] [address] PCP - General Family Medicine 03/13/23 10/29/23 Matthew Phillips PA [address] [place] [address] [place] [address] PCP - General Internal Medicine 10/30/23 05/27/24 Annie Wilhelm DO [address] [place] [address] [address] [place] [id number] PCP - General Family Medicine 05/28/24 documented as of this encounter
--- OUTSIDE RECORDS SUMMARY | 2024-09-14 14:27 | XMS_ITS | Data Portability ---
Author Organization [facility], Main Office Address [address] [place] [address] Care Team Providers Care Septic Tank Service Technician Name Role Phone MIKAL MARTIN Primary Care Provider [phone] MIKAL MARTIN Referring Provider Assessment No assessment recorded. Plan of Treatment Reminders Order Date Submit Date Provider Last Modified By Organization Details Last Modified Time Details Appointments None recorded. Lab CBC w/ auto diff 2023 024 MYRNA [facility], [address] [place], [address], 4 23:07:55 lipid panel, serum 2023 024 [email or web address] [facility], [address] [place], [address], 4 08:21:44 CMP, serum or plasma 2023 024 [email or web address] [facility], [address] [place], [address], 4 08:21:44 CK (creatine kinase), total, serum 2023 024 [email or web address] [facility], [address] [place], [address], 4 08:21:44 TSH, serum or plasma 2023 024 [email or web address] [facility], [address] [place], [address], 4 08:21:45 T4, free, serum 2023 024 [email or web address] [facility], [address] [place], [address], 4 08:21:45 vitamin D, 25-hydroxy, total, serum 2023 024 [email or web address] 2 [facility], [address] [place], [address], 4 08:21:45 HbA1c (hemoglobin A1c), blood 2023 024 [email or web address] 2 [facility], [address] [place], [address], 4 08:21:44 vitamin B12 + folate, serum or blood 2023 024 [email or web address] [facility], [address] [place], [address], 4 08:21:45 TSH + free T4, serum 2023 024 [email or web address] 2 [facility], [address] [place], [address], 4 08:17:21 CBC w/ auto diff 2023 024 [email or web address] [facility], [address] [place], [address], 4 08:17:21 ferritin, serum or plasma 2023 024 [email or web address] [facility], [address] [place], [address], 4 08:17:21 iron + total iron-bindin g capacity (TIBC), serum 2023 024 [email or web address] 2 [facility], [address] [place], [address], 4 08:17:21 vitamin B12, serum 2023 024 [email or web address] 2 [facility], [address] [place], [address], 4 08:17:21 vitamin D, 25-hydroxy, total, serum 2023 024 MYRNA [facility], [address] [place], [address], 4 01:13:29 HbA1c (hemoglobin A1c), blood 2023 024 [email or web address] [facility], [address] [place], [address], 4 08:17:21 HbA1c (hemoglobin A1c), blood 2022 023 [email or web address] [facility], [address] [place], [address], 3 09:59:06 lipid panel, serum 2022 023 [facility], [address] [place], [address], 3 18:25:03 [facility]MP, [facility] or [facility] [address] [place], [address], 3 18:25:11 CBC w/ auto diff 2022 023 [facility], [address] [place], [address], 3 18:09:38 Referral None recorded. Procedures None recorded. Surgeries None recorded. Imaging bone density 2022 023 [email or web address] [facility], [address] [place] [address] , [place], [address], 3 08:23:40 Medication Orders tramadol 50 mg tablet 2023 024 [facility] [address] [place], [address], 16:11:17 alprazolam 0.5 mg tablet [email or web address] [facility] [address] [place], [address], 10:45:30 acetaminoph en 500 mg capsule 2023 024 [facility] [address] [place], [address], 4 16:29:43 lidocaine 5 % topical patch 2023 024 [facility] [address] [place], [address], 4 16:33:39 triamcinolo ne acetonide 0.1 % topical cream 2023 024 [facility] [address] [place], [address], 4 16:38:45 oxybutynin chloride ER 10 mg tablet,exte nded release 24 hr 2023 024 [facility] [address] [place], [address], 4 16:32:04 Patient TargetsNo targets recorded. Patient Instructions Encounter Date Encounter Id Patient Instructions Last Modified By Organization Details Last Modified Time 12/18/2023 [id number] dementia rating scale-2* [email or web address] Not available 12/19/2023 08:20:54 depression screening* Not available 12/19/2023 08:21:00 alcohol misuse* [email or web address] Not available 12/19/2023 08:21:08 Timed Up and Go test (TUG)* [email or web address] Not available 12/19/2023 08:21:15 multi-dimensiona l health assessment questionnaire* Not available 12/19/2023 08:20:10 Personalized Hea lth Plan and Screening Recommendations Advance Directives - Do you have one? Yes I have no recommendations Advance Directives - Do we have your advance directive on file in your health record? I have no recommendations Primary Prevention/Interven tion (prevents or decreases the chance of common diseases from occurring) Smoking Risk: Non Smoker I have no recommendations Alcohol Misuse Screening: Negative I have no recommendations Weight: Overweight try to lose 10% of your body weight Physical activity: Need more exercise/physical activity minimum of 20-30 minutes activity that causes mild breathlessness/day Nutrition: Average Eat Heart Healthy Diet Fall Risk (screened today): Low I have no recommendations Vaccines Pneumococcal: No further needed Influenza: Your next one in the fall of this year Chronic Disease Risks Stroke: Intermediate Risk Active diagnosis, Continue current treatment plan Heart Attack: Intermediate Risk Active diagnosis, Continue current treatment plan Clogging of the Arteries: Intermediate Risk Active diagnosis, Continue current treatment plan Diabetes: Low [...] , see if it helps her nocturia [email or web address] Not available 01/11/2024 10:48:53 Reason for Referral None Reported. Results Created Date Observation Date Name Description Value Unit Range Abnormal Flag Note LastModifiedBy Organization Detail LastModifiedTime 09/07/19 22 09/06/2021 MICRO ALBUM IN RANDO M URINE microalbumin , urine 11.5 mg/L 0.0-16 .6 Not Available [facility] (Lab) [address] [place], [address], 09/06/2021 19:53:48 09/07/19 22 09/06/2021 HEMOG LOBIN A1C HA1C 6.2 % 4.0-6. 0 high Diabe breonna Scree arelis Crite millie: <5.7% Consi stent with absen ce of diabe breonna 5.7-6 .4% Consi stent with incre ased risk for diabe breonna (pred iabet es) >OR=6 .5% Consi stent with diabe breonna REFER ENCE: Diabe breonna Care 2016, 39(Rizo ppl.1 ):s13 -s22 Not Available [facility] (Lab) [address] [place], [address], 09/06/2021 20:17:09 09/07/19 22 09/06/2021 VITAM IN D 25-HY DROXY [id number] 51.4 NG/mL 30-100 Vitam in D Statu s: Defic ient: <20 ng/mL Insuf ficie nt: 20-29 ng/mL Suffi cient : 30-10 0 ng/mL Not Available [facility] (Lab) [address] [place], [address], 09/06/2021 18:58:40 09/07/19 22 09/06/2021 HEPAT IC/LI JOSSE PANEL alkaline phosphatase 115 U/L 38-[address] [facility] (Lab) [address] [place], [address], 09/06/2021 18:40:54 09/07/19 22 09/06/2021 HEPAT IC/LI JOSSE PANEL alanine aminotransfe rase 15 U/L 0-35 Not Available [facility] (Lab) [address] [place], [address], 09/06/2021 18:40:54 09/07/19 22 09/06/2021 HEPAT IC/LI JOSSE PANEL aspartate aminotransfe rase 19 U/L 15-37 Not Available [facility] (Lab) [address] [place], [address], 09/06/2021 18:40:54 09/07/19 22 09/06/2021 HEPAT IC/LI JOSSE PANEL bilirubin, total 0.30 mg/dL 0.20-1 .30 Not Available [facility] (Lab) [address] [place], [address], 09/06/2021 18:40:54 09/07/19 22 09/06/2021 HEPAT IC/LI JOSSE PANEL bilirubin, conjugated (direct) 0.00 mg/dL 0.00-0 .30 Not Available [facility] (Lab) [address] [place], [address], 09/06/2021 18:40:54 09/07/19 22 09/06/2021 HEPAT IC/LI JOSSE PANEL biliurubin,u ncong. (indirect) 0.20 mg/dL 0.00-1 .1 Not Available [facility] (Lab) [address] [place], [address], 09/06/2021 18:40:54 09/07/19 22 09/06/2021 HEPAT IC/LI JOSSE PANEL total protein 6.1 g/dL 6.3-8. 2 low Not Available [facility] (Lab) [address] [place], [address], 09/06/2021 18:40:54 09/07/19 22 09/06/2021 HEPAT IC/LI JOSSE PANEL albumin 3.4 g/dL 3.0-4. 4 Not Available [facility] (Lab) [address] [place], [address], 09/06/2021 18:40:54 09/07/19 22 09/06/2021 HEPAT IC/LI JOSSE PANEL globulin 2.7 g/dL 2.6-4. 2 Not Available [facility] (Lab) [address] [place], [address], 09/06/2021 18:40:54 09/07/19 22 09/06/2021 HEPAT IC/LI JOSSE PANEL A/G ratio 1.3 ratio 1.0-2. 0 Not Available [facility] (Lab) [address] [place], [address], 09/06/2021 18:40:54 09/07/19 22 09/06/2021 LIPID PANEL cholesterol 120 mg/dL 140-19 9 low NIH PRINCE NSUS RECOM MENDA TION FOR STU STERO L: ADULT CHILD LOW RISK: <200 <170 BORDE RLINE : <200- 239 ----- HIGH RISK: >240 >200 Not Available [facility] (Lab) [address] [place], [address], 09/06/2021 18:40:48 09/07/19 22 09/06/2021 LIPID PANEL triglyceride s 77 mg/dL 0-150 NIH PRINCE NSUS REPOR T RECOM MENDA TION FOR TRIGL YCERI JEANNE: ADULT CHILD LOW RISK: <150 ----- BODER LINE: 150-1 99 ----- HIGH RISK: >200 ----- Not Available [facility] (Lab) [address] [place], [address], 09/06/2021 18:40:48 09/07/19 22 09/06/2021 LIPID PANEL HDL cholesterol 64 mg/dL 40- Not Available [facility] (Lab) [address] [place], [address], 09/06/2021 18:40:48 09/07/19 22 09/06/2021 LIPID PANEL [...] NOT BE REPOR MALINI. Not Available [facility] (Lab) [address] [place], [address], 09/06/2021 18:40:48 09/07/19 22 09/06/2021 BASIC METAB OLIC PANEL sodium 139 mmol/ L 137-14 5 Not Available [facility] (Lab) [address] [place], [address], 09/06/2021 18:40:45 09/07/19 22 09/06/2021 BASIC METAB OLIC PANEL potassium 3.9 mmol/ L 3.5-5. 1 Not Available [facility] (Lab) [address] [place], [address], 09/06/2021 18:40:45 09/07/19 22 09/06/2021 BASIC METAB OLIC PANEL chloride 105 mmol/ L 98-107 Not Available [facility] (Lab) [address] [place], [address], 09/06/2021 18:40:45 09/07/19 22 09/06/2021 BASIC METAB OLIC PANEL carbon dioxide 28 mmol/ L 22-30 Not Available [facility] (Lab) [address] [place], [address], 09/06/2021 18:40:45 09/07/19 22 09/06/2021 BASIC METAB OLIC PANEL anion gap 9.9 mmol/ L 14-22 low Not Available [facility] (Lab) [address] [place], [address], 09/06/2021 18:40:45 09/07/19 22 09/06/2021 BASIC METAB OLIC PANEL glucose 80 mg/dL 70-99 Not Available [facility] (Lab) [address] [place], [address], 09/06/2021 18:40:45 09/07/19 22 09/06/2021 BASIC METAB OLIC PANEL BUN 21 mg/dL 8-19 high Not Available [facility] (Lab) [address] [place], [address], 09/06/2021 18:40:45 09/07/19 22 09/06/2021 BASIC METAB OLIC PANEL creatinine 0.93 mg/dL 0.66-1 .25 Not Available [facility] (Lab) [address] [place], [address], 09/06/2021 18:40:45 09/07/19 22 09/06/2021 BASIC METAB OLIC PANEL GFR 59 Refer ence Range : [place] ge GFR Healt hy Adult : >60 [...] or ethni c subgr oups, such as [facility] nics. Outsi de the valid ated inocente [...] calcu lator is avail able on the [facility] websi te: https ://more w.sascha rouse.o rg/pr ofess ional s/kdo qi/gf r_cal culat or Not Available [facility] (Lab) [address] [place], [address], 09/06/2021 18:40:45 09/07/19 22 09/06/2021 BASIC METAB OLIC PANEL calcium 9.6 mg/dL 8.4-10 .2 Not Available [facility] (Lab) [address] [place], [address], 09/06/2021 18:40:45 07/26/19 23 07/26/2022 CBC/C OMPLE TE BLD COUNT W/DIF F white blood cells 7.7 x10'3 /uL 4.2-10 .8 Not Available [facility] (Lab) [address] [place], [address], 07/26/2022 10:13:55 07/26/19 23 07/26/2022 CBC/C OMPLE TE BLD COUNT W/DIF F red blood cells 3.77 x10'6 /uL 3.80-5 .20 low Not Available [facility] (Lab) [address] [place], [address], 07/26/2022 10:13:55 07/26/19 23 07/26/2022 CBC/C OMPLE TE BLD COUNT W/DIF F hemoglobin 9.8 g/dL 12.0-1 5.6 low Not Available [facility] (Lab) [address] [place], [address], 07/26/2022 10:13:55 07/26/19 23 07/26/2022 CBC/C OMPLE TE BLD COUNT W/DIF F hematocrit 32.1 % 35.7-4 5.7 low Not Available [facility] (Lab) [address] [place], [address], 07/26/2022 10:13:55 07/26/19 23 07/26/2022 CBC/C OMPLE TE BLD COUNT W/DIF F mean red cell volume 85.1 fL 82.0-9 9.0 Not Available [facility] (Lab) [address] [place], [address], 07/26/2022 10:13:55 07/26/19 23 07/26/2022 CBC/C OMPLE TE BLD COUNT W/DIF F mean red cell hemoglobin 26.0 pg 27.0-3 3.0 low Not Available [facility] (Lab) [address] [place], [address], 07/26/2022 10:13:55 07/26/19 23 07/26/2022 CBC/C OMPLE TE BLD COUNT W/DIF F mean RBC HGB concentratio n 30.5 g/dL 31.0-3 6.0 low Not Available [facility] (Lab) [address] [place], [address], 07/26/2022 10:13:55 07/26/19 23 07/26/2022 CBC/C OMPLE TE BLD COUNT W/DIF F red cell distribution width 22.7 % 11.8-1 5.5 high Not Available [facility] (Lab) [address] [place], [address], 07/26/2022 10:13:55 07/26/19 23 07/26/2022 CBC/C OMPLE TE BLD COUNT W/DIF F platelets 344 x10'3 /uL 150-40 0 Not Available [facility] (Lab) [address] [place], [address], 07/26/2022 10:13:55 07/26/19 23 07/26/2022 CBC/C OMPLE TE BLD COUNT W/DIF F mean platelet volume 10.0 fL 9.0-12 .4 Not Available [facility] (Lab) [address] [place], [address], 07/26/2022 10:13:55 07/26/19 23 07/26/2022 CBC/C OMPLE TE BLD COUNT W/DIF F neutrophils 75.0 % 39.0-7 2.0 high Not Available [facility] (Lab) [address] [place], [address], 07/26/2022 10:13:55 07/26/19 23 07/26/2022 CBC/C OMPLE TE BLD COUNT W/DIF F lymphocytes 17.0 % 16.0-4 7.0 Not Available [facility] (Lab) [address] [place], [address], 07/26/2022 10:13:55 07/26/1907/26/2022 CBC/C OMPLE TE BLD COUNT W/DIF F monocytes 6.9 % 5.0-12 .0 Not Available [facility] (Lab) [address] [place], [address], 07/26/2022 10:13:55 07/26/1907/26/2022 CBC/C OMPLE TE BLD COUNT W/DIF F eosinophils 0.4 % 1.0-7. 0 low Not Available [facility] (Lab) [address] [place], [address], 07/26/2022 10:13:55 07/26/1907/26/2022 CBC/C OMPLE TE BLD COUNT W/DIF F basophils 0.4 % 0.0-2. 0 Not Available [facility] (Lab) [address] [place], [address], 07/26/2022 10:13:55 07/26/1907/26/2022 CBC/C OMPLE TE BLD COUNT W/DIF F immature granulocytes 0.3 % 0.00-0 .50 Not Available [facility] (Lab) [address] [place], [address], 07/26/2022 10:13:55 07/26/19 23 07/26/2022 CBC/C OMPLE TE BLD COUNT W/DIF F neutrophils, absolute count 5.78 x10'3 /uL 1.5-8. 0 Not Available [facility] (Lab) [address] [place], [address], 07/26/2022 10:13:55 07/26/19 23 07/26/2022 CBC/C OMPLE TE BLD COUNT W/DIF F lymphocytes, absolute count 1.31 x10'3 /uL 1.07-3 .43 Not Available [facility] (Lab) [address] [place], [address], 07/26/2022 10:13:55 07/26/19 23 07/26/2022 CBC/C OMPLE TE BLD COUNT W/DIF F monocytes, absolute count 0.53 x10'3 /uL 0.29-0 .99 Not Available [facility] (Lab) [address] [place], [address], 07/26/2022 10:13:55 07/26/19 23 07/26/2022 CBC/C OMPLE TE BLD COUNT W/DIF F eosinophils, absolute count 0.03 x10'3 /uL 0.02-0 .53 Not Available [facility] (Lab) [address] [place], [address], 07/26/2022 10:13:55 07/26/19 23 07/26/2022 CBC/C OMPLE TE BLD COUNT W/DIF F basophils, absolute count 0.03 x10'3 /uL 0.01-0 .08 Not Available [facility] (Lab) [address] [place], [address], 07/26/2022 10:13:55 07/26/19 23 07/26/2022 CBC/C OMPLE TE BLD COUNT W/DIF F immature granulocytes ,absolute 0.02 x10'3 /uL 0.00-0 .05 Not Available [facility] (Lab) [address] [place], [address], 07/26/2022 10:13:55 07/26/19 23 07/26/2022 CBC/C OMPLE TE BLD COUNT W/DIF F nucleated red blood cells 0.0 % -0 Not Available [facility] (Lab) [address] [place], [address], 07/26/2022 10:13:55 07/26/19 23 07/26/2022 CBC/C OMPLE TE BLD COUNT W/DIF F NRBC# 0.00 x10'3 /uL Not Available [facility] (Lab) [address] [place], [address], 07/26/2022 10:13:55 07/26/19 23 07/26/2022 CBC/C OMPLE TE BLD COUNT W/DIF F anisocytosis 2+ Not Available [facility] (Lab) [address] [place], [address], 07/26/2022 10:13:55 07/26/19 23 07/26/2022 CBC/C OMPLE TE BLD COUNT W/DIF F hypochromia OCCASI ONAL Not Available [facility] (Lab) [address] [place], [address], 07/26/2022 10:13:55 07/26/19 23 07/26/2022 CBC/C OMPLE TE BLD COUNT W/DIF F macro OCCASI ONAL Not Available [facility] (Lab) [address] [place], [address], 07/26/2022 10:13:55 07/26/19 23 07/26/2022 CBC/C OMPLE TE BLD COUNT W/DIF F polychromato philic RBCs OCCASI ONAL Not Available [facility] (Lab) [address] [place], [address], 07/26/2022 10:13:55 07/26/19 23 07/25/2022 LIPID PANEL cholesterol 126 mg/dL 140-19 9 low NIH PRINCE NSUS RECOM MENDA TION FOR STU STERO L: ADULT CHILD LOW RISK: <200 <170 BORDE RLINE : <200- 239 ----- HIGH RISK: >240 >200 Not Available [facility] (Lab) [address] [place], [address], 07/25/2022 18:25:03 07/26/19 23 07/25/2022 LIPID PANEL triglyceride s 87 mg/dL 0-150 NIH PRINCE NSUS REPOR T RECOM MENDA TION FOR TRIGL YCERI JEANNE: ADULT CHILD LOW RISK: <150 ----- BODER LINE: 150-1 99 ----- HIGH RISK: >200 ----- Not Available [facility] (Lab) [address] [place], [address], 07/25/2022 18:25:03 07/26/19 23 07/25/2022 LIPID PANEL HDL cholesterol 55 mg/dL 40- Not Available [facility] (Lab) [address] [place], [address], 07/25/2022 18:25:03 07/26/19 23 07/25/2022 LIPID PANEL [...] WILL NOT BE REPOR MALINI. Not Available [facility] (Lab) [address] [place], [address], 07/25/2022 18:25:03 07/26/19 23 07/25/2022 COMPR EHENS RICKEY METAB OLIC PANEL sodium 141 mmol/ L 137-14 5 Not Available [facility] (Lab) [address] [place], [address], 07/25/2022 18:25:11 07/26/19 23 07/25/2022 COMPR EHENS RICKEY METAB OLIC PANEL potassium 4.3 mmol/ L 3.5-5. 1 Not Available [facility] (Lab) [address] [place], [address], 07/25/2022 18:25:11 07/26/19 23 07/25/2022 COMPR EHENS RICKEY METAB OLIC PANEL chloride 101 mmol/ L 98-107 Not Available [facility] (Lab) [address] [place], [address], 07/25/2022 18:25:11 07/26/19 23 07/25/2022 COMPR EHENS RICKEY METAB OLIC PANEL carbon dioxide 28 mmol/ L 22-30 Not Available [facility] (Lab) [address] [place], [address], 07/25/2022 18:25:11 07/26/19 23 07/25/2022 COMPR EHENS RICKEY METAB OLIC PANEL anion gap 16.3 mmol/ L 14-22 Not Available [facility] (Lab) [address] [place], [address], 07/25/2022 18:25:11 07/26/19 23 07/25/2022 COMPR EHENS RICKEY METAB OLIC PANEL glucose 82 mg/dL 70-99 Not Available [facility] (Lab) [address] [place], [address], 07/25/2022 18:25:11 07/26/19 23 07/25/2022 COMPR EHENS RICKEY METAB OLIC PANEL BUN 15 mg/dL 8-19 Not Available [facility] (Lab) [address] [place], [address], 07/25/2022 18:25:11 07/26/19 23 07/25/2022 COMPR EHENS RICKEY METAB OLIC PANEL creatinine 0.75 mg/dL 0.66-1 .25 Not Available [facility] (Lab) [address] [place], [address], 07/25/2022 18:25:11 07/26/1907/25/2022 COMPR EHENS RICKEY METAB OLIC PANEL GFR >60 Refer ence Range : [place] ge GFR Healt hy Adult : >60 [...] on the F websi te: https ://more w.kid padma.o rg/pr supaess markyal s/kdo qi/gf r_cal culat or Not Available [facility] (Lab) [address] [place], [address], 07/25/2022 18:25:11 07/26/1907/25/2022 COMPR EHENS RICKEY METAB OLIC PANEL alkaline phosphatase 118 U/L 38-[address] [facility] (Lab) [address] [place], [address], 07/25/2022 18:25:11 07/26/19 23 07/25/2022 COMPR EHENS RICKEY METAB OLIC PANEL alanine aminotransfe rase 19 U/L 0-35 Not Available [facility] (Lab) [address] [place], [address], 07/25/2022 18:25:11 07/26/19 23 07/25/2022 COMPR EHENS RICKEY METAB OLIC PANEL aspartate aminotransfe rase 24 U/L 15-37 Not Available [facility] (Lab) [address] [place], [address], 07/25/2022 18:25:11 07/26/19 23 07/25/2022 COMPR EHENS RICKEY METAB OLIC PANEL bilirubin, total 0.30 mg/dL 0.20-1 .30 Not Available [facility] (Lab) [address] [place], [address], 07/25/2022 18:25:11 07/26/19 23 07/25/2022 COMPR EHENS RICKEY METAB OLIC PANEL calcium 9.2 mg/dL 8.4-10 .2 Not Available [facility] (Lab) [address] [place], [address], 07/25/2022 18:25:11 07/26/19 23 07/25/2022 COMPR EHENS RICKEY METAB OLIC PANEL total protein 6.0 g/dL 6.3-8. 2 low Not Available [facility] (Lab) [address] [place], [address], 07/25/2022 18:25:11 07/26/19 23 07/25/2022 COMPR EHENS RICKEY METAB OLIC PANEL albumin 3.1 g/dL 3.0-4. 4 Not Available [facility] (Lab) [address] [place], [address], 07/25/2022 18:25:11 07/26/19 23 07/25/2022 COMPR EHENS RICKEY METAB OLIC PANEL globulin 2.9 g/dL 2.6-4. 2 Not Available [facility] (Lab) [address] [place], [address], 07/25/2022 18:25:11 07/26/19 23 07/25/2022 COMPR EHENS RICKEY METAB OLIC PANEL A/G ratio 1.1 ratio 1.0-2. 0 Not Available [facility] (Lab) [address] [place], [address], 07/25/2022 18:25:11 07/26/19 23 07/25/2022 HEMOG LOBIN A1C HA1C 5.5 % 4.0-6. 0 Diabe breonna Scree arelis Crite millie: <5.7% Consi stent with absen ce of diabe breonna 5.7-6 .4% Consi stent with incre ased risk for diabe breonna (pred iabet es) >OR=6 .5% Consi stent with diabe breonna REFER ENCE: Diabe breonna Care 2016, 39(Rizo ppl.1 ):s13 -s22 Not Available [facility] (Lab) [address] [place], [address], 07/25/2022 20:30:16 09/29/19 22 XR, lumba r spine No observ ation record ed. MIGRATION. [id number] [address] [facility] [address], [place], [address], 04/25/2022 08:14:30 11/18/19 22 11/17/2021 XR, chest , 2 view No observ ation record ed. MIGRATION. [address], [place], [address], 04/25/2022 08:14:30 12/19/19 22 12/15/2021 PFT, compl ete No observ ation record ed. MIGRATION. [address], [place], [address], 04/25/2022 08:14:30 06/03/19 23 06/02/2022 XR, ankle + foot No observ ation record ed. [address], [place], [address], 06/04/2022 12:17:42 06/03/19 23 06/02/2022 XR, hip + pelvi s, bilat eral No observ ation record ed. [address], [place], [address], 06/04/2022 12:18:03 06/03/19 23 06/02/2022 XR, tibia + fibul a No observ ation record ed. [address], [place], [address], 06/04/2022 12:18:20 06/03/19 23 06/02/2022 XR, chest No observ ation record ed. [address], [place], [address], 06/04/2022 12:18:54 06/03/19 23 06/02/2022 CT, brain , w/o contr ast No observ ation record ed. [address], [place], [address], 06/04/2022 12:19:13 06/03/19 23 06/02/2022 stres s echoc ardio gram No observ ation record ed. [address], [place], [address], 06/04/2022 12:25:33 06/04/19 23 06/03/2022 US, carot id arter y No observ ation record ed. [address], [place], [address], 06/04/2022 12:20:36 06/04/19 23 06/03/2022 MRI, brain + brain stem, w/ contr ast No observ ation record ed. [email or web address], [place], [address], 06/04/2022 12:10:29 06/05/19 23 06/04/2022 CT, brain , w/o contr ast No observ ation record ed. [address], [place], [address], 06/05/2022 08:36:21 06/06/19 23 06/05/2022 imagi ng/di agnos tic resul t No observ ation record ed. [address] [address], [place], [address], 06/06/2022 08:29:03 07/21/19 23 07/18/2022 XR, ankle No observ ation record ed. [address] [facility], [place], [address], 07/24/2022 08:32:29 Result Notes None recorded. Problems Name Problem SNOMED Code Status Onset Date Resolution Date Notes Provider Name and Address Organization Details Recorded Time Intermitt ent palpitati ons 184425963 Active Not Available [facility] 4 03:44:28 Acute sinusitis 04583011 Completed Not Available [facility] 3 08:09:25 Insomnia 186233478 Active Not Available [facility] 4 03:44:28 Subarachn oid hemorrhag e [id number] Completed Not Available [facility] 3 08:09:25 Gastroeso phageal reflux disease 701876166 Active Not Available [facility] 4 03:44:28 Morbid obesity 075803185 Active Not Available [facility] 4 03:44:28 Labyrinth itis 56093434 Completed Not Available [facility] 3 08:09:26 Osteoarth ritis of knee 430568339 Active Not Available [facility] 4 03:44:28 Fluid level behind tympanic membrane Completed Not Available [facility] 3 08:09:26 Flank pain 601153445 Completed Not Available [facility] 3 08:09:26 Shoulder joint pain 090086839 Active Not Available [facility] 4 03:44:28 Pain in thoracic spine 906240042 Completed Not Available [facility] 3 08:09:26 Chest pain 82313266 Completed Not Available [facility] 3 08:09:26 Knee pain Completed Not Available [facility] 3 08:09:26 Type 2 diabetes mellitus without complicat ion 160899994 Active Not Available [facility] 4 03:44:28 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 87804779 Active Not Available [facility] 4 03:44:28 Vitamin D deficienc y 61502538 Active Not Available [facility] 4 03:44:28 Depressiv e disorder 97422607 Active Not Available [facility] 4 03:44:28 Sinusitis 20820466 Completed Not Available [facility] 3 08:09:27 Hypertens rickey disorder 74570713 Completed Not Available [facility] 3 08:09:27 Lighthead edness 404845060 Completed Not Available [facility] 3 08:09:27 Osteoarth ritis 052308462 Active Not Available [facility] 4 03:44:28 Vertigo 609178680 Completed Not Available [facility] 3 08:09:27 Dizziness 059069055 Completed Not Available [facility] 3 08:09:28 Mixed urinary incontine nce 178336097 Completed Not Available [facility] 3 08:09:28 Allergy to drug 134211741 Completed Not Available [facility] 3 08:09:28 Acute urinary tract infection 907386938 Completed Not Available [facility] 3 08:09:28 Type 2 diabetes mellitus 04577423 Completed Not Available [facility] 3 08:09:28 Anxiety 39137885 Active Not Available [facility] 4 03:44:28 Candidias is of skin 64659904 Completed Not Available [facility] 3 08:09:29 Coronary arteriosc lerosis 21935628 Active Not Available [facility] 4 03:44:28 Upper respirato ry infection 00936068 Completed Not Available [facility] 3 08:09:29 Hyperlipi demia 28576796 Active Not Available [facility] 4 03:44:28 Essential hypertens ion 77091908 Active Not Available [facility] 4 03:44:28 Urinary tract infectiou s disease 49864860 Completed Not Available [facility] 3 08:09:29 Muscle pain 10059408 Completed Not Available [facility] 3 08:09:30 Sleep apnea 77117327 Active Not Available [facility] 4 03:44:28 Posterior rhinorrhe a 86869679 Completed Not Available [facility] 3 08:09:30 Urge incontine nce of urine 02174103 Active Not Available [facility] 4 03:44:28 Body mass index 40+ - severely obese 792389096 Active 2018 Not Available [facility] 4 03:44:28 Chronic diarrhea of unknown origin 04079152 Active 2019 Not Available [facility] 4 03:44:28 Genital lichen sclerosus 706643466 Active 2019 Not Available [facility] 4 03:44:28 Influenza vaccinati on declined 276214953 Active 2019 Not Available [facility] 4 03:44:28 Osteoarth ritis of left knee joint 25275750857 9109 Active 2021 Not Available [facility] 4 03:44:28 Pain of right knee joint 26340583997 4100 Active 2021 Not Available [facility] 4 03:44:28 History of right total knee replaceme nt 14392715471 55330 Active 2021 Not Available [facility] 4 03:44:28 Pain in right sacroilia c joint 29382572198 061464 Active 2021 Not Available [facility] 4 03:44:28 Pain in left sacroilia c joint 86280296708 830542 Active 2021 Not Available [facility] 4 03:44:28 Spinal stenosis of lumbar region 85532486 Active 2021 Not Available [facility] 4 03:44:28 Hypokalem ia 87722835 Active 2022 Not Available [facility] 4 03:44:28 Atrial fibrillat ion 47128830 Active 2022 Not Available [facility] 4 03:44:28 Low back pain 770572553 Active 2022 Not Available [facility] 4 03:44:28 Fracture of ankle 25123561 Active 2022 Not Available [facility] 4 03:44:28 Fracture of ankle 60518051 Active 2022 Not Available [facility] 4 03:44:28 Anemia 072942650 Active 2022 Not Available [facility] 4 03:44:28 Osteoporo sis 96592431 Active 2022 Not Available [facility] 4 03:44:28 Chronic atrial fibrillat ion 047021159 Active 2022 Not Available [facility] 4 03:44:28 Pruritic rash 14769212 Active 2022 Not Available [facility] 4 03:44:28 Chronic low back pain 391074175 Active 2022 Not Available [facility] 4 03:44:28 Acid reflux 238926182 Active 2022 Not Available [facility] 4 03:44:28 Irritable bowel syndrome character ized by constipat ion 149261237 Active 2022 Not Available [facility] 4 03:44:28 Constipat ion 03302521 Active 2022 Not Available [facility] 4 03:44:28 Chronic idiopathi c constipat ion 54055064 Active 2023 Not Available [facility] 03:44:28 Closed fracture of left ankle 40990029387 157565 Active 2023 LOTTIE Tatum [address], [place], [address] , [employer] 4 16:27:26 Overactiv e urinary bladder 036234800 Active 2023 LOTTIE Tatum [address], [address], [place], [address] , [employer] 4 16:31:00 Serum vitamin B12 below reference range 680651416 Active 2023 LOTTIE Tatum [address], [address], [place], [address] , [employer] 4 18:32:04 Decreased renal function 59501159 Active 2023 LOTTIE Tatum [address], [place], [address] , [employer] 17:06:01 Notes:Some problems listed i n Documents: #[id number], #[id number], #[id number], #[id number], #[id number], #[id number], #[id number], #[id number], #[id number], #[id number], #[id number], #[id number], #[id number] could not be added to this patient's chart. Please review these documents and add these problems to the patient's chart manually as needed. Problem Notes None recorded. Procedures Surgical History Date Name Laterality Status Provider Name and Address Organization Details Recorded Time 12/18/19 Medicare Wellness CPT Code, subsequent completed May CHARLES Ernst [facility] [employer] 12/18/2023 12:07:49 Knee Replacement completed Not Available [facility] 04/25/2022 08:06:21 Cholecystectomy completed Not Available [facility] 04/25/2022 08:06:21 Hernia Repair completed Not Available [facility] 04/25/2022 08:06:21 Foot Surgery completed STEPHANY Singletary [place] [facility] 07/25/2022 14:11:56 Imaging Results None recorded. Procedure Notes None recorded. Medical Equipment None Reported. Allergies Allergen ID Allergen Name Allergen Category Reaction Reaction Severity Criticality Documentation Date Start Date Code Code System Note Provider Name and Address Organization Details Recorded Time Levaquin medicatio n other Not available Not available 04/25/2022 40024 2 RxNorm TONGU E SWELL ING Not Available [facility] 3 08:14:24 dicyclomi ne medicatio n rash Not available Not available 04/25/2022 3361 RxNorm Not Available [facility] 3 08:14:24 Augmentin medicatio n Not available Not available Not available 04/25/2022 91909 2 RxNorm TONGU E AND THROA T SWELL ING Not Available [facility] tin 40 mg tablet TAKE 1 TABLET BY MOUTH DAILY AT BEDTIME active Not Available Not [...] administ ered by the provider 07/25 completed [facility]: [id number] 4-20 Not Available Not Available [...] Available Not Available No t Available erythromy densie 5 mg/gram (0.5 %) eye ointment APPLY [...] dose Not Available Not Available Not Available ChemiSense 1.5 billion cell capsule Take 1 capsule [...] Not Available Not Available Fluzone High-Dose Quad 2020-21 (PF) 240 mcg/0.7 mL IM syringe PHARMACI ST ADMINIST ERED IMMUNIZA TION ADMINIST ERED AT TIME OF DISPENSI NG active Not Available Not Available No t Available Vitals Date Recorded Body height Body mass index (BMI) Body weight Body temperature Respiratory rate Heart rate Oxygen saturation Oxygen saturation in Arterial blood by Pulse oximetry Systolic And Diastolic Provider Name and Address Organization Details Last Updated DateTime 4 162.56 cm 42.9 kg/m2 507519. 09 g 97.9 [degF] 16 /min 47 /min 97 % 97 % 138/60 mm[Hg] Cher Jade RN [facility] [employer] [facility] 4 15:57:14 Date Recorded Body height Body temperature Heart rate Oxygen saturation Oxygen saturation in Arterial blood by Pulse oximetry Systolic And Diastolic Provider Name and Address Organization Details Last Updated DateTime 3 162.56 cm 98.1 [degF] 77 /min 96 % 96 % 130/80 mm[Hg] STEPHANY Singletary PA [employer] [facility] [employer] [facility] 3 14:13:26 Date Recorded Body mass index (BMI) Body height Oxygen saturation Oxygen saturation in Arterial blood by Pulse oximetry Heart rate Body temperature Body weight Systolic And Diastolic Provider Name and Address Organization Details Last Updated DateTime 2 45.7 kg/m2 162.56 cm 92 % 92 % 107 /min 96.2 [degF] 716418. 57 g 142/82 mm[Hg] Not Available [facility] 3 08:08:23 Date Recorded Body mass index (BMI) Body height Body weight Provider Name and Address Organization Details Last Updated DateTime 09/28/2021 45.7 kg/m2 162.56 cm 601671.57 g Not Available [facility] 04/25/2022 08:08:31 Date Recorded Body height Body mass index (BMI) Body weight Body temperature Heart rate Oxygen saturation Oxygen saturation in Arterial blood by Pulse oximetry Systolic And Diastolic Provider Name and Address Organization Details Last Updated DateTime 4 162.56 cm 44.1 kg/m2 782964. 24 g 97.9 [degF] 56 /min 95 % 95 % 130/72 mm[Hg] Cher Jade RN [place] - [facility] 16:03:20 Social History Question Answer Notes LastModified by [employer] Details LastModified Time Tobacco Smoking Status Never Smoker Not Available [facility] 04/25/2022 08:06:14 What Is Your Level Of Caffeine Consumption? Heavy [id number] Information not available 04/25/2022 How Much Tobacco Do You Chew? None [id number] 026 Information not available 04/25/2022 Which Illicit Or Recreational Drugs Have You Used? None [id number] 026 Information not available 04/25/2022 What Was The Date Of Your Most Recent Tobacco Screening? 03/10/2018 [id number] 026 Information not available 04/25/2022 Sex: Unknown Functional Status Question Answer Note LastModified by [employer] Details LastModified Time What is your level of alcohol consumption? None [id number].[id number] 026 Information not available 04/25/2022 Do you or have you ever used smokeless tobacco? Never used smokeless tobacco MIGRATION.6629123 026 Information not available 04/25/2022 What is your occupation? Retired [id number].4494126 026 Information not available 04/25/2022 Do you or have you ever used e-cigarettes or vape? Never used electronic cigarettes MIGRATION.[id number] 026 Information not available 04/25/2022 What is your exercise level? Occasional [id number].[id number] 026 Information not available 04/25/2022 Mental Status None recorded. Family History Relationship Description Onset Age of this Age Resolved Age Notes LastModified by Organization Details LastModified Time Mother Coronary arterioscler osis MIGRATION.559 [id number] Not available 04/25/2022 08:06:23 Mother Diabetes mellitus MIGRATION.063 [id number] Not available 04/25/2022 08:06:23 Mother Family history of malignant neoplasm MIGRATION.296 [id number] Not available 04/25/2022 08:06:23 Maternal Grandmother Coronary arterioscler osis MIGRATION.212 1393601 Not available 04/25/2022 08:06:23 Medical History Condition [...] LNP-S, PF, 50 mcg/0.5 mL 4 completed Cher Jade RN null, [facility] [employer] [facility] 01/14/2024 16:01:56 influenza, unspecified formulation 4 completed Cher Jade RN null, [facility] [employer] [facility] 01/14/2024 16:03:00 COVID-19, mRNA, LNP-S, bivalent, PF, 30 mcg/0.3 mL dose 2 completed Not Available [facility] 03/17/2023 03:44:29 Influenza, split virus, quadrivalent, preservative 2 completed Not Available [facility] 03/17/2023 03:44:29 Pneumococcal conjugate PCV 13 7 completed Not Available [facility] 03/17/2023 03:44:29 Past Encounters Encounter ID Performer Location Encounter Start Date Encounter Closed Date Diagnosis/Indication Diagnosis SNOMED-CT Code Diagnosis ICD10 Code Diagnosis Note [id number] Talya Valentino MD [facility] [place] [address] 09/05/2020 00:00:00 09/05/2020 16:21:00 [id number] Ismael Phillips MD [facility] [place] [address] [place] [address] 08/03/2021 00:00:00 08/03/2021 14:59:56 [id number] Ismael Phillips MD [facility] [place] [address] [place] [address] 08/31/2021 00:00:00 08/31/2021 13:23:31 [id number] Talya Valentino MD [facility] [place] [address] 09/06/2021 00:00:00 09/06/2021 15:24:05 [id number] Ismael Phillips MD [facility] [place] [address] [place] [address] 09/28/2021 00:00:00 09/28/2021 14:36:15 [id number] Talya Valentino MD [address] [place] [address] 07/25/2022 14:02:12 07/25/2022 14:40:02 Fracture of ankle 44973498 S82.90XA Anemia 383625196 D64.9 Osteoporosis 82804914 M8 1.0 Type 2 mary betes mellitus without complication 573398155 E11.9 Hyperlipidemia 73691100 E78.5 Essential hypertension 44369623 I10 History of cerebrovascular accident 291781263 Z86.73 [id number] Cezar Staples MD [address] , [place] [address] 06/19/2023 15:43:55 06/19/2023 16:45:30 Fracture of ankle 86655307 S82.90XA Essential hypertension 23603722 I10 Overactive urinary bladder 352609448 N32.81 Vitamin D deficiency 347 35943 E55.9 Spinal jomar nosis of lumbar region 02705638 M48.061 Sleep apnea 45689373 G47 .30 Osteoporosis 38420425 M8 1.0 Osteoarthr itis of knee 022641197 M17.9 Low back pain 481223132 M54.50 Insomnia 246176351 G47.0 0 Hyperlipidemia 74759728 E78.5 Type 2 mary betes mellitus without complication 366557945 E11.9 Pruritic rash 04523633 L 28.2 Anemia 764452718 D64.9 Morbid obesity 806207560 E66.01 Gastroesop hageal reflux disease 168115306 K21.9 Genital li kenyon sclerosus 783253917 L90.0 History of right total knee replacement 6952276749 245677 Z96.651 Coronary arteriosclerosis 52593447 I25.10 Depressive disorder 3548 9007 F32.A Chronic id iopathic constipation 48697702 K59.04 Chronic at rial fibrillation 736839739 I48.20 Anxiety 33484689 F41.9 [id number] Cezar Staples MD [facility] [address] [facility] [place] [address] 12/18/2023 15:36:00 12/18/2023 16:24:00 Adult health examination 995844670 Z00.00 Screening for disorder 036794048 Z13.9 Anxiety 61986802 F41.9 Low back pain 662333867 M54.50 Anemia 691747129 D64.9 Coronary arteriosclerosis 06139719 I25.10 Hyperlipidemia 31622633 E78.5 Type 2 mary betes mellitus without complication 539926658 E11.9 Vitamin D deficiency 347 22362 E55.9 Serum danielle min B12 below reference range 489225030 R79.89 Atrial fibrillation 4943 6004 I48.91 Chronic id iopathic constipation 48083499 K59.04 Chronic at rial fibrillation 868187236 I48.20 Essential hypertension 36844130 I10 Gastroesop hageal reflux disease 502197667 K21.9 Osteoarthritis 599344967 M19.90 Osteoporosis 58146754 M8 1.0 Overactive urinary bladder 908316596 N32.81 Morbid obesity 893855903 E66.01 Insomnia 399114231 G47.0 0 Health Concerns Section Related Observation LastModified by Organization Detai ls LastModified Time None Recorded Concern Status LastModified by Organization Details LastModified Time None Recorded Advance Directives Directive None Recorded Payers Insurance Date Sequence Insurance Name Policy Number Policy Rosa Covered Member ID Rosa Member ID Guarantor Name 12/18/2023 1 [place] Litzy [employer]edi [place] [id number] [id number] RAFAL Cárdenasirene Trivedi [employer] 01/20/2024 2 [place] [id number] Jf Conrado [id number] Litzy [employer]rivedi [place] 12/18/2023 [employer] - DMEPOS ASSIGNED (MEDICARE DME REGION B) Litzy [place]q [place] [id number] [id number] [employer] Notes Date Note Type Note Provider Name and Address Organization Details Recorded Time 09/28/2021 text/html Back PainReporte d bypatient.Location :pain radiating to the buttocks Quality:dull Severity:worsening Duration:chronic Context:unusual activity; prior back problems Associated Symptoms:no fever; no weak limbs; no numbness of the legs/feet; no tingling; no incontinence; no shortness of breath Not Available [employer] 09/28/2021 14:36:15 07/25/2022 text/html Here today for [...] couple of years ago. Talya Valentino MD [address] [address], [place], [address], [employer] 07/25/2022 19:15:06 06/19/2023 text/html fracture left ankle , wears braces for feet that turn inward anyway . LOTTIE Tatum [address] [facility], [place], [address], [employer] 06/20/2023 16:36:32 12/18/2023 text/html nocturia , would like to stop hctz LOTTIE Tatum [address], [place], [address], [employer] 01/11/2024 10:50:22 OBGyn Episode No OBEpisode recorded.
--- OUTSIDE RECORDS SUMMARY | 2024-09-14 14:27 | XMS_ITS | Clinical Summary ---
Author Organization [facility] [address] Address [address] [place] [address] Care Team Providers Care Cement Crusher Operator Name Role Phone Jenni Wilhelmbeab Vargas Primary [...] for pain Active Eliquis 5 mg tablet [address] (PROTONIX) 40 mg EC tablet Take 1 tablet (40 mg total) by mouth daily 3 Active cyanocobalamin (Vitamin B-12) 2,500 mcg tablet, [...] once daily 30 tablet 10 4 Active chlorthalidone (HYGROTON) 25 mg tablet Take 1 tablet (25 mg total) by mouth recording engineer before breakfast 5 Active nebivoloL (BYSTOLIC) 10 mg tabletIndication s:Essential hypertension Take 1 tablet (10 mg total) by mouth daily 90 tablet 3 5 05/29/19 26 Active Active Problems Problem Noted Date Diagnosed [...] on file 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 Gender Identity Not on file Sexual [...] 1:06 PM CDT Height 162.6 cm (5' 4) 05/28/2024 1:06 PM CDT Body Mass Index [...] (Season Ended) 2024 11/24/19 22 [place] [address] [employer] OS Member Subscriber Plan / Payer (Ef fective 2017-Present) Name:Litzy Thomas Relation to Subscriber:Spouse Name:CHAU THOMAS Date of :1943 (Home) Address: [address] [place] [address] Payer ID:[id number] (NAIC) Type:[place] Address: [address] [place] [id number] MEDICARE [employer]OS Care Teams Cement Crusher Operator Relationship Specialty Start Date End Date Annie Wilhelm DO [address] [place] [address] [place] [address] PCP - General Family Medicine 05/28/24
--- OUTSIDE RECORDS SUMMARY | 2024-09-14 14:27 | XMS_ITS | Referral Summary ---
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
--- OUTSIDE RECORDS SUMMARY | 2024-09-14 14:27 | XMS_ITS | Encounter Summary ---
Author Organization [facility] Address [address] [facility] [address] [place] [address] Care Team Providers Care Material Mixer Name Role Phone Ranjana Friedman MD Primary Care Provider [phone] Charito Colunga NP Primary Care Provider [phone] Talya Valentino MD Primary Care Provider +- [phone] Matthew Phillips Primary Care Provider + Annie Wilhelm DO Primary Care Provider + Encounter Details Date Type Department Care Team (Late st Contact Info) Description 06/26/2016 Orders Only [facility] ProviderPreet MD [address] [place] [address] Social History Tobacco Use Types Packs/Day Years Used Date Smoking Tobacco: Never Alcohol Use Standard Drinks/Week Comments No 0 (1 standard drink = 0.6 oz pur e alcohol) Comments Unknown Sex and Gender Information Value Date Recorded Sex Assigned at Not on file 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 Gender Identity Not on file Sexual Orientation [...] on filedocumented in this encounter Care Teams Material Mixer Relationship Specialty Start Date End Date Ranjana Friedman MD [address] [employer] [address] PCP - General 12/27/14 07/31/16 Charito Colunga NP [address] [employer] [address] PCP - General 08/01/16 03/12/23 Talya Valentino MD [address] [place] [address] [place] [address] PCP - General Family Medicine 03/13/23 10/29/23 Matthew Phillips PA [address] [place] [address] [place] [address] PCP - General Internal Medicine 10/30/23 05/27/24 Annie Wilhelm DO [address] [place] [address] [address] [place] [address] [id number] PCP - General Family Medicine 05/28/24 documented as of this encounter
--- OUTSIDE RECORDS SUMMARY | 2024-09-14 14:27 | XMS_ITS | Encounter Summary ---
Author Organization [facility] Address [address] [facility] [address] [place] [address] Care Team Providers Care Sole Leather Cutting Machine Operator Name Role Phone Ranjana Friedman MD Primary Care Provider [phone] Charito Colunga NP Primary Care Provider [phone] Talya Valentino MD Primary Care Provider +- [phone] Matthew Phillips Primary Care Provider + Annie Wilhelm DO Primary Care Provider + Encounter Details Date Type Department Care Team (Late st Contact Info) Description 06/06/2016 Orders Only [facility] ProviderPreet MD [address] [place] [address] Social History Tobacco Use Types Packs/Day Years Used Date Smoking Tobacco: Never Alcohol Use Standard Drinks/Week Comments No 0 (1 standard drink = 0.6 oz pur e alcohol) Comments Unknown Sex and Gender Information Value Date Recorded Sex Assigned at Not on file 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 Gender Identity Not on file Sexual Orientation [...] on filedocumented in this encounter Care Teams Sole Leather Cutting Machine Operator Relationship Specialty Start Date End Date Ranjana Friedman MD [address] [address] PCP - General 12/27/14 07/31/16 Charito Colunga NP [address] [address] PCP - General 08/01/16 03/12/23 Talya Valentino MD [address] [place] [address] [place] [address] PCP - General Family Medicine 03/13/23 10/29/23 Matthew Phillips PA [address] [place] [address] [place] [address] PCP - General Internal Medicine 10/30/23 05/27/24 Annie Wilhelm DO [address] [place] [address] DR TUCKER [address] [place] [address] [id number] PCP - General Family Medicine 05/28/24 documented as of this encounter
[2024-09-14 15:44] LABS: Hemoglobin A1C 5.8 % (<5.7)
[2024-09-14 15:50] LABS: Cholesterol 138 mg/dL (0-200); HDL Direct 52 mg/dL; Triglycerides 100 mg/dL (<150)
[2024-09-14 16:06] LABS: Free T4 Free Thyroxine 1.52 ng/dL (0.78-2.19)
[2024-09-14 16:50] LABS: Thyroid Stimulating Hormone 1.130 uIU/mL (0.465-4.680)
== END 2024-09-14 14:19 | disposition home or self-care (01) ==
LOC: ANHLAB 14:23
PROVIDERS: PCP Family Medicine; Visit Provider Family Medicine
DX: I48.0 Paroxysmal atrial fibrillation (principal); E11.9 Type 2 diabetes mellitus without complications
CPT/HCPCS: 36415; 80061; 83036; 84439; 84443

== ENCOUNTER 2024-12-09 14:16 | Outpatient (CLI) | payer MEDICARE, BC, SELFPAY ==
--- NOTE | ~2024-12-09 | XR_ITS ---
EXAMINATION: XR chest 2V, 12/09/2024 15:15 CDT HISTORY: On amiodarone therapy COMPARISON: No comparisons available. Technique: 2 views obtained. Findings: The lungs are clear, no effusion. No pneumothorax. Heart is normal size. Mediastinal and hilar contours are within normal limits. Bony thorax no acute abnormality. Impression: No acute cardiopulmonary abnormality. Reviewed, dictated and finalized at location P. Impression: No acute cardiopulmonary abnormality.
--- OUTSIDE RECORDS SUMMARY | 2024-12-09 13:00 | XMS_ITS | Encounter Summary ---
Author Organization [facility] Healthcare Address [address] [place] [address] Care Team Providers Care Sulfate Drier Machine Operator Name Role Phone Annie Wilhelm DO Primary Care Provider + Reason for Visit * Cardiology (Routine) - Closed Specialty Diagnoses / Procedures Referred By Contac t Referred To Contact Diagnoses Paroxysmal atrial fibrillation (HCC) Essential hypertension Bilateral lower extremity edema Procedures Transthoracic Echo (TTE) Complete W Doppler/CF Jean Paul Castillo MD [address] [facility] [address] [place] [address] Phone: tel: fax: [facility] Cardiology [address] [place] [phone] Phone: tel: fax: Referral ID Status Reason Start Date Expiration Date Visits Re quested Visits Authorized [id number] Closed 12/03/2024 01/02/2026 1 1 Encounter Details Date Type Department Care Team (Latest Contact Info) Description 12/09/2024 1:00 PM CDT Ancillary Procedure [facility] Cardiology [address] [place] [phone] Paroxysmal atrial fibrillation (HCC); Essential hypertension; Bilateral lower extremity edema Social History Tobacco Use Types Packs/Day Years Used Date Smoking Tobacco: Never Smokeless Tobacco: Never Alcohol Use Standard Drinks/Week Comments No 0 (1 standard drink = 0.6 oz pur e alcohol) Comments Unknown Sex and Gender Information Value Date Recorded Sex Assigned at Not on file 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 Gender Identity Not on file Sexual Orientation Not on file documented as of this encounter Plan of Treatment Pending Results Name Type Priority Associated Diagnoses Date /Time Transthoracic Echo (TTE) Complete W Doppler/CF Echocardiography Routine Paroxysmal atrial fibrillation (HCC) Essential hypertension Bilateral lower extremity edema 12/09/2024 2:02 PM CDT documented as of this encounter Visit Diagnoses Diagnosis Paroxysmal atrial fibrillation (HCC) Atrial fibrillation Essential hypertension Unspecified essential hypertension Bilateral lower extremity edema documented in this encounter Care Teams Sulfate Drier Machine Operator Relationship Specialty Start Date End Date Annie Wilhelm DO [address] [facility] [address] [address] PCP - General Family Medicine 05/28/24 documented as of this encounter
[2024-12-09 15:15] LABS: Hematocrit 36.0 % (37.0-47.0); Hemoglobin 11.4 g/dL (12.0-15.0); Mean Corpuscular HGB Conc 31.7 g/dl (32-36); Mean Corpuscular Hemoglobin 28.4 pg (26-34); Mean Corpuscular Volume 89.8 fl (80-100); Platelet Count Result 242 k/mm3 (150-375); Red Blood Count 4.01 M/mm3 (4.2-5.4); White Blood Count 10.4 K/mm3 (4.5-10.0)
[2024-12-09 15:33] LABS: Alanine Aminotransferase 18 U/L (6-35); Albumin Level 3.8 g/dL (3.5-5.1); Alkaline Phosphatase 119 U/L (38-126); Anion Gap 7 mmol/L (4-12); Aspartate Amino Transferase 24 U/L (14-36); Bilirubin,Total 0.5 mg/dL (0.2-1.3); Blood Urea Nitrogen 20 mg/dL (7-17); Calcium 9.4 mg/dL (8.4-10.2); Carbon Dioxide 30 mmol/L (22-30); Chloride 104 mmol/L (98-107); Estimated Glomerular Filt Rate 45; Glucose 107 mg/dL (65-110); Magnesium 2.0 mg/dL (1.6-2.3); Potassium 3.9 mmol/L (3.4-5.0); Sodium 141 mmol/L (137-145); Total Protein 7.1 g/dL (6.3-8.2)
[2024-12-09 16:09] LABS: Thyroid Stimulating Hormone 1.590 uIU/mL (0.465-4.680)
[2024-12-09 16:14] LABS: Free T4 Free Thyroxine 1.63 ng/dL (0.78-2.19)
[2024-12-09 16:23] LABS: Parathyroid Intact 100.5 pg/mL (14.5-75.2)
[2024-12-09 16:27] LABS: MALB Creatinine Ratio 40.9 mg/g (0-30)
--- OUTSIDE RECORDS SUMMARY | 2024-12-09 16:35 | XMS_ITS | Encounter Summary ---
Author Organization [facility] Healthcare Address [address] [place] [address] Care Team Providers Care Director Digital Communications Name Role Phone Charito Colunga NP Primary Care Provider [phone] Talya Valentino MD Primary Care Provider + [phone] Matthew Phillips Primary Care Provider + Annie Wilhelm DO Primary Care Provider + Encounter Details Date Type Department Care Team (Late st Contact Info) Description 05/20/2017 Orders Only [facility] Health Information Management [address] [place] [address] Scanning, Provider Social History Tobacco Use Types Packs/Day Years Used Date Smoking Tobacco: Never Smokeless Tobacco: Never Alcohol Use Standard Drinks/Week Comments No 0 (1 standard drink = 0.6 oz pur e alcohol) Comments Unknown Sex and Gender Information Value Date Recorded Sex Assigned at Not on file 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 Gender Identity Not on file Sexual Orientation [...] on filedocumented in this encounter Care Teams Director Digital Communications Relationship Specialty Start Date End Date Charito Colunga NP PCP - General 08/01/16 03/12/23 Talya Valentino MD [address] [place] [address] [place] [address] PCP - General Family Medicine 03/13/23 10/29/23 Matthew Phillips PA [address] [place] [address] [place] [address] PCP - General Internal Medicine 10/30/23 05/27/24 Annie Wilhelm DO [address] [place] [address] [place] [address] PCP - General Family Medicine 05/28/24 documented as of this encounter
--- OUTSIDE RECORDS SUMMARY | 2024-12-09 16:35 | XMS_ITS | Encounter Summary ---
Author Organization [facility] Address [address] [facility] [address] [place] [address] Care Team Providers Care Director Of Marketing Operations Name Role Phone Ranjana Friedman MD Primary Care Provider [phone] Charito Colunga NP Primary Care Provider [phone] Talya Valentino MD Primary Care Provider +- [phone] Matthew Phillips Primary Care Provider + Annie Wilhelm DO Primary Care Provider + Encounter Details Date Type Department Care Team (Late st Contact Info) Description 06/26/2016 Orders Only [facility] ProviderPreet MD [address] [place] [address] Social History Tobacco Use Types Packs/Day Years Used Date Smoking Tobacco: Never Alcohol Use Standard Drinks/Week Comments No 0 (1 standard drink = 0.6 oz pur e alcohol) Comments Unknown Sex and Gender Information Value Date Recorded Sex Assigned at Not on file 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 Gender Identity Not on file Sexual Orientation [...] filedocumented in this encounter Care Teams Director Of Marketing Operations Relationship Specialty Start Date End Date Ranjana Friedman MD [address] [address] PCP - General 12/27/14 07/31/16 Charito Colunga NP [address] [address] PCP - General 08/01/16 03/12/23 Talya Valentino MD [address] [place] [address] [place] [address] PCP - General Family Medicine 03/13/23 10/29/23 Matthew Phillips PA [address] [place] [address] [place] [address] PCP - General Internal Medicine 10/30/23 05/27/24 Annie Wilhelm DO [address] [place] [address] DR T[address] [place] [id number] PCP - General Family Medicine 05/28/24 documented as of this encounter
--- OUTSIDE RECORDS SUMMARY | 2024-12-09 16:35 | XMS_ITS | Encounter Summary ---
Author Organization [facility] Address [address] [facility] [address] [place] [address] Care Team Providers Care Chimney Builder Brick Name Role Phone Ranjana Friedman MD Primary Care Provider [phone] Charito Colunga NP Primary Care Provider [phone] Talya Valentino MD Primary Care Provider +- [phone] Matthew Phillips Primary Care Provider + Annie Wilhelm DO Primary Care Provider + Encounter Details Date Type Department Care Team (Late st Contact Info) Description 06/06/2016 Orders Only [facility] ProviderPreet MD [address] [place] [address] Social History Tobacco Use Types Packs/Day Years Used Date Smoking Tobacco: Never Alcohol Use Standard Drinks/Week Comments No 0 (1 standard drink = 0.6 oz pur e alcohol) Comments Unknown Sex and Gender Information Value Date Recorded Sex Assigned at Not on file 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 Gender Identity Not on file Sexual Orientation [...] on filedocumented in this encounter Care Teams Chimney Builder Brick Relationship Specialty Start Date End Date Ranjana Friedman MD [address] [address] PCP - General 12/27/14 07/31/16 Charito Colunga NP [address] [address] PCP - General 08/01/16 03/12/23 Talya Valentino MD [address] [place] [address] [place] [address] PCP - General Family Medicine 03/13/23 10/29/23 Matthew Phillips PA [address] [place] [address] [place] [address] PCP - General Internal Medicine 10/30/23 05/27/24 Annie Wilhelm DO [address] [place] [address] DR T[address] [place] [address] [id number] PCP - General Family Medicine 05/28/24 documented as of this encounter
--- OUTSIDE RECORDS SUMMARY | 2024-12-09 16:35 | XMS_ITS | Encounter Summary ---
Author Organization [facility] Address [address] [facility] [address] [place] [address] Care Team Providers Care Technical Coordinator Name Role Phone Ranjana Friedman MD Primary Care Provider [phone] Charito Colunga NP Primary Care Provider [phone] Talya Valentino MD Primary Care Provider +- [phone] Matthew Phillips Primary Care Provider + Annie Wilhelm DO Primary Care Provider + Encounter Details Date Type Department Care Team (Late st Contact Info) Description 07/09/2016 Orders Only [facility] ProviderPreet MD [address] [place] [address] Social History Tobacco Use Types Packs/Day Years Used Date Smoking Tobacco: Never Alcohol Use Standard Drinks/Week Comments No 0 (1 standard drink = 0.6 oz pur e alcohol) Comments Unknown Sex and Gender Information Value Date Recorded Sex Assigned at Not on file 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 Gender Identity Not on file Sexual Orientation [...] on filedocumented in this encounter Care Teams Technical Coordinator Relationship Specialty Start Date End Date Ranjana Friedman MD [address] [address] PCP - General 12/27/14 07/31/16 Charito Colunga NP [address] [address] PCP - General 08/01/16 03/12/23 Talya Valentino MD [address] [place] [address] [place] [address] PCP - General Family Medicine 03/13/23 10/29/23 Matthew Phillips PA [address] [place] [address] [place] [address] PCP - General Internal Medicine 10/30/23 05/27/24 Annie Wilhelm DO [address] [place] [address] DR T[address] [place] [id number] PCP - General Family Medicine 05/28/24 documented as of this encounter
--- OUTSIDE RECORDS SUMMARY | 2024-12-09 16:35 | XMS_ITS | Clinical Summary ---
Author Organization [facility] [address] Address [address] [place] [address] Care Team Providers Care Elderly Caregiver Name Role Phone Annie Wilhelm Primary Care [...] daily with meals (bkfst, dinner), Reported on 12/03/2024 ALPRAZolam (XANAX) 0.5 mg tablet take 1 [...] Active cyanocobalamin (Vitamin B-12) 2,500 mcg tablet, sublingualIndic ations:Preventi on of Vitamin B12 Deficiency Activ e amLODIPine (NORVASC) 10 mg tablet Take 1 tablet by mouth once daily 30 tablet 10 01/09/20 24 Active benazepriL (LOTENSIN) 40 mg tablet Take 1 tablet by mouth once daily 30 tablet 10 01/09/20 24 Active chlorthalidone (HYGROTON) 25 mg tablet Take 1 tablet (25 mg total) by 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 04/21/19 25 Active nebivoloL (BYSTOLIC) 10 mg tabletIndicatio ns:Essential hypertension Take 1 tablet (10 mg total) by mouth daily 90 tablet 3 05/29/19 25 026 Active amiodarone (PACERONE) 200 mg tablet Take 1 tablet by mouth once daily 90 tablet 12/01/19 25 Active amiodarone (PACERONE) 200 mg tablet Take 1 tablet by mouth once daily 90 tablet 3 12/02/19 24 025 Discontinued Active Problems Problem Noted Date Diagnosed Date Bilateral lower extremity edema 12/03/2024 Aortic atherosclerosis 05/23/2022 Essential hypertension 10/20/2019 Obstructive sleep apnea 12/09/2018 Paroxysmal atrial fibrillation 08/01/2016 Chronic anticoagulation 08/01/2016 Morbid obesity with BMI of 45.0-49.9, adult 08/2016 On amiodarone therapy 08/01/2016 Drug therapy finding 06/26/2016 Overview (07/20/2016): On amiodarone therapy Encounters Date Type Department Care Team Description 12/09/2024 1:00 PM CDT Ancillary Procedure [facility] Cardiology [address] [place] [phone] Paroxysmal atrial fibrillation (HCC); Essential hypertension; Bilateral lower extremity edema 12/03/2024 1:15 PM CDT Office Visit [facility] Cardiology [address] [place] [phone] Jean Paul Castillo MD Paroxysmal atrial fibrillation (HCC) (Primary Dx); On amiodarone therapy; Essential hypertension; Aortic atherosclerosis (HCC); Chronic anticoagulation; Bilateral lower extremity edema from Last 3 Months Surgical History Surgery Date Site/Laterality Comments CHOLECYSTECTOMY CATARACT EXTRACTION Medical History Medical History Date Comments Hypertension Hyperlipidemia Diabetes mellitus Sleep apnea Arthritis Anxiety and depression Family [...] on file 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 Gender Identity Not on file Sexual Orientation Not on file Obstetrics History Last Filed Vital Signs Vital Sign Reading Time Taken Comments Blood Pressure 139/55 12/03/2024 1:39 PM CDT Pulse 50 12/03/2024 1:12 PM CDT Temperature - - Respiratory Rate - - Oxygen Saturation 94% 12/03/2024 1:12 PM CDT Inhaled Oxygen Concentration - - Weight 127.9 kg (282 lb) 12/03/2024 1:12 PM CDT Height 162.6 cm (5' 4) 12/03/2024 1:12 PM CDT Body Mass Index 48.41 12/03/2024 1:12 PM CDT Plan of Treatment Health Maintenance Due Date Last Done Comments Depression Screening 1945 Fall Risk Assessment 1945 Hepatitis C Screening 1945 Osteoporosis Screening-Bone Density Scan 1945 DTaP/Tdap/Td Vaccine (1 - Tdap) 1958 Hepatitis B Screening 1965 Zoster Vaccine (1 of 2) 1997 Well Visit 65+ 02/18/2012 Pneumococcal vaccine 65+ (2 of 2 - PCV20 or PCV21) 01/15/2018 01/15/2017 Influenza Vaccine (#1) 2024 01/14/2024, 2021 Insurance MEDICARE [facility] Address: [address] [address] [place] [address] BLUE ACCESS OOS MEDICARE BLUE ACCESS OOS Care Teams Elderly Caregiver Relationship Specialty Start Date End Date Anine Wilhelm DO [address] [place] [address] DR T[address]ER [address] [place] [address] PCP - General Family Medicine 05/28/24
--- OUTSIDE RECORDS SUMMARY | 2024-12-09 16:36 | XMS_ITS | Data Portability ---
Author Organization [facility], Main Office Address [address] [place] [address] Care Team Providers Care Diaper Machine Tender Name Role Phone MIKAL MARTIN Primary Care Provider MIKAL MARTIN Referring Provider [phone] Assessment No assessment recorded. Plan of Treatment Reminders Order Date Submit Date Provider Last Modified By Organization Details Last Modified Time Details Appointments None recorded. Lab CBC w/ auto diff 2023 024 MYRNA [facility], [address] [place], [address], 4 23:07:55 lipid panel, serum 2023 024 [email or web address] [facility], [address] [place], [address], 4 08:21:44 CMP, serum or plasma 2023 024 [email or web address] [facility], [address] [place], [address], 4 08:21:44 CK (creatine kinase), total, serum 2023 024 [email or web address] [facility], [address] [place], [address], 4 08:21:44 TSH, serum or plasma 2023 024 [email or web address] [facility], [address] [place], [address], 4 08:21:45 T4, free, serum 2023 024 [email or web address] [facility], [address] [place], [address], 4 08:21:45 vitamin D, 25-hydroxy, total, serum 2023 024 [email or web address] 2 [facility], [address] [place], [address], 4 08:21:45 HbA1c (hemoglobin A1c), blood 2023 024 [email or web address] 2 [facility], [address] [place], [address], 4 08:21:44 vitamin B12 + folate, serum or blood 2023 024 [email or web address] 2 [facility], [address] [place], [address], 4 08:21:45 TSH + free T4, serum 2023 024 [email or web address] 2 [facility], [address] [place], [address], 4 08:17:21 CBC w/ auto diff 2023 024 [email or web address] [facility], [address] [place], [address], 4 08:17:21 ferritin, serum or plasma 2023 024 [email or web address] [facility], [address] [place], [address], 4 08:17:21 iron + total iron-bindin g capacity (TIBC), serum 2023 024 [email or web address] 2 [facility], [address] [place], [address], 4 08:17:21 vitamin B12, serum 2023 024 [email or web address] 2 [facility], [address] [place], [address], 4 08:17:21 vitamin D, 25-hydroxy, total, serum 2023 024 MYRNA [facility], [address] [place], [address], 4 01:13:29 HbA1c (hemoglobin A1c), blood 2023 024 [email or web address] 2 [facility], [address] [place], [address], 4 08:17:21 HbA1c (hemoglobin A1c), blood 2022 023 [email or web address] [facility], [address] [place], [address], 3 09:59:06 lipid panel, serum 2022 023 [facility], [address] [place], [address], 3 18:25:03 CMP, [facility] or [email or web address] [address] [place], [address], 3 18:25:11 CBC w/ auto diff 2022 023 [facility], [address] [place], [address], 3 18:09:38 Referral None recorded. Procedures None recorded. Surgeries None recorded. Imaging bone density 2022 023 [email or web address] [facility], [address] [place] [address] , [place], [address], 3 08:23:40 Medication Orders tramadol 50 mg tablet 2023 024 [facility] [address] [email or web address], [address], 16:11:17 alprazolam 0.5 mg tablet [email or web address] [facility] [address] [email or web address], [address], 10:45:30 acetaminoph en 500 mg capsule 2023 024 [facility] [address] [email or web address], [address], 4 16:29:43 lidocaine 5 % topical patch 2023 024 [facility] [address] [email or web address], [address], 4 16:33:39 triamcinolo ne acetonide 0.1 % topical cream 2023 024 [facility] [address] [email or web address], [address], 4 16:38:45 oxybutynin chloride ER 10 mg tablet,exte nded release 24 hr 2023 024 [facility] [address] [email or web address], [address], 4 16:32:04 Patient TargetsNo targets recorded. Patient Instructions Encounter Date Encounter Id Patient Instructions Last Modified By Organization Details Last Modified Time 12/18/2023 [id number] dementia rating scale-2* [email or web address] Not available 12/19/2023 08:20:54 depression screening* [email or web address] Not available 12/19/2023 08:21:00 alcohol misuse* [email or web address] Not available 12/19/2023 08:21:08 Timed Up and Go test (TUG)* [email or web address] Not available 12/19/2023 08:21:15 multi-dimensiona l health assessment questionnaire* [email or web address] Not available 12/19/2023 08:20:10 Personalized Hea lth [...] , see if it helps her nocturia [email or web address] Not available 01/11/2024 10:48:53 Reason for Referral None Reported. Results Created Date Observation Date Name Description Value Unit Range Abnormal Flag Note LastModifiedBy Organization Detail LastModifiedTime 09/07/19 22 09/06/2021 MICRO ALBUM IN RANDO M URINE microalbumin , urine 11.5 mg/L 0.0-16 .6 Not Available [facility] (Lab) [address] [place], [address], 09/06/2021 19:53:48 09/07/19 22 09/06/2021 HEMOG LOBIN A1C HA1C 6.2 % 4.0-6. 0 high Diabe breonna Scree arelis Crite millie: <5.7% Consi stent with absen ce of diabe breonna 5.7-6 .4% Consi stent with incre ased risk for diabe breonna (pred iabet es) >OR=6 .5% Consi stent with diabe breonna REFER ENCE: Diabe breonna Care 2016, 39(Rizo ppl.1 ):s13 -s22 Not Available [facility] (Lab) [address] [place], [address], 09/06/2021 20:17:09 09/07/19 22 09/06/2021 VITAM IN D 25-HY DROXY [id number] 51.4 NG/mL 30-100 Vitam in D Statu s: Defic ient: <20 ng/mL Insuf ficie nt: 20-29 ng/mL Suffi cient : 30-10 0 ng/mL Not Available [facility] (Lab) [address] [place], [address], 09/06/2021 18:58:40 09/07/19 22 09/06/2021 HEPAT IC/LI JOSSE PANEL alkaline phosphatase 115 U/L 38-126 Not Available [facility] (Lab) [address] [place], [address], 09/06/2021 18:40:54 09/07/19 22 09/06/2021 HEPAT IC/LI JOSSE PANEL alanine aminotransfe rase 15 U/L 0-35 Not Available [facility] (Lab) [address] [place], [address], 09/06/2021 18:40:54 09/07/19 22 09/06/2021 HEPAT IC/LI JOSSE PANEL aspartate aminotransfe rase 19 U/L 15-37 Not Available [facility] (Lab) [address] [place], [address], 09/06/2021 18:40:54 09/07/19 22 09/06/2021 HEPAT IC/LI JOSSE PANEL bilirubin, total 0.30 mg/dL 0.20-1 .30 Not Available [facility] (Lab) [address] [place], [address], 09/06/2021 18:40:54 09/07/19 22 09/06/2021 HEPAT IC/LI JOSSE PANEL bilirubin, conjugated (direct) 0.00 mg/dL 0.00-0 .30 Not Available [facility] (Lab) [address] [place], [address], 09/06/2021 18:40:54 09/07/19 22 09/06/2021 HEPAT IC/LI JOSSE PANEL biliurubin,u ncong. (indirect) 0.20 mg/dL 0.00-1 .1 Not Available [facility] (Lab) [address] [place], [address], 09/06/2021 18:40:54 09/07/19 22 09/06/2021 HEPAT IC/LI JOSSE PANEL total protein 6.1 g/dL 6.3-8. 2 low Not Available [facility] (Lab) [address] [place], [address], 09/06/2021 18:40:54 09/07/19 22 09/06/2021 HEPAT IC/LI JOSSE PANEL albumin 3.4 g/dL 3.0-4. 4 Not Available [facility] (Lab) [address] [place], [address], 09/06/2021 18:40:54 09/07/19 22 09/06/2021 HEPAT IC/LI JOSSE PANEL globulin 2.7 g/dL 2.6-4. 2 Not Available [facility] (Lab) [address] [place], [address], 09/06/2021 18:40:54 09/07/19 22 09/06/2021 HEPAT IC/LI JOSSE PANEL A/G ratio 1.3 ratio 1.0-2. 0 Not Available [facility] (Lab) [address] [place], [address], 09/06/2021 18:40:54 09/07/19 22 09/06/2021 LIPID PANEL cholesterol 120 mg/dL 140-19 9 low NIH PRINCE NSUS RECOM MENDA TION FOR STU STERO L: ADULT CHILD LOW RISK: <200 <170 BORDE RLINE : <200- 239 ----- HIGH RISK: >240 >200 Not Available [facility] (Lab) [address] [place], [address], 09/06/2021 18:40:48 09/07/19 22 09/06/2021 LIPID PANEL triglyceride s 77 mg/dL 0-150 NIH PRINCE NSUS REPOR T RECOM MENDA TION FOR TRIGL YCERI JEANNE: ADULT CHILD LOW RISK: <150 ----- BODER LINE: 150-1 99 ----- HIGH RISK: >200 ----- Not Available [facility] (Lab) [address] [place], [address], 09/06/2021 18:40:48 09/07/19 22 09/06/2021 LIPID PANEL HDL cholesterol 64 mg/dL 40- Not Available [facility] (Lab) [address] [place], [address], 09/06/2021 18:40:48 09/07/19 22 09/06/2021 LIPID PANEL [...] WILL NOT BE REPOR MALINI. Not Available [facility] (Lab) [address] [place], [address], 09/06/2021 18:40:48 09/07/19 22 09/06/2021 BASIC METAB OLIC PANEL sodium 139 mmol/ L 137-14 5 Not Available [facility] (Lab) [address] [place], [address], 09/06/2021 18:40:45 09/07/19 22 09/06/2021 BASIC METAB OLIC PANEL potassium 3.9 mmol/ L 3.5-5. 1 Not Available [facility] (Lab) [address] [place], [address], 09/06/2021 18:40:45 09/07/19 22 09/06/2021 BASIC METAB OLIC PANEL chloride 105 mmol/ L 98-107 Not Available [facility] (Lab) [address] [place], [address], 09/06/2021 18:40:45 09/07/19 22 09/06/2021 BASIC METAB OLIC PANEL carbon dioxide 28 mmol/ L 22-30 Not Available [facility] (Lab) [address] [place], [address], 09/06/2021 18:40:45 09/07/19 22 09/06/2021 BASIC METAB OLIC PANEL anion gap 9.9 mmol/ L 14-22 low Not Available [facility] (Lab) [address] [place], [address], 09/06/2021 18:40:45 09/07/19 22 09/06/2021 BASIC METAB OLIC PANEL glucose 80 mg/dL 70-99 Not Available [facility] (Lab) [address] [place], [address], 09/06/2021 18:40:45 09/07/19 22 09/06/2021 BASIC METAB OLIC PANEL BUN 21 mg/dL 8-19 high Not Available [facility] (Lab) [address] [place], [address], 09/06/2021 18:40:45 09/07/19 22 09/06/2021 BASIC METAB OLIC PANEL creatinine 0.93 mg/dL 0.66-1 .25 Not Available [facility] (Lab) [address] [place], [address], 09/06/2021 18:40:45 09/07/19 22 09/06/2021 BASIC METAB OLIC PANEL GFR 59 Refer ence Range : Webb ge GFR Healt hy Adult : >60 [...] or ethni c subgr oups, such as [facility] nics. Outsi de the valid ated inocente [...] is avail able on the [facility] websi te: https ://more w.sascha rouse.o rg/pr ofess ional s/kdo qi/gf r_cal culat or Not Available [facility] (Lab) [address] [place], [address], 09/06/2021 18:40:45 09/07/19 22 09/06/2021 BASIC METAB OLIC PANEL calcium 9.6 mg/dL 8.4-10 .2 Not Available [facility] (Lab) [address] [place], [address], 09/06/2021 18:40:45 07/26/19 23 07/26/2022 CBC/C OMPLE TE BLD COUNT W/DIF F white blood cells 7.7 x10'3 /uL 4.2-10 .8 Not Available [facility] (Lab) [address] [place], [address], 07/26/2022 10:13:55 07/26/19 23 07/26/2022 CBC/C OMPLE TE BLD COUNT W/DIF F red blood cells 3.77 x10'6 /uL 3.80-5 .20 low Not Available [facility] (Lab) [address] [place], [address], 07/26/2022 10:13:55 07/26/19 23 07/26/2022 CBC/C OMPLE TE BLD COUNT W/DIF F hemoglobin 9.8 g/dL 12.0-1 5.6 low Not Available [facility] (Lab) [address] [place], [address], 07/26/2022 10:13:55 07/26/19 23 07/26/2022 CBC/C OMPLE TE BLD COUNT W/DIF F hematocrit 32.1 % 35.7-4 5.7 low Not Available [facility] (Lab) [address] [place], [address], 07/26/2022 10:13:55 07/26/19 23 07/26/2022 CBC/C OMPLE TE BLD COUNT W/DIF F mean red cell volume 85.1 fL 82.0-9 9.0 Not Available [facility] (Lab) [address] [place], [address], 07/26/2022 10:13:55 07/26/19 23 07/26/2022 CBC/C OMPLE TE BLD COUNT W/DIF F mean red cell hemoglobin 26.0 pg 27.0-3 3.0 low Not Available [facility] (Lab) [address] [place], [address], 07/26/2022 10:13:55 07/26/19 23 07/26/2022 CBC/C OMPLE TE BLD COUNT W/DIF F mean RBC HGB concentratio n 30.5 g/dL 31.0-3 6.0 low Not Available [facility] (Lab) [address] [place], [address], 07/26/2022 10:13:55 07/26/19 23 07/26/2022 CBC/C OMPLE TE BLD COUNT W/DIF F red cell distribution width 22.7 % 11.8-1 5.5 high Not Available [facility] (Lab) [address] [place], [address], 07/26/2022 10:13:55 07/26/19 23 07/26/2022 CBC/C OMPLE TE BLD COUNT W/DIF F platelets 344 x10'3 /uL 150-40 0 Not Available [facility] (Lab) [address] [place], [address], 07/26/2022 10:13:55 07/26/19 23 07/26/2022 CBC/C OMPLE TE BLD COUNT W/DIF F mean platelet volume 10.0 fL 9.0-12 .4 Not Available [facility] (Lab) [address] [place], [address], 07/26/2022 10:13:55 07/26/19 23 07/26/2022 CBC/C OMPLE TE BLD COUNT W/DIF F neutrophils 75.0 % 39.0-7 2.0 high Not Available [facility] (Lab) [address] [place], [address], 07/26/2022 10:13:55 07/26/19 23 07/26/2022 CBC/C OMPLE TE BLD COUNT W/DIF F lymphocytes 17.0 % 16.0-4 7.0 Not Available [facility] (Lab) [address] [place], [address], 07/26/2022 10:13:55 07/26/1907/26/2022 CBC/C OMPLE TE BLD COUNT W/DIF F monocytes 6.9 % 5.0-12 .0 Not Available [facility] (Lab) [address] [place], [address], 07/26/2022 10:13:55 07/26/1907/26/2022 CBC/C OMPLE TE BLD COUNT W/DIF F eosinophils 0.4 % 1.0-7. 0 low Not Available [facility] (Lab) [address] [place], [address], 07/26/2022 10:13:55 07/26/1907/26/2022 CBC/C OMPLE TE BLD COUNT W/DIF F basophils 0.4 % 0.0-2. 0 Not Available [facility] (Lab) [address] [place], [address], 07/26/2022 10:13:55 07/26/1907/26/2022 CBC/C OMPLE TE BLD COUNT W/DIF F immature granulocytes 0.3 % 0.00-0 .50 Not Available [facility] (Lab) [address] [place], [address], 07/26/2022 10:13:55 07/26/19 23 07/26/2022 CBC/C OMPLE TE BLD COUNT W/DIF F neutrophils, absolute count 5.78 x10'3 /uL 1.5-8. 0 Not Available [facility] (Lab) [address] [place], [address], 07/26/2022 10:13:55 07/26/19 23 07/26/2022 CBC/C OMPLE TE BLD COUNT W/DIF F lymphocytes, absolute count 1.31 x10'3 /uL 1.07-3 .43 Not Available [facility] (Lab) [address] [place], [address], 07/26/2022 10:13:55 07/26/19 23 07/26/2022 CBC/C OMPLE TE BLD COUNT W/DIF F monocytes, absolute count 0.53 x10'3 /uL 0.29-0 .99 Not Available [facility] (Lab) [address] [place], [address], 07/26/2022 10:13:55 07/26/19 23 07/26/2022 CBC/C OMPLE TE BLD COUNT W/DIF F eosinophils, absolute count 0.03 x10'3 /uL 0.02-0 .53 Not Available [facility] (Lab) [address] [place], [address], 07/26/2022 10:13:55 07/26/19 23 07/26/2022 CBC/C OMPLE TE BLD COUNT W/DIF F basophils, absolute count 0.03 x10'3 /uL 0.01-0 .08 Not Available [facility] (Lab) [address] [place], [address], 07/26/2022 10:13:55 07/26/19 23 07/26/2022 CBC/C OMPLE TE BLD COUNT W/DIF F immature granulocytes ,absolute 0.02 x10'3 /uL 0.00-0 .05 Not Available [facility] (Lab) [address] [place], [address], 07/26/2022 10:13:55 07/26/19 23 07/26/2022 CBC/C OMPLE TE BLD COUNT W/DIF F nucleated red blood cells 0.0 % -0 Not Available [facility] (Lab) [address] [place], [address], 07/26/2022 10:13:55 07/26/19 23 07/26/2022 CBC/C OMPLE TE BLD COUNT W/DIF F NRBC# 0.00 x10'3 /uL Not Available [facility] (Lab) [address] [place], [address], 07/26/2022 10:13:55 07/26/19 23 07/26/2022 CBC/C OMPLE TE BLD COUNT W/DIF F anisocytosis 2+ Not Available [facility] (Lab) [address] [place], [address], 07/26/2022 10:13:55 07/26/19 23 07/26/2022 CBC/C OMPLE TE BLD COUNT W/DIF F hypochromia OCCASI ONAL Not Available [facility] (Lab) [address] [place], [address], 07/26/2022 10:13:55 07/26/19 23 07/26/2022 CBC/C OMPLE TE BLD COUNT W/DIF F macro OCCASI ONAL Not Available [facility] (Lab) [address] [place], [address], 07/26/2022 10:13:55 07/26/19 23 07/26/2022 CBC/C OMPLE TE BLD COUNT W/DIF F polychromato philic RBCs OCCASI ONAL Not Available [facility] (Lab) [address] [place], [address], 07/26/2022 10:13:55 07/26/19 23 07/25/2022 LIPID PANEL cholesterol 126 mg/dL 140-19 9 low NIH PRINCE NSUS RECOM MENDA TION FOR STU STERO L: ADULT CHILD LOW RISK: <200 <170 BORDE RLINE : <200- 239 ----- HIGH RISK: >240 >200 Not Available [facility] (Lab) [address] [place], [address], 07/25/2022 18:25:03 07/26/19 23 07/25/2022 LIPID PANEL triglyceride s 87 mg/dL 0-150 NIH PRINCE NSUS REPOR T RECOM MENDA TION FOR TRIGL YCERI JEANNE: ADULT CHILD LOW RISK: <150 ----- BODER LINE: 150-1 99 ----- HIGH RISK: >200 ----- Not Available [facility] (Lab) [address] [place], [address], 07/25/2022 18:25:03 07/26/19 23 07/25/2022 LIPID PANEL HDL cholesterol 55 mg/dL 40- Not Available [facility] (Lab) [address] [place], [address], 07/25/2022 18:25:03 07/26/19 23 07/25/2022 LIPID PANEL [...] WILL NOT BE REPOR MALINI. Not Available [facility] (Lab) [address] [place], [address], 07/25/2022 18:25:03 07/26/19 23 07/25/2022 COMPR EHENS RICKEY METAB OLIC PANEL sodium 141 mmol/ L 137-14 5 Not Available [facility] (Lab) [address] [place], [address], 07/25/2022 18:25:11 07/26/19 23 07/25/2022 COMPR EHENS RICKEY METAB OLIC PANEL potassium 4.3 mmol/ L 3.5-5. 1 Not Available [facility] (Lab) [address] [place], [address], 07/25/2022 18:25:11 07/26/19 23 07/25/2022 COMPR EHENS RICKEY METAB OLIC PANEL chloride 101 mmol/ L 98-107 Not Available [facility] (Lab) [address] [facility] [place], [address], 07/25/2022 18:25:11 07/26/19 23 07/25/2022 COMPR EHENS RICKEY METAB OLIC PANEL carbon dioxide 28 mmol/ L 22-30 Not Available [facility] (Lab) [address] [place], [address], 07/25/2022 18:25:11 07/26/19 23 07/25/2022 COMPR EHENS RICKEY METAB OLIC PANEL anion gap 16.3 mmol/ L 14-22 Not Available [facility] (Lab) [address] [facility] [place], [address], 07/25/2022 18:25:11 07/26/19 23 07/25/2022 COMPR EHENS RICKEY METAB OLIC PANEL glucose 82 mg/dL 70-99 Not Available [facility] (Lab) [address] [place], [address], 07/25/2022 18:25:11 07/26/19 23 07/25/2022 COMPR EHENS RICKEY METAB OLIC PANEL BUN 15 mg/dL 8-19 Not Available [facility] (Lab) [address] [place], [address], 07/25/2022 18:25:11 07/26/19 23 07/25/2022 COMPR EHENS RICKEY METAB OLIC PANEL creatinine 0.75 mg/dL 0.66-1 .25 Not Available [facility] (Lab) [address] [place], [address], 07/25/2022 18:25:11 07/26/1907/25/2022 COMPR EHENS RICKEY METAB OLIC PANEL GFR >60 Refer ence Range : Webb ge GFR Healt hy Adult : >60 [...] s/kdo qi/gf r_cal culat or Not Available [facility] (Lab) [address] [place], [address], 07/25/2022 18:25:11 07/26/1907/25/2022 COMPR EHENS RICKEY METAB OLIC PANEL alkaline phosphatase 118 U/L 38-126 Not Available [facility] (Lab) [address] [place], [address], 07/25/2022 18:25:11 07/26/19 23 07/25/2022 COMPR EHENS RICKEY METAB OLIC PANEL alanine aminotransfe rase 19 U/L 0-35 Not Available [facility] (Lab) [address] [facility] [place], [address], 07/25/2022 18:25:11 07/26/19 23 07/25/2022 COMPR EHENS RICKEY METAB OLIC PANEL aspartate aminotransfe rase 24 U/L 15-37 Not Available [facility] (Lab) [address] [facility] [place], [address], 07/25/2022 18:25:11 07/26/19 23 07/25/2022 COMPR EHENS RICKEY METAB OLIC PANEL bilirubin, total 0.30 mg/dL 0.20-1 .30 Not Available [facility] (Lab) [address] [place], [address], 07/25/2022 18:25:11 07/26/19 23 07/25/2022 COMPR EHENS RICKEY METAB OLIC PANEL calcium 9.2 mg/dL 8.4-10 .2 Not Available [facility] (Lab) [address] [place], [address], 07/25/2022 18:25:11 07/26/19 23 07/25/2022 COMPR EHENS RICKEY METAB OLIC PANEL total protein 6.0 g/dL 6.3-8. 2 low Not Available [facility] (Lab) [address] [place], [address], 07/25/2022 18:25:11 07/26/19 23 07/25/2022 COMPR EHENS RICKEY METAB OLIC PANEL albumin 3.1 g/dL 3.0-4. 4 Not Available [facility] (Lab) [address] [place], [address], 07/25/2022 18:25:11 07/26/19 23 07/25/2022 COMPR EHENS RICKEY METAB OLIC PANEL globulin 2.9 g/dL 2.6-4. 2 Not Available [facility] (Lab) [address] [place], [address], 07/25/2022 18:25:11 07/26/19 23 07/25/2022 COMPR EHENS RICKEY METAB OLIC PANEL A/G ratio 1.1 ratio 1.0-2. 0 Not Available [facility] (Lab) [address] [place], [address], 07/25/2022 18:25:11 07/26/19 23 07/25/2022 HEMOG LOBIN A1C HA1C 5.5 % 4.0-6. 0 Diabe breonna Scree arelis Crite millie: <5.7% Consi stent with absen ce of diabe breonna 5.7-6 .4% Consi stent with incre ased risk for diabe breonna (pred iabet es) >OR=6 .5% Consi stent with diabe breonna REFER ENCE: Diabe breonna Care 2016, 39(Rizo ppl.1 ):s13 -s22 Not Available [facility] (Lab) [address] [place], [address], 07/25/2022 20:30:16 09/29/19 22 XR, lumba r spine No observ ation record ed. MIGRATION. [id number] [address] [facility] [address], [place], [address], 04/25/2022 08:14:30 11/18/19 22 11/17/2021 XR, chest , 2 view No observ ation record ed. MIGRATION. [address], [place], [address], 04/25/2022 08:14:30 12/19/19 22 12/15/2021 PFT, compl ete No observ ation record ed. MIGRATION. [address], [place], [address], 04/25/2022 08:14:30 06/03/19 23 06/02/2022 XR, ankle + foot No observ ation record ed. [address], [place], [address], 06/04/2022 12:17:42 06/03/19 23 06/02/2022 XR, hip + pelvi s, bilat eral No observ ation record ed. [address], [place], [address], 06/04/2022 12:18:03 06/03/19 23 06/02/2022 XR, tibia + fibul a No observ ation record ed. [address], [place], [address], 06/04/2022 12:18:20 06/03/19 23 06/02/2022 XR, chest No observ ation record ed. [address], [place], [address], 06/04/2022 12:18:54 06/03/19 23 06/02/2022 CT, brain , w/o contr ast No observ ation record ed. [address], [place], [address], 06/04/2022 12:19:13 06/03/19 23 06/02/2022 stres s echoc ardio gram No observ ation record ed. [address], [place], [address], 06/04/2022 12:25:33 06/04/19 23 06/03/2022 US, carot id arter y No observ ation record ed. [address], [place], [address], 06/04/2022 12:20:36 06/04/19 23 06/03/2022 MRI, brain + brain stem, w/ contr ast No observ ation record ed. [email or web address], [place], [address], 06/04/2022 12:10:29 06/05/19 23 06/04/2022 CT, brain , w/o contr ast No observ ation record ed. [address], [place], [address], 06/05/2022 08:36:21 06/06/19 23 06/05/2022 imagi ng/di agnos tic resul t No observ ation record ed. [address] [address], [place], [address], 06/06/2022 08:29:03 07/21/19 23 07/18/2022 XR, ankle No observ ation record ed. [address] [facility], [place], [address], 07/24/2022 08:32:29 Result Notes None recorded. Problems Name Problem SNOMED Code Status Onset Date Resolution Date Notes Provider Name and Address Organization Details Recorded Time Intermitt ent palpitati ons 686203954 Active Not Available [facility] 4 03:44:28 Acute sinusitis 63527629 Completed Not Available [facility] 3 08:09:25 Insomnia 613464856 Active Not Available [facility] 4 03:44:28 Subarachn oid hemorrhag e 05026572 Completed Not Available [facility] 3 08:09:25 Gastroeso phageal reflux disease 590008890 Active Not Available [facility] 4 03:44:28 Morbid obesity 718970288 Active Not Available [facility] 4 03:44:28 Labyrinth itis 38768272 Completed Not Available [facility] 3 08:09:26 Osteoarth ritis of knee 848619854 [facility] 03[facility]28 Fluid level behind tympanic membrane Completed Not Available [facility] 3 08:09:26 Flank pain 588389488 Completed Not Available [facility] 3 08:09:26 Shoulder joint pain 033539125 Active Not Available [facility] 4 03:44:28 Pain in thoracic spine 384244493 Completed Not Available [facility] 3 08:09:26 Chest pain 34695857 Completed Not Available [facility] 3 08:09:26 Knee pain Completed Not Available [facility] 3 08:09:26 Type 2 diabetes mellitus without complicat ion 189060031 Active Not Available [facility] 4 03:44:28 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 23298232 Active Not Available [facility] 4 03:44:28 Vitamin D deficienc y 43176550 Active Not Available [facility] 4 03:44:28 Depressiv e disorder 95685971 Active Not Available [facility] 4 03:44:28 Sinusitis 08901950 Completed Not Available [facility] 3 08:09:27 Hypertens rickey disorder 32326316 Completed Not Available [facility] 3 08:09:27 Lighthead edness 145477049 Completed Not Available [facility] 3 08:09:27 Osteoarth ritis 092867510 Active Not Available [facility] 4 03:44:28 Vertigo 925481351 Completed Not Available [facility] 3 08:09:27 Dizziness 040083700 Completed Not Available [facility] [facility] 3 08:09:28 Mixed urinary incontine nce 010332626 Completed Not Available [facility] 3 08:09:28 Allergy to drug 968225153 Completed Not Available [facility] 3 08:09:28 Acute urinary tract infection 993398192 Completed Not Available [facility] 3 08:09:28 Type 2 diabetes mellitus 95465478 Completed Not Available [facility] 3 08:09:28 Anxiety 00084435 Active Not Available [facility] 4 03:44:28 Candidias is of skin 92468982 Completed Not Available [facility] 3 08:09:29 Coronary arteriosc lerosis 55658936 Active Not Available [facility] 4 03:44:28 Upper respirato ry infection 59508272 Completed Not Available [facility] 3 08:09:29 Hyperlipi demia 49822725 Active Not Available [facility] 4 03:44:28 Essential hypertens ion 67897493 Active Not Available [facility] 4 03:44:28 Urinary tract infectiou s disease 26030130 Completed Not Available [facility] 3 08:09:29 Muscle pain 49799542 Completed Not Available [facility] 3 08:09:30 Sleep apnea 20980623 Active Not Available [facility] 4 03:44:28 Posterior rhinorrhe a 64270944 Completed Not Available [facility] 3 08:09:30 Urge incontine nce of urine 61712715 Active Not Available [facility] 4 03:44:28 Body mass index 40+ - severely obese 506965394 Active 2018 Not Available [facility] 4 03:44:28 Chronic diarrhea of unknown origin 95519564 Active 2019 Not Available [facility] 4 03:44:28 Genital lichen sclerosus 306770265 Active 2019 Not Available [facility] 4 03:44:28 Influenza vaccinati on declined 095647415 Active 2019 Not Available [facility] 4 03:44:28 Osteoarth ritis of left knee joint 00150902133 9109 Active 2021 Not Available [facility] 4 03:44:28 Pain of right knee joint 30049664681 4100 Active 2021 Not Available [facility] 4 03:44:28 History of right total knee replaceme nt 09605638622 02875 Active 2021 Not Available [facility] 4 03:44:28 Pain in right sacroilia c joint 08971239406 372891 Active 2021 Not Available [facility] 4 03:44:28 Pain in left sacroilia c joint 91158721951 327851 Active 2021 Not Available [facility] 4 03:44:28 Spinal stenosis of lumbar region 80151697 Active 2021 Not Available [facility] 4 03:44:28 Hypokalem ia 96102310 Active 2022 Not Available [facility] 4 03:44:28 Atrial fibrillat ion 78934947 Active 2022 Not Available [facility] 4 03:44:28 Low back pain 782697308 Active 2022 Not Available [facility] 4 03:44:28 Fracture of ankle 27772687 Active 2022 Not Available [facility] 4 03:44:28 Fracture of ankle 27309960 Active 2022 Not Available [facility] 4 03:44:28 Anemia 348534042 Active 2022 Not Available [facility] 4 03:44:28 Osteoporo sis 89960588 Active 2022 Not Available [facility] 4 03:44:28 Chronic atrial fibrillat ion 931839190 Active 2022 Not Available [facility] 4 03:44:28 Pruritic rash 66776020 Active 2022 Not Available [facility] 4 03:44:28 Chronic low back pain 783296220 Active 2022 Not Available [facility] 4 03:44:28 Acid reflux 492140623 Active 2022 Not Available [facility] 4 03:44:28 Irritable bowel syndrome character ized by constipat ion 604079247 Active 2022 Not Available [facility] 4 03:44:28 Constipat ion 39556508 Active 2022 Not Available [facility] 4 03:44:28 Chronic idiopathi c constipat ion 52682391 Active 2023 Not Available [facility] 03:44:28 Closed fracture of left ankle 56532400121 880099 Active 2023 LOTTIE Tatum [address], [place], [address] , [facility] 4 16:27:26 Overactiv e urinary bladder 039285182 Active 2023 LOTTIE Tatum [address], [place], [address] , [facility] 4 16:31:00 Serum vitamin B12 below reference range 821526066 Active 2023 LOTTIE Tatum [address], [place], [address] , [facility] 4 18:32:04 Decreased renal function 55819512 Active 2023 LOTTIE Tatum [address], [place], [address] , [facility] 17:06:01 Notes:Some problems listed i n Documents: #[id number], #[id number], #[id number], #[id number], #[id number], #[id number], #[id number], #[id number], #[id number], #[id number], #[id number], #[id number], #[id number] could not be added to this patient's chart. Please review these documents and add these problems to the patient's chart manually as needed. Problem Notes None recorded. Procedures Surgical History Date Name Laterality Status Provider Name and Address Organization Details Recorded Time 12/18/19 Medicare Wellness CPT Code, subsequent completed May CHARLES Ernst [facility] [email or web address] 12/18/2023 12:07:49 Knee Replacement completed Not Available [facility] 04/25/2022 08:06:21 Cholecystectomy completed Not Available [facility] 04/25/2022 08:06:21 Hernia Repair completed Not Available [facility] 04/25/2022 08:06:21 Foot Surgery completed STEPHANY Singletary [place] - [facility] 07/25/2022 14:11:56 Imaging Results None recorded. Procedure Notes None recorded. Medical Equipment None Reported. Allergies Allergen ID Allergen Name Allergen Category Reaction Reaction Severity Criticality Documentation Date Start Date Code Code System Note Provider Name and Address Organization Details Recorded Time Levaquin medicatio n other Not available Not available 04/25/2022 18851 2 RxNorm TONGU E SWELL ING Not Available [facility] 3 08:14:24 dicyclomi ne medicatio n rash Not available Not available 04/25/2022 3361 RxNorm Not Available [facility] 3 08:14:24 Augmentin medicatio n Not available Not available Not available 04/25/2022 58491 2 RxNorm TONGU E AND THROA T SWELL ING Not Available [facility] 3 08:14:24 Medications Name Sig Start Date [...] ered by the provider 07/25 completed [facility]: [id number] 4-20 Not Available Not Available Not [...] 500 mg tablet,ex tended release 24 hr TAKE 2 TABLETS BY MOUTH DAILY active Not Available Not [...] dose Not Available Not Available Not Available [employer] 1.5 billion cell capsule Take 1 capsule [...] Updated DateTime 4 162.56 cm 42.9 kg/m2 674258. 09 g 97.9 [degF] 16 /min 47 /min 97 % 97 % 138/60 mm[Hg] Cher Jade RN [facility] [employer] [facility] 4 15:57:14 Date Recorded Body height Body temperature Heart rate Oxygen saturation Oxygen saturation in Arterial blood by Pulse oximetry Systolic And Diastolic Provider Name and Address Organization Details Last Updated DateTime 3 162.56 cm 98.1 [degF] 77 /min 96 % 96 % 130/80 mm[Hg] STEPHANY Singletary [facility] [employer] [facility] 3 14:13:26 Date Recorded Body mass index (BMI) Body height Oxygen saturation Oxygen saturation in Arterial blood by Pulse oximetry Heart rate Body temperature Body weight Systolic And Diastolic Provider Name and Address Organization Details Last Updated DateTime 2 45.7 kg/m2 162.56 cm 92 % 92 % 107 /min 96.2 [degF] 886512. 57 g 142/82 mm[Hg] Not Available [facility] 3 08:08:23 Date Recorded Body mass index (BMI) Body height Pain severity - 0-10 verbal numeric rating [Score] - Reported Body weight Provider Name and Address Organization Details Last Updated DateTime 09/28/2021 45.7 kg/m2 162.56 cm 8 272842.57 g Not Available [facility] 04/25/2022 08:08:31 Date Recorded Body height Body mass index (BMI) Body weight Body temperature Heart rate Oxygen saturation Oxygen saturation in Arterial blood by Pulse oximetry Systolic And Diastolic Provider Name and Address Organization Details Last Updated DateTime 4 162.56 cm 44.1 kg/m2 797442. 24 g 97.9 [degF] 56 /min 95 % 95 % 130/72 mm[Hg] Cher Jade RN [place] [facility] 16:03:20 Social History Question Answer Notes LastModified by Organizat ion Details LastModified Time Tobacco Smoking Status Never Smoker Not Available [facility] 04/25/2022 08:06:14 What Is Your Level Of Caffeine Consumption? Heavy [id number] Information not available 04/25/2022 How Much Tobacco Do You Chew? None [id number] 026 Information not available 04/25/2022 Which Illicit Or Recreational Drugs Have You Used? None [id number].[id number] 026 Information not available 04/25/2022 What Was The Date Of Your Most Recent Tobacco Screening? 03/10/2018 [id number] 026 Information not available 04/25/2022 Sex: Unknown Functional Status Question Answer Note LastModified by Organizat ion Details LastModified Time What is your level of alcohol consumption? None [id number].[id number] 026 Information not available 04/25/2022 Do you or have you ever used smokeless tobacco? Never used smokeless tobacco MIGRATION.3468249 026 Information not available 04/25/2022 What is your occupation? Retired MIGRATION.4532743 026 Information not available 04/25/2022 Do you or have you ever used e-cigarettes or vape? Never used electronic cigarettes MIGRATION.1107824 026 Information not available 04/25/2022 What is your exercise level? Occasional MIGRATION.4109586 026 Information not available 04/25/2022 Mental Status None recorded. Family History Relationship Description Onset Age of this Age Resolved Age Notes LastModified by Organization Details LastModified Time Mother Coronary arterioscler osis MIGRATION.324 [id number] Not available 04/25/2022 08:06:23 Mother Diabetes mellitus MIGRATION.916 [id number] Not available 04/25/2022 08:06:23 Mother Family history of malignant neoplasm MIGRATION.135 [id number] Not available 04/25/2022 08:06:23 Maternal Grandmother Coronary arterioscler osis MIGRATION.993 [id number] Not available 04/25/2022 08:06:23 Medical History Condition [...] 50 mcg/0.5 mL 4 completed CHARLES Perkins, [facility] 01/14/2024 16:01:56 influenza, unspecified formulation 4 completed CHARLES Perkins, [facility] [employer] [facility] 01/14/2024 16:03:00 COVID-19, mRNA, LNP-S, bivalent, PF, 30 mcg/0.3 mL dose 2 completed Not Available [facility] 03/17/2023 03:44:29 Influenza, split virus, quadrivalent, preservative 2 completed Not Available [facility] 03/17/2023 03:44:29 Pneumococcal conjugate PCV 13 7 completed Not Available [facility] 03/17/2023 03:44:29 Past Encounters Encounter ID Performer Location Encounter Start Date Encounter Closed Date Diagnosis/Indication Diagnosis SNOMED-CT Code Diagnosis ICD10 Code Diagnosis IMO Codes Diagnosis Note [id number] [facility] [address] [place] [address] 09/05/2020 00:00:00 09/05/2020 16:21:00 [id number] Ismael Phillips MD [facility] [place] [address] [place] [address] 08/03/2021 00:00:00 08/03/2021 14:59:56 [id number] Ismael Phillips [facility] [place] [address] [place] [address] 08/31/2021 00:00:00 08/31/2021 13:23:31 [id number] Talya Valentino MD [facility] [place] [address] [place] [address] 09/06/2021 00:00:00 09/06/2021 15:24:05 [id number] Ismael Phillips MD [facility] [place] [address] [place] [address] 09/28/2021 00:00:00 09/28/2021 14:36:15 [id number] Talya Valentino MD [facility] [place] [address] [place] [address] 07/25/2022 14:02:12 07/25/2022 14:40:02 Fracture of ankle 48888112 S82.90XA Anemia 803794946 D64.9 Osteoporosis 21029811 M8 1.0 Type 2 mary betes mellitus without complication 199258689 E11.9 Hyperlipidemia 61237640 E78.5 Essential hypertension 17390106 I10 History of cerebrovascular accident 951226374 Z86.73 [id number] Cezar Staples MD [facility] [place] [address] [place] [address] 06/19/2023 15:43:55 06/19/2023 16:45:30 Fracture of ankle 41835873 S82.90XA Essential hypertension 81298430 I10 Overactive urinary bladder 782966353 N32.81 Vitamin D deficiency 347 14709 E55.9 Spinal jomar nosis of lumbar region 23048849 M48.061 Sleep apnea 79032658 G47 .30 Osteoporosis 21969041 M8 1.0 Osteoarthr itis of knee 338241640 M17.9 Low back pain 764238875 M54.50 Insomnia 227512097 G47.0 0 Hyperlipidemia 83564444 E78.5 Type 2 mary betes mellitus without complication 527258089 E11.9 Pruritic rash 05204890 L 28.2 Anemia 646389436 D64.9 Morbid obesity 258972563 E66.01 Gastroesop hageal reflux disease 842620941 K21.9 Genital li kenyon sclerosus 485126624 L90.0 History of right total knee replacement 5971265435 868895 Z96.651 Coronary arteriosclerosis 03432094 I25.10 Depressive disorder 3548 9007 F32.A Chronic id iopathic constipation 63415666 K59.04 Chronic at rial fibrillation 919732931 I48.20 Anxiety 39479057 F41.9 [id number] Cezar Staples MD [facility] [place] [address] [place] [address] 12/18/2023 15:36:00 12/18/2023 16:24:00 Adult health examination 076947942 Z00.00 Screening for disorder 240558637 Z13.9 Anxiety 27358892 F41.9 Low back pain 105737210 M54.50 Anemia 862590621 D64.9 Coronary arteriosclerosis 94396782 I25.10 Hyperlipidemia 20385974 E78.5 Type 2 mary betes mellitus without complication 528898538 E11.9 Vitamin D deficiency 347 13486 E55.9 Serum danielle min B12 below reference range 070565994 R79.89 Atrial fibrillation 4943 6004 I48.91 Chronic id iopathic constipation 03129574 K59.04 Chronic at rial fibrillation 161760644 I48.20 Essential hypertension 67075214 I10 Gastroesop hageal reflux disease 638609657 K21.9 Osteoarthritis 745890917 M19.90 Osteoporosis 85734096 M8 1.0 Overactive urinary bladder 250884048 N32.81 Morbid obesity 210187024 E66.01 Insomnia 838580977 G47.0 0 Health Concerns Section Related Observation LastModified by Organization Detai ls LastModified Time None Recorded Concern Status LastModified by Organization Details LastModified Time None Recorded Advance Directives Directive None Recorded Payers Insurance Date Sequence Insurance Name Policy Number Policy Rosa Covered Member ID Rosa Member ID Guarantor Name 12/18/2023 1 [place] [employer] [id number] [id number] RAFAL [employer]zy [employer] 01/20/2024 2 [place] [id number] [place]f [place] [id number] [employer]zy [employer] 12/18/2023 [employer] - DMEPOS ASSIGNED (MEDICARE DME REGION B) [employer]zy [place] [id number] [id number] RAFAL Litzy [employer] Notes Date Note Type Note Provider Name and Address Organization Details Recorded Time 07/25/2022 text/html Here today for a hospital [...] of years ago. Talya Valentino MD [address], [place], [address], [facility] 07/25/2022 19:15:06 06/19/2023 text/html ROS as noted in the HPI fracture left ankle , wears braces for feet that turn inward anyway . LOTTIE Tatum [address], [place], [address], [facility] 06/20/2023 16:36:32 12/18/2023 text/html ROS as noted in the HPI nocturia , would like to stop hctz LOTTIE Tatum [address], [place], [address], [facility] 01/11/2024 10:50:22 OBGyn Episode No OBEpisode recorded.
[2024-12-09 18:25] LABS: Hemoglobin A1C 5.5 % (<5.7)
[2024-12-10 12:08] LABS: eGFR 40 (>59)
== END 2024-12-09 14:17 | disposition home or self-care (01) ==
PROVIDERS: PCP Family Medicine; Referring Provider Internal Medicine Cardiovascular Disease; Visit Provider Family Medicine
DX: E11.22 Type 2 diabetes mellitus with diabetic chronic kidney disease (principal); I12.9 Hypertensive chronic kidney disease with stage 1 through stage 4 chronic kidney disease, or unspecified chronic kidney disease; N18.30 Chronic kidney disease, stage 3 unspecified; I51.9 Heart disease, unspecified; I48.0 Paroxysmal atrial fibrillation; I87.2 Venous insufficiency (chronic) (peripheral); K21.9 Gastro-esophageal reflux disease without esophagitis; E78.00 Pure hypercholesterolemia, unspecified; G47.33 Obstructive sleep apnea (adult) (pediatric)
CPT/HCPCS: 36415; 71046; 80053; 82043; 82306; 82610; 83036; 83735; 83970; 84100; 84439; 84443; 85027

== ENCOUNTER 2024-12-18 12:13 | Outpatient (CLI) | payer MEDICARE, BC, SELFPAY ==
--- OUTSIDE RECORDS SUMMARY | 2024-12-18 12:18 | XMS_ITS | Encounter Summary ---
Author Organization [facility] Address [address] [facility] [facility] [address] [place] [address] Care Team Providers Care Medical Delivery Driver Name Role Phone Ranjana Friedman MD Primary Care Provider [phone] Charito Colunga NP Primary Care Provider [phone] Talya Valentino MD Primary Care Provider +- [phone] Matthew Phillips Primary Care Provider + Annie Wilhelm DO Primary Care Provider + Encounter Details Date Type Department Care Team (Late st Contact Info) Description 06/06/2016 Orders Only [facility] ProviderPreet MD [address] [place] [address] Social History Tobacco Use Types Packs/Day Years Used Date Smoking Tobacco: Never Alcohol Use Standard Drinks/Week Comments No 0 (1 standard drink = 0.6 oz pur e alcohol) Comments Unknown Sex and Gender Information Value Date Recorded Sex Assigned at Not on file 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 Gender Identity Not on file Sexual Orientation [...] on filedocumented in this encounter Care Teams Medical Delivery Driver Relationship Specialty Start Date End Date Ranjana Friedman MD [email or web address] [address] PCP - General 12/27/14 07/31/16 Charito Colunga NP [email or web address] [address] PCP - General 08/01/16 03/12/23 Talya Valentino MD [address] [place] [address] [place] [address] PCP - General Family Medicine 03/13/23 10/29/23 Matthew Phillips PA [address] [place] [address] [place] [address] PCP - General Internal Medicine 10/30/23 05/27/24 Annie Wilhelm DO [address] [place] [address] [address] [place] [id number] PCP - General Family Medicine 05/28/24 documented as of this encounter
--- OUTSIDE RECORDS SUMMARY | 2024-12-18 12:18 | XMS_ITS | Encounter Summary ---
Author Organization [facility] Address [address] [place] [address] Care Team Providers Care Chinese Teacher Name Role Phone WilhelmJenni christianbeth Alicia BELTRAN Primary Care Provider + Encounter Details Date Type Department Care Team (Latest Contact Info) Description 12/15/2024 Results Follow-Up [facility] Cardiology [address] [facility] [address], [place] [address] Jean Paul Castillo MD [address] [facility] [address] [place], [place] [id number] Transthoracic Echo (TTE) Complete W Doppler/CF Social History Tobacco Use Types Packs/Day Years Used Date Smoking Tobacco: Never Smokeless Tobacco: Never Alcohol Use Standard Drinks/Week Comments No 0 (1 standard drink = 0.6 oz pur e alcohol) Comments Unknown Sex and Gender Information Value Date Recorded Sex Assigned at Not on file 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 Gender Identity Not on file Sexual Orientation Not on file documented as of this encounter Miscellaneous Notes * Result Encounter Note - Hamida Armstrong MA - 12/15/2024 5:31 PM CDT Pt notified of results and verbalized understanding documented in this encounter Plan of Treatment Not on file documented as of this encounter Visit Diagnoses Not on filedocumented in this encounter Care Teams Chinese Teacher Relationship Specialty Start Date End Date Wilhelm, Annie Alicia, DO [facility] [facility] [address] [place] [address], [place] [address] PCP - General Family Medicine 05/28/24 documented as of this encounter
--- OUTSIDE RECORDS SUMMARY | 2024-12-18 12:18 | XMS_ITS | Clinical Summary ---
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 04/21/19 25 Active nebivoloL (BYSTOLIC) 10 mg tabletIndicatio ns:Essential hypertension Take 1 tablet (10 mg total) by mouth daily 90 tablet 3 05/29/19 25 2025 Active amiodarone (PACERONE) 200 mg tablet Take 1 tablet by mouth once daily 90 tablet 12/01/19 25 Active benazepriL (LOTENSIN) 40 mg tablet Take 1 tablet (40 mg total) by mouth daily 90 tablet 3 12/15/19 25 Active amiodarone (PACERONE) 200 mg tablet Take 1 tablet by mouth once daily 90 tablet 3 12/02/19 24 2024 Discontinued benazepriL (LOTENSIN) 40 mg tablet Take 1 tablet by mouth once daily 30 tablet 10 01/09/20 24 2024 Discontinued(R eorder) Active Problems Problem Noted Date Diagnosed Date Bilateral lower extremity edema 12/03/2024 Aortic atherosclerosis 05/23/2022 Essential hypertension 10/20/2019 Obstructive sleep apnea 12/09/2018 Paroxysmal atrial fibrillation 08/01/2016 Chronic anticoagulation 08/01/2016 Morbid obesity with BMI of 45.0-49.9, adult 08/2016 On amiodarone therapy 08/01/2016 Drug therapy finding 06/26/2016 Overview (07/20/2016): On amiodarone therapy Encounters Date Type Department Care Team Description 12/15/2024 Results Follow-Up [facility] [address] [facility] [address] [facility] [place] [address] Randolph Carrillo MD Transthoracic Echo (TTE) Complete W Doppler/CF 12/09/2024 1:00 PM CDT Ancillary Procedure [facility] [address] [place] [address] Paroxysmal atrial fibrillation (HCC); Essential hypertension; Bilateral lower extremity edema 12/03/2024 1:15 PM CDT Office Visit [facility]iology [address] [place] [address] Randolph Carrillo MD Paroxysmal atrial fibrillation (HCC) (Primary Dx); [...] on file 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 Gender Identity Not on file Sexual [...] 01/15/2017 Influenza Vaccine (#1) 2024 01/14/2024, 2021 Procedures Procedure Name Priority Date/Time Associated Diagnosis Comments TRANSTHORACIC ECHO (TTE) COMPLETE W DOPPLER/CF WO CONTRAST Routine 12/09/2024 2:02 PM CDT Paroxysmal atrial fibrillation (HCC) Essential hypertension Bilateral lower extremity edema from Last 3 Months Results * TRANSTHORACIC ECHO (TTE) COMPLETE W DOPPLER/CF WO CONTRAST (12/09/2024 2:02 PM CDT) EF Mod BP 67 % CONS SCIMAGE Anatomical Region Laterality Modality Ultrasound 12/09/2024 1:14 PM CDT Narrative 12/09/2024 7:55 PM CDT [facility] [address] [facility] [place] [address] [address] [address] [facility] [address] [place] [address], [place] [address] P:[phone] P:[phone] Echocardiographic Report Patient Name: LITZY THOMAS A : 1945 Study Date: 12/09/2024 1:14:30 PM Sex: F High Court Justice: Sara Donaldson)([place]), [facility] Location: [place] Ref Provider: RANDOLPH CARRILLO Height(Cm): 163 BSA: 2.41 Weight(Kg): 127.9 Heart Rate: 48 BP: 139 / 55 Quality: Good Order Provider: RANDOLPH CARRILLO PROCEDURES: Echocardiographic Report: Transthoracic echocardiogram with complete 2D, M-Mode, and color Doppler examination. With Strain Analysis. Definity/Optison could not be used due to: patient refused. INDICATIONS: I48.0 Paroxysmal atrial fibrillation, I10 Essential (primary) hypertension, and R60.0 Localized edema. MEASUREMENTS: 2D/MM Value Range Doppler Value Range EF Mod BP 67 % [ 54 - 74 ] MORAIMA Vmax 2.02 cm2 [ 2.00 - 4.00 ] LV GLS -15.90 % AV Mean PG 10 mmHg LVIDd 2D 5.26 cm [ 3.80 - 5.20 ] AV Peak Crispin 2.22 m/s [ 1.00 - 1.70 ] LVIDs 2D 3.31 cm [ 2.20 - 3.50 ] AV Peak PG 20 mmHg LVPWd 2D 1.16 cm [ 0.60 - 0.90 ] AV VTI 61.59 cm IVSd 2D 1.20 cm [ 0.60 - 0.90 ] LVOT Diam 2.02 cm [ 1.70 - 2.10 ] AoR Diam 2D 3.29 cm [ 2.70 - 3.70 ] LVOT Peak Crispin 1.40 m/s [ 0.70 - 1.10 ] LA Volume 69.79 ml [ 22.00 - 52.00 ] LVOT VTI 41.37 cm LA Volume Index 29 cc/m2 [ 16 - 28 ] PV Peak Crispin 0.99 m/s [ 0.40 - 0.80 ] RA Volume 42.14 ml RV S` 13.90 mmHg 2D/MM Value Range Doppler Value Range - FINDINGS: Interpretation Site: Exam was interpreted at home. Left Ventricle: Moderate concentric left ventricular hypertrophy. Left ventricle cavity is upper limits of normal in size. Normal global left ventricular systolic function. Normal left ventricular diastolic function. Ejection fraction is measured at 67 %. Global Longitudinal Strain is -16 %. Right Ventricle: Normal right ventricular size. Normal right ventricular systolic function. Left Atrium: There is mild enlargement of left atrium. Right Atrium: The right atrium is normal in size. Atrial Septum: The atrial septum is not well visualized. Mitral Valve: Mitral valve leaflets appear mildly thickened. Mild mitral valve regurgitation. Aortic Valve: Aortic valve not well visualized. Mild aortic stenosis. Peak Velocity of 2.20 m/s. Mean gradient of 10.0 mmHg. Valve area of 2 cm2. Mild aortic valve regurgitation. Tricuspid Valve: Normal appearance of the tricuspid valve. Right ventricular systolic pressure could not be estimated due to inadequate visualization of the tricuspid regurgitation jet. Pulmonic Valve: Pulmonic valve not well visualized. Pericardium: There is an anterior echo free space consistent with epicardial fat pad. Aorta: Mild aortic root calcification. IVC: Normal size and normal respiratory collapse consistent with normal right atrial pressure (<5 mmHg). CONCLUSIONS: Suboptimal image quality. Moderate LVH. Left ventricle cavity is upper limits of normal in size. Normal LV systolic and diastolic function. Ejection fraction is measured at 67 %. Global Longitudinal Strain is -16 %. Normal right ventricular size and systolic function. There is mild enlargement of left atrium. Mitral valve leaflets appear mildly thickened. Mild mitral valve regurgitation. Aortic valve not well visualized. Mild aortic stenosis. V max 2.20 m/s. Mean gradient 10.0 mmHg. Valve area of 2 cm2. Mild aortic valve regurgitation. Right ventricular systolic pressure could not be estimated due to inadequate visualization of the tricuspid regurgitation jet. Electronically Signed By: Alonso Ray MD, [facility] 12/09/2024 7:55:06 PM CDT Procedure Note Alonso Ray MD - 12/09/2024 [facility] [address] [facility] [place] [address], [place] [address] [address] [facility] [address], [place] [address] P:[phone] P:[phone] Echocardiographic Report Patient Name: LITZY THOMAS A : 1945 Study Date: 12/09/2024 1:14:30 PM Sex: F High Court Justice: Sara Ball ([place])([place]), [facility] Location: [facility] Provider: RANDOLPH CARRLILO Height(Cm): 163 BSA: 2.41 Weight(Kg): 127.9 Heart Rate: 48 BP: 139 / 55 Quality: Good Order Provider: RANDOLPH CARRILLO PROCEDURES: Echocardiographic Report: Transthoracic echocardiogram with complete 2D, M-Mode, and color Dopplerexamination. With Strain Analysis. Definity/Optison could not be used due to: patientrefused. INDICATIONS: I48.0 Paroxysmal atrial fibrillation, I10 Essential (primary)hypertension, and R60.0 Localized edema. MEASUREMENTS: 2D/MM Value Range Doppler ValueRange EF Mod BP 67 % [ 54 - 74 ] MORAIMA Vmax 2.02cm2 [ 2.00 - 4.00 ] LV GLS -15.90 % AV Mean PG 10mmHg LVIDd 2D 5.26 cm [ 3.80 - 5.20 ] AV Peak Crispin 2.22m/s [ 1.00 - 1.70 ] LVIDs 2D 3.31 cm [ 2.20 - 3.50 ] AV Peak PG 20mmHg LVPWd 2D 1.16 cm [ 0.60 - 0.90 ] AV VTI 61.59cm IVSd 2D 1.20 cm [ 0.60 - 0.90 ] LVOT Diam 2.02cm [ 1.70 - 2.10 ] AoR Diam 2D 3.29 cm [ 2.70 - 3.70 ] LVOT Peak Crispin 1.40m/s [ 0.70 - 1.10 ] LA Volume 69.79 ml [ 22.00 - 52.00 ] LVOT VTI 41.37cm LA Volume Index 29 cc/m2 [ 16 - 28 ] PV Peak Crispin 0.99m/s [ 0.40 - 0.80 ] RA Volume 42.14 ml RV S` 13.90mmHg 2D/MM Value Range Doppler ValueRange - FINDINGS: Interpretation Site: Exam was interpreted at home. Left Ventricle: Moderate concentric left ventricular hypertrophy. Left ventricle cavity isupper limits of normal in size. Normal global left ventricular systolic function.Normal left ventricular diastolic function. Ejection fraction is measured at 67 %.Global Longitudinal Strain is -16 %. Right Ventricle: Normal right ventricular size. Normal right ventricular systolicfunction. Left Atrium: There is mild enlargement of left atrium. Right Atrium: The right atrium is normal in size. Atrial Septum: The atrial septum is not well visualized. Mitral Valve: Mitral valve leaflets appear mildly thickened. Mild mitral valveregurgitation. Aortic Valve: Aortic valve not well visualized. Mild aortic stenosis. Peak Velocity of2.20 m/s. Mean gradient of 10.0 mmHg. Valve area of 2 cm2. Mild aortic valveregurgitation. Tricuspid Valve: Normal appearance of the tricuspid valve. Right ventricular systolicpressure could not be estimated due to inadequate visualization of the tricuspidregurgitation jet. Pulmonic Valve: Pulmonic valve not well visualized. Pericardium: There is an anterior echo free space consistent with epicardial fat pad. Aorta: Mild aortic root calcification. IVC: Normal size and normal respiratory collapse consistent with normal rightatrial pressure (<5 mmHg). CONCLUSIONS: Suboptimal image quality. Moderate LVH. Left ventricle cavity is upperlimits of normal in size. Normal LV systolic and diastolic function. Ejection fraction ismeasured at 67 %. Global Longitudinal Strain is -16 %. Normal right ventricular size and systolic function. There is mild enlargement of left atrium. Mitral valve leaflets appear mildly thickened. Mild mitral valveregurgitation. Aortic valve not well visualized. Mild aortic stenosis. V max 2.20 m/s.Mean gradient 10.0 mmHg. Valve area of 2 cm2. Mild aortic valve regurgitation. Right ventricular systolic pressure could not be estimated due toinadequate visualization of the tricuspid regurgitation jet. Electronically Signed By: Alonso Ray MD, [facility] 12/09/2024 7:55:06 PM CDT Randolph Carrillo MD CV ECHO PROCEDURES Final Result from Last 3 Months Insurance MEDICARE BLUE ACCESS OOS MEDICARE BLUE ACCESS OOS Care Teams Senior Technical Manager Relationship Specialty Start Date End Date Annie Wilhelm DO [address] [facility] [address] [place] [address], [place] [id number] PCP - General Family Medicine 05/28/24
--- OUTSIDE RECORDS SUMMARY | 2024-12-18 12:18 | XMS_ITS | Clinical Summary ---
Author Organization [facility] Address [address] [place] [address] Care Team Providers Care College Athlete Name Role Phone ChocoSumiAnnie Primary Care Provider [phone] Medications chlorthalidone 25 MG tablet TAKE 1 TABLET BY MOUTH ONCE DAILY IN THE MORNING 90 tablet 10/07/2024 Active Encounters Date Type Department Care Team Description 12/11/2024 Documentation Only [facility], [address] [address] Rodney Godinez, DO 12/10/2024 Documentation Only [facility], [address] [phone] Rodney Godinez, DO 12/10/2024 Documentation Only [facility], [address] [address] Rodney Godinez, DO 12/10/2024 Documentation Only [facility], [address] [address] Rodney Godinez, DO 12/10/2024 Documentation Only [facility], [address] [address] Rodney Godinez, DO 12/10/2024 Documentation Only [facility], [address] [address] Rodney Godinez, DO 12/09/2024 Documentation Only [facility], [address] [address] Rodney Godinez DO 12/09/2024 Documentation Only [facility], [address] [address] Donnie Barclay MD 10/06/[address] [facility] [address] [address] Rodney Godinez DO from Last 3 Months Social History Tobacco [...] 37.1 C (98.7 F) 04/21/2024 2:51 PM CONTINUITY PERSON Respiratory Rate 20 06/16/2024 12:21 PM CDT Oxygen Saturation 98% 06/16/2024 12:21 PM CDT Inhaled Oxygen Concentration - - Weight 122 kg (270 lb) 06/16/2024 12:21 PM CDT Height - - Body Mass Index - - Plan of Treatment Upcoming Encounters Date Type Department Care Team (Late st Contact Info) Description 12/22/2024 1:15 PM CDT Office Visit [facility], [facility] [address] [address] Rodney Godinez DO [address] [place] [address] Health Maintenance Due Date Last Done Comments Pneumococcal Vaccine: 50+ Years (2 of 2 - PPSV23, PCV20, or PCV21) 03/12/2017 01/15/2017 Diabetes: Hemoglobin A1C 01/28/2024 Diabetes: Ophthalmology Exam 01/28/2024 Diabetes: Pedal Pulse Checked 01/28/2024 Diabetes: Sensory Foot Exam 01/28/2024 Diabetes: Visual Foot Exam 01/28/2024 Influenza Vaccine (#1) 2024 , 11/23/2021 Hepatitis B Vaccine Aged Out No longe r eligible based on patient's age to complete this topic Insurance Medicare [facility] Care Teams College Athlete Relationship Specialty Start Date End Date Annie Wilhelm DO [address] [place] [address] [address] [place], [place] [id number] PCP - General Internal Medicine 04/21/24
--- OUTSIDE RECORDS SUMMARY | 2024-12-18 12:18 | XMS_ITS | Encounter Summary ---
Author Organization [facility] Address [address] [facility] [address] [place] [address] Care Team Providers Care Adjunct Political Science Instructor Name Role Phone Ranjana Friedman MD Primary Care Provider [phone] Charito Colunga NP Primary Care Provider [phone] Talya Valentino MD Primary Care Provider [phone] Matthew Phillips Primary Care Provider + Annie Wilhelm DO Primary Care Provider + Encounter Details Date Type Department Care Team (Late st Contact Info) Description 06/26/2016 Orders Only [facility] ProviderPreet MD [address] [place] [address] Social History Tobacco Use Types Packs/Day Years Used Date Smoking Tobacco: Never Alcohol Use Standard Drinks/Week Comments No 0 (1 standard drink = 0.6 oz pur e alcohol) Comments Unknown Sex and Gender Information Value Date Recorded Sex Assigned at Not on file 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 Gender Identity Not on file Sexual [...] on filedocumented in this encounter Care Teams Adjunct Political Science Instructor Relationship Specialty Start Date End Date Ranjana Friedman MD [address] [address] PCP - General 12/27/14 07/31/16 Charito Colunga NP [address] [address] PCP - General 08/01/16 03/12/23 Talya Valentino MD [address] [place] [address] [place] [address] PCP - General Family Medicine 03/13/23 10/29/23 Matthew Phillips PA [address] [place] [address] [place] [address] PCP - General Internal Medicine 10/30/23 05/27/24 Annie Wilhelm DO [address] [place] [address] [address] [place] [id number] PCP - General Family Medicine 05/28/24 documented as of this encounter
--- OUTSIDE RECORDS SUMMARY | 2024-12-18 12:18 | XMS_ITS | Encounter Summary ---
Author Organization [facility] Address [address] [facility] [address] [place] [address] Care Team Providers Care Spa Therapist Name Role Phone Ranjana Friedman MD Primary Care Provider [phone] Charito Colunga NP Primary Care Provider [phone] Talya Valentino MD Primary Care Provider [phone] Matthew Phillips Primary Care Provider + Annie Wilhelm DO Primary Care Provider + Encounter Details Date Type Department Care Team (Late st Contact Info) Description 07/09/2016 Orders Only [facility] ProviderPreet MD [address] [place] [address] Social History Tobacco Use Types Packs/Day Years Used Date Smoking Tobacco: Never Alcohol Use Standard Drinks/Week Comments No 0 (1 standard drink = 0.6 oz pur e alcohol) Comments Unknown Sex and Gender Information Value Date Recorded Sex Assigned at Not on file 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 Gender Identity Not on file Sexual Orientation [...] on filedocumented in this encounter Care Teams Spa Therapist Relationship Specialty Start Date End Date Ranjana Friedman MD [address] [address] PCP - General 12/27/14 07/31/16 Charito Colunga NP [address] [address] PCP - General 08/01/16 03/12/23 Talya Valentino MD [address] [place] [address] [place] [address] PCP - General Family Medicine 03/13/23 10/29/23 Matthew Phillips PA [address] [place] [address] [place] [address] PCP - General Internal Medicine 10/30/23 05/27/24 Annie Wilhelm DO [address] [place] [address] [address] [place] [id number] PCP - General Family Medicine 05/28/24 documented as of this encounter
--- OUTSIDE RECORDS SUMMARY | 2024-12-18 12:18 | XMS_ITS | Encounter Summary ---
Author Organization [facility] Address [address] [place] [address] Care Team Providers Care Hand Button Splitter Name Role Phone Charito Colunga NP Primary Care Provider [phone] Talya Valentino MD Primary Care Provider + [phone] Matthew Phillips Primary Care Provider + Annie Wilhelm DO Primary Care Provider + Encounter Details Date Type Department Care Team (Late st Contact Info) Description 05/20/2017 Orders Only [facility] Information Management [address] [place] [address] Scanning, Provider Social History Tobacco Use Types Packs/Day Years Used Date Smoking Tobacco: Never Smokeless Tobacco: Never Alcohol Use Standard Drinks/Week Comments No 0 (1 standard drink = 0.6 oz pur e alcohol) Comments Unknown Sex and Gender Information Value Date Recorded Sex Assigned at Not on file 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 Gender Identity Not on file Sexual [...] on filedocumented in this encounter Care Teams Hand Button Splitter Relationship Specialty Start Date End Date Charito Colunga NP PCP - General 08/01/16 03/12/23 Talya Valentino MD [address] [place] [address] [place] [address] PCP - General Family Medicine 03/13/23 10/29/23 Matthew Phillips PA [address] [place] [address] [place] [address] PCP - General Internal Medicine 10/30/23 05/27/24 Annie Wilhelm DO [address] [place] [address] [place] [address] PCP - General Family Medicine 05/28/24 documented as of this encounter
--- NOTE | 2025-01-21 11:16 | WPDPFTINT ---
PFT Procedure Performed PFT Procedure Performed Plethysmography (Lung Vol) Diffusing Cap (DLCO) Flow Vol Loop Spirometry w/o Bronchodil PFT Interpretation DOS: 12/18/2024 REQUESTING: Jean Paul Castillo MD REASON FOR TESTING: amiodarone therapy PULMONARY FUNCTION TESTS Results are reliable and reproducible. Repeatability of spirometry FEV1 maneuver is Grade A. GLI 2012 reference equations were used. Spirometry: The FEV1 is 1.36 L, 65%, mildly decreased. The FVC is 2.03 L, 75%, normal. The FEV1/FVC ratio is 67%, normal. No bronchodilator administered. Lung volumes: The total lung capacity is 3.83 L, 74%, mildly decreased. The functional residual capacity is 1.81 L, 60%, mildly decreased. The residual volume is 1.78 L, 75%, normal. The RV/TLC is 46%, normal. Airway resistance is increased. Diffusion: DLCO is 16, 79%, normal. The DLCO/VA is 1.48, 108%, normal. Flow volume loop: The flow volume loop shows coving of the expiratory limb. IMPRESSION: Mild decrease in FEV1 without obstruction, mild restriction, normal diffusion. Compared to a PFT 11/06/2023, FEV1 is now lower, 1.36 L which is 65% predicted compared to 1.76 L, 83%. This is a 400 mL reduction in FEV1. Restriction is new, TLC is 3.83 L, 74%, previously was 4.99 L, 96%. This is greater than 1 L reduction in 13 months. Normal diffusion. Amiodarone toxicity is monitored using the DLCO for a 20% reduction. Her DLCO is normal. The changes seen here are not typical for amiodarone use. Clinical correlation advised. Gi Ridley MD
== END 2024-12-18 12:14 | disposition home or self-care (01) ==
PROVIDERS: PCP Family Medicine; Visit Provider Internal Medicine Cardiovascular Disease
DX: Z51.81 Encounter for therapeutic drug level monitoring (principal); Z79.899 Other long term (current) drug therapy
CPT/HCPCS: 94375; 94726; 94729